=== PATIENT | male | born 1945 | race Caucasian/White ===

== ENCOUNTER 2022-07-16 22:58 | Inpatient (IN) ==
--- NOTE | 2022-07-16 23:20 | Emergency Department Note ---
History of Present Illness General Chief complaint: Chest Pain History of Present Illness 76-year-old male presents emergency department stating for the past few weeks he has had chest tightness and indigestion that radiates to his left shoulder. He has been monitoring it thinking that is possibly his COPD. However today has had 3 episodes of substernal chest pressure that radiated to his left arm with associated nausea and mild diaphoresis. Patient states that on the second episode he took nitroglycerin which completely resolved the pain. It recurred earlier this evening and he called EMS. Patient was given 324 mg of aspirin and nitro prior to arrival. He is currently pain-free. Denies any cough cold congestion symptoms. There are no other mitigating or alleviating factors Home Medications Medication Instructions Recorded Confirmed Type acetaminophen 500 mg tablet 500 mg PO Q6H PRN fever #30 tabs 12/28/20 07/17/22 Rx aspirin 81 mg tablet,delayed 81 mg PO DAILY #30 tabs 12/28/20 07/17/22 Rx release (Enteric Coated Aspirin) melatonin 10 mg capsule 10 mg PO HS PRN sleep #30 caps 12/28/20 07/17/22 Rx omeprazole 20 mg capsule,delayed 20 mg PO DAILY #30 caps 12/28/20 07/17/22 Rx release diabetic supplies, miscellan. #1 ea 12/31/20 04/21/22 History clopidogrel 75 mg tablet 75 mg PO DAILY #90 tabs 08/12/21 07/17/22 Rx benazepril 40 mg tablet 40 mg PO DAILY #90 tabs 11/14/21 07/17/22 Rx fenofibrate nanocrystallized 145 145 mg PO DAILY #90 tabs 01/21/22 07/17/22 Rx mg tablet nitroglycerin 0.4 mg sublingual 0.4 mg sublingual Q5M PRN chest 03/31/22 07/17/22 Rx tablet pain #30 tabs albuterol sulfate 90 mcg/actuation 2 puff inhalation Q6H PRN 04/28/22 07/17/22 Rx aerosol inhaler Shortness Of Breath Or Wheezing #18 grams umeclidinium 62.5 mcg/actuation 1 inh inhalation DAILY #30 ea 05/09/22 07/17/22 Rx blister powder for inhalation (Incruse Ellipta) atorvastatin 40 mg tablet 40 mg PO HS 07/17/22 07/17/22 History azithromycin 250 mg tablet 0 mg PO .COMPLEX 07/17/22 07/17/22 History diphenhydramine HCl 25 mg capsule 25 mg PO DIRECTED PRN Congestion 07/17/22 07/17/22 History (Benadryl) metformin 1,000 mg tablet 1,000 mg PO HS 07/17/22 07/17/22 History prednisone 10 mg tablet 0 mg PO DIRECTED 07/17/22 07/17/22 History Allergies Allergy/AdvReac Type Severity Reaction Status Date / Time No Known Allergies Allergy Verified 07/17/22 00:35 Past Med/Surg History Medical History CAD (coronary artery disease) Carotid artery stenosis COPD (chronic obstructive pulmonary disease) Diabetes Enlarged prostate Glaucoma H/O: lung cancer Hearing loss Hyperlipidemia Hypertension Peripheral arterial disease Surgical History H/O angioplasty L femoral in 2005 and 11/2020, R femoral in 2018 and 10/2019 H/O cataract extraction H/O laminectomy L3/4 in 1990, L4/5 w/ fusion in 1992 H/O right knee surgery H/O umbilical hernia repair H/O vasectomy History of 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 S/P coronary artery stent placement Status post biopsy of skin Family History Brother Lung cancer Father Heart disease Hypertension Mother Cerebral aneurysm Social History Smoking Status: Former smoker Tobacco Type: Cigarettes Age Started Using Tobacco: 19; Age Quit Using Tobacco: 69; packs per day: 1.5; Cigarettes Per Day: 30; Second Hand Exposure: No; Hx Alcohol Use: Yes Alcohol type: beer Alcohol Intake Frequency: Monthly or Less Hx Substance Use: No Preferred Language: Armenian Communication Ability: Effective Visual Impairment: No Limitations Hearing Ability: Normal Career Transition Specialist Required: No marital status: Current Living Situation: Alone current occupational status: retired Feels Safe at Home: Yes Childhood Exposure to Second-Hand Smoke: No Dental Care, Regularly: No Physical Activity Frequency: Daily Seatbelt Use: always Sunscreen Use: Yes Assistive Devices: Glasses Review of Systems A total of 10 systems reviewed and were otherwise negative Cardiovascular: + chest pain Physical Exam Vital Signs Vital Signs - 24 hr 07/16/22 22:49 07/16/22 22:49 07/16/22 22:49 Temperature 36.8 C Temperature Source Oral Pulse Rate 63 Respiratory Rate 18 Respiratory Effort / Characteristics Non-Labored Non-Labored Respiratory Depth Normal Normal Blood Pressure 174/84 H Blood Pressure Mean 114 Pulse Oximetry 96 98 Oxygen Delivery Method Room Air Room Air Sepsis Recent Fever Within 48 Hours No Sepsis New/Unexplained Change in Mental Status No Sepsis Action Taken by Nursing No Action Required GENERAL: Patient is awake alert in no acute distress patient is resting comfortably and showing no signs of anxiety EYES: The conjunctivae are clear. The pupils are round and reactive. EARS, NOSE, MOUTH AND THROAT: The nose is without any evidence of any deformity. Mucous membranes are moist. Tongue is midline. NECK: The neck is nontender and supple. RESPIRATORY: Normal respiratory effort is noted there is no evidence of wheezing rhonchi or rales CARDIOVASCULAR: Regular rate and rhythm noted there no murmurs rubs or gallops normal S1 normal S2. GASTROINTESTINAL: The abdomen is soft. Abdomen is nontender. PELVIS: The Pelvis is stable. No tenderness to palpation is noted. BACK: No midline tenderness or or step-off noted range of motion in flexion extension as well as rotation no signs of muscle spasm noted MUSCULOSKELETAL/EXTREMITIES: There is no evidence of gross deformity full range of motion is noted in the hips and shoulders. SKIN: There is no obvious evidence of any rash. There are no petechiae, pallor or cyanosis noted. NEUROLOGIC: Patient is awake alert and oriented x3 strength is symmetric PSYCH: Normal affect Course Reevaluation(s) Reevaluation #1: Patient is resting in no distress, no current chest pain, patient was started on IV heparin and Nitropaste. Patient will be admitted to the hospital Time: 00:54 Consultations Consultation #1: This case was discussed with the [facility] hospitalist who accepts the patient for admission and agrees with inpatient admission for NSTEMI Time: 00:54 Critical Care Time Critical Care Time: Yes Total Critical Care Time: 40 I have personally spent greater than 40 minutes of critical care time in the direct management of this patient. This includes bedside care, interpretation of diagnostic studies, and testing, discussion with consultants, patient, and family members, and other required patient management activities. These minutes are in excess of all separately billable procedures. Medical Decision Making Medical Records Attestation: I reviewed the patient's medical records. Home Medications Current Medication List: was personally reviewed by me Laboratory Data Attestation: I reviewed the patient's lab results. 07/16/22 23:20 07/16/22 23:20 Lab Results 07/16/22 07/16/22 07/16/22 Range/Units 23:20 23:20 23:20 WBC 6.24 (4.8-10.8) K/ul RBC 4.17 L (4.63-6.08) M/uL Hgb 12.9 L (14.0-18.0) g/dl Hct 38.7 L (40.1-51.0) % MCV 92.8 (80.0-100.0) fL MCH 30.9 (25.0-34.0) pg MCHC 33.3 (32.0-36.0) g/dL RDW Std Deviation 42.0 (36.4-46.3) fL RDW Coeff of Galile[place] 12.3 (11.5-14.5) % Plt Count 243 (130-400) K/uL MPV 9.6 (9.4-12.4) fL Immature Gran % (Auto) 0.8 % Neut % (Auto) 50.0 % Lymph % (Auto) 31.3 % [place] % (Auto) 14.4 % Eos % (Auto) 3.2 % Baso % (Auto) 0.3 % Neut # (Auto) 3.12 (1.4-6.5) K/uL Lymph # (Auto) 1.95 (1.2-3.4) K/uL [place] # (Auto) 0.90 H (0.24-0.82) K/uL Eos # (Auto) 0.20 (0-0.50) K/uL Baso # (Auto) 0.02 (0-0.2) K/uL Immature Gran # (Auto) 0.05 H (0.00-0.02) K/uL PT 10.6 (9.0-12.0) Seconds INR 1.0 (0.9-1.1) APTT 25.6 (21.0-31.0) Seconds PTT Ratio 0.9 Sodium 141 (136-145) mmol/L Potassium 4.3 (3.5-5.1) mmol/L Chloride 108 H (98-107) mmol/L Carbon Dioxide 27 (21-32) mmol/L Anion Gap 6 (3-11) BUN 29 H (6-23) mg/dl Creatinine 1.16 (0.6-1.4) mg/dl Est Cr Clr Drug Dosing 64.0 ml/min Est GFR ( Amer) 70.0 ml/min Est GFR (Non-Af Amer) 60.4 ml/min BUN/Creatinine Ratio 25.0 H (10-20) Glucose 148 H (70-99(Fasting)) mg/dl Calcium 9.7 (8.5-10.1) mg/dl Total Bilirubin 0.3 (0.2-1.0) mg/dl AST 27 (13-39) U/L ALT 27 (7-52) U/L Alkaline Phosphatase 45 (34-104) U/L Troponin I High Sens 121.2 H* (0-20) pg/ml Total Protein 7.3 (6.0-8.3) gm/dl Albumin 4.3 (3.4-5.0) gm/dl Globulin 3.0 (2.5-4.0) gm/dl Albumin/Globulin Ratio 1.4 (0.9-2) Lipase 42 (11-82) U/L SARS-CoV-2, RNA, NAAT (NEGATIVE) 07/16/22 Range/Units 23:50 WBC (4.8-10.8) K/ul RBC (4.63-6.08) M/uL Hgb (14.0-18.0) g/dl Hct (40.1-51.0) % MCV (80.0-100.0) fL MCH (25.0-34.0) pg MCHC (32.0-36.0) g/dL RDW Std Deviation (36.4-46.3) fL RDW Coeff of [place] (11.5-14.5) % Plt Count (130-400) K/uL MPV (9.4-12.4) fL Immature Gran % (Auto) % Neut % (Auto) % Lymph % (Auto) % [place] % (Auto) % Eos % (Auto) % Baso % (Auto) % Neut # (Auto) (1.4-6.5) K/uL Lymph # (Auto) (1.2-3.4) K/uL [place] # (Auto) (0.24-0.82) K/uL Eos # (Auto) (0-0.50) K/uL Baso # (Auto) (0-0.2) K/uL Immature Gran # (Auto) (0.00-0.02) K/uL PT (9.0-12.0) Seconds INR (0.9-1.1) APTT (21.0-31.0) Seconds PTT Ratio Sodium (136-145) mmol/L Potassium (3.5-5.1) mmol/L Chloride (98-107) mmol/L Carbon Dioxide (21-32) mmol/L Anion Gap (3-11) BUN (6-23) mg/dl Creatinine (0.6-1.4) mg/dl Est Cr Clr Drug Dosing ml/min Est GFR ( Amer) ml/min Est GFR (Non-Af Amer) ml/min BUN/Creatinine Ratio (10-20) Glucose (70-99(Fasting)) mg/dl Calcium (8.5-10.1) mg/dl Total Bilirubin (0.2-1.0) mg/dl AST (13-39) U/L ALT (7-52) U/L Alkaline Phosphatase (34-104) U/L Troponin I High Sens (0-20) pg/ml Total Protein (6.0-8.3) gm/dl Albumin (3.4-5.0) gm/dl Globulin (2.5-4.0) gm/dl Albumin/Globulin Ratio (0.9-2) Lipase (11-82) U/L SARS-CoV-2, RNA, NAAT NEGATIVE (NEGATIVE) Imaging Data Attestation: I personally reviewed and interpreted this imaging study as follow s: My Impression: Chest x-ray interpreted by me cardiomegaly calcific aorta no obvious pneumothorax or infiltrate ECG Data Attestation: I personally reviewed and interpreted this ECG as follows: Additional Comments: EKG interpreted by me normal sinus rhythm rate of 65 left ventricular hypertrophy left axis deviation normal intervals patient has T wave inversions in V3 through V6 which in comparison to EKG of April 14, 2022 the T wave inversions are now new. There is no ST segment elevation present MDM Narrative Medical decision making differential diagnosis includes angina, unstable angina, acute WI, acute coronary syndrome, metabolic derangement, musculoskeletal chest pain. I doubt thoracic aortic dissection or pulmonary embolism. Plan is to check labs EKG chest x-ray, patient has received aspirin prior to arrival, admit Nursing notes have been reviewed and appreciated External medical records regarding this patient's presentation in the past in March for COPD and his EKG were reviewed by me Patient is high risk for a life-threatening event Patient will be admitted for NSTEMI Patient was started on heparin And aspirin has been given by EMS prior to arrival Patient was started on nitroglycerin paste Patient is at high risk for life-threatening event Impression & Plan Acute non-ST elevation myocardial infarction (NSTEMI) Discharge Plan Visit Data Chief Complaint: Chest Pain ED Provider: Paras Clayton Discharge Problem: Acute non-ST elevation myocardial infarction (NSTEMI) Patient Disposition: Admitted As Inpatient Forms Stand Alone Forms: [facility] Prescriptions Prescriptions: No Action omeprazole 20 mg capsule,delayed release(DR/EC) 20 mg PO DAILY Qty: 30 2RF melatonin 10 mg capsule 10 mg PO HS PRN (Reason: sleep) Qty: 30 0RF acetaminophen 500 mg tablet 500 mg PO Q6H PRN (Reason: fever) Qty: 30 0RF Rx Instructions: PER PT "USUALLY TAKE 1000 MG AT HS". aspirin [Enteric Coated Aspirin] 81 mg tablet,delayed release (DR/EC) 81 mg PO DAILY Qty: 30 2RF benazepril 40 mg tablet 40 mg PO DAILY Qty: 90 3RF Incruse Ellipta 62.5 mcg/actuation blister with device 1 inh inhalation DAILY Qty: 30 2RF fenofibrate nanocrystallized 145 mg tablet 145 mg PO DAILY Qty: 90 1RF (DME) diabetic supplies, miscellan. Misc See Rx Instructions .ROUTE .MEDSUPPLY Qty: 1 Rx Instructions: ONE TOUCH ULTRA- TESTS PRN clopidogrel 75 mg tablet 75 mg PO DAILY Qty: 90 3RF nitroglycerin 0.4 mg tablet, sublingual 0.4 mg sublingual Q5M PRN (Reason: chest pain) Qty: 30 0RF Rx Instructions: do not exceed 3 doses per episode albuterol sulfate 90 mcg/actuation HFA aerosol inhaler 2 puff inhalation Q6H PRN (Reason: Shortness Of Breath Or Wheezing) Qty: 18 3RF Rx Instructions: PER PT "USUALLY USE 2 PUFFS AT HS". diphenhydramine HCl [Benadryl] 25 mg Capsule 25 mg PO DIRECTED PRN (Reason: Congestion) atorvastatin 40 mg tablet 40 mg PO HS metformin 1,000 mg tablet 1,000 mg PO HS prednisone 10 mg Tablet 0 mg PO DIRECTED Rx Instructions: ON PT'S MED LIST, UNABLE TO VERIFY ON EXT MED HX. azithromycin 250 mg Tablet 0 mg PO .COMPLEX Rx Instructions: ON PT'S MED LIST, UNABLE TO VERIFY ON EXT MED HX. For 250 mg dose pack: take 500 mg today (day 1), then 250 mg for 4 days (days 2-5) Referrals Referrals: Talon Burns DO [Primary Care Provider] - Risk - HEART Scoring HEART Score for Major Cardiac Events History: Highly Suspicious EKG: Non-Specific Repolarization Disturbance Age: > 64 Years of Age Risk Factors: >2 Risk Factors Initial Troponin: 1-3x Normal Limit Total Points: 8 Risk Level: High Risk for Major Adverse Cardiac Event HEART Score Interpretation: Score interpretation (as per derivation study): HEART Adverse Cardiac Score Event Risk Management 0-3 0.9-1.7% In the HEART Score study, these patients were discharged. 4-6 12-16.6% In the HEART Score study, these patients were admitted to the hospital. 7-10 50-65% In the HEART Score study, these patients were candidates for early invasive measurements. Original Source: 1. Syed AJ, Kristina BE, Quinton AMARO. Chest pain in the emergency room: value of the HEART score. [facility]. 2008; 16(6):191-6.
[2022-07-16 23:40] LABS: Basophils # (auto) 0.02 K/uL (0-0.2); Basophils % (auto) 0.3 %; Eosinophils % (auto) 3.2 %; Hematocrit (blood only) 38.7 % (40.1-51.0); Hemoglobin 12.9 g/dl (14.0-18.0); Immature Granulocytes # (auto) 0.05 K/uL (0.00-0.02); Immature Granulocytes % (auto) 0.8 %; Lymphocytes # (auto) 1.95 K/uL (1.2-3.4); Lymphocytes % (auto) 31.3 %; Mean Corpuscular Hemoglobin 30.9 pg (25.0-34.0); Mean Corpuscular Hgb Conc 33.3 g/dL (32.0-36.0); Mean Corpuscular Volume 92.8 fL (80.0-100.0); Mean Platelet Volume 9.6 fL (9.4-12.4); Monocytes % (auto) 14.4 %; Neutrophils # (auto) 3.12 K/uL (1.4-6.5); Platelet Count 243 K/uL (130-400); RDW Coefficient of Variation 12.3 % (11.5-14.5); Red Blood Count 4.17 M/uL (4.63-6.08); White Blood Count 6.24 K/ul (4.8-10.8)
[2022-07-16 23:53] LABS: Partial Thromboplastin Ratio 0.9; Partial Thromboplastin Time 25.6 Seconds (21.0-31.0); Prothrombin Time 10.6 Seconds (9.0-12.0)
[2022-07-17 00:05] LABS: Albumin Globulin Ratio 1.4 (0.9-2); Albumin Level 4.3 gm/dl (3.4-5.0); Bilirubin,Total 0.3 mg/dl (0.2-1.0); Calcium 9.7 mg/dl (8.5-10.1); Est GFR (Non-African American) 60.4 ml/min; Potassium 4.3 mmol/L (3.5-5.1); Total Protein 7.3 gm/dl (6.0-8.3)
[2022-07-17] MEDS ORDERED: Heparin IV Adult Wt-Based Standard WITH Bolus Protocol IV STA (00:22)
[2022-07-17 00:23] LABS: Troponin I High Sensitivity 121.2 pg/ml (0-20)
[2022-07-17] MEDS ORDERED: HEPARIN SOD (PORCINE) 1000 UNIT/ML IV ONE ×2 (00:37→01:15)
[2022-07-17] MEDS ORDERED: NITROGLYCERIN 2% OINTMENT 30GM TUBE EXT SCH (00:45)
[2022-07-17] MEDS: HEPARIN SODIUM/DEXTROSE 25,000 UNITS/500 ML BAG IV SCH ×3 (01:15→19:26)
[2022-07-17] MEDS ORDERED: ATORVASTATIN 40 MG TAB PO ONE (01:15)
--- NOTE | 2022-07-17 03:00 | History & Physical Report ---
Date of Service July 17, 2022 Assessment & Plan (1) Acute non-ST elevation myocardial infarction (NSTEMI): (2) History of lung cancer: (3) COPD (chronic obstructive pulmonary disease): (4) CAD (coronary artery disease): (5) Carotid artery stenosis: (6) Peripheral arterial disease: (7) Hyperlipidemia: (8) Hypertension: (9) Diabetes: (10) Acid reflux disease: (11) H/O right coronary artery stent placement: Plan History of right coronary artery stent placement/acute NSTEMI/bradycardia with near syncope/elevated troponin/CAD/hypertension- The patient will be admitted to telemetry for serial cardiac enzymes, serial EKG's, cardiac rhythm monitoring and a 2-D echocardiogram with Dopplers. Continue heparin drip begun in the ED Continue Nitropaste 1 inch anterior chest wall every 6 hours Continue pacer pads and have atropine 0.5 mg IV at bedside Continue aspirin 81 mg daily, benazepril/lisinopril 40 mg daily, clopidogrel 75 mg daily. Patient did receive aspirin 324 mg in route to the hospital Consult his safekeeping clerk Dr. Bender Hyperlipidemia- Increase atorvastatin from 40 to 80 mg and give first dose this evening, and continue fenofibrate 145 mg daily Check a fasting lipid panel Diabetes mellitus- Hold metformin Placed on Accu-Cheks before meals and at bedtime with NovoLog coverage per scale COPD- Continue DuoNebs every 2 hours as needed Insomnia- Continue melatonin 10 mg p.o. at bedtime as needed History of Present Illness Chief Complaint: The patient presents to the emergency department with complaint of a few weeks of chest tightness and discomfort, that radiated toward his left shoulder and left arm. He has some intermittent indigestion as well. Today he had 3 episodes of worsening chest pressure, associated with nausea and diaphoresis, with each episode responding to sublingual nitroglycerin. With the third episode, he called emergency services, who gave him 325 mg of aspirin and nitro prior to arrival to the ED. Upon arrival to the ED he was pain-free. Primary Care Provider: Talon Burns DO The patient is a 76-year-old male with past medical history including CAD, COPD, glaucoma, GERD, diabetes mellitus, hypertension, hyperlipidemia, enlarged prostate, status post RCA PCI, PAD, and carotid artery stenosis. He presents with symptoms as noted above. The patient's troponin was elevated at 121.2. EKG noted significant new T wave inversions in leads V3 through V6 in particular, and less so in leads II, III and aVF. The patient was started on heparin drip while in ED, and had the addition of Nitropaste 1 inch to the anterior chest wall as well. The patient did have an episode prior to transfer where he became lightheaded, felt near syncopal, and heart rate decreased down to the 20s, but then spontaneously recovered. At this point, he had pacer pads placed and was transported to stepdown unit. Allergies Allergy/AdvReac Type Severity Reaction Status Date / Time No Known Allergies Allergy Verified 07/17/22 00:35 Home Medications Medication Instructions Recorded Confirmed Type acetaminophen 500 mg tablet 500 mg PO Q6H PRN fever #30 tabs 12/28/20 07/17/22 Rx aspirin 81 mg tablet,delayed 81 mg PO DAILY #30 tabs 12/28/20 07/17/22 Rx release (Enteric Coated Aspirin) melatonin 10 mg capsule 10 mg PO HS PRN sleep #30 caps 12/28/20 07/17/22 Rx omeprazole 20 mg capsule,delayed 20 mg PO DAILY #30 caps 12/28/20 07/17/22 Rx release diabetic supplies, miscellan. #1 ea 12/31/20 04/21/22 History clopidogrel 75 mg tablet 75 mg PO DAILY #90 tabs 08/12/21 07/17/22 Rx benazepril 40 mg tablet 40 mg PO DAILY #90 tabs 11/14/21 07/17/22 Rx fenofibrate nanocrystallized 145 145 mg PO DAILY #90 tabs 01/21/22 07/17/22 Rx mg tablet nitroglycerin 0.4 mg sublingual 0.4 mg sublingual Q5M PRN chest 03/31/22 07/17/22 Rx tablet pain #30 tabs albuterol sulfate 90 mcg/actuation 2 puff inhalation Q6H PRN 04/28/22 07/17/22 Rx aerosol inhaler Shortness Of Breath Or Wheezing #18 grams umeclidinium 62.5 mcg/actuation 1 inh inhalation DAILY #30 ea 05/09/22 07/17/22 Rx blister powder for inhalation (Incruse Ellipta) atorvastatin 40 mg tablet 40 mg PO HS 07/17/22 07/17/22 History azithromycin 250 mg tablet 0 mg PO .COMPLEX 07/17/22 07/17/22 History diphenhydramine HCl 25 mg capsule 25 mg PO DIRECTED PRN Congestion 07/17/22 07/17/22 History (Benadryl) metformin 1,000 mg tablet 1,000 mg PO HS 07/17/22 07/17/22 History prednisone 10 mg tablet 0 mg PO DIRECTED 07/17/22 07/17/22 History Past Med/Surg History Medical History (Updated 07/17/22 @ 00:25 by Paras Clayton DO) CAD (coronary artery disease) Carotid artery stenosis COPD (chronic obstructive pulmonary disease) Diabetes Enlarged prostate Glaucoma H/O: lung cancer Hearing loss Hyperlipidemia Hypertension Peripheral arterial disease Surgical History (Updated 07/17/22 @ 04:52 by Edward Bui MD) H/O angioplasty L femoral in 2005 and 11/2020, R femoral in 2018 and 10/2019 H/O cataract extraction H/O laminectomy L3/4 in 1990, L4/5 w/ fusion in 1992 H/O right coronary artery stent placement H/O right knee surgery H/O umbilical hernia repair H/O vasectomy History of 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 S/P coronary artery stent placement Status post biopsy of skin Family History Brother Lung cancer Father Heart disease Hypertension Mother Cerebral aneurysm Social History Smoking Status: Former smoker Tobacco Type: Cigarettes Age Started Using Tobacco: 19; Age Quit Using Tobacco: 69; packs per day: 1.5; Cigarettes Per Day: 30; Second Hand Exposure: No; Do You Dip or Chew Tobacco: No; Hx Alcohol Use: Yes Alcohol type: beer Alcohol Intake Frequency: Monthly or Less Hx Substance Use: No Preferred Language: Somali Communication Ability: Effective Visual Impairment: No Limitations Hearing Ability: Normal 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 Required: No Beliefs That Will Affect Care: None marital status: Current Living Situation: Family current occupational status: retired Feels Safe at Home: Yes Safety Concerns: Feels Safe At This Time Childhood Exposure to Second-Hand Smoke: No Dental Care, Regularly: No Physical Activity Frequency: Daily Seatbelt Use: always Sunscreen Use: Yes Assistive Devices: Denture - Upper, Denture - Lower and Glasses Review of Systems Review of Systems: The patient denies palpitations, cough, lower extremity swelling, sore throat, fevers, chills, sweats, nausea, vomiting, diarrhea , constipation, abdominal pain, pelvic pain, blood in urine or stool, dysuria, urinary frequency or urgency, memory loss, loss of consciousness, rash, abnormal bruising or bleeding, imbalance, focal or generalized weakness, numbness or tingling in right arm or bilateral legs, generalized arthralgias or myalgias, back pain, or night sweats. The review of systems is otherwise negative other than for that already noted above, and at least 10 systems have been reviewed. Physical Exam Physical Exam: The patient is awake, alert and oriented 3, well developed and well nourished, normocephalic and atraumatic, lying in bed and in no acute distress. HEENT--PERRL, EOMI, mucous membranes and oropharynx dry. Neck--supple. No JVD. No bruits. Thyroid normal, trachea midline, no adenopathy. Heart--normal S1 and S2. No murmurs, rubs or gallops. Lungs--clear bilaterally, no respiratory distress, no accessory muscle use. Abdomen--normal bowel sounds and soft. Nontender. Nondistended, no hernias or masses, no organomegaly. Extremities--no cyanosis or clubbing. No edema. There are good distal pulses b/l. Dermatologic--normal skin turgor, normal color, no abnormal lymph nodes, no rash. Neurologic--cranial nerves II through XII grossly intact. Rheumatologic--normal range of motion. Psychiatric--normal affect. Results & Data Results & Data ([facility]) Vital Signs (Past 12 Hours) Vital Signs Temp Pulse Resp BP BP Pulse Ox O2 Del Method 07/17/22 02:30 65 14 92 07/17/22 02:30 139/65 07/17/22 02:20 63 24 95 07/17/22 02:10 64 16 94 07/17/22 02:02 65 16 94 07/17/22 02:02 138/71 07/17/22 02:00 65 15 94 07/17/22 01:50 65 17 95 07/17/22 01:40 62 15 95 07/17/22 01:30 65 18 95 07/17/22 01:20 66 15 96 07/17/22 01:13 63 19 97 07/17/22 01:13 155/74 H 07/17/22 01:10 64 17 96 07/17/22 01:01 67 16 98 07/17/22 01:01 156/77 H 07/17/22 01:00 64 24 99 07/17/22 00:50 71 24 98 07/17/22 00:40 63 15 98 07/17/22 00:30 62 21 98 07/17/22 00:20 64 16 98 07/17/22 00:10 63 17 98 07/17/22 00:00 65 18 97 07/16/22 23:50 62 18 97 07/16/22 23:40 62 21 98 07/16/22 23:30 66 18 98 07/16/22 23:20 73 20 98 07/16/22 23:10 68 17 98 07/16/22 23:06 174/85 H 07/16/22 23:06 69 22 98 07/16/22 23:05 71 15 96 07/17/22 01:00 63 18 98 Room Air 07/17/22 00:49 155/76 H 98 Room Air 07/16/22 22:49 98 Room Air 07/16/22 22:49 36.8 C 63 18 174/84 H 96 Room Air Laboratory Results Laboratory Results WBC 6.68 K/ul (4.8-10.8) 07/17/22 04:09 RBC 3.76 M/uL (4.63-6.08) L 07/17/22 04:09 Hgb 11.6 g/dl (14.0-18.0) L 07/17/22 04:09 Hct 34.3 % (40.1-51.0) L 07/17/22 04:09 MCV 91.2 fL (80.0-100.0) 07/17/22 04:09 MCH 30.9 pg (25.0-34.0) 07/17/22 04:09 MCHC 33.8 g/dL (32.0-36.0) 07/17/22 04:09 RDW Std Deviation 40.8 fL (36.4-46.3) 07/17/22 04:09 RDW Coeff of Galilea 12.3 % (11.5-14.5) 07/17/22 04:09 Plt Count 205 K/uL (130-400) 07/17/22 04:09 MPV 9.6 fL (9.4-12.4) 07/17/22 04:09 Immature Gran % (Auto) 0.4 % 07/17/22 04:09 Neut % (Auto) 44.7 % 07/17/22 04:09 Lymph % (Auto) 37.3 % 07/17/22 04:09 Charles % (Auto) 13.6 % 07/17/22 04:09 Eos % (Auto) 3.7 % 07/17/22 04:09 Baso % (Auto) 0.3 % 07/17/22 04:09 Neut # (Auto) 2.98 K/uL (1.4-6.5) 07/17/22 04:09 Lymph # (Auto) 2.49 K/uL (1.2-3.4) 07/17/22 04:09 Charles # (Auto) 0.91 K/uL (0.24-0.82) H 07/17/22 04:09 Eos # (Auto) 0.25 K/uL (0-0.50) 07/17/22 04:09 Baso # (Auto) 0.02 K/uL (0-0.2) 07/17/22 04:09 Immature Gran # (Auto) 0.03 K/uL (0.00-0.02) H 07/17/22 04:09 PT 10.9 Seconds (9.0-12.0) 07/17/22 04:09 INR 1.0 (0.9-1.1) 07/17/22 04:09 APTT 25.6 Seconds (21.0-31.0) 07/16/22 23:20 PTT Ratio 0.9 07/16/22 23:20 Sodium 141 mmol/L (136-145) 07/17/22 04:09 Potassium 4.0 mmol/L (3.5-5.1) 07/17/22 04:09 Chloride 109 mmol/L (98-107) H 07/17/22 04:09 Carbon Dioxide 23 mmol/L (21-32) 07/17/22 04:09 Anion Gap 9 (3-11) 07/17/22 04:09 BUN 29 mg/dl (6-23) H 07/17/22 04:09 Creatinine 1.19 mg/dl (0.6-1.4) 07/17/22 04:09 Est Cr Clr Drug Dosing 60.2 ml/min 07/17/22 04:09 Est GFR ( Amer) 67.9 ml/min 07/17/22 04:09 Est GFR (Non-Af Amer) 58.6 ml/min 07/17/22 04:09 BUN/Creatinine Ratio 24.4 (10-20) H 07/17/22 04:09 Glucose 121 mg/dl (70-99(Fasting)) H 07/17/22 04:09 Calcium 8.9 mg/dl (8.5-10.1) 07/17/22 04:09 Total Bilirubin 0.3 mg/dl (0.2-1.0) 07/17/22 04:09 AST 24 U/L (13-39) 07/17/22 04:09 ALT 23 U/L (7-52) 07/17/22 04:09 Alkaline Phosphatase 32 U/L (34-104) L 07/17/22 04:09 Troponin I High Sens 149.3 pg/ml (0-20) H* D 07/17/22 01:19 Total Protein 6.2 gm/dl (6.0-8.3) 07/17/22 04:09 Albumin 3.7 gm/dl (3.4-5.0) 07/17/22 04:09 Globulin 2.5 gm/dl (2.5-4.0) 07/17/22 04:09 Albumin/Globulin Ratio 1.5 (0.9-2) 07/17/22 04:09 Triglycerides 156 mg/dl (0-150) H 07/17/22 04:09 Cholesterol 103 mg/dl (0-200) 07/17/22 04:09 LDL Cholesterol, Calc 38 mg/dl 07/17/22 04:09 VLDL Cholesterol, Calc 31 mg/dl (0-30) H 07/17/22 04:09 HDL Cholesterol 34 mg/dl 07/17/22 04:09 Cholesterol/HDL Ratio 3.0 (0-5) 07/17/22 04:09 Lipase 42 U/L (11-82) 07/16/22 23:20 SARS-CoV-2, RNA, NAAT NEGATIVE (NEGATIVE) 07/16/22 23:50 Code Status & VTE Plan Code Status Full code VTE Prophylaxis Plan VTE Prophylaxis will be ordered: Yes PG Care Time/CCT Total # of Minutes Spent Total Time Spent with Patient: Total time spent is greater than 50% in coordination of care (as documented) at patient's floor/unit and/or counseling patient: Coding Level of Care Code 03236 INT INP/OBS CARE 3/75MIN Diagnoses Acute non-ST elevation myocardial infarction (NSTEMI) I21.4 History of lung cancer Z85.118 COPD (chronic obstructive pulmonary disease) J44.9 CAD (coronary artery disease) I25.10 Carotid artery stenosis I65.29 Peripheral arterial disease I73.9 Hyperlipidemia E78.5 Hypertension I10 Diabetes E11.9 Acid reflux disease K21.9 H/O right coronary artery stent placement Z95.5
[2022-07-17] MEDS ORDERED: GLUCOSE 10 TAB/TUBE PO PRN (03:43)
[2022-07-17] MEDS ORDERED: ACETAMINOPHEN 325 MG TAB PO PRN (03:43)
[2022-07-17] MEDS ORDERED: DEXTROSE 50% 50 ML SYRINGE IV PRN (03:43)
[2022-07-17] MEDS ORDERED: GLUCOSE 40% GEL 15 GM TUBE PO PRN (03:43)
[2022-07-17] MEDS ORDERED: CARBOHYDRATES FOR HYPOGLYCEMIA PO PRN (03:43)
[2022-07-17] MEDS ORDERED: ONDANSETRON INJ 2 MG/ML 2 ML VIAL IV PRN (03:43)
[2022-07-17] MEDS ORDERED: GLUCAGON FOR INJ 1 MG VIAL SQ PRN (03:43)
[2022-07-17] MEDS ORDERED: MELATONIN 3 MG TAB PO PRN (03:43)
[2022-07-17] MEDS ORDERED: ALBUTEROL HFA 8 GM INHALER INH PRN (03:43)
[2022-07-17] MEDS ORDERED: ALBUT/IPRATROP 3MG/0.5MG NEB 3 ML VIAL NEB PRN (03:43)
[2022-07-17] MEDS ORDERED: MoRPHine SULFATE 2 MG/ML CARP IV PRN (03:43)
[2022-07-17 04:18] LABS: Basophils # (auto) 0.02 K/uL (0-0.2); Basophils % (auto) 0.3 %; Eosinophils # (auto) 0.25 K/uL (0-0.50); Eosinophils % (auto) 3.7 %; Hematocrit (blood only) 34.3 % (40.1-51.0); Hemoglobin 11.6 g/dl (14.0-18.0); Immature Granulocytes # (auto) 0.03 K/uL (0.00-0.02); Immature Granulocytes % (auto) 0.4 %; Lymphocytes # (auto) 2.49 K/uL (1.2-3.4); Lymphocytes % (auto) 37.3 %; Mean Corpuscular Hemoglobin 30.9 pg (25.0-34.0); Mean Corpuscular Hgb Conc 33.8 g/dL (32.0-36.0); Mean Corpuscular Volume 91.2 fL (80.0-100.0); Mean Platelet Volume 9.6 fL (9.4-12.4); Monocytes # (auto) 0.91 K/uL (0.24-0.82); Monocytes % (auto) 13.6 %; Neutrophils # (auto) 2.98 K/uL (1.4-6.5); Neutrophils % (auto) 44.7 %; Platelet Count 205 K/uL (130-400); RDW Coefficient of Variation 12.3 % (11.5-14.5); RDW Standard Deviation 40.8 fL (36.4-46.3); Red Blood Count 3.76 M/uL (4.63-6.08); White Blood Count 6.68 K/ul (4.8-10.8)
[2022-07-17] MEDS ORDERED: ATROPINE SULFATE 0.1 MG/ML 10ML SYR IV STA (04:20)
[2022-07-17 04:28] LABS: Prothrombin Time 10.9 Seconds (9.0-12.0)
[2022-07-17 04:32] LABS: Albumin Level 3.7 gm/dl (3.4-5.0); Bilirubin,Total 0.3 mg/dl (0.2-1.0); Calcium 8.9 mg/dl (8.5-10.1)
[2022-07-17 04:38] LABS: Albumin Globulin Ratio 1.5 (0.9-2); BUN Creatinine Ratio 24.4 (10-20); Creatinine Clr Calc Pharmacy 60.2 ml/min; Est GFR (African American) 67.9 ml/min; Est GFR (Non-African American) 58.6 ml/min; Globulin 2.5 gm/dl (2.5-4.0); Total Protein 6.2 gm/dl (6.0-8.3)
[2022-07-17] MEDS: INSULIN ASPART PER UNIT SC SCH ×2 (05:36→13:08)
[2022-07-17] MEDS: NSS + 20MEQ KCL 20 MEQ/1,000 ML BAG IV SCH ×2 (05:36→18:06)
[2022-07-17] MEDS: NITROGLYCERIN 2% OINTMENT 30GM TUBE EXT SCH ×3 (05:52→18:11)
[2022-07-17 06:23] LABS: Estimated Average Glucose 166 mg/dl; Hemoglobin A1C 7.4 % (4.5-5.6)
[2022-07-17 08:13] LABS: Partial Thromboplastin Ratio 2.2
[2022-07-17 08:20] LABS: Partial Thromboplastin Time 60.4 Seconds (21.0-31.0)
--- NOTE | 2022-07-17 08:21 | XRay Report ---
SINGLE VIEW CHEST CLINICAL HISTORY: Atypical chest pain FINDINGS: 2 AP, portable, upright chest radiographs are compared to study dated 04/14/2022 and correl ated with chest CT dated 04/23/2022. The examination is degraded by portable technique and apical lucinda dotic positioning. The heart is enlarged noting atherosclerotic calcification of the thoracic aorta. The pulmonary vasculature is noncongestive. Emphysema and chronic interstitial thickening is similar to previous. Enlargement of the central pulmonary vessels suggests pulmonary hypertension. Foci of pa renchymal scarring are seen throughout both lungs. No airspace consolidation or large pleural effusio n is identified. No pneumothorax is seen. The skeletal structures are osteopenic. The bony thorax is grossly intact. IMPRESSION: Cardiomegaly and emphysema with no acute cardiopulmonary abnormality identified. ACT 112: Negative or not required by law. Electronically signed by: Malvin Corbett M.D. 07/17/2022 8:19 AM
[2022-07-17] MEDS ORDERED: ENALAPRIL MALEATE 10 MG TAB PO SCH (09:00)
[2022-07-17] MEDS ORDERED: ASPIRIN 81 MG ECTAB PO SCH (09:00)
[2022-07-17] MEDS ORDERED: FENOFIBRATE NANOCRYSTALLIZED 145 MG TABLET PO SCH (09:00)
[2022-07-17] MEDS ORDERED: CLOPIDOGREL BISULFATE 75 MG TAB PO SCH (09:00)
[2022-07-17] MEDS ORDERED: UMECLIDINIUM BROMIDE 62.5MCG/BLISTER 7 PUFFS/INHALER INH SCH (09:00)
[2022-07-17] MEDS ORDERED: PANTOprazole 40 MG TAB PO SCH (09:00)
[2022-07-17] MEDS ORDERED: COUGH DROP (SUGAR FREE) LOZ 24 LOZ/1 BOX BUCCAL ONE (09:31)
[2022-07-17] MEDS ORDERED: HEPARIN (PORCINE) 1000 UNIT/ML 10 ML (CATH LAB USE ONLY) ONE (10:38)
[2022-07-17] MEDS ORDERED: niCARdipine HCL INJ 2.5 MG/ML 10 ML AMP ONE (10:38)
[2022-07-17] MEDS ORDERED: MIDAZOLAM HCL 1 MG/ML 2ML VIAL ONE (10:38)
[2022-07-17] MEDS ORDERED: fentaNYL citrate 100 MCG/2 ML VIAL ONE (10:38)
[2022-07-17] MEDS ORDERED: NITROGLYCERIN/D5W 100MCG/ML 20ML SYR ONE (10:39)
--- NOTE | 2022-07-17 10:41 | Pre Anesthesia Assessment ---
Date of Service July 17, 2022 Pre Sedation Assessment Vital Signs Temp Pulse Pulse Resp BP BP Pulse Ox 07/17/22 10:24 57 L 16 126/72 95 07/17/22 10:28 57 L 16 126/72 95 07/17/22 06:00 67 07/17/22 07:45 36.6 C 73 16 129/57 L 93 07/17/22 05:52 111/61 07/17/22 03:43 36.7 C 71 18 164/72 H 97 07/17/22 05:03 67 07/17/22 03:40 07/17/22 03:40 62 18 130/64 98 07/17/22 03:40 36.7 C 71 22 164/72 H 97 07/17/22 02:30 65 14 92 07/17/22 02:30 139/65 07/17/22 02:20 63 24 95 07/17/22 02:10 64 16 94 07/17/22 02:02 65 16 94 07/17/22 02:02 138/71 07/17/22 02:00 65 15 94 07/17/22 01:50 65 17 95 07/17/22 01:40 62 15 95 07/17/22 01:30 65 18 95 07/17/22 01:20 66 15 96 07/17/22 01:13 63 19 97 07/17/22 01:13 155/74 H 07/17/22 01:10 64 17 96 07/17/22 01:01 67 16 98 07/17/22 01:01 156/77 H 07/17/22 01:00 64 24 99 07/17/22 00:50 71 24 98 07/17/22 00:40 63 15 98 07/17/22 00:30 62 21 98 07/17/22 00:20 64 16 98 07/17/22 00:10 63 17 98 07/17/22 00:00 65 18 97 07/16/22 23:50 62 18 97 07/16/22 23:40 62 21 98 07/16/22 23:30 66 18 98 07/16/22 23:20 73 20 98 07/16/22 23:10 68 17 98 07/16/22 23:06 174/85 H 07/16/22 23:06 69 22 98 07/16/22 23:05 71 15 96 07/17/22 01:00 63 18 98 07/17/22 00:49 155/76 H 98 07/16/22 22:49 98 07/16/22 22:49 36.8 C 63 18 174/84 H 96 O2 Del Method 07/17/22 10:24 Room Air 07/17/22 10:28 Room Air 07/17/22 06:00 07/17/22 07:45 Room Air 07/17/22 05:52 07/17/22 03:43 Room Air 07/17/22 05:03 07/17/22 03:40 Room Air 07/17/22 03:40 Room Air 07/17/22 03:40 Room Air 07/17/22 02:30 07/17/22 02:30 07/17/22 02:20 07/17/22 02:10 07/17/22 02:02 07/17/22 02:02 07/17/22 02:00 07/17/22 01:50 07/17/22 01:40 07/17/22 01:30 07/17/22 01:20 07/17/22 01:13 07/17/22 01:13 07/17/22 01:10 07/17/22 01:01 07/17/22 01:01 07/17/22 01:00 07/17/22 00:50 07/17/22 00:40 07/17/22 00:30 07/17/22 00:20 07/17/22 00:10 07/17/22 00:00 07/16/22 23:50 07/16/22 23:40 07/16/22 23:30 07/16/22 23:20 07/16/22 23:10 07/16/22 23:06 07/16/22 23:06 07/16/22 23:05 07/17/22 01:00 Room Air 07/17/22 00:49 Room Air 07/16/22 22:49 Room Air 07/16/22 22:49 Room Air Cardiovascular + bradycardic Respiratory + clear to auscultation bilaterally and + diminished lung sounds Pre-Sedation Airway Assessment Smoking Status: Former smoker Short, Thick Neck: Yes Thyromental Distance: > or= 3.5 Finger Breadths Oral Cavity: + WNL Mallampati Class: II ASA: ASA3 NPO Status Date of Last Intake of Fluids: 07/17/22 Time of Last Intake of Fluids: 09:00 Last Oral Intake of Fluids Comment: sips of water for pills Date of Last Intake of Solid Food: 07/16/22 Time of Last Intake of Solid Foods: 18:30 Procedure Planning Contraindications for Sedation: none Current Medications Reviewed: Yes Notes The planned sedation has been discussed with the patient. Informed Consent was obtained. I have identified the patient, determined the appropriateness of sedation and have assessed the patient immediately prior to the procedure. All medicine(s) and interventions are by my order.
--- NOTE | 2022-07-17 10:48 | Cardiology Consultation ---
Date of Consultation July 17, 2022 Assessment & Plan (1) Acute non-ST elevation myocardial infarction (NSTEMI): (2) CAD (coronary artery disease): (3) H/O right coronary artery stent placement: (4) Hypertension: (5) Hyperlipidemia: (6) Peripheral arterial disease: Plan ASSESSMENT/PLAN: 1. NSTEMI/Unstable angina: Worsening angina as an outpatient and now with elevated troponin. Anterior T wave inversions which are new. Continue heparin drip. Continue dual antiplatelet therapy. Chest pain-free at the time of our visit. Recommended cardiac catheterization. Risk and benefits were discussed with him in detail. He was made aware that CT surgery was not available at this facility. He was agreeable to proceed for cardiac catheterization. 2. CAD s/p prior RCA PCI: Plan as above. Continue antiplatelet therapy. Has not tolerated beta-chris in the past. Continue FABIANA inhibitor and high intensity statin therapy. 3. Hypertension: Blood pressure has been normotensive to hypertensive at times. Continue current regimen as blood pressure has improved. 4. Dyslipidemia: Continue high intensity statin therapy. LDL is excellent. 5. PAD s/p angioplasty: Follows with Dr. Nye. Has had chronic bilateral lower extremity claudication. 6. Disposition: Cardiology will continue to follow. Addendum: Cardiac catheterization was performed, demonstrating severe multivessel CAD involving the left main, ostial LAD and ostial circumflex vessels. Recommend tr sherry to [facility] surgery capable [facility] for evaluation for CABG. Findings were discussed with Mr. Valderrama. Continue heparin drip. Continue nitroglycerin paste. He would like to go to [facility] per his request. Plan of care communicated with primary hospitalist, Dr. Cardenas. Highly complex medical issues. Thank you for allowing me to participate in the care of your patient. Please ca ll for any other questions or concerns. Sincerely, Sven Bender M.D. History of Present Illness Reason for Consultation: NSTEMI Requesting Physician: Edward Bui Attending Physician: Howard Cardenas MD History of Present Illness Mr. Valderrama is a very pleasant 76-year-old gentleman with a history significant for CAD s/p PCI, PAD s/p bilateral LE angioplasty, carotid artery stenosis, type 2 diabetes, hypertension, dyslipidemia, and COPD. He has undergone left upper lobectomy for stage IA lung cancer in 2016. He did not require chemotherapy or XRT. In May 2015, he developed a left-sided sharp chest discomfort with left arm radiation. He went to the hospital via EMS and had slight elevation in his cardiac enzymes, prompting cardiac catheterization and PCI x2. He had bilateral lower extremity claudication and underwent bilateral lower extremity angioplasty. He reports undergoing left lower extremity angioplasty in approximately 2009, right angioplasty in , and then redo angioplasty in September/ October of 2020 at [facility]. He has had the following studies/procedures: 1. Left femoral angioplasty 2005 [place]. 2. Cardiac catheterization May 2015 [place]: PCI of mid RCA and ostial to proximal RCA. Mild to moderate luminal irregularities of LAD and circumflex. 3. Right SFA balloon angioplasty 10/30/2020 in [place]. 4. Echo 01/28/2021 [facility]: Normal LV size, wall motion, systolic function. EF 60-65%. Sclerotic aortic valve. 5. Lower extremity arterial duplex 03/07/2021 [place]: No significant stenosis right lower extremity. Right CAROLEE 0.49. Left lower extremity with slightly elevated velocities suggestive of 50-75% stenosis. Left CAROLEE 0.89. 6. Carotid duplex 03/07/2021 [place]: Left ICA 50-79%. Right ICA 50-70%. Patent bilateral vertebral arteries. He was admitted on 07/17/2022 after presenting with chest discomfort. He had been experiencing dyspnea with exertion for quite some time, over the past few months which he attributed to COPD. Then for the past few weeks, he has noted a substernal chest discomfort with radiation to his left arm. It always occurs with exertion and typically would resolve within 15 minutes of rest. Symptoms have progressively worsened. Yesterday, he woke up and when fixing breakfast, he had severe chest discomfort that lasted for approximately 30 minutes. He had recurrent episodes at his home, walking only 15 feet. He took nitroglycerin on a few occasions with resolution of the chest discomfort. In the emergency room, he had an ECG which demonstrated anterior T wave inversion, which was new, otherwise sinus rhythm. His troponin was initially elevated at 121 and increased to a peak of 160 before trending downward this morning. He has not had any further chest discomfort while hospitalized. He did have an episode of near syncope however. His heart rate transiently decreased at approximately 2:42 AM with a 3-second pause and a 2.8-second pause. The rhythm was sinus. According to records, this was in the emergency department after receiving nitroglycerin paste. He denies syncope. He denies melena, hematochezia, or hematuria. He noticed mild right ankle swelling a few days ago but otherwise no significant edema. He denies palpitations. Review of systems:As above. Review of systems otherwise negative/unremarkable. Family history:His father in World War 2 before he was born. Paternal grandfather had CAD. Social history:Smoked approximately 1.5 packs per day for 45 years. He quit smoking in 2016. No significant alcohol abuse. He grew up in [place] and played hockey in the [employer] in the . . A son ([place] with little contact) and a daughter in [place]. Grandchild. Previously lived in [place] and moved to [place] in 2020. Enjoys sailing. He is unaccompanied today. Allergies Allergy/AdvReac Type Severity Reaction Status Date / Time No Known Allergies Allergy Verified 07/17/22 00:35 Home Medications Medication Instructions Recorded Confirmed Type acetaminophen 500 mg tablet 500 mg PO Q6H PRN fever #30 tabs 12/28/20 07/17/22 Rx aspirin 81 mg tablet,delayed 81 mg PO DAILY #30 tabs 12/28/20 07/17/22 Rx release (Enteric Coated Aspirin) melatonin 10 mg capsule 10 mg PO HS PRN sleep #30 caps 12/28/20 07/17/22 Rx omeprazole 20 mg capsule,delayed 20 mg PO DAILY #30 caps 12/28/20 07/17/22 Rx release diabetic supplies, miscellan. #1 ea 12/31/20 04/21/22 History clopidogrel 75 mg tablet 75 mg PO DAILY #90 tabs 08/12/21 07/17/22 Rx benazepril 40 mg tablet 40 mg PO DAILY #90 tabs 11/14/21 07/17/22 Rx fenofibrate nanocrystallized 145 145 mg PO DAILY #90 tabs 01/21/22 07/17/22 Rx mg tablet nitroglycerin 0.4 mg sublingual 0.4 mg sublingual Q5M PRN chest 03/31/22 07/17/22 Rx tablet pain #30 tabs albuterol sulfate 90 mcg/actuation 2 puff inhalation Q6H PRN 04/28/22 07/17/22 Rx aerosol inhaler Shortness Of Breath Or Wheezing #18 grams umeclidinium 62.5 mcg/actuation 1 inh inhalation DAILY #30 ea 05/09/22 07/17/22 Rx blister powder for inhalation (Incruse Ellipta) atorvastatin 40 mg tablet 40 mg PO HS 07/17/22 07/17/22 History azithromycin 250 mg tablet 0 mg PO .COMPLEX 07/17/22 07/17/22 History diphenhydramine HCl 25 mg capsule 25 mg PO DIRECTED PRN Congestion 07/17/22 07/17/22 History (Benadryl) metformin 1,000 mg tablet 1,000 mg PO HS 07/17/22 07/17/22 History prednisone 10 mg tablet 0 mg PO DIRECTED 07/17/22 07/17/22 History Patient History Medical History CAD (coronary artery disease) Carotid artery stenosis COPD (chronic obstructive pulmonary disease) Diabetes Enlarged prostate Glaucoma H/O: lung cancer Hearing loss Hyperlipidemia Hypertension Peripheral arterial disease Surgical History (Updated 07/17/22 @ 04:52 by Edward Bui MD) H/O angioplasty L femoral in 2005 and 11/2020, R femoral in 2018 and 10/2019 H/O cataract extraction H/O laminectomy L3/4 in 1990, L4/5 w/ fusion in 1992 H/O right coronary artery stent placement H/O right knee surgery H/O umbilical hernia repair H/O vasectomy History of 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 S/P coronary artery stent placement Status post biopsy of skin Family History Brother Lung cancer Father Heart disease Hypertension Mother Cerebral aneurysm Social History Smoking Status: Former smoker Tobacco Type: Cigarettes Age Started Using Tobacco: 19; Age Quit Using Tobacco: 69; packs per day: 1.5; Cigarettes Per Day: 30; Second Hand Exposure: No; Do You Dip or Chew Tobacco: No; Hx Alcohol Use: Yes Alcohol type: beer Alcohol Intake Frequency: Monthly or Less Hx Substance Use: No Preferred Language: Slovak Communication Ability: Effective Visual Impairment: No Limitations Hearing Ability: Normal Coater Hand Required: No Beliefs That Will Affect Care: None marital status: Current Living Situation: Family current occupational status: retired Feels Safe at Home: Yes Safety Concerns: Feels Safe At This Time Childhood Exposure to Second-Hand Smoke: No Dental Care, Regularly: No Physical Activity Frequency: Daily Seatbelt Use: always Sunscreen Use: Yes Assistive Devices: Denture - Upper, Denture - Lower and Glasses Physical Exam Physical Exam: Gen.: No acute distress. Alert and oriented. HEENT: Anicteric sclera. Neck: Thick rasmussen. No bruits. Normal carotid upstrokes bilaterally. Cardiac: PMI was nondisplaced. No ventricular heave. Regular. Normal S1-S2. No murmurs, rubs, or gallops. Pulmonary: Decreased breath sounds left upper lung field, otherwise clear to auscultation bilaterally without wheezes, rales, or rhonchi. Abdomen: Soft, nontender, nondistended, with normoactive bowel sounds. No bruits noted. Extremities: 2+ radial pulses bilaterally. 2+ posterior tibialis pulses bilaterally. No edema or cyanosis. Psychiatric: Affect appears appropriate. Results & Data ([facility]) Vital Signs (Past 12 Hours) Vital Signs Temp Pulse Pulse Resp BP BP Pulse Ox 07/17/22 10:24 57 L 16 126/72 95 07/17/22 10:28 57 L 16 126/72 95 07/17/22 06:00 67 07/17/22 07:45 36.6 C 73 16 129/57 L 93 07/17/22 05:52 111/61 07/17/22 03:43 36.7 C 71 18 164/72 H 97 07/17/22 05:03 67 07/17/22 03:40 07/17/22 03:40 62 18 130/64 98 07/17/22 03:40 36.7 C 71 22 164/72 H 97 07/17/22 02:30 65 14 92 07/17/22 02:30 139/65 07/17/22 02:20 63 24 95 07/17/22 02:10 64 16 94 07/17/22 02:02 65 16 94 07/17/22 02:02 138/71 07/17/22 02:00 65 15 94 07/17/22 01:50 65 17 95 07/17/22 01:40 62 15 95 07/17/22 01:30 65 18 95 07/17/22 01:20 66 15 96 07/17/22 01:13 63 19 97 07/17/22 01:13 155/74 H 07/17/22 01:10 64 17 96 07/17/22 01:01 67 16 98 07/17/22 01:01 156/77 H 07/17/22 01:00 64 24 99 07/17/22 00:50 71 24 98 07/17/22 00:40 63 15 98 07/17/22 00:30 62 21 98 07/17/22 00:20 64 16 98 07/17/22 00:10 63 17 98 07/17/22 00:00 65 18 97 07/16/22 23:50 62 18 97 07/16/22 23:40 62 21 98 07/16/22 23:30 66 18 98 07/16/22 23:20 73 20 98 07/16/22 23:10 68 17 98 07/16/22 23:06 174/85 H 07/16/22 23:06 69 22 98 07/16/22 23:05 71 15 96 07/17/22 01:00 63 18 98 07/17/22 00:49 155/76 H 98 07/16/22 22:49 98 07/16/22 22:49 36.8 C 63 18 174/84 H 96 O2 Del Method 07/17/22 10:24 Room Air 07/17/22 10:28 Room Air 07/17/22 06:00 07/17/22 07:45 Room Air 07/17/22 05:52 07/17/22 03:43 Room Air 07/17/22 05:03 07/17/22 03:40 Room Air 07/17/22 03:40 Room Air 07/17/22 03:40 Room Air 07/17/22 02:30 07/17/22 02:30 07/17/22 02:20 07/17/22 02:10 07/17/22 02:02 07/17/22 02:02 07/17/22 02:00 07/17/22 01:50 07/17/22 01:40 07/17/22 01:30 07/17/22 01:20 07/17/22 01:13 07/17/22 01:13 07/17/22 01:10 07/17/22 01:01 07/17/22 01:01 07/17/22 01:00 07/17/22 00:50 07/17/22 00:40 07/17/22 00:30 07/17/22 00:20 07/17/22 00:10 07/17/22 00:00 07/16/22 23:50 07/16/22 23:40 07/16/22 23:30 07/16/22 23:20 07/16/22 23:10 07/16/22 23:06 07/16/22 23:06 07/16/22 23:05 07/17/22 01:00 Room Air 07/17/22 00:49 Room Air 07/16/22 22:49 Room Air 07/16/22 22:49 Room Air Laboratory Results Laboratory Results - last 24 hr 07/16/22 07/16/22 07/16/22 23:20 23:20 23:20 WBC 6.24 RBC 4.17 L Hgb 12.9 L Hct 38.7 L MCV 92.8 MCH 30.9 MCHC 33.3 RDW Std Deviation 42.0 RDW Coeff of [place] 12.3 Plt Count 243 MPV 9.6 Immature Gran % (Auto) 0.8 Neut % (Auto) 50.0 Lymph % (Auto) 31.3 [place] % (Auto) 14.4 Eos % (Auto) 3.2 Baso % (Auto) 0.3 Neut # (Auto) 3.12 Lymph # (Auto) 1.95 [place] # (Auto) 0.90 H Eos # (Auto) 0.20 Baso # (Auto) 0.02 Immature Gran # (Auto) 0.05 H PT 10.6 INR 1.0 APTT 25.6 PTT Ratio 0.9 Sodium 141 Potassium 4.3 Chloride 108 H Carbon Dioxide 27 Anion Gap 6 BUN 29 H Creatinine 1.16 Est Cr Clr Drug Dosing 64.0 Est GFR ( Amer) 70.0 Est GFR (Non-Af Amer) 60.4 BUN/Creatinine Ratio 25.0 H Glucose 148 H POC Glucose Estimat Average Glucose Hemoglobin A1c Calcium 9.7 Total Bilirubin 0.3 AST 27 ALT 27 Alkaline Phosphatase 45 Troponin I High Sens 121.2 H* Total Protein 7.3 Albumin 4.3 Globulin 3.0 Albumin/Globulin Ratio 1.4 Triglycerides Cholesterol LDL Cholesterol, Calc VLDL Cholesterol, Calc HDL Cholesterol Cholesterol/HDL Ratio Lipase 42 SARS-CoV-2, RNA, NAAT 07/16/22 07/17/22 07/17/22 23:50 01:19 04:09 WBC RBC Hgb Hct MCV MCH MCHC RDW Std Deviation RDW Coeff of [place] Plt Count MPV Immature Gran % (Auto) Neut % (Auto) Lymph % (Auto) [place] % (Auto) Eos % (Auto) Baso % (Auto) Neut # (Auto) Lymph # (Auto) [place] # (Auto) Eos # (Auto) Baso # (Auto) Immature Gran # (Auto) PT INR APTT PTT Ratio Sodium 141 Potassium 4.0 Chloride 109 H Carbon Dioxide 23 Anion Gap 9 BUN 29 H Creatinine 1.19 Est Cr Clr Drug Dosing 60.2 Est GFR ( Amer) 67.9 Est GFR (Non-Af Amer) 58.6 BUN/Creatinine Ratio 24.4 H Glucose 121 H POC Glucose Estimat Average Glucose Hemoglobin A1c Calcium 8.9 Total Bilirubin 0.3 AST 24 ALT 23 Alkaline Phosphatase 32 L Troponin I High Sens 149.3 H* D Total Protein 6.2 Albumin 3.7 Globulin 2.5 Albumin/Globulin Ratio 1.5 Triglycerides 156 H Cholesterol 103 LDL Cholesterol, Calc 38 VLDL Cholesterol, Calc 31 H HDL Cholesterol 34 Cholesterol/HDL Ratio 3.0 Lipase SARS-CoV-2, RNA, NAAT NEGATIVE 07/17/22 07/17/22 07/17/22 04:09 04:09 04:09 WBC 6.68 RBC 3.76 L Hgb 11.6 L Hct 34.3 L MCV 91.2 MCH 30.9 MCHC 33.8 RDW Std Deviation 40.8 RDW Coeff of [place] 12.3 Plt Count 205 MPV 9.6 Immature Gran % (Auto) 0.4 Neut % (Auto) 44.7 Lymph % (Auto) 37.3 [place] % (Auto) 13.6 Eos % (Auto) 3.7 Baso % (Auto) 0.3 Neut # (Auto) 2.98 Lymph # (Auto) 2.49 [place] # (Auto) 0.91 H Eos # (Auto) 0.25 Baso # (Auto) 0.02 Immature Gran # (Auto) 0.03 H PT 10.9 INR 1.0 APTT PTT Ratio Sodium Potassium Chloride Carbon Dioxide Anion Gap BUN Creatinine Est Cr Clr Drug Dosing Est GFR ( Amer) Est GFR (Non-Af Amer) BUN/Creatinine Ratio Glucose POC Glucose Estimat Average Glucose Hemoglobin A1c Calcium Total Bilirubin AST ALT Alkaline Phosphatase Troponin I High Sens 160.3 H* Total Protein Albumin Globulin Albumin/Globulin Ratio Triglycerides Cholesterol LDL Cholesterol, Calc VLDL Cholesterol, Calc HDL Cholesterol Cholesterol/HDL Ratio Lipase SARS-CoV-2, RNA, NAAT 07/17/22 07/17/22 07/17/22 04:09 05:28 07:17 WBC RBC Hgb Hct MCV MCH MCHC RDW Std Deviation RDW Coeff of [place] Plt Count MPV Immature Gran % (Auto) Neut % (Auto) Lymph % (Auto) [place] % (Auto) Eos % (Auto) Baso % (Auto) Neut # (Auto) Lymph # (Auto) [place] # (Auto) Eos # (Auto) Baso # (Auto) Immature Gran # (Auto) PT INR APTT 60.4 H* PTT Ratio 2.2 Sodium Potassium Chloride Carbon Dioxide Anion Gap BUN Creatinine Est Cr Clr Drug Dosing Est GFR ( Amer) Est GFR (Non-Af Amer) BUN/Creatinine Ratio Glucose POC Glucose 116 H Estimat Average Glucose 166 Hemoglobin A1c 7.4 H Calcium Total Bilirubin AST ALT Alkaline Phosphatase Troponin I High Sens Total Protein Albumin Globulin Albumin/Globulin Ratio Triglycerides Cholesterol LDL Cholesterol, Calc VLDL Cholesterol, Calc HDL Cholesterol Cholesterol/HDL Ratio Lipase SARS-CoV-2, RNA, NAAT 07/17/22 09:12 WBC RBC Hgb Hct MCV MCH MCHC RDW Std Deviation RDW Coeff of [place] Plt Count MPV Immature Gran % (Auto) Neut % (Auto) Lymph % (Auto) [place] % (Auto) Eos % (Auto) Baso % (Auto) Neut # (Auto) Lymph # (Auto) [place] # (Auto) Eos # (Auto) Baso # (Auto) Immature Gran # (Auto) PT INR APTT PTT Ratio Sodium Potassium Chloride Carbon Dioxide Anion Gap BUN Creatinine Est Cr Clr Drug Dosing Est GFR ( Amer) Est GFR (Non-Af Amer) BUN/Creatinine Ratio Glucose POC Glucose Estimat Average Glucose Hemoglobin A1c Calcium Total Bilirubin AST ALT Alkaline Phosphatase Troponin I High Sens 125.7 H* D Total Protein Albumin Globulin Albumin/Globulin Ratio Triglycerides Cholesterol LDL Cholesterol, Calc VLDL Cholesterol, Calc HDL Cholesterol Cholesterol/HDL Ratio Lipase SARS-CoV-2, RNA, NAAT Diagnostic Findings Telemetry personally reviewed: Sinus rhythm. No arrhythmia. Transient bradycardia at 2:42 AM with 3-second pause. ECG personally reviewed 07/16/2022 at 2311: Sinus rhythm 65 bpm. Anterior T wave inversion. Inferior T wave inversion. Chest x-ray image personally reviewed from 07/16/2022: No obvious infiltrate. Radiology interpretation cardiomegaly and emphysema without acute cardiopulmonary abnormalities. Echo 07/17/2022: Preliminary review: Normal LV systolic function. Formal review to follow. Chart reviewed. Labs reviewed. Medications Administered Current Inpatient Medications Acetaminophen (Acetaminophen 325 Mg Tab) 650 mg PO Q6H PRN PRN Reason: Pain or Fever Stop: 08/16/22 03:42 Albuterol (Albuterol Hfa 8 Gm Inhaler) 2 puffs INH Q6H PRN PRN Reason: Shortness Of Breath Or Wheezin Stop: 08/16/22 03:42 Albuterol (Albut/Ipratrop 3mg/0.5mg Neb 3 Ml Vial) 3 ml NEB Q2H PRN; Protocol PRN Reason: dyspnea Stop: 08/16/22 03:42 Aspirin (Aspirin 81 Mg Ectab) 81 mg PO DAILY [facility] Stop: 08/16/22 08:59 Last Admin: 07/17/22 08:57 Dose: 81 mg Atorvastatin Calcium (Atorvastatin 40 Mg Tab) 80 mg PO HS MICHAEL Stop: 08/16/22 20:59 Clopidogrel Bisulfate (Clopidogrel Bisulfate 75 Mg Tab) 75 mg PO DAILY MICHAEL Stop: 08/16/22 08:59 Last Admin: 07/17/22 08:56 Dose: 75 mg Dextrose (Dextrose 50% 50 Ml Syringe) 25 - 50 ml IV UD PRN; Protocol PRN Reason: Hypoglycemia Protocol Stop: 08/16/22 03:42 Enalapril Maleate (Enalapril Maleate 10 Mg Tab) 40 mg PO DAILY MICHAEL Stop: 08/16/22 08:59 Last Admin: 07/17/22 08:56 Dose: 40 mg Fenofibrate (Fenofibrate Nanocrystallized 145 Mg Tablet) 145 mg PO DAILY [facility] Stop: 08/16/22 08:59 Last Admin: 07/17/22 08:56 Dose: 145 mg Glucagon (Glucagon For Inj 1 Mg Vial) 1 mg SQ UD PRN; Protocol PRN Reason: Hypoglycemia Protocol Stop: 08/16/22 03:42 Glucose (Glucose 40% Gel 15 Gm Tube) 15 - 30 gm PO UD PRN; Protocol PRN Reason: Hypoglycemia Protocol Stop: 08/16/22 03:42 Glucose (Glucose 10 Tab/Tube) 4 - 8 tab PO UD PRN; Protocol PRN Reason: Hypoglycemia Treatment Stop: 08/16/22 03:42 Heparin Sodium/Dextrose (Heparin Sodium/Dextrose) 25,000 units in 500 mls @ 31 mls/hr IV .Q16H8M MICHAEL; Protocol Stop: 08/16/22 00:44 Last Titration: 07/17/22 07:25 Dose: 1,550 units/hr, 31 mls/hr Potassium Chloride/Sodium Chloride (Normal Saline W/20 Meq Kcl) 20 meq in 1,000 mls @ 80 mls/hr IV .[id number] [facility]; Protocol Stop: 08/16/22 04:14 Last Admin: 07/17/22 05:36 Dose: 80 mls/hr Sodium Chloride (Nss 1000ml) 1,000 mls @ 125 mls/hr IV .Q8H [facility] Stop: 07/17/22 15:45 Insulin Aspart (Insulin Aspart Per Unit) 0 units SC Q6 MICHAEL Stop: 08/16/22 05:59 Last Admin: 07/17/22 05:36 Dose: Not Given Melatonin (Melatonin 3 Mg Tab) 9 mg PO HS PRN PRN Reason: sleep Miscellaneous (Carbohydrates For Hypoglycemia ) 15 - 30 gm PO UD PRN PRN Reason: Hypoglycemia Protocol Stop: 08/16/22 03:42 Morphine Sulfate (Morphine Sulfate 2 Mg/Ml Carp) 2 mg IV Q30M PRN PRN Reason: Chest Pain Stop: 07/31/22 03:42 Nitroglycerin (Nitroglycerin 2% Ointment 30gm Tube) 1 inch EXT Q6H [facility] Stop: 08/16/22 05:59 Last Admin: 07/17/22 05:52 Dose: 1 inch Nitroglycerin (Nitroglycerin Sl 0.4 Mg/Tab Tab) 0.4 mg SL Q5M PRN PRN Reason: chest pain Stop: 08/16/22 03:42 Ondansetron HCl (Ondansetron Inj 2 Mg/Ml 2 Ml Vial) 4 mg IV Q6H PRN PRN Reason: Nausea Stop: 08/16/22 03:42 Pantoprazole Sodium (Pantoprazole 40 Mg Tab) 40 mg PO DAILY MICHAEL Stop: 08/16/22 08:59 Last Admin: 07/17/22 08:56 Dose: 40 mg Umeclidinium Hulbert (Umeclidinium [place]bert 62.5mcg/Blister 7 Puffs/Inhaler) 1 puffs INH DAILY MICHAEL Stop: 08/16/22 08:59 Last Admin: 07/17/22 08:57 Dose: 1 puffs PG Care Time/CCT Total # of Minutes Spent Total Time Spent with Patient: Total time spent is greater than 50% in coordination of care (as documented) at patient's floor/unit and/or counseling patient: Coding Level of Care Code 63146 INT INP/OBS CARE 3/75MIN Diagnoses Acute non-ST elevation myocardial infarction (NSTEMI) I21.4 CAD (coronary artery disease) I25.10 H/O right coronary artery stent placement Z95.5 Hypertension I10 Hyperlipidemia E78.5 Peripheral arterial disease I73.9
--- NOTE | 2022-07-17 11:40 | Post Anesthesia Assessment ---
Date of Service July 17, 2022 Post Sedation Assessment Vital Signs Temp Pulse Pulse Resp BP BP Pulse Ox 07/17/22 10:24 57 L 16 126/72 95 07/17/22 10:28 57 L 16 126/72 95 07/17/22 06:00 67 07/17/22 07:45 36.6 C 73 16 129/57 L 93 07/17/22 05:52 111/61 07/17/22 03:43 36.7 C 71 18 164/72 H 97 07/17/22 05:03 67 07/17/22 03:40 07/17/22 03:40 62 18 130/64 98 07/17/22 03:40 36.7 C 71 22 164/72 H 97 07/17/22 02:30 65 14 92 07/17/22 02:30 139/65 07/17/22 02:20 63 24 95 07/17/22 02:10 64 16 94 07/17/22 02:02 65 16 94 07/17/22 02:02 138/71 07/17/22 02:00 65 15 94 07/17/22 01:50 65 17 95 07/17/22 01:40 62 15 95 07/17/22 01:30 65 18 95 07/17/22 01:20 66 15 96 07/17/22 01:13 63 19 97 07/17/22 01:13 155/74 H 07/17/22 01:10 64 17 96 07/17/22 01:01 67 16 98 07/17/22 01:01 156/77 H 07/17/22 01:00 64 24 99 07/17/22 00:50 71 24 98 07/17/22 00:40 63 15 98 07/17/22 00:30 62 21 98 07/17/22 00:20 64 16 98 07/17/22 00:10 63 17 98 07/17/22 00:00 65 18 97 07/16/22 23:50 62 18 97 07/16/22 23:40 62 21 98 07/16/22 23:30 66 18 98 07/16/22 23:20 73 20 98 07/16/22 23:10 68 17 98 07/16/22 23:06 174/85 H 07/16/22 23:06 69 22 98 07/16/22 23:05 71 15 96 07/17/22 01:00 63 18 98 07/17/22 00:49 155/76 H 98 07/16/22 22:49 98 07/16/22 22:49 36.8 C 63 18 174/84 H 96 O2 Del Method 07/17/22 10:24 Room Air 07/17/22 10:28 Room Air 07/17/22 06:00 07/17/22 07:45 Room Air 07/17/22 05:52 07/17/22 03:43 Room Air 07/17/22 05:03 07/17/22 03:40 Room Air 07/17/22 03:40 Room Air 07/17/22 03:40 Room Air 07/17/22 02:30 07/17/22 02:30 07/17/22 02:20 07/17/22 02:10 07/17/22 02:02 07/17/22 02:02 07/17/22 02:00 07/17/22 01:50 07/17/22 01:40 07/17/22 01:30 07/17/22 01:20 07/17/22 01:13 07/17/22 01:13 07/17/22 01:10 07/17/22 01:01 07/17/22 01:01 07/17/22 01:00 07/17/22 00:50 07/17/22 00:40 07/17/22 00:30 07/17/22 00:20 07/17/22 00:10 07/17/22 00:00 07/16/22 23:50 07/16/22 23:40 07/16/22 23:30 07/16/22 23:20 07/16/22 23:10 07/16/22 23:06 07/16/22 23:06 07/16/22 23:05 07/17/22 01:00 Room Air 07/17/22 00:49 Room Air 07/16/22 22:49 Room Air 07/16/22 22:49 Room Air Recovery Score Activity: Moves 4 extremities Respiration: Deep Breath/Cough Circulation: +/-20% PreAnes Value Consciousness: Fully Awake Oxygen Saturation: > 92% On Room Air Discharge Sedation Level of Care: Fast Track Phase II Post Sedation Plan On clinical assessment, the patient appears to have tolerated the sedation without complications. Patient is recovering as anticipated. Patient will continue to be monitored by nursing and may be discharged when sedation discharge criteria are met per below protocol. Upon Completions of procedure up to 15 minutes continue every 5 minute vital signs and the P.A.R. score; then discharge to a Phase I or Fast Track to Phase II per the following guidelines: * Discharge Patient to appropriate Phase II area if PAR is 8 or greater or return to pre- procedure baseline. The post - procedure orders will be as directed. * If PAR score is less than 8 or not return to pre-procedure baseline then patient will follow Phase I monitoring till PAR is reached for Phase II. The Phase I may be done in procedure room or may call to secure a Phase I area. * If naloxone or flumazenil are used for reversal, hold in Phase I for continued monitoring from when last reversal dose was given for a minimum of 60 minutes or longer pending the nurse and/or physician discretion of patient condition before discharge to Phase II. Please call the Sedation Physician to re-evaluate and complete post-note for discharge to Phase II area. Do NOT discharge from procedure sedation or Phase 1 until post- sedation evalu ation note is complete by procedure /sedation MD Sedation Discharge Instructions to be given to the patient at discharge to home.
[2022-07-17] MEDS ORDERED: SODIUM CHLORIDE 0.9% 1000ML 1,000 ML IV SCH (11:45)
--- NOTE | 2022-07-17 11:52 | Cardiac Catheterization ---
[facility] Data: Toucher Up Cardiac Status Clinical evaluation leading to the procedure CAD Presenation: Non STEMI and Unstable angina Anginal Classification: CCS III Heart Failure: No Cardiogenic Shock within 24 Hours: No Cardiac Arrest within 24 Hours: No Imaging Studies Past 6 Months: Yes Stress Studies Past 6 Months: No Coronary Anatomy Dominant: Right Diagnostic Physicians Name: Cristhian Bender MD Closure Device Percutaneous Entry Location: Radial Closure Device: Radial Band Recommendations: CABG Cardiac Cath Procedure Full Procedure Date July 17, 2022 Pre-Procedure Diagnosis Pre-Procedure Diagnosis: Non STEMI and CAD AUC Score AUC Score: 9 Post-Procedure Diagnosis Post-Procedure Diagnosis: Severe CAD Procedure(s) Performed Procedure(s) Performed: Coronary Angiography Plastic Machine Operator Cristhian Bender MD Housekeeping Director(s) Carina Long Estimated Blood Loss Estimated Blood Loss: < 25 ml Medication(s) Medication(s): Fentanyl, Heparin, Lidocaine 1%, Nicardipine and Versed Summary of Findings Procedures: 1. Coronary angiography 2. Moderate sedation Indication: Mr. Valderrama is a pleasant 76-year-old gentleman with a known history of CAD status post RCA PCI, type 2 diabetes, hypertension, dyslipidemia, PAD s/p bilateral lower extremity angioplasty, carotid artery stenosis, and COPD. He presented with worsening exertional angina and had elevated troponins and T wave inversions anteriorly. He was referred for cardiac catheterization. Coronary angiography: 1. Left main: Ostial left main 50 to 60%. Distal LM 90%, extending into the LAD and circumflex. 2. Left anterior descending: Ostial LAD 95+%. Proximal LAD 40%. At bifurcation of diagonal, mid LAD 30%. 3. Circumflex: Large caliber vessel. Ostial circumflex hazy in appearance with 95+% stenosis. Mid circumflex 30 to 40%. OM1 and large OM 2. Distal circumflex is a small caliber AV groove vessel. 4. Right coronary artery: RCA is large and dominant. Ostial to mid RCA stents. Proximal in-stent restenosis of 40 to 50%. Large PDA and PL branches without significant CAD. Faint right to left collaterals. Moderate sedation: 1. Sedation start time: 11:03 AM 2. Sedation end time: 11:27 AM Access: 1. Right radial artery was easily cannulated without known complication. Impression: 1. Severe multivessel CAD involving left main, ostial LAD, ostial circumflex. 2. Ostial to mid RCA stents with proximal in-stent restenosis of approximately 40 to 50%. Plan: 1. Transfer to CT surgery capable center for evaluation of bypass. 2. Resume heparin drip. Hemodynamics Rest Ao:: 131/49 Final Ao: 140/56 LV: n/a Recommendations Recommendations: CABG Specimens Specimens: None Radiation Exposure (mGy) 1149 mGy. Fluoro time 8.1 min. Contrast (mls) 75 ml Procedural Complication(s) None Disposition PCU I attest to the content of the Intraoperative Record and any orders documented therein. Any exceptions are noted below. [facility] Card Cath Procedure Codes Cardiac Catheterization Procedure 1: Cardiovascular Cath Procedures: 23189 Coronaries Moderate Sedation Procedure 1: Sedation/Anesthesia: 34677 Mod Sedation by the same physician;Init15 Min Child Age 5 & Up Procedure 2: Sedation/Anesthesia: 93913 Mod Sedation by the same physician; Ea [id number] Minutes PG Care Time/CCT Total # of Minutes Spent Total Time Spent with Patient: Total time spent is greater than 50% in coordination of care (as documented) at patient's floor/unit and/or counseling patient:
--- NOTE | 2022-07-17 12:50 | XCELERA ---
[id number]
--- NOTE | 2022-07-17 15:27 | Discharge Summary ---
Date of Service July 17, 2022 Admission HPI Per Admitting Provider The patient is a 76-year-old male with past medical history including CAD, COPD, glaucoma, GERD, diabetes mellitus, hypertension, hyperlipidemia, enlarged prostate, status post RCA PCI, PAD, and carotid artery stenosis. He presents with symptoms as noted above. The patient's troponin was elevated at 121.2. EKG noted significant new T wave inversions in leads V3 through V6 in particular, and less so in leads II, III and aVF. The patient was started on heparin drip while in ED, and had the addition of Nitropaste 1 inch to the anterior chest wall as well. The patient did have an episode prior to transfer where he became lightheaded, felt near syncopal, and heart rate decreased down to the 20s, but then spontaneously recovered. At this point, he had pacer pads placed and was transported to stepdown unit. Principal Diagnosis NSTEMI Discharge Exam The patient is awake, alert and oriented 3, well developed and well nourished, normocephalic and atraumatic, lying in bed and in no acute distress. HEENT--PERRL, EOMI, mucous membranes and oropharynx mildly dry Neck--supple. No JVD. No bruits. Thyroid normal, trachea midline, no adenopathy. Heart--normal S1 and S2. No murmurs, rubs or gallops. Lungs--clear bilaterally, no respiratory distress, no accessory muscle use. Abdomen--normal bowel sounds and soft. Mild epigastric and left sided abdominal pain Extremities--no cyanosis or clubbing. No edema. Dermatologic--normal skin turgor, normal color, no abnormal lymph nodes, no rash. Neurologic--cranial nerves II through XII grossly intact. Rheumatologic--normal range of motion. Psychiatric--normal affect. Discharge Data Allergies Allergy/AdvReac Type Severity Reaction Status Date / Time No Known Allergies Allergy Verified 07/17/22 00:35 Consultations 07/17/22 00:24 ED Decision to Admit Stat 07/17/22 03:43 Consult Cardiology Routine Procedures Performed Operation Date: 07/17/22 11:00 Actual Procedures p Cineradiography w/Routine Exam - Cristhian Bender MD p Cath, Coronaries ONLY (no LV) - Cristhian Bender MD Ordered Studies 07/17/22 10:05 CL Cath Imgs for PACS use only Urgent Hospital Course (1) Acute non-ST elevation myocardial infarction (NSTEMI): He History of right coronary artery stent placement admitted on account of acute NSTEMI/bradycardia with near syncope/elevated troponin/CAD/hypertension- Taken to the wood and wood products labourer for angiography found to have multivessel disease Continue heparin, stop Plavix Plan is transfer to [place] for CABG. Accepting Dr, is Dr Dean (2) Hyperlipidemia: Hyperlipidemia- Increase atorvastatin from 40 to 80 mg and give first dose this evening, and continue fenofibrate 145 mg daily Check a fasting lipid panel (3) Diabetes: Diabetes mellitus- Hold metformin Placed on Accu-Cheks before meals and at bedtime with NovoLog coverage per scale (4) History of lung cancer: (5) Hypertension: Stable BP (6) COPD (chronic obstructive pulmonary disease): (7) CAD (coronary artery disease): (8) Carotid artery stenosis: (9) Peripheral arterial disease: (10) Acid reflux disease: (11) H/O right coronary artery stent placement: Plan Transfer to [place] for CABG Total Time Total Time Spent Total Time Spent (In Minutes): 35 Discharge Plan Discharge Items Patient Disposition: Transfer Acute Care Hospital Reason For Visit: NSTEMI Discharge Diagnosis: Multivessel disease Activity: Resume your previous activity Non-emergency contact: Primary Care Provider and Cell Stripper Call non-emergency contact if: you have any medication questions and your symptoms worsen Follow-up/Referrals: Talon Burns DO [Primary Care Provider] - Diet: Heart Healthy Addtl Attending Provider Instructions: please make arrangememts to follow up with your old coin dealer Pending Studies at Discharge: No Stand-Alone Forms: My [facility] Skilled Items Patient informed of condition?: Yes DNR: No Discharge Level of Care: Other Communicable Disease: No Discharge Prognosis: Stable Lines: Peripheral IV Urinary Catheter: Yes Medications and DC Order Prescriptions: Continued omeprazole 20 mg capsule,delayed release(DR/EC) 20 mg PO DAILY Qty: 30 2RF melatonin 10 mg capsule 10 mg PO HS PRN (Reason: sleep) Qty: 30 0RF acetaminophen 500 mg tablet 500 mg PO Q6H PRN (Reason: fever) Qty: 30 0RF Rx Instructions: PER PT "USUALLY TAKE 1000 MG AT HS". aspirin [Enteric Coated Aspirin] 81 mg tablet,delayed release (DR/EC) 81 mg PO DAILY Qty: 30 2RF benazepril 40 mg tablet 40 mg PO DAILY Qty: 90 3RF Incruse Ellipta 62.5 mcg/actuation blister with device 1 inh inhalation DAILY Qty: 30 2RF fenofibrate nanocrystallized 145 mg tablet 145 mg PO DAILY Qty: 90 1RF (DME) diabetic supplies, miscellan. Misc See Rx Instructions .ROUTE .MEDSUPPLY Qty: 1 Rx Instructions: ONE TOUCH ULTRA- TESTS PRN nitroglycerin 0.4 mg tablet, sublingual 0.4 mg sublingual Q5M PRN (Reason: chest pain) Qty: 30 0RF Rx Instructions: do not exceed 3 doses per episode albuterol sulfate 90 mcg/actuation HFA aerosol inhaler 2 puff inhalation Q6H PRN (Reason: Shortness Of Breath Or Wheezing) Qty: 18 3RF Rx Instructions: PER PT "USUALLY USE 2 PUFFS AT HS". diphenhydramine HCl [Benadryl] 25 mg Capsule 25 mg PO DIRECTED PRN (Reason: Congestion) atorvastatin 40 mg tablet 40 mg PO HS metformin 1,000 mg tablet 1,000 mg PO HS prednisone 10 mg Tablet 0 mg PO DIRECTED Rx Instructions: ON PT'S MED LIST, UNABLE TO VERIFY ON EXT MED HX. Discontinued clopidogrel 75 mg tablet 75 mg PO DAILY Qty: 90 3RF azithromycin 250 mg Tablet 0 mg PO .COMPLEX Rx Instructions: ON PT'S MED LIST, UNABLE TO VERIFY ON EXT MED HX. For 250 mg dose pack: take 500 mg today (day 1), then 250 mg for 4 days (days 2-5) Discharge Orders: Discharge Order (Routine); Ordered 07/17/22 Ordered By: Howard Reed/Other Patient Handouts: Managing Type 2 Diabetes Admission Data Admit Date/Time: 07/17/22 01:12 Attending Provider: Howard Cardenas Admit Provider: Edward Bui Primary Care Provider: Talon Burns Other Providers: Edward Bui ; Cristhian Bender Coding Level of Care Code HOSP INP/OBS DISCH >30 MIN Diagnoses Acute non-ST elevation myocardial infarction (NSTEMI) I21.4 Hyperlipidemia E78.5 Diabetes E11.9 History of lung cancer Z85.118 Hypertension I10 COPD (chronic obstructive pulmonary disease) J44.9 CAD (coronary artery disease) I25.10 Carotid artery stenosis I65.29 Peripheral arterial disease I73.9 Acid reflux disease K21.9 H/O right coronary artery stent placement Z95.5 Time Spent (min) 35
--- NOTE | 2022-07-17 16:35 | Hospitalist Progress Note ---
Date of Service July 17, 2022 Assessment & Plan (1) Acute non-ST elevation myocardial infarction (NSTEMI): Plan: He has a History of right coronary artery stent placement was admitted on account of chest pain, near syncope Found to have acute NSTEMI, some T wave changes on EKG Taken to the salvage laborer for angiography found to have multivessel disease Continue heparin, stop Plavix Plan is transfer to [place] for CABG. Accepting Dr, is Dr Dean (2) Hyperlipidemia: Plan: Hyperlipidemia- Increase atorvastatin from 40 to 80 mg and give first dose this evening, and continue fenofibrate 145 mg daily Check a fasting lipid panel (3) Diabetes: Plan: Diabetes mellitus- Hold metformin Placed on Accu-Cheks before meals and at bedtime with NovoLog coverage per scale (4) History of lung cancer: Plan: s/p lobectomy (5) Hypertension: Plan: Stable BP 131/68 (6) COPD (chronic obstructive pulmonary disease): (7) CAD (coronary artery disease): (8) Carotid artery stenosis: (9) Peripheral arterial disease: (10) Acid reflux disease: (11) H/O right coronary artery stent placement: Plan Transfer to [place] for CABG when bed available Admission and Anticipated Discharge Date Admission Date: July 17, 2022 Subjective patient seen and examined, stable post cardiac cath Review of Systems Review of Systems: All systems reviewed are negative, apart from the ones contained in the history. Physical Exam Physical Exam: The patient is awake, alert and oriented 3, well developed and well nourished, normocephalic and atraumatic, lying in bed and in no acute distress. HEENT--PERRL, EOMI, mucous membranes and oropharynx mildly dry Neck--supple. No JVD. No bruits. Thyroid normal, trachea midline, no adenopathy. Heart--normal S1 and S2. No murmurs, rubs or gallops. Lungs--clear bilaterally, no respiratory distress, no accessory muscle use. Abdomen--normal bowel sounds and soft. Mild epigastric and left sided abdominal pain Extremities--no cyanosis or clubbing. No edema. Dermatologic--normal skin turgor, normal color, no abnormal lymph nodes, no rash. Neurologic--cranial nerves II through XII grossly intact. Rheumatologic--normal range of motion. Psychiatric--normal affect. Results & Data Results & Data ([facility]) Vital Signs (Past 12 Hours) Vital Signs Temp Pulse Pulse Resp BP BP Pulse Ox 07/17/22 14:03 64 07/17/22 15:05 97.7 F 69 14 131/68 96 07/17/22 13:59 97.9 F 63 18 104/82 94 07/17/22 13:02 97.7 F 63 16 122/64 95 07/17/22 12:38 98.1 F 60 20 127/58 L 94 07/17/22 12:07 97.9 F 63 16 113/59 L 93 07/17/22 10:24 57 L 16 126/72 95 07/17/22 11:42 63 07/17/22 10:28 57 L 16 126/72 95 07/17/22 06:00 67 07/17/22 07:45 97.9 F 73 16 129/57 L 93 07/17/22 05:52 111/61 07/17/22 05:03 67 O2 Del Method 07/17/22 14:03 07/17/22 15:05 Room Air 07/17/22 13:59 Room Air 07/17/22 13:02 Room Air 07/17/22 12:38 Room Air 07/17/22 12:07 Room Air 07/17/22 10:24 Room Air 07/17/22 11:42 07/17/22 10:28 Room Air 07/17/22 06:00 07/17/22 07:45 Room Air 07/17/22 05:52 07/17/22 05:03 PG Care Time/CCT Total # of Minutes Spent Total Time Spent with Patient: Total time spent is greater than 50% in coordination of care (as documented) at patient's floor/unit and/or counseling patient: Coding Level of Care Code 23646 SUB INP/OBS CARE 2/35MIN Diagnoses Acute non-ST elevation myocardial infarction (NSTEMI) I21.4 Hyperlipidemia E78.5 Diabetes E11.9 History of lung cancer Z85.118 Hypertension I10 COPD (chronic obstructive pulmonary disease) J44.9 CAD (coronary artery disease) I25.10 Carotid artery stenosis I65.29 Peripheral arterial disease I73.9 Acid reflux disease K21.9 H/O right coronary artery stent placement Z95.5 Time Spent (min) 35
[2022-07-17] MEDS ORDERED: INSULIN ASPART PER UNIT SC SCH ×2 (17:30→21:00)
[2022-07-17] MEDS ORDERED: ATORVASTATIN 40 MG TAB PO SCH (21:00)
[2022-07-17 22:17] LABS: Partial Thromboplastin Ratio 1.9
[2022-07-17 22:26] LABS: Partial Thromboplastin Time 51.5 Seconds (21.0-31.0)
[2022-07-18] MEDS: NITROGLYCERIN 2% OINTMENT 30GM TUBE EXT SCH ×2 (00:30→06:33)
[2022-07-18] MEDS: NITROGLYCERIN SL 0.4 MG/TAB TAB SL PRN ×3 (05:11→05:43)
[2022-07-18] MEDS: NSS + 20MEQ KCL 20 MEQ/1,000 ML BAG IV SCH (05:49)
[2022-07-18] MEDS ORDERED: STAT IV Infusion **Titration per Protocol STA (06:08)
[2022-07-18] MEDS ORDERED: NITROGLYCERIN/D5W 100MCG/ML 250 ML IV SCH (06:15)
[2022-07-18] MEDS ORDERED: fentaNYL citrate 100 MCG/2 ML VIAL ONE (07:07)
[2022-07-18] MEDS ORDERED: MIDAZOLAM HCL 1 MG/ML 2ML VIAL ONE (07:07)
[2022-07-18] MEDS ORDERED: HEPARIN (PORCINE) 1000 UNIT/ML 10 ML (CATH LAB USE ONLY) ONE (07:08)
[2022-07-18 07:13] LABS: Basophils # (auto) 0.02 K/uL (0-0.2); Basophils % (auto) 0.3 %; Eosinophils # (auto) 0.25 K/uL (0-0.50); Eosinophils % (auto) 3.4 %; Hematocrit (blood only) 33.4 % (40.1-51.0); Hemoglobin 11.2 g/dl (14.0-18.0); Immature Granulocytes # (auto) 0.03 K/uL (0.00-0.02); Immature Granulocytes % (auto) 0.4 %; Lymphocytes # (auto) 1.35 K/uL (1.2-3.4); Lymphocytes % (auto) 18.4 %; Mean Corpuscular Hgb Conc 33.5 g/dL (32.0-36.0); Mean Corpuscular Volume 92.5 fL (80.0-100.0); Mean Platelet Volume 9.6 fL (9.4-12.4); Monocytes # (auto) 0.82 K/uL (0.24-0.82); Monocytes % (auto) 11.2 %; Neutrophils # (auto) 4.88 K/uL (1.4-6.5); Neutrophils % (auto) 66.3 %; Platelet Count 187 K/uL (130-400); Red Blood Count 3.61 M/uL (4.63-6.08); White Blood Count 7.35 K/ul (4.8-10.8)
--- NOTE | 2022-07-18 07:27 | Pre Anesthesia Assessment ---
Date of Service July 18, 2022 Pre Sedation Assessment Vital Signs Temp Pulse Pulse Resp BP BP Pulse Ox 07/18/22 06:29 74 144/63 H 07/18/22 05:49 83 125/66 07/18/22 05:36 82 151/65 H 07/18/22 05:26 86 148/71 H 07/18/22 05:16 168/83 H 92 07/18/22 04:56 97.9 F 93 H 19 181/98 H 93 07/18/22 02:33 97.9 F 77 20 142/59 H 91 07/17/22 23:50 66 07/17/22 22:56 97.7 F 66 18 137/65 94 07/17/22 19:20 07/17/22 19:11 97.9 F 69 19 130/61 95 07/17/22 17:08 98.2 F 66 20 129/69 95 07/17/22 14:03 64 07/17/22 15:05 97.7 F 69 14 131/68 96 07/17/22 13:59 97.9 F 63 18 104/82 94 07/17/22 13:02 97.7 F 63 16 122/64 95 07/17/22 12:38 98.1 F 60 20 127/58 L 94 07/17/22 12:07 97.9 F 63 16 113/59 L 93 07/17/22 10:24 57 L 16 126/72 95 07/17/22 11:42 63 07/17/22 10:28 57 L 16 126/72 95 07/17/22 07:45 97.9 F 73 16 129/57 L 93 O2 Del Method 07/18/22 06:29 07/18/22 05:49 07/18/22 05:36 07/18/22 05:26 07/18/22 05:16 Room Air 07/18/22 04:56 Room Air 07/18/22 02:33 Room Air 07/17/22 23:50 07/17/22 22:56 Room Air 07/17/22 19:20 Room Air 07/17/22 19:11 Room Air 07/17/22 17:08 Room Air 07/17/22 14:03 07/17/22 15:05 Room Air 07/17/22 13:59 Room Air 07/17/22 13:02 Room Air 07/17/22 12:38 Room Air 07/17/22 12:07 Room Air 07/17/22 10:24 Room Air 07/17/22 11:42 07/17/22 10:28 Room Air 07/17/22 07:45 Room Air Cardiovascular RRR, no murmur, no edema Respiratory normal respiratory effort, lungs clear to auscultation Pre-Sedation Airway Assessment Smoking Status: Former smoker Hx Sleep Apnea: No Hx Difficult Intubation: No Short, Thick Neck: No Thyromental Distance: > or= 3.5 Finger Breadths Oral Cavity: + WNL Mallampati Class: II ASA: ASA3 NPO Status Date of Last Intake of Fluids: 07/17/22 Time of Last Intake of Fluids: 09:00 Last Oral Intake of Fluids Comment: sips of water for pills Date of Last Intake of Solid Food: 07/16/22 Time of Last Intake of Solid Foods: 18:30 Procedure Planning Contraindications for Sedation: none Current Medications Reviewed: Yes Notes The planned sedation has been discussed with the patient. Informed Consent was obtained. I have identified the patient, determined the appropriateness of sedation and have assessed the patient immediately prior to the procedure. All medicine(s) and interventions are by my order.
[2022-07-18 07:37] LABS: Partial Thromboplastin Ratio 2.6; Prothrombin Time 10.9 Seconds (9.0-12.0)
[2022-07-18 07:47] LABS: Partial Thromboplastin Time 71.3 Seconds (21.0-31.0)
--- NOTE | 2022-07-18 07:54 | Post Anesthesia Assessment ---
Date of Service July 18, 2022 Post Sedation Assessment Vital Signs Temp Pulse Pulse Resp BP BP Pulse Ox 07/18/22 06:29 74 144/63 H 07/18/22 05:49 83 125/66 07/18/22 05:36 82 151/65 H 07/18/22 05:26 86 148/71 H 07/18/22 05:16 168/83 H 92 07/18/22 04:56 97.9 F 93 H 19 181/98 H 93 07/18/22 02:33 97.9 F 77 20 142/59 H 91 07/17/22 23:50 66 07/17/22 22:56 97.7 F 66 18 137/65 94 07/17/22 19:20 07/17/22 19:11 97.9 F 69 19 130/61 95 07/17/22 17:08 98.2 F 66 20 129/69 95 07/17/22 14:03 64 07/17/22 15:05 97.7 F 69 14 131/68 96 07/17/22 13:59 97.9 F 63 18 104/82 94 07/17/22 13:02 97.7 F 63 16 122/64 95 07/17/22 12:38 98.1 F 60 20 127/58 L 94 07/17/22 12:07 97.9 F 63 16 113/59 L 93 07/17/22 10:24 57 L 16 126/72 95 07/17/22 11:42 63 07/17/22 10:28 57 L 16 126/72 95 O2 Del Method 07/18/22 06:29 07/18/22 05:49 07/18/22 05:36 07/18/22 05:26 07/18/22 05:16 Room Air 07/18/22 04:56 Room Air 07/18/22 02:33 Room Air 07/17/22 23:50 07/17/22 22:56 Room Air 07/17/22 19:20 Room Air 07/17/22 19:11 Room Air 07/17/22 17:08 Room Air 07/17/22 14:03 07/17/22 15:05 Room Air 07/17/22 13:59 Room Air 07/17/22 13:02 Room Air 07/17/22 12:38 Room Air 07/17/22 12:07 Room Air 07/17/22 10:24 Room Air 07/17/22 11:42 07/17/22 10:28 Room Air Recovery Score Activity: Moves 4 extremities Respiration: Deep Breath/Cough Circulation: +/-20% PreAnes Value Consciousness: Fully Awake Oxygen Saturation: > 92% On Room Air Discharge Sedation Level of Care: Fast Track Phase II Post Sedation Plan On clinical assessment, the patient appears to have tolerated the sedation without complications. Patient is recovering as anticipated. Patient will continue to be monitored by nursing and may be discharged when sedation discharge criteria are met per below protocol. Upon Completions of procedure up to 15 minutes continue every 5 minute vital signs and the P.A.R. score; then discharge to a Phase I or Fast Track to Phase II per the following guidelines: * Discharge Patient to appropriate Phase II area if PAR is 8 or greater or return to pre- procedure baseline. The post - procedure orders will be as directed. * If PAR score is less than 8 or not return to pre-procedure baseline then patient will follow Phase I monitoring till PAR is reached for Phase II. The Phase I may be done in procedure room or may call to secure a Phase I area. * If naloxone or flumazenil are used for reversal, hold in Phase I for continued monitoring from when last reversal dose was given for a minimum of 60 minutes or longer pending the nurse and/or physician discretion of patient condition before discharge to Phase II. Please call the Sedation Physician to re-evaluate and complete post-note for discharge to Phase II area. Do NOT discharge from procedure sedation or Phase 1 until post- sedation evaluation note is complete by procedure /sedation MD Sedation Discharge Instructions to be given to the patient at discharge to home.
--- NOTE | 2022-07-18 08:03 | Cardiac Catheterization ---
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 Mixer Cardiac Status Clinical evaluation leading to the procedure CAD Presenation: Non STEMI Anginal Classification: CCS IV Heart Failure: No Diagnostic Physicians Name: Patrick Nye MD Closure Device Recommendations: CABG Cardiac Cath Procedure Full Procedure Date July 18, 2022 Pre-Procedure Diagnosis Pre-Procedure Diagnosis: Non STEMI and CAD AUC Score AUC Score: 8 Post-Procedure Diagnosis Post-Procedure Diagnosis: Severe CAD Procedure(s) Performed Procedure(s) Performed: Coronary Angiography and IABP Concession Worker Patrick Nye MD Student Services Rep(s) Carina Long Estimated Blood Loss Estimated Blood Loss: < 25 ml Medication(s) Medication(s): Fentanyl, Heparin, Lidocaine 1%, Nitroglycerin and Versed Summary of Findings Indication: Known left main/ostial circumflex LAD disease with worsening chest pain overnight Access: 8 Fr right common femoral artery Catheters: Diagnostic JL 4 Findings: LM -40% ostial, 95+% distal left main extending into ostial LAD, ostial circumflex. RYAN-3 flow in LAD, circumflex. Unchanged significantly from 07/17/2022 Procedure: Right AREA RELIEF PILOT access under ultrasound guidance with placement of 5 Fr sheath Angiography of right AREA RELIEF PILOT, iliacs showed only mild disease Coronary angiography via JR4 5 Fr sheath exchanged for 8 Fr sheath IABP placed to descending thoracic aorta IABP successfully augmenting to 130s. Completion of procedure IABP at 1:1 on nitroglycerin 5 mcg and heparin infusion Summary: 1. Unchanged critical distal left main disease extending into ostial LAD, ostial circumflex with RYAN-3 flow 2. Successful placement of IABP Recommendations: Awaiting transfer to tertiary center for CABG Continue heparin and nitroglycerin infusions Hemodynamics Rest Ao:: 135/65/91 Final Ao: 132/61/106 LV: -- Recommendations Recommendations: CABG Specimens Specimens: None Radiation Exposure (mGy) 486 Contrast (mls) 20 Anesthesia moderate 3558-5305 Procedural Complication(s) None Disposition ICU I attest to the content of the Intraoperative Record and any orders documented therein. Any exceptions are noted below. [facility] Card Cath Procedure Codes Cardiac Catheterization Procedure 1: Cardiovascular Cath Procedures: 23992 Coronaries Therapeutic Services & Ancillary Procedure 1: Cardiovascular Tx and Anc Procedures: 14615 Ultrasonic Guidance Vascular Access Procedure 2: Cardiovascular Tx and Anc Procedures: 48628 IABP Insertion Moderate Sedation Procedure 1: Sedation/Anesthesia: 52214 Mod Sedation by the same physician;Init15 Min Child Age 5 & Up PG Care Time/CCT Total # of Minutes Spent Total Time Spent with Patient: Total time spent is greater than 50% in coordination of care (as documented) at patient's floor/unit and/or counseling patient:
[2022-07-18 08:13] LABS: Albumin Level 3.6 gm/dl (3.4-5.0); Bilirubin,Total 0.3 mg/dl (0.2-1.0); Calcium 8.6 mg/dl (8.5-10.1); Potassium 4.1 mmol/L (3.5-5.1)
[2022-07-18 08:19] LABS: Albumin Globulin Ratio 1.6 (0.9-2); Creatinine Clr Calc Pharmacy 56.3 ml/min; Est GFR (African American) 62.2 ml/min; Est GFR (Non-African American) 53.6 ml/min; Globulin 2.3 gm/dl (2.5-4.0); Total Protein 5.9 gm/dl (6.0-8.3)
--- NOTE | 2022-07-18 10:22 | Electrocardiogram Report ---
Test Reason : Blood Pressure : / mmHG Vent. Rate : 065 BPM Atrial Rate : 065 BPM P-R Int : 138 ms QRS Dur : 096 ms QT Int : 420 ms P-R-T Axes : 016 -18 -78 degrees QTc Int : 436 ms Normal sinus rhythm Minimal voltage criteria for LVH, may be normal variant T wave abnormality, consider inferior ischemia Abnormal ECG When compared with ECG of 14-APR-2022 10:27, ST now depressed in Anterolateral leads T wave inversion now evident in Anterior leads Confirmed by Cristhian Bender ([id number]) on 07/18/2022 10:22:10 AM Referred By: REFERRED SELF Confirmed By:Cristhian Bender
--- NOTE | 2022-07-18 13:03 | Discharge Summary ---
Date of Service July 18, 2022 Admission HPI Per Admitting Provider The patient is a 76-year-old male with past medical history including CAD, COPD, glaucoma, GERD, diabetes mellitus, hypertension, hyperlipidemia, enlarged prostate, status post RCA PCI, PAD, and carotid artery stenosis. He presents with symptoms as noted above. The patient's troponin was elevated at 121.2. EKG noted significant new T wave inversions in leads V3 through V6 in particular, and less so in leads II, III and aVF. The patient was started on heparin drip while in ED, and had the addition of Nitropaste 1 inch to the anterior chest wall as well. The patient did have an episode prior to transfer where he became lightheaded, felt near syncopal, and heart rate decreased down to the 20s, but then spontaneously recovered. At this point, he had pacer pads placed and was transported to stepdown unit. Principal Diagnosis multivessel disease Discharge Exam The patient is awake, alert and oriented 3, well developed and well nourished, normocephalic and atraumatic, lying in bed and in no acute distress. HEENT--PERRL, EOMI, mucous membranes and oropharynx mildly dry Neck--supple. No JVD. No bruits. Thyroid normal, trachea midline, no adenopathy. Heart--normal S1 and S2. No murmurs, rubs or gallops. Lungs--clear bilaterally, no respiratory distress, no accessory muscle use. Abdomen--normal bowel sounds and soft. Mild epigastric and left sided abdominal pain Extremities--no cyanosis or clubbing. No edema. Dermatologic--normal skin turgor, normal color, no abnormal lymph nodes, no rash. Neurologic--cranial nerves II through XII grossly intact. Rheumatologic--normal range of motion. Psychiatric--normal affect. Discharge Data Allergies Allergy/AdvReac Type Severity Reaction Status Date / Time No Known Allergies Allergy Verified 07/17/22 00:35 Consultations 07/17/22 00:24 ED Decision to Admit Stat 07/17/22 03:43 Consult Cardiology Routine Procedures Performed Operation Date: 07/17/22 11:00 Actual Procedures p Cineradiography w/Routine Exam - Cristhian Bender MD p Cath, Coronaries ONLY (no LV) - Cristhian Bender MD Operation Date: 07/18/22 07:30 Actual Procedures p Cineradiography w/Routine Exam - Jose Nye MD p Cath, Cors with Grafts (no LV) - Jose Nye MD s Intra-Aortic Balloon Insertion - Jose Nye MD s Ultrasound Vascular Access - Jose Nye MD Ordered Studies 07/17/22 10:05 CL Cath Imgs for PACS use only Urgent 07/18/22 07:02 CL Cath Imgs for PACS use only Urgent Hospital Course (1) Acute non-ST elevation myocardial infarction (NSTEMI): He has a History of right coronary artery stent placement was admitted on account of chest pain, near syncope Found to have acute NSTEMI, some T wave changes on EKG Taken to the labelling machine operator for angiography found to have multivessel disease Continue heparin, stop Plavix Initial Plan was transfer to [place] for CABG. Accepting Dr, is Dr Dean, however no beds. he ended up being transfered to [facility] He had an intraortic baloon pump inserted in the labelling machine operator (2) Hyperlipidemia: Hyperlipidemia- Increase atorvastatin from 40 to 80 mg and give first dose this evening, and continue fenofibrate 145 mg daily Check a fasting lipid panel (3) Diabetes: Diabetes mellitus- Hold metformin Placed on Accu-Cheks before meals and at bedtime with NovoLog coverage per scale (4) History of lung cancer: s/p lobectomy (5) Hypertension: Stable BP 139/56 (6) COPD (chronic obstructive pulmonary disease): (7) CAD (coronary artery disease): (8) Carotid artery stenosis: (9) Peripheral arterial disease: (10) Acid reflux disease: (11) H/O right coronary artery stent placement: Plan Transfer to [place] for CABG when bed available Total Time Total Time Spent Total Time Spent (In Minutes): 35 Discharge Plan Discharge Items Patient Disposition: Transfer Acute Care Hospital Reason For Visit: NSTEMI Discharge Diagnosis: Multivessel disease Activity: Resume your previous activity Non-emergency contact: Primary Care Provider and Drywall Application Supervisor Call non-emergency contact if: you have any medication questions and your symptoms worsen Follow-up/Referrals: Talon Burns DO [Primary Care Provider] - Diet: Heart Healthy Addtl Attending Provider Instructions: please make arrangememts to follow up with your coil cutter Pending Studies at Discharge: No Stand-Alone Forms: My [facility] Skilled Items Patient informed of condition?: Yes DNR: No Discharge Level of Care: Other Communicable Disease: No Discharge Prognosis: Stable Lines: Peripheral IV Urinary Catheter: Yes Medications and DC Order Prescriptions: Continued omeprazole 20 mg capsule,delayed release(DR/EC) 20 mg PO DAILY Qty: 30 2RF melatonin 10 mg capsule 10 mg PO HS PRN (Reason: sleep) Qty: 30 0RF acetaminophen 500 mg tablet 500 mg PO Q6H PRN (Reason: fever) Qty: 30 0RF Rx Instructions: PER PT "USUALLY TAKE 1000 MG AT HS". aspirin [Enteric Coated Aspirin] 81 mg tablet,delayed release (DR/EC) 81 mg PO DAILY Qty: 30 2RF benazepril 40 mg tablet 40 mg PO DAILY Qty: 90 3RF Incruse Ellipta 62.5 mcg/actuation blister with device 1 inh inhalation DAILY Qty: 30 2RF fenofibrate nanocrystallized 145 mg tablet 145 mg PO DAILY Qty: 90 1RF (DME) diabetic supplies, miscellan. Misc See Rx Instructions .ROUTE .MEDSUPPLY Qty: 1 Rx Instructions: ONE TOUCH ULTRA- TESTS PRN nitroglycerin 0.4 mg tablet, sublingual 0.4 mg sublingual Q5M PRN (Reason: chest pain) Qty: 30 0RF Rx Instructions: do not exceed 3 doses per episode albuterol sulfate 90 mcg/actuation HFA aerosol inhaler 2 puff inhalation Q6H PRN (Reason: Shortness Of Breath Or Wheezing) Qty: 18 3RF Rx Instructions: PER PT "USUALLY USE 2 PUFFS AT HS". diphenhydramine HCl [Benadryl] 25 mg Capsule 25 mg PO DIRECTED PRN (Reason: Congestion) atorvastatin 40 mg tablet 40 mg PO HS metformin 1,000 mg tablet 1,000 mg PO HS prednisone 10 mg Tablet 0 mg PO DIRECTED Rx Instructions: ON PT'S MED LIST, UNABLE TO VERIFY ON EXT MED HX. Discontinued clopidogrel 75 mg tablet 75 mg PO DAILY Qty: 90 3RF azithromycin 250 mg Tablet 0 mg PO .COMPLEX Rx Instructions: ON PT'S MED LIST, UNABLE TO VERIFY ON EXT MED HX. For 250 mg dose pack: take 500 mg today (day 1), then 250 mg for 4 days (days 2-5) Discharge Orders: Discharge Order (Routine); Ordered 07/17/22 Ordered By: Howard Reed/Other Patient Handouts: Managing Type 2 Diabetes Admission Data Admit Date/Time: 07/17/22 01:12 Attending Provider: Howard Cardenas Admit Provider: Edward Bui Primary Care Provider: Talon Burns Other Providers: Edward Bui ; Cristhian Bender Other Interventions: Discharge Summary Assessment (RN) Last Done: 07/18/22 11:01 Coding Level of Care Code HOSP INP/OBS DISCH >30 MIN Diagnoses Acute non-ST elevation myocardial infarction (NSTEMI) I21.4 Hyperlipidemia E78.5 Diabetes E11.9 History of lung cancer Z85.118 Hypertension I10 COPD (chronic obstructive pulmonary disease) J44.9 CAD (coronary artery disease) I25.10 Carotid artery stenosis I65.29 Peripheral arterial disease I73.9 Acid reflux disease K21.9 H/O right coronary artery stent placement Z95.5 Time Spent (min) 35
--- NOTE | 2022-07-18 15:59 | Electrocardiogram Report ---
Test Reason : Blood Pressure : / mmHG Vent. Rate : 092 BPM Atrial Rate : 092 BPM P-R Int : 144 ms QRS Dur : 096 ms QT Int : 368 ms P-R-T Axes : 050 -39 192 degrees QTc Int : 456 ms Normal sinus rhythm Left axis deviation Marked ST abnormality, possible anterior subendocardial injury T wave abnormality, consider anterior ischemia Abnormal ECG When compared with ECG of 16-JUL-2022 23:11, ST now depressed in Anterior leads Nonspecific T wave abnormality has replaced inverted T waves in Inferior leads Confirmed by Cristhian Bender ([id number]) on 07/18/2022 3:58:50 PM Referred By: REFERRED SELF Confirmed By:Cristhian Bender
[2022-07-18] MEDS ORDERED: INSULIN ASPART PER UNIT SC SCH (16:30)
== END 2022-07-18 11:02 | disposition short-term general hospital (02) | DRG 272 ==
LOC: ED 22:58 → SUATTDRO 07-17 01:12 → 2E 07-17 01:12 → 1E 07-18 09:00
PROC: CLB.CCO (2022-07-17 11:00)
PROC: CLB.CCG (2022-07-18 07:30)

== ENCOUNTER 2023-12-18 10:53 | Inpatient (IN) ==
--- NOTE | 2023-12-18 11:16 | Emergency Department Note ---
Impression & Plan Acute pain of left knee, Fall, Quadriceps tendon rupture ED Provider Note ED Provider Note NAME: LINDA GUTIERREZ AGE:78 SEX: Male : 1945 ARRIVES VIA: EMS INFORMANT: Patient ED PROVIDER(s): Carina Pizarro DO CHIEF COMPLAINT: Fall, left knee pain HPI: This is a 78-year-old male who presents the emergency department via EMS after an accidental fall at home. He states he was almost to the bottom of a flight of steps while carrying 2 bags of groceries in each hand which were down by his side when he tripped over an empty milk jug on the steps and fell forward. Patient states he put his arms out to break his fall. He denies striking his head or losing consciousness. Patient denies any neck or back pain. Patient states while falling he heard a pop in his left knee. He was unable to stand or bear weight on this knee due to pain. Patient does take aspirin and Plavix daily due to history of coronary artery disease and peripheral vascular disease. PAST MEDICAL HISTORY:See Below PAST SURGICAL HISTORY:See Below FAMILY HISTORY:See Below SOCIAL HISTORY:See Below HOME MEDICATIONS:See Below ALLERGIES:See Below VITALS:See Below PHYSICAL EXAMINATION: GENERAL: alert, well appearing, well nourished, no distress, non-toxic HEAD: nc/at EYE EXAM: normal conjunctiva, PERRL and EOM's grossly intact OROPHARYNX: no exudate, no erythema, lips, buccal mucosa, and tongue normal and mucous membranes are moist NECK: supple, no nuchal rigidity, no adenopathy, non-tender LUNGS: Clear to auscultation. Normal chest wall mechanics, no w/r/r HEART: no murmurs, S1 normal and S2 normal CHEST WALL: No step-off, no crepitus, no tenderness with palpation, well-healed midline sternotomy scar noted ABDOMEN: abdomen soft, non-tender, normo-active bowel sounds, no masses, no rebound or guarding. BACK: Back is symmetrical on inspection and there is no deformity, no midline tenderness, no CVA tenderness. No evidence of trauma. SKIN: no rashes, petechiae, orbruising UPPER EXTREMITIES: upper extremities are grossly normal. FROM, nml pulses b/l. LOWER EXTREMITIES: No pitting edema. FROM RLE, nml pulses b/l. Well-healed incision vertically along the medial aspect of the right knee, no joint effusions, no evidence of trauma. Left knee with pain over the superior aspect of the knee including the patella with palpation with evolving edema and ecchymosis noted along the superior aspect of the knee, evolving ecchymosis noted the superior tibia additionally, no significant joint effusion, decreased range of motion secondary to pain at the left knee, no other evidence of trauma or deformity to the left lower extremity; patient unable to extend the left knee, unable to straight leg raise on the left. NEURO EXAM: Normal sensorium, cranial nerves II-XII grossly intact, normal speech, no facial droop,nogross weakness of arms, no gross weakness of legs. Gross sensation intact. No ataxia. Vital Signs: reviewed and remarkable Differential Diagnosis: Occult fracture, contusion, abrasion, dislocation, CHI, hemarthrosis, ligamentous injury, tendinous injury, as well as others were considered MEDICAL DECISION MAKING: This is a 78-year-old male presents emerged department following an accidental fall down 3-4 steps at home. Patient was concern for left knee pain as he heard a pop and was unable to bear weight on the knee afterwards. Patient denied any other concern for injury and denied any other pain. No other evidence of trauma on exam. Initial x-rays negative however due to swelling, evolving ecchymosis, and concern for injury he was sent for CT. No acute fracture or hemarthrosis noted. Patient's exam was suggestive of acute quadriceps tendon rupture. After initial discussion via [place] text with orthopedics, we attempted to place patient in a knee immobilizer and give him an additional assistive device. Patient unstable and unable to steadily stand let alone ambulate with this immobilization device in place. Due to concern for patient's need for assistance with ADLs, I discussed with case management options for disposition. No option for rehab or immediate placement into a fdc facility at this time. In light of this patient will be admitted for additional management and orthopedic evaluation. Orthopedics updated will see him in consult. I have low suspicion for any additional occult traumatic injury. Consultation(s): 1400: Discussed with Dr. Martini via [place] Text. Will place in knee immobilizer and plan for outpatient follow-up with orthopedics. 1455: Discussed with Dr. Terrazas, [facility] hospitalist team, for additional evaluation and management as patient failed ambulatory trial. ER Treatment Provided: See below Diagnostics Interpreted By Me: -Cardiac Monitoring: An order was placed for continuous cardiac monitoring. The monitor shows a rate of 60 with normal sinus rhythm. -Laboratory studies: As stated above and show below. -Imaging studies: X-ray left knee: No obvious fracture or dislocation Triage Nursing Note Reviewed Prior/Outside Records Reviewed Past Med/Surg History Problem List (Updated 12/18/23 @ 20:47 by Carina Pizarro, DO) Quadriceps tendon rupture (Acute) Rupture of left patellar tendon Fall (Acute) Acute pain of left knee (Acute) Peripheral vascular disease, unspecified Preop cardiovascular exam SJ (obstructive sleep apnea) History of coronary artery bypass graft x2 vessels on ~07/19/22 at [facility]. Follows with Dr Bender Arthritis COPD (chronic obstructive pulmonary disease) CAD (coronary artery disease) Hearing loss Glaucoma Acid reflux disease Diabetes NIDDM Hypertension Hyperlipidemia Enlarged prostate H/O angioplasty L femoral in 2005 and 11/2020, R femoral in 2018 and 10/2019 Peripheral arterial disease Carotid artery stenosis Osteoarthritis of right knee Tendinitis of left quadriceps tendon Patellofemoral arthritis of right knee Hypersomnia Ex-smoker History of lung cancer Acute non-ST elevation myocardial infarction (NSTEMI) (Acute) 07/17/22 H/O right coronary artery stent placement (~2014) [place] [facility] S/P CABG (coronary artery bypass graft) History of colon polyps Medical History BPH (benign prostatic hyperplasia) History of Mohs micrographic surgery for skin cancer Hx of basal cell carcinoma On anticoagulant therapy H/O: lung cancer 2017 with Left Upper Lobectomy -- monitors currently. no current issues. Surgical History History of selective laser trabeculoplasty History of prostate surgery Green Light Laser procedure [facility] [place] History of colonoscopy History of cardiac cath 07/18/[address] [facility] and transferred to [facility] for CABG Status post biopsy of skin S/P coronary artery stent placement H/O umbilical hernia repair History of 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 H/O cataract extraction bilateral H/O laminectomy L3/4 in 1990, L4/5 w/ fusion in 1992 H/O vasectomy H/O right knee surgery Family History Brother Lung cancer Father Heart disease Hypertension Mother Cerebral aneurysm Other No family history of adverse response to anesthesia Social History Smoking Status: Former smoker Tobacco Type: Cigarettes Age Started Using Tobacco: 19; Age Quit Using Tobacco: 69; packs per day: 1.5; Cigarettes Per Day: 30; Second Hand Exposure: No; Do You Dip or Chew Tobacco: No; Hx Alcohol Use: Yes Alcohol type: beer Alcohol Intake Frequency: Monthly or Less Hx Substance Use: No Preferred Language: Nepali Communication Ability: Effective Visual Impairment: No Limitations Hearing Ability: Normal Manager Medical Required: No Beliefs That Will Affect Care: None marital status: Current Living Situation: Family Current Living Situation Comment: lives with Shayy mendoza current occupational status: retired current occupation: Retired Other Information That Helps Us Care for You: No Feels Safe at Home: Yes Safety Concerns: Feels Safe At This Time Childhood Exposure to Second-Hand Smoke: No Diet: regular Dental Care, Regularly: No Physical Activity Frequency: Daily Seatbelt Use: always Sunscreen Use: Yes Assistive Devices: Denture - Upper, Denture - Lower and Glasses Allergies Allergies Allergy/AdvReac Type Severity Reaction Status Date / Time No Known Allergies Allergy Verified 11/25/23 16:17 Home Meds Home Medications Medication Instructions Recorded Confirmed diabetic supplies, miscellan. #1 ea 12/31/20 11/25/23 diphenhydramine HCl 25 mg capsule 25 mg PO QAM PRN Congestion 07/17/22 12/18/23 (Benadryl) multivitamin 1 tab PO QAM 08/18/22 12/18/23 acetaminophen 500 mg tablet 500 mg PO Q6H PRN Pain 09/26/22 12/18/23 aspirin 81 mg tablet,delayed 81 mg PO QAM 09/26/22 12/18/23 release (Enteric Coated Aspirin) magnesium 200 mg tablet 400 mg PO HS 09/26/22 12/18/23 omeprazole 20 mg capsule,delayed 20 mg PO QPM 09/26/22 12/18/23 release potassium gluconate 600 mg (99 mg) 600 mg PO QAM 09/26/22 12/18/23 tablet hydrocortisone 2.5 % topical cream 1 applic topical BID PRN Other 12/18/23 12/18/23 ketoconazole 2 % topical cream 1 applic topical BID PRN Other 12/18/23 12/18/23 metformin 1,000 mg tablet 1,000 mg PO QAM 12/18/23 12/18/23 Previous Rx's Medication Instructions Recorded melatonin 10 mg capsule 10 mg PO HS PRN sleep #30 caps 12/28/20 nitroglycerin 0.4 mg sublingual 0.4 mg sublingual Q5M PRN chest 08/29/22 tablet pain #30 tabs atorvastatin 40 mg tablet 40 mg PO HS #90 tabs 04/06/23 Auto Titrating CPAP #1 ea 05/30/23 CPAP Supplies #1 ea 05/30/23 albuterol sulfate 90 mcg/actuation 2 puff inhalation Q6H PRN 10/02/23 aerosol inhaler Shortness Of Breath Or Wheezing #18 grams umeclidinium 62.5 mcg-vilanterol 1 inh inhalation DAILY #3 Inhalers 10/02/23 25 mcg/actuation powdr for inhalation (Anoro Ellipta) benazepril 10 mg tablet 10 mg PO QAM #90 tabs 10/08/23 clopidogrel 75 mg tablet 75 mg PO QAM #90 tabs 10/08/23 fenofibrate 160 mg tablet 160 mg PO QAM #90 tabs 10/08/23 metoprolol tartrate 25 mg tablet 25 mg PO BID #180 tabs 10/08/23 mirabegron 50 mg tablet,extended 50 mg PO QAM #30 tabs 11/24/23 release 24 hr (Myrbetriq) Results & Data (ED) Vital Signs Vital Signs - 24 hr 12/18/23 11:02 12/18/23 12:10 12/18/23 14:50 Temperature 36.5 C Temperature Source Oral Pulse Rate 60 62 Pulse Rate [Apical] 56 L Respiratory Rate 18 18 Respiratory Effort / Characteristics Non-Labored Spontaneous Non-Labored Spontaneous Respiratory Depth Normal Normal Respiratory Pattern Regular Regular Blood Pressure 169/70 H Blood Pressure [Right Arm] 159/62 H Blood Pressure Mean 103 Blood Pressure Mean [Right Arm] 94 Blood Pressure Position [Right Arm] Sitting Pulse Oximetry 97 96 Oxygen Delivery Method Room Air Room Air Sepsis Recent Fever Within 48 Hours No Sepsis New/Unexplained Change in Mental Status No Sepsis Action Taken by Nursing No Action Required Laboratory Data Lab Results 12/18/23 Range/Units 12:46 POC Hgb 11.6 L (14.0-18.0) g/dl POC Hct 34 L (42-52) % POC Sodium 143 (135-144) mmol/L POC Potassium 4.6 (3.3-5.0) mmol/L POC Chloride 111 (101-112) mmol/L POC Total CO2 25 (24-31) mmol/L POC Anion Gap 13.0 L (16-25) mmol/L POC BUN 38 H (7-18) mg/dl POC Creatinine 1.4 H (0.6-1.3) mg/dl POC Glucose (other) 211 H (70-99) mg/dl POC Ioniz Calcium Jhonatan 1.33 H (1.12-1.32) mmol/l Administered Medications Insulin Aspart (Insulin Aspart Per Unit Charge) 0 units SC ACHS MICHAEL Stop: 01/17/24 16:29 Last Admin: 12/18/23 18:11 Dose: 2 units Documented By: HOWARD Co-signed By: AZAEL Discontinued Medications Sodium Chloride (Nss) 500 mls @ 999 mls/hr IV .Q31M ONE Stop: 12/18/23 12:41 Last Infusion: 12/18/23 14:16 Dose: Infused Documented By: Admin: 12/18/23 12:49 Dose: 999 mls/hr Documented By: ROSMERY Ioversol (Optiray 320 100ml) 94 ml IV ONCE ONE Stop: 12/18/23 12:58 Last Admin: 12/18/23 12:57 Dose: 94 ml Documented By: OSMAR Imaging Data Radiologist's Impression: Chest X-Ray 12/18/23 11:11 SINGLE VIEW CHEST CLINICAL HISTORY: Trauma FINDINGS: 2 AP, portable, upright chest radiographs are compared to study dated 07/16/2022. Correlation is made with chest CT dated 04/23/2022. The patient is status post midline sternotomy. The heart is enlarged noting atherosclerotic calcification of the thoracic aorta. There is pulmonary vascular congestion an mild interstitial edema. Emphysema and chronic interstitial thickening is similar to previous. No large pleural effusion or pneumothorax is seen. The skeletal structures are osteopenic. The bony thorax is grossly intact. 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 ACT 112: Negative or not required by law. Electronically signed by: Malvin Corbett M.D. 12/18/2023 11:42 AM Knee X-Ray 12/18/23 11:11 XR knee LT 3V HISTORY: 78 years-old Male trauma acute left knee pain status post trauma COMPARISON: 09/09/2021 TECHNIQUE: 3 views of the left knee FINDINGS: Arterial calcifications. There is mild tricompartmental osteoarthritis with trace joint effusion. No acute fracture, dislocation or osseous erosion. Medial surgical clips of the lower leg. IMPRESSION: Mild osteoarthritis without acute fracture. ACT 112: Negative or not required by law. The above report was generated using voice recognition software. It may contain grammatical, syntax or spelling errors. Electronically signed by: Neville Mock M.D. 12/18/2023 11:42 AM Pelvis X-Ray 12/18/23 11:11 XR pelvis 1-2V routine CLINICAL HISTORY: trauma TECHNIQUE: A single frontal view of the pelvis was obtained. Comparison: None available at the time of this dictation. FINDINGS: There is no evidence of an acute fracture. Degenerative changes are seen in the hip joints and lumbar spine. Vascular calcifications are noted. IMPRESSION: Degenerative changes without evidence of acute abnormality. ACT 112: Negative or not required by law. Electronically signed by: Wang Lee M.D. 12/18/2023 12:[address] 12/18/23 12:11 CT knee LT w con CLINICAL HISTORY: incr edema/ecchymosis s/p fall TECHNIQUE: Multidetector row helical CT of the left knee was performed without intravenous contrast. Coronal and sagittal reformations were obtained. Automated dose lowering techniques and/or adjustment according to patient size were utilized for this examination. CT DOSE: 612.96 mGy.cm Comparison: Comparison is made to knee radiographs 12/18/2023 FINDINGS: The osseous structures are without fracture or dislocation. The joint spaces are maintained. No joint effusion is seen. Soft tissue stranding is seen in the suprapatellar region. Vascular calcifications are seen. IMPRESSION: Soft tissue stranding in the suprapatellar region without acute bony abnormality. ACT 112: Negative or not required by law. Electronically signed by: Wang Lee M.D. 12/18/2023 1:17 PM Discharge Plan Visit Data Chief Complaint: Fall Stated Complaint: fall ED Provider: Carina Pizarro Discharge Problem: Acute pain of left knee, Fall, Quadriceps tendon rupture Patient Disposition: Admitted As Inpatient Discharge Instructions Interventions: ED Discharge Assessment Last Done: 12/18/23 18:12
--- NOTE | 2023-12-18 11:44 | XRay Report ---
XR knee LT 3V HISTORY: 78 years-old Male trauma acute left knee pain status post trauma COMPARISON: 09/09/2021 TECHNIQUE: 3 views of the left knee FINDINGS: Arterial calcifications. There is mild tricompartmental osteoarthritis with trace joint effusion. No acute fracture, dislocation or osseous erosion. Medial surgical clips of the lower leg. IMPRESSION: Mild osteoarthritis without acute fracture. ACT 112: Negative or not required by law. The above report was generated using voice recognition software. It may contain grammatical, syntax o r spelling errors. Electronically signed by: Neville Mock M.D. 12/18/2023 11:42 AM
--- NOTE | 2023-12-18 11:44 | XRay Report ---
SINGLE VIEW CHEST CLINICAL HISTORY: Trauma FINDINGS: 2 AP, portable, upright chest radiographs are compared to study dated 07/16/2022. Correlatio n is made with chest CT dated 04/23/2022. The patient is status post midline sternotomy. The heart is enlarged noting atherosclerotic calcification of the thoracic aorta. There is pulmonary vascular con gestion an mild interstitial edema. Emphysema and chronic interstitial thickening is similar to previ ous. No large pleural effusion or pneumothorax is seen. The skeletal structures are osteopenic. The b nicole thorax is grossly intact. 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 ACT 112: Negative or not required by law. Electronically signed by: Malvin Corbett M.D. 12/18/2023 11:42 AM
--- NOTE | 2023-12-18 12:14 | XRay Report ---
XR pelvis 1-2V routine CLINICAL HISTORY: trauma TECHNIQUE: A single frontal view of the pelvis was obtained. Comparison: None available at the time of this dictation. FINDINGS: There is no evidence of an acute fracture. Degenerative changes are seen in the hip joints and lumbar spine. Vascular calcifications are noted. IMPRESSION: Degenerative changes without evidence of acute abnormality. ACT 112: Negative or not required by law. Electronically signed by: Wang Lee M.D. 12/18/2023 12:12 PM
[2023-12-18] MEDS: SODIUM CHLORIDE 0.9% 500 ML IV ONE (12:49)
[2023-12-18] MEDS: OPTIRAY 320 100ml IV ONE (12:57)
[2023-12-18 12:59] LABS: iSTAT Creatinine 1.4 mg/dl (0.6-1.3); iSTAT Hemoglobin 11.6 g/dl (14.0-18.0); iSTAT Ionized Calcium 1.33 mmol/l (1.12-1.32); iSTAT Potassium 4.6 mmol/L (3.3-5.0)
--- NOTE | 2023-12-18 13:20 | CT Scan Report ---
CT knee LT w con CLINICAL HISTORY: incr edema/ecchymosis s/p fall TECHNIQUE: Multidetector row helical CT of the left knee was performed without intravenous contrast. Coronal and sagittal reformations were obtained. Automated dose lowering techniques and/or adjustment according to patient size were utilized for this examination. CT DOSE: 612.96 mGy.cm Comparison: Comparison is made to knee radiographs 12/18/2023 FINDINGS: The osseous structures are without fracture or dislocation. The joint spaces are maintained. No joint effusion is seen. Soft tissue stranding is seen in the suprapatellar region. Vascular calcification s are seen. IMPRESSION: Soft tissue stranding in the suprapatellar region without acute bony abnormality. ACT 112: Negative or not required by law. Electronically signed by: Wang Lee M.D. 12/18/2023 1:17 PM
--- NOTE | 2023-12-18 14:58 | History & Physical Report ---
Date of Service December 18, 2023 Assessment & Plan (1) Quadriceps tendon rupture: Plan: Suspected left patellar quad tendon rupture Mechanical fall when patient tripped over a milk jug carrying groceries on the stairs, heard a pop and subsequently without any ability to actively extend the left knee Ankle is neurovascularly intact with 5/5 ankle dorsiflexion and plantarflexion. Orthopedics consulted. Possible repair 12/19 if medically stable and optimized In knee immobilizer CM/PT/OT consulted as will requires temporary SNF placement Patient is at increased cardiac risk. He has a history of CAD without recent ischemic symptoms but on x-ray has some evidence of congestion, has history of COPD, and has a history of left upper lobectomy. (2) S/P CABG (coronary artery bypass graft): Plan: CAD History of RCA PCI, and CABG x 2 07/19/2022 [place] [facility] [place] [facility] was performed 07/18 with IABP placement Denies anginal symptoms in the last few months, notes he is generally able to exert himself reasonably well and has no chest pain/chest pressure. Does occasionally get wheezing/dyspnea related to COPD DAPT, metoprolol, statin continued. No cardiac symptoms that contributed to his fall Cardiology consulted for both perioperative risk assessment and antiplatelet recommendations Last echo 07/2022 with EF 60-65%, no regional wall motion abnormalities. Does have some reported wheezing and dyspnea which improves with albuterol, denies orthopnea, but does have some pulmonary congestion and very mild edema on chest x-ray. Creatinine 1.47 on admission, baseline around 1.21.5. He is not hypoxic. Will give 1 dose of Lasix to start volume optimization PAD With left SFA angioplasty 11/20/2023 with 2 LANI placed. Was recommended for DAPT for at least 1 month - neurovascularly intact a time of admission Cardiology consulted as above for assessment and antiplatelet Rx. Plavix has been held temporarily (3) SJ (obstructive sleep apnea): Plan: CPAP nightly as needed. Patient may use his own device if broaden (4) COPD (chronic obstructive pulmonary disease): Plan: COPD Patient has had some increased shortness of breath in the last week for which he has used albuterol 3 times with good relief. Suspect he may have some diastolic CHF underlying which may be contributing to this. He is not wheezing on admitting exam Continue inhalers, continue nebulizers as needed. Steroids not indicated at time of admission (5) Diabetes: Plan: DM 2 Metformin held Continue sliding scale insulin goal BSG [id number] Plan Chronic stable issues - Hx Lung Cancer: S/p VIANEY lobectomy 2018 GERD: Continue PPI Hypertension: Continue home antihypertensives, aspirin OA: No acute change in management DVT prophylaxis: SCDs, pharmacoppx temporarily deferred due to acute tendon rupture injury Diet: Type II DM CODE STATUS: DNR/DNI Disposition: Medical /Tele History of Present Illness Primary Care Provider: Talon Burns DO Eric is a 78yo M with past medical history of lung cancer s/p left upper lobectomy 2018, CAD with PCI and CABG, DM 2, hyperlipidemia, hypertension, COPD, PAD, GERD, OSAwho tripped over a milkjug while carrying groceries and while following heard a 'pop'. Presented to the ER with knee pain and inability to ambulate. Pelvis and knee x-ray did not show any hip fracture or bony abnormality.Knee CT shows soft tissue stranding at the suprapatellar region. Clinically while in the ER patient examined like a patellar tendon tear and is unable to actively extend at the knee. Case was discussed with orthopedics while patient was in the ER who recommended a brace and evaluate, unlikely to require emergent surgery. He is unable to ambulate with this injury and requires SNF placement. He did not syncopize. No lightheadedness/dizziness/acute weakness that contributed to his fall which was from falling over milk jug. No chest pain or chest pressure. Does have a history of CABG And stents. Cardiac cath 07/17/2022 with unchanged critical left distal main disease, IABP was placed and patient was transferred to [place] for CABG. Reports that in the last month he has some arthritis discomfort in his right knee which limits him but has not had limiting angina/chest pain with exertion. He does have COPD which seems to be exacerbated certain times a year by allergies and is uses albuterol 3 times in the last week, but currently is not short of breath and has not noticed any wheezing today.He has a history of RCA PCI. Is on aspirin/Plavix, no stents in the last 12 months. Medical History: Reviewed Medications: Reviewed Surgical History: Reviewed Family history: Reviewed Allergies: Reviewed Social History: REviewed. Former smoker. No regular/daily etoh use. Code Status: DNR/DNI Allergies Allergy/AdvReac Type Severity Reaction Status Date / Time No Known Allergies Allergy Verified 11/25/23 16:17 Home Medications Medication Instructions Recorded Confirmed Type melatonin 10 mg capsule 10 mg PO HS PRN sleep #30 caps 12/28/20 12/18/23 Rx diabetic supplies, miscellan. #1 ea 12/31/20 11/25/23 History diphenhydramine HCl 25 mg capsule 25 mg PO QAM PRN Congestion 07/17/22 12/18/23 History (Benadryl) multivitamin 1 tab PO QAM 08/18/22 12/18/23 History nitroglycerin 0.4 mg sublingual 0.4 mg sublingual Q5M PRN chest 08/29/22 12/18/23 Rx tablet pain #30 tabs acetaminophen 500 mg tablet 500 mg PO Q6H PRN Pain 09/26/22 12/18/23 History aspirin 81 mg tablet,delayed 81 mg PO QAM 09/26/22 12/18/23 History release (Enteric Coated Aspirin) magnesium 200 mg tablet 400 mg PO HS 09/26/22 12/18/23 History omeprazole 20 mg capsule,delayed 20 mg PO QPM 09/26/22 12/18/23 History release potassium gluconate 600 mg (99 mg) 600 mg PO QAM 09/26/22 12/18/23 History tablet atorvastatin 40 mg tablet 40 mg PO HS #90 tabs 04/06/23 12/18/23 Rx Auto Titrating CPAP #1 ea 05/30/23 11/25/23 Rx CPAP Supplies #1 ea 05/30/23 11/25/23 Rx albuterol sulfate 90 mcg/actuation 2 puff inhalation Q6H PRN 10/02/23 12/18/23 Rx aerosol inhaler Shortness Of Breath Or Wheezing #18 grams umeclidinium 62.5 mcg-vilanterol 1 inh inhalation DAILY #3 Inhalers 10/02/23 12/18/23 Rx 25 mcg/actuation powdr for inhalation (Anoro Ellipta) benazepril 10 mg tablet 10 mg PO QAM #90 tabs 10/08/23 12/18/23 Rx clopidogrel 75 mg tablet 75 mg PO QAM #90 tabs 10/08/23 12/18/23 Rx fenofibrate 160 mg tablet 160 mg PO QAM #90 tabs 10/08/23 12/18/23 Rx metoprolol tartrate 25 mg tablet 25 mg PO BID #180 tabs 10/08/23 12/18/23 Rx mirabegron 50 mg tablet,extended 50 mg PO QAM #30 tabs 11/24/23 12/18/23 Rx release 24 hr (Myrbetriq) hydrocortisone 2.5 % topical cream 1 applic topical BID PRN Other 12/18/23 12/18/23 History ketoconazole 2 % topical cream 1 applic topical BID PRN Other 12/18/23 12/18/23 History metformin 1,000 mg tablet 1,000 mg PO QAM 12/18/23 12/18/23 History Past Med/Surg History Problem List Quadriceps tendon rupture Rupture of left patellar tendon Fall (Acute) Acute pain of left knee (Acute) Peripheral vascular disease, unspecified Preop cardiovascular exam SJ (obstructive sleep apnea) History of coronary artery bypass graft x2 vessels on ~07/19/22 at [facility]. Follows with Dr Bender Arthritis COPD (chronic obstructive pulmonary disease) CAD (coronary artery disease) Hearing loss Glaucoma Acid reflux disease Diabetes NIDDM Hypertension Hyperlipidemia Enlarged prostate H/O angioplasty L femoral in 2005 and 11/2020, R femoral in 2018 and 10/2019 Peripheral arterial disease Carotid artery stenosis Osteoarthritis of right knee Tendinitis of left quadriceps tendon Patellofemoral arthritis of right knee Hypersomnia Ex-smoker History of lung cancer Acute non-ST elevation myocardial infarction (NSTEMI) (Acute) 07/17/22 H/O right coronary artery stent placement (~2014) [facility] S/P CABG (coronary artery bypass graft) History of colon polyps Medical History BPH (benign prostatic hyperplasia) History of Mohs micrographic surgery for skin cancer Hx of basal cell carcinoma On anticoagulant therapy H/O: lung cancer 2017 with Left Upper Lobectomy -- monitors currently. no current issues. Surgical History History of selective laser trabeculoplasty History of prostate surgery Green Light Laser procedure ~2017 [facility] [place] History of colonoscopy History of cardiac cath 07/18/2022 at [facility] and transferred to [facility] for CABG Status post biopsy of skin S/P coronary artery stent placement H/O umbilical hernia repair History of 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 H/O cataract extraction bilateral H/O laminectomy L3/4 in 1990, L4/5 w/ fusion in 1992 H/O vasectomy H/O right knee surgery Family History Brother Lung cancer Father Heart disease Hypertension Mother Cerebral aneurysm Other No family history of adverse response to anesthesia Social History Smoking Status: Former smoker Tobacco Type: Cigarettes Age Started Using Tobacco: 19; Age Quit Using Tobacco: 69; packs per day: 1.5; Cigarettes Per Day: 30; Second Hand Exposure: No; Do You Dip or Chew Tobacco: No; Hx Alcohol Use: Yes Alcohol type: beer Alcohol Intake Frequency: Monthly or Less Hx Substance Use: No Preferred Language: Albanian Communication Ability: Effective Visual Impairment: No Limitations Hearing Ability: Normal Camp Counselor Required: No Beliefs That Will Affect Care: None marital status: Current Living Situation: Family Current Living Situation Comment: lives with sisterShayy current occupational status: retired current occupation: Retired Other Information That Helps Us Care for You: No Feels Safe at Home: Yes Safety Concerns: Feels Safe At This Time Childhood Exposure to Second-Hand Smoke: No Diet: regular Dental Care, Regularly: No Physical Activity Frequency: Daily Seatbelt Use: always Sunscreen Use: Yes Assistive Devices: Denture - Upper, Denture - Lower and Glasses Physical Exam Physical Exam: General: A&Ox3. NAD. Cooperative. HEENT: Atraumatic, normocephalic. Vision/hearing grossly intact Pulm: C+bibasilar crackles Symmetrical chest rise. No increased work of breathing. No respiratory distress. Cardiac:Regular to slightly bradycardic, -mrg. Radial pulses intact and symmetrical. Abdominal: Nontender, nondistended, soft. BS present. Ext: LLE with knee immobilizer in place. Unable to perform any active L knee extension. Ankle dorsi/plantarflexion intact. DP pulse intact bilat. Sensation to soft touch intact bilat. Results & Data Results & Data Vital Signs (Past 12 Hours) Vital Signs Temp Pulse Pulse Resp BP BP Pulse Ox 12/18/23 14:50 56 L 18 159/62 H 96 12/18/23 12:10 62 12/18/23 11:02 36.5 C 60 18 169/70 H 97 O2 Del Method 12/18/23 14:50 Room Air 12/18/23 12:10 12/18/23 11:02 Room Air PG Care Time/CCT Total # of Minutes Spent Total Time Spent with Patient: Total time spent is greater than 50% in coordination of care (as documented) at patient's floor/unit and/or counseling patient: Coding Level of Care Code 74943 INT INP/OBS CARE 3/75MIN Diagnoses Quadriceps tendon rupture S76.119A S/P CABG (coronary artery bypass graft) Z95.1 SJ (obstructive sleep apnea) G47.33 COPD (chronic obstructive pulmonary disease) J44.9 Diabetes E11.9
[2023-12-18] MEDS ORDERED: DEXTROSE 50% 50 ML SYRINGE IV PRN (16:10)
[2023-12-18] MEDS ORDERED: GLUCOSE 40% GEL 15 GM TUBE PO PRN (16:10)
[2023-12-18] MEDS ORDERED: GLUCAGON FOR INJ 1 MG VIAL SQ PRN (16:10)
[2023-12-18] MEDS ORDERED: PHARMACY GLYCEMIC MGMT CONSULT PRN (16:10)
[2023-12-18] MEDS ORDERED: GLUCOSE 10 TAB/TUBE PO PRN (16:10)
[2023-12-18] MEDS ORDERED: CARBOHYDRATES FOR HYPOGLYCEMIA PO PRN (16:10)
--- NOTE | 2023-12-18 16:43 | Orthopedic Consultation ---
Date of Consultation December 18, 2023 Assessment & Plan (1) Acute pain of left knee: IMPRESSION: Left knee quadriceps tendon tear, acute PLAN: WBAT with immobilizer plus/minus walker if able D/W primary service, with difficulty ambulating, may benefit from surgical repair prior to d/c to facility, once medically cleared. Cardiology consulted RICE Discussed risks and benefits of conservative vs surgical intervention. Patient agreed to proceed with surgery. Placed on the add-on list for Tuesday 12/19, as he has taken his Plavix today and will be evaluated by Cardiology tomorrow, again will proceed if medically cleared. Will continue to follow while in the hospital. Present on Admission?: Yes History of Present Illness Reason for Consultation: Left quadriceps tear Requesting Physician: Willwo Martini MD Attending Physician: Saurabh Verma MD History of Present Illness 78 yo male who fell earlier today injuring his left knee. Unable to bare weight. Came to the emergency room, x-rays & CT obtained. Unable to ambulate with immobilizer or walker. Is being admitted by hospitalist service. Patient denies previous injury to the knee or other injury. Allergies Allergy/AdvReac Type Severity Reaction Status Date / Time No Known Allergies Allergy Verified 11/25/23 16:17 Home Medications Medication Instructions Recorded Confirmed Type melatonin 10 mg capsule 10 mg PO HS PRN sleep #30 caps 12/28/20 12/18/23 Rx diabetic supplies, miscellan. #1 ea 12/31/20 11/25/23 History diphenhydramine HCl 25 mg capsule 25 mg PO QAM PRN Congestion 07/17/22 12/18/23 History (Benadryl) multivitamin 1 tab PO QAM 08/18/22 12/18/23 History nitroglycerin 0.4 mg sublingual 0.4 mg sublingual Q5M PRN chest 08/29/22 12/18/23 Rx tablet pain #30 tabs acetaminophen 500 mg tablet 500 mg PO Q6H PRN Pain 09/26/22 12/18/23 History aspirin 81 mg tablet,delayed 81 mg PO QAM 09/26/22 12/18/23 History release (Enteric Coated Aspirin) magnesium 200 mg tablet 400 mg PO HS 09/26/22 12/18/23 History omeprazole 20 mg capsule,delayed 20 mg PO QPM 09/26/22 12/18/23 History release potassium gluconate 600 mg (99 mg) 600 mg PO QAM 09/26/22 12/18/23 History tablet atorvastatin 40 mg tablet 40 mg PO HS #90 tabs 04/06/23 12/18/23 Rx Auto Titrating CPAP #1 ea 05/30/23 11/25/23 Rx CPAP Supplies #1 ea 05/30/23 11/25/23 Rx albuterol sulfate 90 mcg/actuation 2 puff inhalation Q6H PRN 10/02/23 12/18/23 Rx aerosol inhaler Shortness Of Breath Or Wheezing #18 grams umeclidinium 62.5 mcg-vilanterol 1 inh inhalation DAILY #3 Inhalers 10/02/23 12/18/23 Rx 25 mcg/actuation powdr for inhalation (Anoro Ellipta) benazepril 10 mg tablet 10 mg PO QAM #90 tabs 10/08/23 12/18/23 Rx clopidogrel 75 mg tablet 75 mg PO QAM #90 tabs 10/08/23 12/18/23 Rx fenofibrate 160 mg tablet 160 mg PO QAM #90 tabs 10/08/23 12/18/23 Rx metoprolol tartrate 25 mg tablet 25 mg PO BID #180 tabs 10/08/23 12/18/23 Rx mirabegron 50 mg tablet,extended 50 mg PO QAM #30 tabs 11/24/23 12/18/23 Rx release 24 hr (Myrbetriq) hydrocortisone 2.5 % topical cream 1 applic topical BID PRN Other 12/18/23 12/18/23 History ketoconazole 2 % topical cream 1 applic topical BID PRN Other 12/18/23 12/18/23 History metformin 1,000 mg tablet 1,000 mg PO QAM 12/18/23 12/18/23 History Patient History Medical History BPH (benign prostatic hyperplasia) History of Mohs micrographic surgery for skin cancer Hx of basal cell carcinoma On anticoagulant therapy H/O: lung cancer 2017 with Left Upper Lobectomy -- monitors currently. no current issues. Surgical History History of selective laser trabeculoplasty History of prostate surgery Green Light Laser procedure ~2018 at [facility] in [place], [place] History of colonoscopy History of cardiac cath 07/18/2022 at [facility] and transferred to [facility] for CABG Status post biopsy of skin S/P coronary artery stent placement H/O umbilical hernia repair History of 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 H/O cataract extraction bilateral H/O laminectomy L3/4 in 1990, L4/5 w/ fusion in 1992 H/O vasectomy H/O right knee surgery Family History Brother Lung cancer Father Heart disease Hypertension Mother Cerebral aneurysm Other No family history of adverse response to anesthesia Social History Smoking Status: Former smoker Tobacco Type: Cigarettes Age Started Using Tobacco: 19; Age Quit Using Tobacco: 69; packs per day: 1.5; Cigarettes Per Day: 30; Second Hand Exposure: No; Do You Dip or Chew Tobacco: No; Hx Alcohol Use: No Hx Substance Use: No Preferred Language: [place] Communication Ability: Effective Visual Impairment: No Limitations Hearing Ability: Normal Computer Graphics 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 Required: No Beliefs That Will Affect Care: None marital status: Current Living Situation: Family Current Living Situation Comment: lives with sisterShayy current occupational status: retired current occupation: Retired Feels Safe at Home: Yes Childhood Exposure to Second-Hand Smoke: No Diet: regular Dental Care, Regularly: No Physical Activity Frequency: Daily Seatbelt Use: always Sunscreen Use: Yes Assistive Devices: Denture - Upper, Denture - Lower and Glasses Review of Systems Review of Systems: All systems reviewed & are unremarkable except as noted in HPI & below Physical Exam Physical Exam: LLE: 1+ DP pulse, sensation to light touch intact distally. Gastroc soleus, Tib ant., EHL strength 5/5. Unable to preform straight leg raise. ++palpable defect of the quad tendon. Ligament exam limited due to lack of full ROM: Antonio stable, varus and valgus stress at 0 & 30 deg stable. Results & Data Vital Signs (Past 12 Hours) Vital Signs Temp Pulse Pulse Resp BP BP Pulse Ox 12/18/23 16:10 54 L 12/18/23 14:50 56 L 18 159/62 H 96 12/18/23 12:10 62 12/18/23 11:02 36.5 C 60 18 169/70 H 97 O2 Del Method 12/18/23 16:10 12/18/23 14:50 Room Air 12/18/23 12:10 12/18/23 11:02 Room Air Laboratory Results Laboratory Results POC Hgb 11.6 g/dl (14.0-18.0) L 12/18/23 12:46 POC Hct 34 % (42-52) L 12/18/23 12:46 POC Sodium 143 mmol/L (135-144) 12/18/23 12:46 POC Potassium 4.6 mmol/L (3.3-5.0) 12/18/23 12:46 POC Chloride 111 mmol/L (101-112) 12/18/23 12:46 POC Total CO2 25 mmol/L (24-31) 12/18/23 12:46 POC Anion Gap 13.0 mmol/L (16-25) L 12/18/23 12:46 POC BUN 38 mg/dl (7-18) H 12/18/23 12:46 POC Creatinine 1.4 mg/dl (0.6-1.3) H 12/18/23 12:46 POC Glucose (other) 211 mg/dl (70-99) H 12/18/23 12:46 POC Ioniz Calcium Jhonatan 1.33 mmol/l (1.12-1.32) H 12/18/23 12:46 Impressions Chest X-Ray 12/18/23 11:11 SINGLE VIEW CHEST CLINICAL HISTORY: Trauma FINDINGS: 2 AP, portable, upright chest radiographs are compared to study dated 07/16/2022. Correlation is made with chest CT dated 04/23/2022. The patient is status post midline sternotomy. The heart is enlarged noting atherosclerotic calcification of the thoracic aorta. There is pulmonary vascular congestion an mild interstitial edema. Emphysema and chronic interstitial thickening is similar to previous. No large pleural effusion or pneumothorax is seen. The skeletal structures are osteopenic. The bony thorax is grossly intact. 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 ACT 112: Negative or not required by law. Electronically signed by: Malvin Corbett M.D. 12/18/2023 11:42 AM Knee X-Ray 12/18/23 11:11 XR knee LT 3V HISTORY: 78 years-old Male trauma acute left knee pain status post trauma COMPARISON: 09/09/2021 TECHNIQUE: 3 views of the left knee FINDINGS: Arterial calcifications. There is mild tricompartmental osteoarthritis with trace joint effusion. No acute fracture, dislocation or osseous erosion. Medial surgical clips of the lower leg. IMPRESSION: Mild osteoarthritis without acute fracture. ACT 112: Negative or not required by law. The above report was generated using voice recognition software. It may contain grammatical, syntax or spelling errors. Electronically signed by: Neville Mock M.D. 12/18/2023 11:42 AM Pelvis X-Ray 12/18/23 11:11 XR pelvis 1-2V routine CLINICAL HISTORY: trauma TECHNIQUE: A single frontal view of the pelvis was obtained. Comparison: None available at the time of this dictation. FINDINGS: There is no evidence of an acute fracture. Degenerative changes are seen in the hip joints and lumbar spine. Vascular calcifications are noted. IMPRESSION: Degenerative changes without evidence of acute abnormality. ACT 112: Negative or not required by law. Electronically signed by: Wang Lee M.D. 12/18/2023 12:[address] 12/18/23 12:11 CT knee LT w con CLINICAL HISTORY: incr edema/ecchymosis s/p fall TECHNIQUE: Multidetector row helical CT of the left knee was performed without intravenous contrast. Coronal and sagittal reformations were obtained. Automated dose lowering techniques and/or adjustment according to patient size were utilized for this examination. CT DOSE: 612.96 mGy.cm Comparison: Comparison is made to knee radiographs 12/18/2023 FINDINGS: The osseous structures are without fracture or dislocation. The joint spaces are maintained. No joint effusion is seen. Soft tissue stranding is seen in the suprapatellar region. Vascular calcifications are seen. IMPRESSION: Soft tissue stranding in the suprapatellar region without acute bony abnormality. ACT 112: Negative or not required by law. Electronically signed by: Wang Lee M.D. 12/18/2023 1:17 PM
[2023-12-18] MEDS ORDERED: diphenhydrAMINE Capsule 25 MG CAP PO PRN (17:41)
[2023-12-18] MEDS ORDERED: NITROGLYCERIN SL 0.4 MG/TAB TAB SL PRN (17:41)
[2023-12-18] MEDS: INSULIN ASPART PER UNIT CHARGE SC SCH (18:11)
[2023-12-18] MEDS: METOPROLOL TARTRATE 25 MG TAB PO SCH (21:05)
[2023-12-18] MEDS: LANTUS PER UNIT CHARGE SQ SCH (21:05)
[2023-12-18] MEDS: ATORVASTATIN 40 MG TAB PO SCH (21:07)
[2023-12-18] MEDS: PANTOprazole 40 MG TAB PO SCH (21:08)
[2023-12-18] MEDS: ACETAMINOPHEN 500 MG TAB PO PRN (23:38)
[2023-12-19] MEDS: ASPIRIN 81 MG ECTAB PO SCH (07:48)
[2023-12-19] MEDS: MULTIVITAMIN TAB PO SCH (07:48)
[2023-12-19] MEDS: ENALAPRIL MALEATE 10 MG TAB PO SCH (07:48)
[2023-12-19] MEDS: VIBEGRON 75 MG TAB PO SCH (07:48)
[2023-12-19] MEDS: FENOFIBRATE NANOCRYSTALLIZED 145 MG TABLET PO SCH (07:48)
[2023-12-19] MEDS: UMECLIDINIUM/VILANTEROL 62.5/25MCG 7 PUFFS/INHALER INH SCH (07:49)
[2023-12-19 07:57] LABS: Basophils # (auto) 0.02 K/uL (0.00-0.20); Basophils % (auto) 0.3 %; Eosinophils # (auto) 0.24 K/uL (0.00-0.50); Hematocrit (blood only) 34.4 % (42.0-52.0); Hemoglobin 11.1 g/dl (14.0-18.0); Immature Granulocytes # (auto) 0.05 K/uL (0.01-0.20); Immature Granulocytes % (auto) 0.6 %; Lymphocytes # (auto) 2.31 K/uL (1.20-3.40); Mean Corpuscular Hemoglobin 29.9 pg (25.0-34.0); Mean Corpuscular Hgb Conc 32.3 g/dL (32.0-36.0); Mean Corpuscular Volume 92.7 fL (80.0-100.0); Mean Platelet Volume 10.4 fL (9.4-12.4); Monocytes # (auto) 1.21 K/uL (0.11-0.59); Monocytes % (auto) 15.2 %; Neutrophils # (auto) 4.14 K/uL (1.40-6.50); Neutrophils % (auto) 51.9 %; Platelet Count 197 K/uL (130-400); RDW Coefficient of Variation 12.8 % (11.5-14.5); RDW Standard Deviation 43.6 fL (36.4-46.3); Red Blood Count 3.71 M/uL (4.70-6.10); White Blood Count 7.97 K/ul (4.8-10.8)
[2023-12-19 08:14] LABS: BUN Creatinine Ratio 30.6 (10-20); Calcium 9.2 mg/dl (8.6-10.3); Creatinine Clr Calc Pharmacy 56.6 ml/min; Est GFR (African American) 65.6 ml/min; Est GFR (Non-African American) 56.6 ml/min
[2023-12-19 08:34] LABS: Estimated Average Glucose 171 mg/dl; Hemoglobin A1C 7.6 % (4.5-5.6)
[2023-12-19] MEDS ORDERED: NON-FORMULARY MEDICATION (Potassium Gluconate 600 mg (99 mg) Tablet) PO SCH (09:00)
[2023-12-19] MEDS: FUROSEMIDE 40 MG/4 ML VIAL IV SCH (10:48)
--- NOTE | 2023-12-19 12:31 | Cardiology Consultation ---
Date of Consultation December 19, 2023 Assessment & Plan (1) CAD (coronary artery disease): -s/p CABG x2, June 2022 -quiescent on medical management. (2) Peripheral arterial disease: -s/p angioplasty of left and right SFA recently. -Plavix currently on hold for upcoming surgery. -case discussed with Dr. Nye. He agrees with placing Plavix home. (3) Preop cardiovascular exam: -the patient is an acceptable risk for orthopedic surgery without further testing. History of Present Illness Attending Physician: Everett Quiroz MD History of Present Illness Mr Valderrama is a 78-year-old male admitted yesterday with a left quadriceps tendon rupture which will require an operative repair. This consultation was ordered to address his cardiac risk for surgery and recommendations on anti- platelet therapy. Of note, patient typically follows with Dr.s Bender and Popeye in the outpatient setting. The patient was in his usual state of health until yesterday when he tripped over grocery bags had a resultant mechanical fall. He heard a pop realized he could not extend his left lower extremity. Workup in the emergency room revealed a complete rupture the left quadriceps tendon. He does carry history of coronary artery disease having 100 going to PCI of the RCA back in May 2015. He did have a 2 vessel bypass performed in June 2022 at [facility]. This included an SOARES to the LAD, an SVG to OM2. He has done well from a cardiac perspective since that time. He does not experience exertional angina pectoris or limiting dyspnea. He has not required any sublingual nitroglycerin. He also carries a history of peripheral vascular disease having undergone angioplasty of the right SFA on October 08. He then had angioplasty of the left SFA on November 19. He was told to take dual anti-platelet therapy for 1 month. He has noted a dramatic improvement in his exercise tolerance since his recent procedures. His Plavix was placed on hold yesterday in anticipation of his upcoming surgery. Currently, patient is resting comfortably in bed without complaints. Past medical and surgical history 1. Coronary artery disease-see above 2. RCA PCI-May 2015 CABG x2 June 2022, see above 3. Hypertension 4. Hypercholesterolemia 5. New peripheral vascular disease 6. Right SFA angioplasty-September 2024 7. Left SFA angioplasty-October 2023 8. COPD 9. Obstructive sleep apnea 10. Lung carcinoma 11. Left upper lobectomy-2016 Social history , lives alone Quit tobacco use in 2016, 60 pack year history Alcohol-occasional Family history Father in World War II. Review of systems A 10 point review systems was undertaken and negative except for that described above. Allergies Allergy/AdvReac Type Severity Reaction Status Date / Time No Known Allergies Allergy Verified 11/25/23 16:17 Home Medications Medication Instructions Recorded Confirmed Type melatonin 10 mg capsule 10 mg PO HS PRN sleep #30 caps 12/28/20 12/18/23 Rx diabetic supplies, miscellan. #1 ea 12/31/20 11/25/23 History diphenhydramine HCl 25 mg capsule 25 mg PO QAM PRN Congestion 07/17/22 12/18/23 History (Benadryl) multivitamin 1 tab PO QAM 08/18/22 12/18/23 History nitroglycerin 0.4 mg sublingual 0.4 mg sublingual Q5M PRN chest 08/29/22 12/18/23 Rx tablet pain #30 tabs acetaminophen 500 mg tablet 500 mg PO Q6H PRN Pain 09/26/22 12/18/23 History aspirin 81 mg tablet,delayed 81 mg PO QAM 09/26/22 12/18/23 History release (Enteric Coated Aspirin) magnesium 200 mg tablet 400 mg PO HS 09/26/22 12/18/23 History omeprazole 20 mg capsule,delayed 20 mg PO QPM 09/26/22 12/18/23 History release potassium gluconate 600 mg (99 mg) 600 mg PO QAM 09/26/22 12/18/23 History tablet atorvastatin 40 mg tablet 40 mg PO HS #90 tabs 04/06/23 12/18/23 Rx Auto Titrating CPAP #1 ea 05/30/23 11/25/23 Rx CPAP Supplies #1 ea 05/30/23 11/25/23 Rx albuterol sulfate 90 mcg/actuation 2 puff inhalation Q6H PRN 10/02/23 12/18/23 Rx aerosol inhaler Shortness Of Breath Or Wheezing #18 grams umeclidinium 62.5 mcg-vilanterol 1 inh inhalation DAILY #3 Inhalers 10/02/23 12/18/23 Rx 25 mcg/actuation powdr for inhalation (Anoro Ellipta) benazepril 10 mg tablet 10 mg PO QAM #90 tabs 10/08/23 12/18/23 Rx clopidogrel 75 mg tablet 75 mg PO QAM #90 tabs 10/08/23 12/18/23 Rx fenofibrate 160 mg tablet 160 mg PO QAM #90 tabs 10/08/23 12/18/23 Rx metoprolol tartrate 25 mg tablet 25 mg PO BID #180 tabs 10/08/23 12/18/23 Rx mirabegron 50 mg tablet,extended 50 mg PO QAM #30 tabs 11/24/23 12/18/23 Rx release 24 hr (Myrbetriq) hydrocortisone 2.5 % topical cream 1 applic topical BID PRN Other 12/18/23 12/18/23 History ketoconazole 2 % topical cream 1 applic topical BID PRN Other 12/18/23 12/18/23 History metformin 1,000 mg tablet 1,000 mg PO QAM 12/18/23 12/18/23 History Patient History Medical History BPH (benign prostatic hyperplasia) History of Mohs micrographic surgery for skin cancer Hx of basal cell carcinoma On anticoagulant therapy H/O: lung cancer 2017 with Left Upper Lobectomy -- monitors currently. no current issues. Surgical History History of selective laser trabeculoplasty History of prostate surgery Green [employer] Laser procedure ~2018 at [facility] in [place], [place] History of colonoscopy History of cardiac cath 07/18/2022 at [facility] and transferred to [facility] for CABG Status post biopsy of skin S/P coronary artery stent placement H/O umbilical hernia repair History of 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 H/O cataract extraction bilateral H/O laminectomy L3/4 in 1990, L4/5 w/ fusion in 1992 H/O vasectomy H/O right knee surgery Family History Brother Lung cancer Father Heart disease Hypertension Mother Cerebral aneurysm Other No family history of adverse response to anesthesia Social History Smoking Status: Former smoker Tobacco Type: Cigarettes Age Started Using Tobacco: 19; Age Quit Using Tobacco: 69; packs per day: 1.5; Cigarettes Per Day: 30; Second Hand Exposure: No; Do You Dip or Chew Tobacco: No; Hx Alcohol Use: Yes Alcohol type: beer Alcohol Intake Frequency: Monthly or Less Hx Substance Use: No Preferred Language: Mongolian Communication Ability: Effective Visual Impairment: No Limitations Hearing Ability: Normal Weave Room Supervisor Required: No Beliefs That Will Affect Care: None marital status: Current Living Situation: Family Current Living Situation Comment: lives with sisterShayy current occupational status: retired current occupation: Retired Other Information That Helps Us Care for You: No Feels Safe at Home: Yes Safety Concerns: Feels Safe At This Time Childhood Exposure to Second-Hand Smoke: No Diet: regular Dental Care, Regularly: No Physical Activity Frequency: Daily Seatbelt Use: always Sunscreen Use: Yes Assistive Devices: Denture - Upper, Denture - Lower and Glasses Results & Data Vital Signs (Past 12 Hours) Vital Signs Temp Pulse Pulse Resp BP Pulse Ox O2 Del Method 12/19/23 11:40 36.8 C 62 18 155/66 H 94 Room Air 12/19/23 08:08 36.5 C 75 20 155/60 H 93 Room Air 12/19/23 08:00 Room Air 12/19/23 07:00 74 12/19/23 03:30 78 10 L 12/19/23 03:06 67 18 138/56 L 97 CPAP 12/19/23 01:42 61 FiO2 12/19/23 11:40 12/19/23 08:08 12/19/23 08:00 12/19/23 07:00 12/19/23 03:30 21 12/19/23 03:06 12/19/23 01:42 Diagnostic Findings Echocardiogram performed back in July noted normal left ventricular systolic function with ejection fraction of 60-65%. There was moderate left ventricular hypertrophy. cardiac monitor is benign. PG Care Time/CCT Total # of Minutes Spent Total Time Spent with Patient: Total time spent is greater than 50% in coordination of care (as documented) at patient's floor/unit and/or counseling patient: Coding Level of Care Code 37487 INT INP/OBS CARE 3/75MIN Diagnoses CAD (coronary artery disease) I25.10 Peripheral arterial disease I73.9 Preop cardiovascular exam Z01.810
--- NOTE | 2023-12-19 12:52 | Orthopedic Progress Note ---
Date of Service December 19, 2023 Assessment & Plan (1) Acute pain of left knee: Plan: IMPRESSION: Left knee quadriceps tendon tear, acute PLAN: WBAT with immobilizer plus/minus walker if able D/W primary service, with difficulty ambulating, may benefit from surgical repair prior to d/c to facility, once medically cleared. Cardiology cleared patient for surgery RICE Discussed risks and benefits of conservative vs surgical intervention. Patient agreed to proceed with surgery informed consent signed. Placed on the add-on list for Tuesday 12/19, Plavix has been stopped, patient has been medically cleared. NPO after midnight, IVF, Ancef on-call to OR 12/20/23. Will continue to follow while in the hospital. Admission and Anticipated Discharge Date Admission Date: December 18, 2023 Subjective Brace is rubbing funny Physical Exam Physical Exam: LLE: 1+ DP pulse, sensation to light touch intact distally. Gastroc soleus, Tib ant., EHL strength 5/5. Unable to preform straight leg raise. ++palpable defect of the quad tendon. Ligament exam limited due to lack of full ROM: Antonio stable, varus and valgus stress at 0 & 30 deg stable. Results & Data Vital Signs (Past 12 Hours) Vital Signs Temp Pulse Pulse Resp BP Pulse Ox O2 Del Method 12/19/23 11:40 36.8 C 62 18 155/66 H 94 Room Air 12/19/23 08:08 36.5 C 75 20 155/60 H 93 Room Air 12/19/23 08:00 Room Air 12/19/23 07:00 74 12/19/23 03:30 78 10 L 12/19/23 03:06 67 18 138/56 L 97 CPAP 12/19/23 01:42 61 FiO2 12/19/23 11:40 12/19/23 08:08 12/19/23 08:00 12/19/23 07:00 12/19/23 03:30 21 12/19/23 03:06 12/19/23 01:42 Laboratory Results 12/19/23 12/19/23 12/19/23 Range/Units 11:34 07:19 06:51 WBC 7.97 (4.8-10.8) K/ul RBC 3.71 L (4.70-6.10) M/uL Hgb 11.1 L (14.0-18.0) g/dl POC Hgb (14.0-18.0) g/dl Hct 34.4 L (42.0-52.0) % POC Hct (42-52) % MCV 92.7 (80.0-100.0) fL MCH 29.9 (25.0-34.0) pg MCHC 32.3 (32.0-36.0) g/dL RDW Std Deviation 43.6 (36.4-46.3) fL RDW Coeff of Galilea 12.8 (11.5-14.5) % Plt Count 197 (130-400) K/uL MPV 10.4 (9.4-12.4) fL Immature Gran % (Auto) 0.6 % Neut % (Auto) 51.9 % Lymph % (Auto) 29.0 % Foster % (Auto) 15.2 % Eos % (Auto) 3.0 % Baso % (Auto) 0.3 % Neut # (Auto) 4.14 (1.40-6.50) K/uL Lymph # (Auto) 2.31 (1.20-3.40) K/uL Foster # (Auto) 1.21 H (0.11-0.59) K/uL Eos # (Auto) 0.24 (0.00-0.50) K/uL Baso # (Auto) 0.02 (0.00-0.20) K/uL Immature Gran # (Auto) 0.05 (0.01-0.20) K/uL POC Sodium (135-144) mmol/L Sodium 139 (136-145) mmol/L POC Potassium (3.3-5.0) mmol/L Potassium 4.0 (3.5-5.1) mmol/L POC Chloride (101-112) mmol/L Chloride 108 H (98-107) mmol/L Carbon Dioxide 26 (21-32) mmol/L POC Total CO2 (24-31) mmol/L Anion Gap 5 (3-11) POC Anion Gap (16-25) mmol/L POC BUN (7-18) mg/dl BUN 37 H (6-23) mg/dl Creatinine 1.21 (0.6-1.4) mg/dl POC Creatinine (0.6-1.3) mg/dl Est Cr Clr Drug Dosing 56.6 ml/min Est GFR ( Amer) 65.6 ml/min Est GFR (Non-Af Amer) 56.6 ml/min BUN/Creatinine Ratio 30.6 H (10-20) Glucose 154 H (70-99(Fasting)) mg/dl POC Glucose 227 H 165 H (70-99) mg/dl POC Glucose (other) (70-99) mg/dl Estimat Average Glucose 171 mg/dl Hemoglobin A1c 7.6 H (4.5-5.6) % Calcium 9.2 (8.6-10.3) mg/dl POC Ioniz Calcium Jhonatan (1.12-1.32) mmol/l 12/18/23 12/18/23 12/18/23 Range/Units 20:02 17:20 12:46 WBC (4.8-10.8) K/ul RBC (4.70-6.10) M/uL Hgb (14.0-18.0) g/dl POC Hgb 11.6 L (14.0-18.0) g/dl Hct (42.0-52.0) % POC Hct 34 L (42-52) % MCV (80.0-100.0) fL MCH (25.0-34.0) pg MCHC (32.0-36.0) g/dL RDW Std Deviation (36.4-46.3) fL RDW Coeff of Galilea (11.5-14.5) % Plt Count (130-400) K/uL MPV (9.4-12.4) fL Immature Gran % (Auto) % Neut % (Auto) % Lymph % (Auto) % Foster % (Auto) % Eos % (Auto) % Baso % (Auto) % Neut # (Auto) (1.40-6.50) K/uL Lymph # (Auto) (1.20-3.40) K/uL Foster # (Auto) (0.11-0.59) K/uL Eos # (Auto) (0.00-0.50) K/uL Baso # (Auto) (0.00-0.20) K/uL Immature Gran # (Auto) (0.01-0.20) K/uL POC Sodium 143 (135-144) mmol/L Sodium (136-145) mmol/L POC Potassium 4.6 (3.3-5.0) mmol/L Potassium (3.5-5.1) mmol/L POC Chloride 111 (101-112) mmol/L Chloride (98-107) mmol/L Carbon Dioxide (21-32) mmol/L POC Total CO2 25 (24-31) mmol/L Anion Gap (3-11) POC Anion Gap 13.0 L (16-25) mmol/L POC BUN 38 H (7-18) mg/dl BUN (6-23) mg/dl Creatinine (0.6-1.4) mg/dl POC Creatinine 1.4 H (0.6-1.3) mg/dl Est Cr Clr Drug Dosing ml/min Est GFR ( Amer) ml/min Est GFR (Non-Af Amer) ml/min BUN/Creatinine Ratio (10-20) Glucose (70-99(Fasting)) mg/dl POC Glucose 181 H 130 H (70-99) mg/dl POC Glucose (other) 211 H (70-99) mg/dl Estimat Average Glucose mg/dl Hemoglobin A1c (4.5-5.6) % Calcium (8.6-10.3) mg/dl POC Ioniz Calcium Jhonatan 1.33 H (1.12-1.32) mmol/l
--- NOTE | 2023-12-19 13:49 | Pharmacy Report ---
Pharmacy Glycemic Short Note 2 - Date of Service December 19, 2023 - Glycemic Short BSG Results (Last 24 hours): 12/18/23 12/18/23 12/19/23 17:20 20:02 06:51 Glucose 154 H POC Glucose 130 H 181 H 12/19/23 12/19/23 07:19 11:34 Glucose POC Glucose 165 H 227 H OUTPATIENT ANTIDIABETIC REGIMEN: * Metformin 1 gm PO daily HbA1c: 7.6% on 12/19/23 ASSESSMENT: * 78 y/o M admitted for L knee tendon tear following fall yesterday. Patient has history of Type 2 diabetes managed only on Metformin at home. * Will hold Metformin for now and utilize basal and bolus insulins for glycemic control. * Basal insulin BID started last night based on stress of 1. Novolog parameters were ordered looser than stress of 1. * Fasting BSG today was 154 mg/dl and pre-lunch BSG trended up to 227 mg/dl. * Tightened Novolog parameters to stress of 2 at lunch today. * Will hold basal insulin at HS. Will change to QAM dose tomorrow using stress of 2 dose. * Plan for patient to have knee repair surgery in the morning. PLAN FOR INPATIENT GLYCEMIC CONTROL: * Hold outpatient oral diabetes medications * Basal insulin * Lantus 7 units SQ x2 doses received last night and this morning then discontinued. * Lantus 15 units SQ QAM tomorrow * Bolus insulin * NovoLog per scale ACHS or Q6hrs while NPO * Goal Range: Low 110 mg/dL - High 140 mg/dL * Correction Factor: 25 mg/dL/unit * Nutritional / Prandial insulin per carb ratio of 1 unit per 10 grams CHO consumed
--- NOTE | 2023-12-19 19:15 | Hospitalist Progress Note ---
Date of Service December 19, 2023 Assessment & Plan (1) Quadriceps tendon rupture: Plan: left patellar quad tendon rupture 2nd to fall at home appreciate Orthopedics consultation by Dr Martini from [facility] Ortho patient is optimized from cardiac standpoint and will go to OR tomorrow for repair cont knee immobilizer cont pain control will need PT/OT post-op repeat labs am (2) S/P CABG (coronary artery bypass graft): Plan: history of RCA PCI - 05/2015 2-vessel CABG - [facility] - SOARES to the LAD, an SVG to OM2 - 06/2022 no recent ischemic symptoms is on asa, plavix, metoprolol, statin echo 07/2022 with EF 60-65%, no regional wall motion abnormalities ?mild decompensated CHF at time of presentation yesterday s/p lasix appears decently compensated today; did get IV lasix this am - typically is not on diuretic therapy chronically place lasix on hold after today's dose and re-eval tomorrow (3) SJ (obstructive sleep apnea): Plan: CPAP nightly (4) COPD (chronic obstructive pulmonary disease): Plan: chronic symptoms related to such, typically with exertion lung exam wnl today Continue chronic inhalers (5) Diabetes: Plan: Metformin on held Pharmacy providing glycemic oversight On basal-bolus insulin Hba1c 7.6% (6) Peripheral vascular disease, unspecified: Plan: s/p angioplasty of the right SFA on October 08 with resolution of right leg claudication symptoms 11/20/[address] Javad Nye - results as below - Summary: 1. Left lower extremity -- Diffuse heavily calcified SFA disease up to 95+% dis giovanni stenosis, 40% popliteal. Patent infrapopliteal vessels proximally. 2. Right lower extremity -- Ostial ABDON 40%, patent iliacs, C[employer] RELATIONS [employer] and proximal SFA. 3. Successful angioplasty of diffuse left SFA disease with intravascular lithotripsy (6.0 balloon) and 2 drug-eluting balloons (6.0 x 100, 6.0 x 220 mm Lutonix). Dr Rondon saw patient today and discussed his care with Dr Nye. OK from Dr Nye' standpoint to place plavix on hold for his left knee surgery. Plan Chronic stable issues -- - Hx Lung Cancer: s/p VIANEY lobectomy 2017 GERD: Continue PPI Hypertension: Continue home antihypertensives, aspirin DVT proph - start post-op from quad tendon repair no EKG available since 2022; repeat EKG in am Admission and Anticipated Discharge Date Admission Date: December 18, 2023 Subjective patient resting comfortably in bed patient reports dyspnea on exertion and chest tightness usually only when he is outside exerting himself no true substernal chest pain no recent severe cough denies use of SL nitro at home his dyspnea on exertion has not been crescendoing recently has chronic shoulder pain but no different than baseline Review of Systems Review of Systems: gen - no fevers cv - no orthopnea today pulm - no cough GI - no abd pain or n/v Physical Exam Physical Exam: gen - NAD, pleasant mouth - MMM neck - no JVD heart - RRR, s1 s2 with split, 1/6 systolic murmur LSB lungs - no rales, no wheeze, good airation abd - soft NT ND BS+ ext - no edema, excellent 2+ b/l pulses feet psych - a/o x 3 musculo - left knee in knee immobilizer Results & Data Results & Data Vital Signs (Past 12 Hours) Vital Signs Temp Pulse Pulse Resp BP Pulse Ox O2 Del Method 12/19/23 17:58 60 12/19/23 14:35 36.5 C 66 18 131/77 94 Room Air 12/19/23 11:40 36.8 C 62 18 155/66 H 94 Room Air 12/19/23 08:08 36.5 C 75 20 155/60 H 93 Room Air 12/19/23 08:00 Room Air Laboratory Results Laboratory Results - last 24 hr 12/18/23 12/19/23 12/19/23 20:02 06:51 07:19 WBC 7.97 RBC 3.71 L Hgb 11.1 L Hct 34.4 L MCV 92.7 MCH 29.9 MCHC 32.3 RDW Std Deviation 43.6 RDW Coeff of Galilea 12.8 Plt Count 197 MPV 10.4 Immature Gran % (Auto) 0.6 Neut % (Auto) 51.9 Lymph % (Auto) 29.0 [place] % (Auto) 15.2 Eos % (Auto) 3.0 Baso % (Auto) 0.3 Neut # (Auto) 4.14 Lymph # (Auto) 2.31 [place] # (Auto) 1.21 H Eos # (Auto) 0.24 Baso # (Auto) 0.02 Immature Gran # (Auto) 0.05 Sodium 139 Potassium 4.0 Chloride 108 H Carbon Dioxide 26 Anion Gap 5 BUN 37 H Creatinine 1.21 Est Cr Clr Drug Dosing 56.6 Est GFR ( Amer) 65.6 Est GFR (Non-Af Amer) 56.6 BUN/Creatinine Ratio 30.6 H Glucose 154 H POC Glucose 181 H 165 H Estimat Average Glucose 171 Hemoglobin A1c 7.6 H Calcium 9.2 12/19/23 12/19/23 11:34 16:31 WBC RBC Hgb Hct MCV MCH MCHC RDW Std Deviation RDW Coeff of Galilea Plt Count MPV Immature Gran % (Auto) Neut % (Auto) Lymph % (Auto) [place] % (Auto) Eos % (Auto) Baso % (Auto) Neut # (Auto) Lymph # (Auto) [place] # (Auto) Eos # (Auto) Baso # (Auto) Immature Gran # (Auto) Sodium Potassium Chloride Carbon Dioxide Anion Gap BUN Creatinine Est Cr Clr Drug Dosing Est GFR ( Amer) Est GFR (Non-Af Amer) BUN/Creatinine Ratio Glucose POC Glucose 227 H 143 H Estimat Average Glucose Hemoglobin A1c Calcium Diagnostic Findings Chest X-Ray 12/18/23 11:11 SINGLE VIEW CHEST CLINICAL HISTORY: Trauma FINDINGS: 2 AP, portable, upright chest radiographs are compared to study dated 07/16/2022. Correlation is made with chest CT dated 04/23/2022. The patient is status post midline sternotomy. The heart is enlarged noting atherosclerotic calcification of the thoracic aorta. There is pulmonary vascular congestion an mild interstitial edema. Emphysema and chronic interstitial thickening is similar to previous. No large pleural effusion or pneumothorax is seen. The skeletal structures are osteopenic. The bony thorax is grossly intact. 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 ACT 112: Negative or not required by law. Electronically signed by: Malvin Corbett M.D. 12/18/2023 11:42 AM Knee X-Ray 12/18/23 11:11 XR knee LT 3V HISTORY: 78 years-old Male trauma acute left knee pain status post trauma COMPARISON: 09/09/2021 TECHNIQUE: 3 views of the left knee FINDINGS: Arterial calcifications. There is mild tricompartmental osteoarthritis with trace joint effusion. No acute fracture, dislocation or osseous erosion. Medial surgical clips of the lower leg. IMPRESSION: Mild osteoarthritis without acute fracture. ACT 112: Negative or not required by law. The above report was generated using voice recognition software. It may contain grammatical, syntax or spelling errors. Electronically signed by: Neville Mock M.D. 12/18/2023 11:42 AM Pelvis X-Ray 12/18/23 11:11 XR pelvis 1-2V routine CLINICAL HISTORY: trauma TECHNIQUE: A single frontal view of the pelvis was obtained. Comparison: None available at the time of this dictation. FINDINGS: There is no evidence of an acute fracture. Degenerative changes are seen in the hip joints and lumbar spine. Vascular calcifications are noted. IMPRESSION: Degenerative changes without evidence of acute abnormality. ACT 112: Negative or not required by law. Electronically signed by: Wang Lee M.D. 12/18/2023 12:[address] 12/18/23 12:11 CT knee LT w con CLINICAL HISTORY: incr edema/ecchymosis s/p fall TECHNIQUE: Multidetector row helical CT of the left knee was performed without intravenous contrast. Coronal and sagittal reformations were obtained. Automated dose lowering techniques and/or adjustment according to patient size were utilized for this examination. CT DOSE: 612.96 mGy.cm Comparison: Comparison is made to knee radiographs 12/18/2023 FINDINGS: The osseous structures are without fracture or dislocation. The joint spaces are maintained. No joint effusion is seen. Soft tissue stranding is seen in the suprapatellar region. Vascular calcifications are seen. IMPRESSION: Soft tissue stranding in the suprapatellar region without acute bony abnormality. ACT 112: Negative or not required by law. Electronically signed by: Wang Lee M.D. 12/18/2023 1:17 PM PG Care Time/CCT Total # of Minutes Spent Total Time Spent with Patient: Total time spent is greater than 50% in coordination of care (as documented) at patient's floor/unit and/or counseling patient: Coding Level of Care Code 04781 SUB INP/OBS CARE 2/35MIN Diagnoses Quadriceps tendon rupture S76.119A S/P CABG (coronary artery bypass graft) Z95.1 SJ (obstructive sleep apnea) G47.33 COPD (chronic obstructive pulmonary disease) J44.9 Diabetes E11.9 Peripheral vascular disease, unspecified I73.9
[2023-12-19] MEDS: ALBUTEROL HFA 8 GM INHALER INH PRN (19:52)
--- NOTE | 2023-12-20 07:02 | Orthopedic Progress Note ---
Date of Service December 20, 2023 Assessment & Plan (1) Acute pain of left knee: Plan: IMPRESSION: Left knee quadriceps tendon tear, acute PLAN: Has been NPO after midnight, IVF, LLE initialled, Ancef on-call to OR 12/20/23. ready for OR today. WBAT with immobilizer plus/minus walker if able D/W primary service, with difficulty ambulating, may benefit from surgical repair prior to d/c to facility, once medically cleared. Cardiology cleared patient for surgery RICE Patient agreed to proceed with surgery informed consent signed 12/19/23. Placed on the add-on list for Tuesday 12/19, Plavix has been stopped, patient has been medically cleared. Will continue to follow while in the hospital. Admission and Anticipated Discharge Date Admission Date: December 18, 2023 Subjective Ready for surgery Physical Exam Physical Exam: LLE: 1+ DP pulse, sensation to light touch intact distally. Gastroc soleus, Tib ant., EHL strength 5/5. Unable to preform straight leg raise. ++palpable defect of the quad tendon. Results & Data Vital Signs (Past 12 Hours) Vital Signs Temp Pulse Pulse Resp BP Pulse Ox O2 Del Method 12/20/23 03:52 143/64 H 12/20/23 03:30 73 22 96 12/20/23 03:23 36.5 C 70 23 166/79 H 94 CPAP 12/20/23 03:10 76 17 95 12/20/23 01:31 67 12/19/23 22:54 36.7 C 65 18 146/57 H 95 Room Air 12/19/23 21:00 74 10 L 96 12/19/23 19:55 36.8 C 75 18 133/76 94 Room Air 12/19/23 19:52 71 93 Room Air FiO2 12/20/23 03:52 12/20/23 03:30 21 12/20/23 03:23 12/20/23 03:10 21 12/20/23 01:31 12/19/23 22:54 12/19/23 21:00 21 12/19/23 19:55 12/19/23 19:52
[2023-12-20 07:06] LABS: BUN Creatinine Ratio 29.1 (10-20); Calcium 9.5 mg/dl (8.6-10.3); Creatinine Clr Calc Pharmacy 53.6 ml/min; Est GFR (African American) 61.9 ml/min; Est GFR (Non-African American) 53.4 ml/min; Magnesium 1.8 mg/dl (1.7-2.4); Potassium 4.3 mmol/L (3.5-5.1)
--- NOTE | 2023-12-20 07:08 | Anesthesiology Consultation ---
Date of Service December 20, 2023 Assessment & Plan (1) Encounter for pre-operative examination: Chart Review Chart Review: Acceptable Risk for Surgery History Surgery Operation Date: 12/20/23 07:30 Proposed Procedures p Left Quadriceps Tendon Repair - Rickey Martini MD Height/Weight Height: 5 ft 9 in Weight: 94.9 kg Allergies Allergy/AdvReac Type Severity Reaction Status Date / Time No Known Allergies Allergy Verified 11/25/23 16:17 Medications Home Medications Medication Instructions Recorded Confirmed Last Taken melatonin 10 mg capsule 10 mg PO HS PRN sleep #30 caps 12/28/20 12/18/23 10/01/22 diabetic supplies, miscellan. #1 ea 12/31/20 11/25/23 Unknown diphenhydramine HCl 25 mg capsule 25 mg PO QAM PRN Congestion 07/17/22 12/18/23 11/20/23 (Benadryl) multivitamin 1 tab PO QAM 08/18/22 12/18/23 12/18/23 08:30 nitroglycerin 0.4 mg sublingual 0.4 mg sublingual Q5M PRN chest 08/29/22 12/18/23 Unknown tablet pain #30 tabs acetaminophen 500 mg tablet 500 mg PO Q6H PRN Pain 09/26/22 12/18/23 10/01/22 aspirin 81 mg tablet,delayed 81 mg PO QAM 09/26/22 12/18/23 12/18/23 08:30 release (Enteric Coated Aspirin) magnesium 200 mg tablet 400 mg PO HS 09/26/22 12/18/23 11/19/23 omeprazole 20 mg capsule,delayed 20 mg PO QPM 09/26/22 12/18/23 10/01/22 release potassium gluconate 600 mg (99 mg) 600 mg PO QAM 09/26/22 12/18/23 12/18/23 08:30 tablet atorvastatin 40 mg tablet 40 mg PO HS #90 tabs 04/06/23 12/18/23 11/19/23 Auto Titrating CPAP #1 ea 05/30/23 11/25/23 Unknown CPAP Supplies #1 ea 05/30/23 11/25/23 Unknown albuterol sulfate 90 mcg/actuation 2 puff inhalation Q6H PRN 10/02/23 12/18/23 Unknown aerosol inhaler Shortness Of Breath Or Wheezing #18 grams umeclidinium 62.5 mcg-vilanterol 1 inh inhalation DAILY #3 Inhalers 10/02/23 12/18/23 12/18/23 08:30 25 mcg/actuation powdr for inhalation (Anoro Ellipta) benazepril 10 mg tablet 10 mg PO QAM #90 tabs 10/08/23 12/18/23 12/18/23 08:30 clopidogrel 75 mg tablet 75 mg PO QAM #90 tabs 10/08/23 12/18/23 12/18/23 08:30 fenofibrate 160 mg tablet 160 mg PO QAM #90 tabs 10/08/23 12/18/23 12/18/23 08:30 metoprolol tartrate 25 mg tablet 25 mg PO BID #180 tabs 10/08/23 12/18/23 12/18/23 08:30 mirabegron 50 mg tablet,extended 50 mg PO QAM #30 tabs 11/24/23 12/18/23 12/18/23 08:30 release 24 hr (Myrbetriq) hydrocortisone 2.5 % topical cream 1 applic topical BID PRN Other 12/18/23 12/18/23 Unknown ketoconazole 2 % topical cream 1 applic topical BID PRN Other 12/18/23 12/18/23 Unknown metformin 1,000 mg tablet 1,000 mg PO QAM 12/18/23 12/18/23 12/18/23 08:30 Active Medications Generic Name Dose Route Start Last Admin Trade Name Freq PRN Reason Stop Dose Admin Acetaminophen 500 mg 12/18/23 17:41 12/19/23 22:01 Acetaminophen 500 Mg Tab PO 01/17/24 17:40 500 mg Q6H PRN Administration Pain Albuterol 2 puffs 12/18/23 17:41 12/19/23 19:52 Albuterol Hfa 8 Gm Inhaler INH 01/17/24 17:40 2 puffs Q6H PRN Administration Shortness Of Breath Or Wheezing Aspirin 81 mg 12/19/23 09:00 12/19/23 07:48 Aspirin 81 Mg Ectab PO 01/18/24 08:59 81 mg QAM MICHAEL Administration Atorvastatin Calcium 40 mg 12/18/23 21:00 12/19/23 20:09 Atorvastatin 40 Mg Tab PO 01/17/24 20:59 40 mg HS MICHAEL Administration Enalapril Maleate 10 mg 12/19/23 09:00 12/19/23 07:48 Enalapril Maleate 10 Mg Tab PO 01/18/24 08:59 10 mg QAM MICHAEL Administration Fenofibrate 145 mg 12/19/23 09:00 12/19/23 07:48 Fenofibrate Nanocrystallized 145 Mg Tablet PO 01/18/24 08:59 145 mg QAM MICHAEL Administration Furosemide 20 mg 12/19/23 09:00 12/19/23 10:48 Furosemide 40 Mg/4 Ml Vial IV 01/18/24 08:59 20 mg DAILY MICHAEL Administration Insulin Aspart 0 units 12/18/23 16:30 12/19/23 20:20 Insulin Aspart Per Unit Charge SC 01/17/24 16:29 3 units ACHS MICHAEL Administration Metoprolol Tartrate 25 mg 12/18/23 21:00 12/19/23 20:10 Metoprolol Tartrate 25 Mg Tab PO 01/17/24 20:59 25 mg BID MICHAEL Administration Multivitamins 1 tab 12/19/23 09:00 12/19/23 07:48 Multivitamin Tab PO 01/18/24 08:59 1 tab QAM MICHAEL Administration Pantoprazole Sodium 40 mg 12/18/23 21:00 12/19/23 20:10 Pantoprazole 40 Mg Tab PO 01/17/24 20:59 40 mg QPM MICHAEL Administration Umeclidinium/Vilanterol 1 puffs 12/19/23 09:00 12/19/23 07:49 Umeclidinium/Vilanterol 62.5/25mcg 7 Puffs/Inhaler INH 01/18/24 08:59 1 puffs DAILY MICHAEL Administration Vibegron 75 mg 12/19/23 09:00 12/19/23 07:48 Vibegron 75 Mg Tab PO 01/18/24 08:59 75 mg DAILY MICHAEL Administration Past Medical History Medical History (Updated 12/20/23 @ 07:08 by Jeff Chacon MD) Anemia Peripheral arterial disease Hypertension Diabetes NIDDM Glaucoma CAD (coronary artery disease) COPD (chronic obstructive pulmonary disease) BPH (benign prostatic hyperplasia) History of Mohs micrographic surgery for skin cancer Hx of basal cell carcinoma On anticoagulant therapy H/O: lung cancer 2017 with Left Upper Lobectomy -- monitors currently. no current issues. Past Family History Family History Brother Lung cancer Father Heart disease Hypertension Mother Cerebral aneurysm Other No family history of adverse response to anesthesia Past Surgical History Surgical History History of coronary artery bypass graft x2 vessels on ~07/19/[address] [facility]. Follows with Dr Bender History of selective laser trabeculoplasty History of prostate surgery Green Light Laser procedure ~2018 at [facility] in [place], [place] History of colonoscopy History of cardiac cath 07/18/2022 at [facility] and transferred to [facility] for CABG Status post biopsy of skin S/P coronary artery stent placement H/O umbilical hernia repair History of 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 H/O cataract extraction bilateral H/O laminectomy L3/4 in 1990, L4/5 w/ fusion in 1992 H/O vasectomy H/O right knee surgery Social History Smoking Status: Former smoker tobacco type: cigarettes Smoking cigarettes per day: 30 Do You Dip or Chew Tobacco: No Hx Alcohol Use: Yes Alcohol type: beer alcohol intake frequency: a few times a month Hx Substance Use: No substance use type: does not use Physical Exam Vital Signs Last Vital Signs Temp 36.5 C 12/20/23 03:23 Pulse 73 12/20/23 03:30 Resp 22 12/20/23 03:30 BP 143/64 H 12/20/23 03:52 Pulse Ox 96 12/20/23 03:30 O2 Del Method CPAP 12/20/23 03:23 FiO2 21 12/20/23 03:30 Testing Laboratory Results 12/19/23 06:51 Hemoglobin A1c 7.6 % (4.5-5.6) H 12/19/23 06:51 12/19/23 19:40 POC Glucose 157 H Laboratory Tests 12/19/23 06:51 Hgb 11.1 L Plt Count 197 Potassium 4.0 Creatinine 1.21 Electrocardiogram Date: 07/18/22 Findings: + NSR @ (92) and + NSST changes Echocardiogram Date: 07/18/22 EF: 60-65% LV Function: normal Valvular Disease: + no significant valvular disease
[2023-12-20] MEDS ORDERED: ROPIVACAINE 0.5% 5 MG/ML 30 ML VIAL ONE (07:24)
[2023-12-20] MEDS ORDERED: ATROPINE SULFATE 0.1 MG/ML 10ML SYR IV PRN (07:38)
[2023-12-20] MEDS ORDERED: HYDROmorphone INJ 1 MG/ML SYRINGE IV PRN (07:38)
[2023-12-20] MEDS ORDERED: KETOROLAC 30 MG/ML VIAL IV PRN (07:38)
[2023-12-20] MEDS ORDERED: ONDANSETRON INJ 2 MG/ML 2 ML VIAL IV PRN ×3 (07:38→10:56)
[2023-12-20] MEDS ORDERED: PROPOFOL IV EMULSION 10 MG/ML 20 ML VIAL IV ONE ×2 (07:48→09:13)
[2023-12-20] MEDS ORDERED: fentaNYL citrate PF 100 MCG/2 ML VIAL ONE ×2 (07:48→09:13)
[2023-12-20] MEDS ORDERED: DEXAMETHASONE SOD INJ 4 MG/ML VIAL ONE (07:48)
[2023-12-20] MEDS ORDERED: ONDANSETRON INJ 2 MG/ML 2 ML VIAL ONE (07:48)
[2023-12-20] MEDS ORDERED: LIDOCAINE 2% 2 ML VIAL/AMP(20MG/ML) INFIL ONE (07:48)
[2023-12-20] MEDS: ceFAZolin 2000MG 2,000 MG/15 ML SYR IV SCH ×2 (08:09→18:01)
[2023-12-20] MEDS ORDERED: ceFAZolin 330 MG/ML 1 GM VIAL ONE (08:17)
[2023-12-20] MEDS ORDERED: PHENYLEPHRINE 100MCG/ML 10ML SYR IV ONE (08:35)
--- NOTE | 2023-12-20 09:31 | Post Operative Brief Note ---
Immediate Post Op Note Date of Surgery December 20, 2023 Pre & Post Diagnosis Operation Date: 12/20/23 07:30 Pre-Op Diagnosis: Left knee quadriceps tendon tear, acute. Post-Op Diagnosis: Left knee quadriceps tendon tear, acute. I identified the patient and participated in the time-out.: Yes Procedure Operation Date: 12/20/23 07:30 Actual Procedures p Left Quadriceps Tendon Repair(Left) - Rickey Martini MD Surgeon Rickey Martini MD Program Planner A MD Chau Estimated Blood Loss 12 Findings Consistent with Post-Op Diagnosis Fluids 1000 cc Anesthesia Type General Regional Complications none
--- NOTE | 2023-12-20 09:33 | Operative Report ---
Post Operative Report Pre & Post Diagnosis Operation Date: 12/20/23 07:30 Pre-Op Diagnosis: Left knee quadriceps tendon tear, acute. Post-Op Diagnosis: Left knee quadriceps tendon tear, acute. I identified the patient and participated in the time-out.: Yes Procedure Operation Date: 12/20/23 07:30 Actual Procedures p Left Quadriceps Tendon Repair(Left) - Rickey Martini MD Surgeon Rickey Martini MD Station Detective A MD Chau Estimated Blood Loss 12 Findings See Below Complete rupture left quad tendon, with extension into the medial and lateral retinaculum. Fluids 1000 cc Specimens n/a Anesthesia Type General Regional Complications none Indications The patient is a 78 year old male who sustained a left quad tendon rupture. After a lengthy discussion with her regarding her treatment options of conservative versus surgical intervention, the patient has elected to proceed with surgical intervention. The patient understands the risks of surgery, which include but are not limited to: bleeding, infection, re-operation, damage to nerves and arteries, continued pain, decreased level of activity, knee stiffness, and DVT. The patient understands all of these instructions and explanations, all of their questions have been satisfactorily addressed. The patient has elected to proceed with surgery and the informed consent was signed. Description of Procedure IMPLANTS: JUGGERKNOT 2.9 MM DOUBLE LOADED X2 (Johnny/BIOMET) PROCEDURE: The patient was taken to the Operating Room and placed in the supine position on the operating table. After general anesthetic was administered a multidisciplinary time-out was performed identifying my initials on the left lower limb as the correct and operative limb. Prior to the incision being made, 2 grams of intravenous Ancef were given. The left leg was prepped and draped in the standard orthopaedic sterile fashion. The planned longitudinal incision approximately 8 cm, centered about the quad tendon defect and in the midline was marked. The incision was injected with a 50:50 mixture of 1% Lidocaine plain and 0.5% Marcaine for a total of 10 cc. The skin incision was made down to the quad tendon fascia and the defect was easily found with noted hematoma. Large skin flaps were made both medially and laterally. The hematoma and any frayed and degenerative tendon was sharply excised. The wound was copiously irrigated.The soft tissue was debrided superiorly off the patella for better expose and anchor placement. The medial and lateral retinaculum had #1 Vicryl placed in a [id number] fashion for later tying. The proximal portion of the patella was prepped with rongeur and curettes. With the knee in a slightly flexed position two, 2.9 mm JuggerKnot, anchors were placed one medially and one laterally at the quad tendon insertion. Then 1 strand from each suture was run up the quad tendon in a Krackow fashion and they were tied together. The other two ends of these sutures were passed through the distal end of the quad tendon and used to reduce the quad tendon to the patella with the knee in extension and tied after passing the other 2 limbs from each anchor and tieing in a horizontal mattress fashion. The #1 Vicryl sutures in the medial and lateral retinaculum were sequentially tied in the standard fashion. The sutures from the anchors were tied together. A #1 Vicryl was as an epitendinous stitch using in a baseball stitch fashion to reinforce the repair from the medial to lateral retinaculum edge of the tear. There was no tension on the repair with the flexed past 90 degrees. 2-0 Vicryl was used to close the overlying fascia. The wound was copiously irrigated throughout. The subcutaneous layer was closed with 3-0 Vicryl. The skin was closed ZipLine and Shield. The incision was covered with 4x4's, ABD, sterile cast padding, an FABIANA, and a range of motion knee brace locked in extension. The sponge and needle counts were correct. POST-OP INSTRUCTIONS: The patient was re-admitted back to the hospitalist service. He will be weight bearing as tolerated with the brace locked in extension on the left lower extremity. The patient will start physical therapy and OT. The patient will follow up in my office in 10-14 days. I attest to the content of the Intraoperative Record and any orders documented therein. Any exceptions are noted below.
[2023-12-20] MEDS: BUPIVACAINE 0.5 % 5 MG/1 ML MPF 30ML VIAL ONE (09:41)
[2023-12-20] MEDS: LIDOCAINE 1%/EPINEPHRINE 1:100,000 50 ML VIAL ONE (09:42)
--- NOTE | 2023-12-20 10:00 | Operative Report ---
Post Operative Report Pre & Post Diagnosis Operation Date: 12/20/23 07:30 Pre-Op Diagnosis: Left knee quadriceps tendon tear, acute. Post-Op Diagnosis: Left knee quadriceps tendon tear, acute. I identified the patient and participated in the time-out.: Yes Procedure Operation Date: 12/20/23 07:30 Actual Procedures p Left Quadriceps Tendon Repair(Left) - Rickey Martini MD Surgeon Rickey Martini MD Negative Turner Apprentice A MD Chau Estimated Blood Loss 12 Findings Consistent with Post-Op Diagnosis Same as postoperative diagnosis. Specimens None Description of Procedure Please see detailed operative note. I attest to the content of the Intraoperative Record and any orders documented therein. Any exceptions are noted below.
--- NOTE | 2023-12-20 10:12 | Electrocardiogram Report ---
Test Reason : Blood Pressure : / mmHG Vent. Rate : 070 BPM Atrial Rate : 070 BPM P-R Int : 176 ms QRS Dur : 112 ms QT Int : 440 ms P-R-T Axes : 052 -20 -24 degrees QTc Int : 475 ms Normal sinus rhythm Moderate voltage criteria for LVH, may be normal variant Borderline ECG When compared with ECG of 18-JUL-2022 05:00, ST no longer depressed in Anterolateral leads Inverted T waves have replaced nonspecific T wave abnormality in Inferior leads T wave inversion no longer evident in Anterolateral leads Confirmed by Juan Soliman ([id number]) on 12/20/2023 10:12:24 AM Referred By: Talon Burns Confirmed By:Juan Soliman
[2023-12-20] MEDS ORDERED: traMADol HCL 50 MG TABLET PO PRN ×2 (10:47→10:56)
[2023-12-20] MEDS ORDERED: METOCLOPRAMIDE HCL INJ 5 MG/ML 2 ML VIAL IV PRN ×2 (10:47→10:56)
[2023-12-20] MEDS ORDERED: PHARMACY GLYCEMIC MGMT CONSULT PRN ×3 (10:47→10:56)
[2023-12-20] MEDS ORDERED: bisacodyL 10 MG SUPP PR PRN ×2 (10:47→10:56)
[2023-12-20] MEDS ORDERED: MAGNESIUM HYDROXIDE SUSP 30 ML UDC PO PRN ×2 (10:47→10:56)
[2023-12-20] MEDS ORDERED: NALOXONE HCL 0.4 MG/1 ML VIAL/CARP IV PRN ×2 (10:47→10:56)
[2023-12-20] MEDS ORDERED: KETOROLAC TROMETHAMINE 15 MG/ML VIAL IV SCH (10:56)
[2023-12-20] MEDS ORDERED: HYDROmorphone INJ 0.5 MG/0.5 ML SYR IV PRN (10:56)
[2023-12-20] MEDS ORDERED: oxyCODONE HCL IR 5 MG TAB (IMMEDIATE RELEASE) PO PRN (10:56)
[2023-12-20] MEDS ORDERED: SODIUM CHLORIDE 0.9% 1,000 ML IV SCH (11:00)
[2023-12-20] MEDS: SODIUM CHLORIDE 0.9% 1,000 ML IV SCH (12:06)
[2023-12-20] MEDS: KETOROLAC TROMETHAMINE 15 MG/ML VIAL IV SCH (12:07)
--- NOTE | 2023-12-20 12:15 | Anesthesiology Progress Note ---
Date of Service December 20, 2023 Anesthesia Post Procedure Vital Signs Vital Signs: Temp Pulse Pulse Resp BP Pulse Ox O2 Del Method 12/20/23 11:30 77 20 165/68 H 95 Nasal Cannula 12/20/23 11:08 36.8 C 76 18 172/49 H 94 Nasal Cannula 12/20/23 10:50 37.1 C 66 14 138/53 L 93 Nasal Cannula 12/20/23 10:35 37.1 C 74 14 147/60 H 94 Nasal Cannula 12/20/23 10:25 73 15 152/66 H 93 Nasal Cannula 12/20/23 10:15 72 18 155/67 H 93 Nasal Cannula 12/20/23 10:05 75 17 182/78 H 94 Nasal Cannula 12/20/23 09:56 37.1 C 75 13 181/67 H 93 Oxymask 12/20/23 07:12 65 12/20/23 03:52 143/64 H 12/20/23 03:30 73 22 96 12/20/23 03:23 36.5 C 70 23 166/79 H 94 CPAP 12/20/23 03:10 76 17 95 12/20/23 01:31 67 12/19/23 22:54 36.7 C 65 18 146/57 H 95 Room Air 12/19/23 21:00 74 10 L 96 12/19/23 19:55 36.8 C 75 18 133/76 94 Room Air 12/19/23 19:52 71 93 Room Air 12/19/23 17:58 60 12/19/23 14:35 36.5 C 66 18 131/77 94 Room Air O2 Flow Rate FiO2 12/20/23 11:30 3 12/20/23 11:08 3 12/20/23 10:50 3 12/20/23 10:35 4 12/20/23 10:25 4 12/20/23 10:15 4 12/20/23 10:05 4 12/20/23 09:56 6 12/20/23 07:12 12/20/23 03:52 12/20/23 03:30 21 12/20/23 03:23 12/20/23 03:10 21 12/20/23 01:31 12/19/23 22:54 12/19/23 21:00 21 12/19/23 19:55 12/19/23 19:52 12/19/23 17:58 12/19/23 14:35 Transfer of Care Handoff Completed per policy Notes Mental Status: alert / awake / arousable Patient Amnestic to Procedure: Yes Nausea / Vomiting: adequately controlled Pain: adequately controlled Airway Patency, RR, SpO2: stable & adequate BP & HR: stable & adequate Hydration State: stable & adequate Anesthetic Complications: no major complications apparent
[2023-12-20] MEDS: LANTUS PER UNIT CHARGE SC SCH (12:53)
--- NOTE | 2023-12-20 13:49 | Pharmacy Report ---
Pharmacy Glycemic Short Note 2 - Date of Service December 20, 2023 - Glycemic Short BSG Results (Last 24 hours): 12/19/23 12/19/23 12/20/23 16:31 19:40 06:20 Glucose 173 H POC Glucose 143 H 157 H 12/20/23 10:11 Glucose POC Glucose 190 H OUTPATIENT ANTIDIABETIC REGIMEN: * Metformin 1 gm PO daily HbA1c: 7.6% on 12/19/23 ASSESSMENT: 12/19: * BSGs yesterday in the evening were with goal 143-157 mg/dl. Novolog parameters continued the same today. * Fasting BSG was elevated today at 173 mg/dl since basal insulin at HS yesterday was held. Basal insulin once daily resumed with lunch today after patient returned from the OR. 12/19/23: * 78 y/o M admitted for L knee tendon tear following fall yesterday. Patient has history of Type 2 diabetes managed only on Metformin at home. * Will hold Metformin for now and utilize basal and bolus insulins for glycemic control. * Basal insulin BID started last night based on stress of 1. Novolog parameters were ordered looser than stress of 1. * Fasting BSG today was 154 mg/dl and pre-lunch BSG trended up to 227 mg/dl. * Tightened Novolog parameters to stress of 2 at lunch today. * Will hold basal insulin at HS. Will change to QAM dose tomorrow using stress of 2 dose. * Plan for patient to have knee repair surgery in the morning. PLAN FOR INPATIENT GLYCEMIC CONTROL: * Hold outpatient oral diabetes medications * Basal insulin * Lantus 15 units SQ QAM * Bolus insulin * NovoLog per scale ACHS or Q6hrs while NPO * Goal Range: Low 110 mg/dL - High 140 mg/dL * Correction Factor: 25 mg/dL/unit * Nutritional / Prandial insulin per carb ratio of 1 unit per 10 grams CHO consumed
[2023-12-20] MEDS: ACETAMINOPHEN 500 MG TAB PO SCH (15:24)
[2023-12-20] MEDS ORDERED: ceFAZolin 2000MG 2,000 MG/15 ML SYR IV SCH (16:30)
--- NOTE | 2023-12-20 16:47 | Hospitalist Progress Note ---
Date of Service December 20, 2023 Assessment & Plan (1) Quadriceps tendon rupture: Plan: left patellar quad tendon rupture 2nd to fall at home s/p repair today by Dr Martini from [facility] appreciate his assistance patient is stable post-op some mild wheezing 2nd to COPD - will provide duoneb now no ischemic symptoms post-op DVT proph - was on asa/plavix pre-op due to recent stent work in his LLE to enhance his DVT proph will increase asa to 81mg BID and cont plavix he is on PPI chronically patient can be weight-bearing as tolerated in his hinged brace PT, OT evals pending (2) S/P CABG (coronary artery bypass graft): Plan: history of RCA PCI - 05/2015 2-vessel CABG - [facility] - SOARES to the LAD, an SVG to OM2 - 06/2022 no recent ischemic symptoms no perioperative symptoms is on asa, plavix, metoprolol, statin echo 07/2022 with EF 60-65%, no regional wall motion abnormalities ?mild decompensated CHF at time of ER presentation - lasix now on hold - appears compensated re-eval tomorrow (3) SJ (obstructive sleep apnea): Plan: CPAP nightly (4) COPD (chronic obstructive pulmonary disease): Plan: cont usual inhalers duoneb x 1 ordered at his request this afternoon (5) Diabetes: Plan: Metformin on held Pharmacy providing glycemic oversight On basal-bolus insulin Hba1c 7.6% (6) Peripheral vascular disease, unspecified: Plan: s/p angioplasty of the right SFA on October 08 with resolution of right leg claudication symptoms 11/20/[address] Javad Nye - results as below - Summary: 1. Left lower extremity -- Diffuse heavily calcified SFA disease up to 95+% distal stenosis, 40% popliteal. Patent infrapopliteal vessels proximally. 2. Right lower extremity -- Ostial ABDON 40%, patent iliacs, APPAREL MERCHANDISER and proximal SFA. 3. Successful angioplasty of diffuse left SFA disease with intravascular lithotripsy (6.0 balloon) and 2 drug-eluting balloons (6.0 x 100, 6.0 x 220 mm Lutonix). cont asa, plavix, statin Plan Chronic stable issues -- - Hx Lung Cancer: s/p VIANEY lobectomy 2017 GERD: Continue PPI Hypertension: Continue home antihypertensives, aspirin DVT proph - asa 81mg BID EKG today - NSR, T wave inversions III/AVF, prior ST changes anterior leads resolved Admission and Anticipated Discharge Date Admission Date: December 18, 2023 Subjective saw patient post-op he was resting comfortably in bed only complained of mild chest symptoms from his COPD asked for breathing treatment no substernal cp did eat lunch post-op and did fine with such no nausea/emesis no abd pain tele stable overnight Review of Systems Review of Systems: cv - no orthopnea pulm - no cough GI - no N/V/pain Physical Exam Physical Exam: gen - NAD, pleasant; laying flat in bed comfortably mouth - MMM neck - no JVD heart - RRR, s1 s2 with split, 1/6 systolic murmur LSB lungs - mild right-sided wheezes, decreased BS bases b/l abd - soft NT ND BS+ ext - no edema, 2+ b/l pulses feet psych - a/o x 3 musculo - left knee in FABIANA wrap and hinged type brace Results & Data Results & Data Vital Signs (Past 12 Hours) Vital Signs Temp Pulse Pulse Resp BP Pulse Ox O2 Del Method 12/20/23 15:39 64 18 140/51 L 94 Room Air 12/20/23 13:30 36.9 C 72 18 152/70 H 94 Nasal Cannula 12/20/23 12:30 37 C 70 18 154/65 H 95 Nasal Cannula 12/20/23 11:30 77 20 165/68 H 95 Nasal Cannula 12/20/23 11:08 36.8 C 76 18 172/49 H 94 Nasal Cannula 12/20/23 10:50 37.1 C 66 14 138/53 L 93 Nasal Cannula 12/20/23 10:35 37.1 C 74 14 147/60 H 94 Nasal Cannula 12/20/23 10:25 73 15 152/66 H 93 Nasal Cannula 12/20/23 10:15 72 18 155/67 H 93 Nasal Cannula 12/20/23 10:05 75 17 182/78 H 94 Nasal Cannula 12/20/23 09:56 37.1 C 75 13 181/67 H 93 Oxymask 12/20/23 07:12 65 O2 Flow Rate 12/20/23 15:39 12/20/23 13:30 3 12/20/23 12:30 3 12/20/23 11:30 3 12/20/23 11:08 3 12/20/23 10:50 3 12/20/23 10:35 4 12/20/23 10:25 4 12/20/23 10:15 4 12/20/23 10:05 4 12/20/23 09:56 6 12/20/23 07:12 Laboratory Results Laboratory Results - last 24 hr 12/19/23 12/20/23 12/20/23 19:40 06:20 10:11 Sodium 140 Potassium 4.3 Chloride 109 H Carbon Dioxide 26 Anion Gap 5 BUN 37 H Creatinine 1.27 Est Cr Clr Drug Dosing 53.6 Est GFR ( Amer) 61.9 Est GFR (Non-Af Amer) 53.4 BUN/Creatinine Ratio 29.1 H Glucose 173 H POC Glucose 157 H 190 H Calcium 9.5 Magnesium 1.8 12/20/23 16:08 Sodium Potassium Chloride Carbon Dioxide Anion Gap BUN Creatinine Est Cr Clr Drug Dosing Est GFR ( Amer) Est GFR (Non-Af Amer) BUN/Creatinine Ratio Glucose POC Glucose 178 H Calcium Magnesium PG Care Time/CCT Total # of Minutes Spent Total Time Spent with Patient: Total time spent is greater than 50% in coordination of care (as documented) at patient's floor/unit and/or counseling patient: Coding Level of Care Code 81855 SUB INP/OBS CARE 2/35MIN Diagnoses Quadriceps tendon rupture S76.119A S/P CABG (coronary artery bypass graft) Z95.1 SJ (obstructive sleep apnea) G47.33 COPD (chronic obstructive pulmonary disease) J44.9 Diabetes E11.9 Peripheral vascular disease, unspecified I73.9
[2023-12-20] MEDS: ALBUT/IPRATROP 3MG/0.5MG NEB 3 ML VIAL NEB STA (17:03)
[2023-12-20] MEDS: SENNA 8.6 MG TAB PO SCH (19:36)
[2023-12-20] MEDS: ASPIRIN 81 MG ECTAB PO SCH (19:38)
[2023-12-20] MEDS: MAGNESIUM OXIDE 400 MG TAB PO SCH (19:38)
[2023-12-20] MEDS: DOCUSATE SODIUM 100 MG CAP PO SCH (19:39)
[2023-12-20] MEDS: guaiFENesin 600 MG TABCR PO SCH (20:47)
[2023-12-20] MEDS ORDERED: SENNA 8.6 MG TAB PO SCH (21:00)
[2023-12-20] MEDS ORDERED: DOCUSATE SODIUM 100 MG CAP PO SCH (21:00)
[2023-12-21] MEDS: MELATONIN 3 MG TAB PO PRN (03:05)
[2023-12-21 06:09] LABS: Hematocrit (blood only) 30.7 % (42.0-52.0); Mean Corpuscular Hemoglobin 30.6 pg (25.0-34.0); Mean Corpuscular Hgb Conc 32.6 g/dL (32.0-36.0); Mean Corpuscular Volume 93.9 fL (80.0-100.0); Mean Platelet Volume 10.3 fL (9.4-12.4); Platelet Count 178 K/uL (130-400); RDW Coefficient of Variation 12.8 % (11.5-14.5); RDW Standard Deviation 43.8 fL (36.4-46.3); Red Blood Count 3.27 M/uL (4.70-6.10); White Blood Count 9.99 K/ul (4.8-10.8)
[2023-12-21 06:26] LABS: Calcium 7.9 mg/dl (8.6-10.3); Creatinine Clr Calc Pharmacy 35.4 ml/min; Est GFR (African American) 36.6 ml/min; Est GFR (Non-African American) 31.6 ml/min; Potassium 4.1 mmol/L (3.5-5.1)
--- NOTE | 2023-12-21 07:42 | Orthopedic Progress Note ---
Date of Service December 21, 2023 Assessment & Plan (1) Acute pain of left knee: Plan: IMPRESSION: POD #1 s/p Left knee quadriceps tendon repair, with elevated creatinine. PLAN: WBAT with brace locked in extension, walker if able Resume diet Resume Plavix RICE PT/OT. Continue pain control. DVT Prophylaxis: TEDs & SCD's, 81 mg ASA BID x 6 weeks. Continue care per primary service. D/C Planning Will continue to follow while in the hospital. Follow up in Dr. Martini's office in 2 weeks. Admission and Anticipated Discharge Date Admission Date: December 18, 2023 Subjective Doing well Physical Exam Physical Exam: LLE: 1+ DP pulse, sensation to light touch intact distally. Gastroc soleus, Tib ant., EHL strength 5/5. Dressing clean, dry, intact. Brace in place.. Results & Data Vital Signs (Past 12 Hours) Vital Signs Temp Pulse Pulse Resp BP Pulse Ox O2 Del Method 12/21/23 07:14 36.7 C 66 18 134/49 L 92 Room Air 12/21/23 03:45 65 15 91 12/21/23 03:20 36.7 C 65 18 143/54 H 94 CPAP 12/21/23 00:39 65 12/20/23 23:07 36.7 C 59 L 18 148/67 H 95 BiPAP 12/20/23 22:51 75 20 96 12/20/23 20:30 CPAP 12/20/23 19:55 36.7 C FiO2 12/21/23 07:14 12/21/23 03:45 21 12/21/23 03:20 12/21/23 00:39 12/20/23 23:07 12/20/23 22:51 21 12/20/23 20:30 12/20/23 19:55 Laboratory Results 12/21/23 12/21/23 12/20/23 Range/Units 07:10 05:18 19:47 WBC 9.99 (4.8-10.8) K/ul RBC 3.27 L (4.70-6.10) M/uL Hgb 10.0 L (14.0-18.0) g/dl Hct 30.7 L (42.0-52.0) % MCV 93.9 (80.0-100.0) fL MCH 30.6 (25.0-34.0) pg MCHC 32.6 (32.0-36.0) g/dL RDW Std Deviation 43.8 (36.4-46.3) fL RDW Coeff of Galilea 12.8 (11.5-14.5) % Plt Count 178 (130-400) K/uL MPV 10.3 (9.4-12.4) fL Sodium 137 (136-145) mmol/L Potassium 4.1 (3.5-5.1) mmol/L Chloride 108 H (98-107) mmol/L Carbon Dioxide 22 (21-32) mmol/L Anion Gap 7 (3-11) BUN 51 H (6-23) mg/dl Creatinine 1.96 H D (0.6-1.4) mg/dl Est Cr Clr Drug Dosing 35.4 ml/min Est GFR ( Amer) 36.6 ml/min Est GFR (Non-Af Amer) 31.6 ml/min BUN/Creatinine Ratio 26.0 H (10-20) Glucose 173 H (70-99(Fasting)) mg/dl POC Glucose 170 H 195 H (70-99) mg/dl Calcium 7.9 L (8.6-10.3) mg/dl 24 12/20/23 Range/Units 16:08 10:11 WBC (4.8-10.8) K/ul RBC (4.70-6.10) M/uL Hgb (14.0-18.0) g/dl Hct (42.0-52.0) % MCV (80.0-100.0) fL MCH (25.0-34.0) pg MCHC (32.0-36.0) g/dL RDW Std Deviation (36.4-46.3) fL RDW Coeff of Galilea (11.5-14.5) % Plt Count (130-400) K/uL MPV (9.4-12.4) fL Sodium (136-145) mmol/L Potassium (3.5-5.1) mmol/L Chloride (98-107) mmol/L Carbon Dioxide (21-32) mmol/L Anion Gap (3-11) BUN (6-23) mg/dl Creatinine (0.6-1.4) mg/dl Est Cr Clr Drug Dosing ml/min Est GFR ( Amer) ml/min Est GFR (Non-Af Amer) ml/min BUN/Creatinine Ratio (10-20) Glucose (70-99(Fasting)) mg/dl POC Glucose 178 H 190 H (70-99) mg/dl Calcium (8.6-10.3) mg/dl
[2023-12-21] MEDS: POLYETHYLENE (MIRALAX) 17 GM PACK PO SCH (08:14)
[2023-12-21] MEDS: CLOPIDOGREL BISULFATE 75 MG TAB PO SCH (08:15)
[2023-12-21] MEDS ORDERED: MULTIVITAMIN TAB PO SCH ×2 (09:00)
[2023-12-21] MEDS ORDERED: metFORMIN HCL 500 MG TAB PO SCH (09:00)
[2023-12-21] MEDS ORDERED: hydrOXYzine HCl 25 MG TAB PO PRN (13:25)
[2023-12-21] MEDS: SODIUM CHLORIDE 0.9% 1,000 ML IV SCH (14:24)
[2023-12-21] MEDS: HYDROCODONE/ACETAMOPHEN 5/325MG TAB PO PRN (14:28)
[2023-12-21 16:18] LABS: Appearance Urine Clear (Clear); Bilirubin Urine Negative (Negative); Blood Urine Negative (Negative); Color Urine Yellow; Glucose Urine UA Negative (Negative); Ketones Urine Negative (Negative); Leukocyte Esterase Urine Negative (Negative); Nitrite Urine Negative (Negative); Protein Urine Negative (Negative); Specific Gravity Urine 1.012 (1.000-1.030); Urobilinogen Urine Negative (Negative); pH Urine 5.5 (4.5-7.5)
[2023-12-21 16:40] LABS: Creatinine Urine Random 44.7 mg/dl
--- NOTE | 2023-12-21 17:56 | Hospitalist Progress Note ---
Date of Service December 21, 2023 Assessment & Plan (1) Quadriceps tendon rupture: Plan: POD #1 s/p repair of ruptured left patellar quad tendon by Dr Martini - [facility] appreciate his assistance thus far only issue post-op is that of mild KERRY - see below DVT proph - was on asa/plavix pre-op due to recent stent work in his LLE to enhance his DVT proph will increase asa to 81mg BID and cont plavix he is on PPI chronically patient can be weight-bearing as tolerated in his hinged brace per orthopedics PT, OT appreciated; will need rehab post-discharge (2) KERRY (acute kidney injury): Plan: mild peak Cr 1.96 Urine sodium and urine creatinine obtained - FeNa ~1% suspect it is pre-renal - likely perioperative transient decreased renal perfusion and also had lasix on hospital day #1 doubt intrinsic disease no evidence of any obstruction u/a today bland I repeated his BMP later in the day - creatinine now 1.6 s/p additional IV fluids today should continue to improve repeat BMP am NO further lasix hold enalapril (3) S/P CABG (coronary artery bypass graft): Plan: history of RCA PCI - 05/2015 2-vessel CABG - [facility] - SOARES to the LAD, an SVG to OM2 - 06/2022 no recent ischemic symptoms no perioperative symptoms is on asa, plavix, metoprolol, statin echo 07/2022 with EF 60-65%, no regional wall motion abnormalities ?mild decompensated CHF at time of ER presentation - did receive lasix hospital day #1 --- but no evidence of any pulmonary edema/CHF today no further lasix (4) SJ (obstructive sleep apnea): Plan: CPAP nightly (5) COPD (chronic obstructive pulmonary disease): Plan: cont usual inhalers requested ongoing use of rescue bronchodilators -- will schedule albuterol 2 puffs qid flutter valve incentive spirometer mucinex 1200mg BID also ordered (6) Diabetes: Plan: Metformin on held Pharmacy providing glycemic oversight On basal-bolus insulin Defer adjustments to pharmacy Hba1c 7.6% (7) Peripheral vascular disease, unspecified: Plan: s/p angioplasty of the right SFA on October 08 with resolution of right leg claudication symptoms 11/20/[address] Javad Nye - results as below - Summary: 1. Left lower extremity -- Diffuse heavily calcified SFA disease up to 95+% distal stenosis, 40% popliteal. Patent infrapopliteal vessels proximally. 2. Right lower extremity -- Ostial ABDON 40%, patent iliacs, [employer]ER[employer] MEDIATOR and proximal SFA. 3. Successful angioplasty of diffuse left SFA disease with intravascular lithotripsy (6.0 balloon) and 2 drug-eluting balloons (6.0 x 100, 6.0 x 220 mm Lutonix). cont asa, plavix, statin Plan Insomnia - schedule the melatonin 9mg at HS also add atarax 25mg HS prn constipation - add miralax; cont senna Chronic stable issues -- - Hx Lung Cancer: s/p VIANEY lobectomy 2017 GERD: Continue PPI Hypertension: Continue home antihypertensives, aspirin DVT proph - asa 81mg BID updated pt's sister by phone this evening progressing Admission and Anticipated Discharge Date Admission Date: December 18, 2023 Subjective doing well today only complaint is that of left knee pain did not sleep well last pm either appetite is robust passing flatus; no stool passage yet duoneb last pm helped her breathing; requests another breathing treatment today tele stable overnight Review of Systems Review of Systems: CV - no orthopnea, no PND GI - no abd pain, no bloating, no N/V pulm - no major cough Physical Exam Physical Exam: gen - NAD, pleasant; laying completely flat in bed comfortably mouth - MM dry neck - no JVD heart - RRR, s1 s2 with split, 1/6 systolic murmur LSB lungs - CTA b/l today; decreased BS bases b/l; no rales or wheezes abd - soft NT ND BS+ ext - no edema, 2+ b/l pulses feet psych - a/o x 3 musculo - left knee in FABIANA wrap and hinged type brace Results & Data Results & Data Vital Signs (Past 12 Hours) Vital Signs Temp Pulse Pulse Resp BP Pulse Ox O2 Del Method 12/21/23 15:04 36.8 C 74 18 143/76 H 94 Room Air 12/21/23 14:37 67 12/21/23 11:04 36.9 C 62 19 138/73 94 Room Air 12/21/23 07:44 66 12/21/23 07:14 36.7 C 66 18 134/49 L 92 Room Air Laboratory Results Laboratory Results - last 48 hr 12/21/23 12/21/23 05:18 07:10 WBC 9.99 RBC 3.27 L Hgb 10.0 L Hct 30.7 L MCV 93.9 MCH 30.6 MCHC 32.6 RDW Std Deviation 43.8 RDW Coeff of Galilea 12.8 Plt Count 178 MPV 10.3 Sodium 137 Potassium 4.1 Chloride 108 H Carbon Dioxide 22 Anion Gap 7 BUN 51 H Creatinine 1.96 H D Est Cr Clr Drug Dosing 35.4 Est GFR ( Amer) 36.6 Est GFR (Non-Af Amer) 31.6 BUN/Creatinine Ratio 26.0 H Glucose 173 H POC Glucose 170 H Calcium 7.9 L 12/21/23 12/21/23 12/21/23 11:23 16:35 18:04 Sodium 140 Potassium 4.3 Chloride 109 H Carbon Dioxide 24 Anion Gap 7 BUN 43 H Creatinine 1.62 H D Est Cr Clr Drug Dosing 42.8 Est GFR ( Amer) 46.1 Est GFR (Non-Af Amer) 39.8 BUN/Creatinine Ratio 26.5 H Glucose 171 H POC Glucose 137 H 142 H 12/21/23 12/21/23 20:14 Unknown WBC RBC Hgb Hct MCV MCH MCHC RDW Std Deviation RDW Coeff of Galilea Plt Count MPV Sodium Potassium Chloride Carbon Dioxide Anion Gap BUN Creatinine Est Cr Clr Drug Dosing Est GFR ( Amer) Est GFR (Non-Af Amer) BUN/Creatinine Ratio Glucose POC Glucose 200 H Calcium Magnesium Urine Color Yellow Urine Appearance Clear Urine pH 5.5 Ur Specific [place] 1.012 Urine Protein Negative Urine Glucose (UA) Negative Urine Ketones Negative Urine Blood Negative Urine Nitrite Negative Urine Bilirubin Negative Urine Urobilinogen Negative Ur Leukocyte Esterase Negative Ur Random Creatinine 44.7 Ur Random Sodium 39 PG Care Time/CCT Total # of Minutes Spent Total Time Spent with Patient: Total time spent is greater than 50% in coordination of care (as documented) at patient's floor/unit and/or counseling patient: Coding Level of Care Code 98493 SUB INP/OBS CARE 3/50MIN Diagnoses Quadriceps tendon rupture S76.119A KERRY (acute kidney injury) N17.9 S/P CABG (coronary artery bypass graft) Z95.1 SJ (obstructive sleep apnea) G47.33 COPD (chronic obstructive pulmonary disease) J44.9 Diabetes E11.9 Peripheral vascular disease, unspecified I73.9
[2023-12-21 18:44] LABS: BUN Creatinine Ratio 26.5 (10-20); Creatinine Clr Calc Pharmacy 42.8 ml/min; Est GFR (African American) 46.1 ml/min; Est GFR (Non-African American) 39.8 ml/min; Potassium 4.3 mmol/L (3.5-5.1)
[2023-12-21] MEDS: MELATONIN 3 MG TAB PO SCH (20:48)
[2023-12-21 21:29] LABS: Calcium 8.7 mg/dl (8.6-10.3)
[2023-12-21] MEDS: ALBUTEROL HFA 8 GM INHALER INH SCH (22:12)
[2023-12-22 07:47] LABS: Basophils # (auto) 0.02 K/uL (0.00-0.20); Basophils % (auto) 0.2 %; Eosinophils # (auto) 0.17 K/uL (0.00-0.50); Eosinophils % (auto) 1.9 %; Hematocrit (blood only) 31.6 % (42.0-52.0); Hemoglobin 10.3 g/dl (14.0-18.0); Immature Granulocytes # (auto) 0.04 K/uL (0.01-0.20); Immature Granulocytes % (auto) 0.5 %; Lymphocytes # (auto) 2.41 K/uL (1.20-3.40); Lymphocytes % (auto) 27.2 %; Mean Corpuscular Hemoglobin 30.2 pg (25.0-34.0); Mean Corpuscular Hgb Conc 32.6 g/dL (32.0-36.0); Mean Corpuscular Volume 92.7 fL (80.0-100.0); Mean Platelet Volume 10.3 fL (9.4-12.4); Monocytes # (auto) 1.32 K/uL (0.11-0.59); Monocytes % (auto) 14.9 %; Neutrophils # (auto) 4.91 K/uL (1.40-6.50); Neutrophils % (auto) 55.3 %; Platelet Count 192 K/uL (130-400); RDW Coefficient of Variation 12.7 % (11.5-14.5); RDW Standard Deviation 43.1 fL (36.4-46.3); Red Blood Count 3.41 M/uL (4.70-6.10); White Blood Count 8.87 K/ul (4.8-10.8)
[2023-12-22 07:59] LABS: BUN Creatinine Ratio 29.7 (10-20); Calcium 8.5 mg/dl (8.6-10.3); Creatinine Clr Calc Pharmacy 58.6 ml/min; Est GFR (African American) 67.6 ml/min; Est GFR (Non-African American) 58.3 ml/min; Potassium 4.2 mmol/L (3.5-5.1)
[2023-12-22] MEDS: METOPROLOL TARTRATE 50 MG TAB PO SCH (08:10)
--- NOTE | 2023-12-22 10:11 | Orthopedic Progress Note ---
Date of Service December 22, 2023 Assessment & Plan (1) Acute pain of left knee: Plan: IMPRESSION: POD #2 s/p Left knee quadriceps tendon repair, with improved creatinine. PLAN: WBAT with brace locked in extension, walker if needed Dressing replaced with Silverlon, keep in place until f/u appoint, may shower over top. Continue diet Continue Plavix RICE PT/OT. Continue pain control. DVT Prophylaxis: TEDs & SCD's, 81 mg ASA BID x 6 weeks. Continue care per primary service. D/C Planning Will continue to follow while in the hospital, ok to d/c from ortho standpoint. Follow up in Dr. Martini's office in 2 weeks. Admission and Anticipated Discharge Date Admission Date: December 18, 2023 Subjective Doing well Physical Exam Physical Exam: LLE: 1+ DP pulse, sensation to light touch intact distally. Gastroc soleus, Tib ant., EHL strength 5/5. Incision clean, dry, intact. Brace in place. Results & Data Vital Signs (Past 12 Hours) Vital Signs Temp Pulse Pulse Resp BP Pulse Ox O2 Del Method 12/22/23 07:47 73 15 98 Room Air 12/22/23 07:40 66 12/22/23 07:38 36.9 C 70 18 147/92 H 97 Room Air 12/22/23 02:47 36.8 C 77 18 166/73 H 94 Room Air 12/22/23 01:05 169/67 H 12/21/23 22:21 36.8 C 89 18 183/67 H 93 Room Air 12/21/23 22:19 70 18 95 Room Air Laboratory Results 12/22/23 12/22/23 12/21/23 Range/Units 07:36 07:12 Unknown WBC 8.87 (4.8-10.8) K/ul RBC 3.41 L (4.70-6.10) M/uL Hgb 10.3 L (14.0-18.0) g/dl Hct 31.6 L (42.0-52.0) % MCV 92.7 (80.0-100.0) fL MCH 30.2 (25.0-34.0) pg MCHC 32.6 (32.0-36.0) g/dL RDW Std Deviation 43.1 (36.4-46.3) fL RDW Coeff of Galilea 12.7 (11.5-14.5) % Plt Count 192 (130-400) K/uL MPV 10.3 (9.4-12.4) fL Immature Gran % (Auto) 0.5 % Neut % (Auto) 55.3 % Lymph % (Auto) 27.2 % [place] % (Auto) 14.9 % Eos % (Auto) 1.9 % Baso % (Auto) 0.2 % Neut # (Auto) 4.91 (1.40-6.50) K/uL Lymph # (Auto) 2.41 (1.20-3.40) K/uL Sab[place] # (Auto) 1.32 H (0.11-0.59) K/uL Eos # (Auto) 0.17 (0.00-0.50) K/uL Baso # (Auto) 0.02 (0.00-0.20) K/uL Immature Gran # (Auto) 0.04 (0.01-0.20) K/uL Sodium 140 (136-145) mmol/L Potassium 4.2 (3.5-5.1) mmol/L Chloride 111 H (98-107) mmol/L Carbon Dioxide 23 (21-32) mmol/L Anion Gap 6 (3-11) BUN 35 H (6-23) mg/dl Creatinine 1.18 D (0.6-1.4) mg/dl Est Cr Clr Drug Dosing 58.6 ml/min Est GFR ( Amer) 67.6 ml/min Est GFR (Non-Af Amer) 58.3 ml/min BUN/Creatinine Ratio 29.7 H (10-20) Glucose 159 H (70-99(Fasting)) mg/dl POC Glucose 159 H (70-99) mg/dl Calcium 8.5 L (8.6-10.3) mg/dl Urine Color Yellow Urine Appearance Clear (Clear) Urine pH 5.5 (4.5-7.5) Ur Specific [place] 1.012 (1.000-1.030) Urine Protein Negative (Negative) Urine Glucose (UA) Negative (Negative) Urine Ketones Negative (Negative) Urine Blood Negative (Negative) Urine Nitrite Negative (Negative) Urine Bilirubin Negative (Negative) Urine Urobilinogen Negative (Negative) Ur Leukocyte Esterase Negative (Negative) Ur Random Creatinine 44.7 mg/dl Ur Random Sodium 39 mmol/L 12/21/23 12/21/23 12/21/23 Range/Units 20:14 18:04 16:35 WBC (4.8-10.8) K/ul RBC (4.70-6.10) M/uL Hgb (14.0-18.0) g/dl Hct (42.0-52.0) % MCV (80.0-100.0) fL MCH (25.0-34.0) pg MCHC (32.0-36.0) g/dL RDW Std Deviation (36.4-46.3) fL RDW Coeff of Galilea (11.5-14.5) % Plt Count (130-400) K/uL MPV (9.4-12.4) fL Immature Gran % (Auto) % Neut % (Auto) % Lymph % (Auto) % Sabine % (Auto) % Eos % (Auto) % Baso % (Auto) % Neut # (Auto) (1.40-6.50) K/uL Lymph # (Auto) (1.20-3.40) K/uL Sabine # (Auto) (0.11-0.59) K/uL Eos # (Auto) (0.00-0.50) K/uL Baso # (Auto) (0.00-0.20) K/uL Immature Gran # (Auto) (0.01-0.20) K/uL Sodium 140 (136-145) mmol/L Potassium 4.3 (3.5-5.1) mmol/L Chloride 109 H (98-107) mmol/L Carbon Dioxide 24 (21-32) mmol/L Anion Gap 7 (3-11) BUN 43 H (6-23) mg/dl Creatinine 1.62 H D (0.6-1.4) mg/dl Est Cr Clr Drug Dosing 42.8 ml/min Est GFR ( Amer) 46.1 ml/min Est GFR (Non-Af Amer) 39.8 ml/min BUN/Creatinine Ratio 26.5 H (10-20) Glucose 171 H (70-99(Fasting)) mg/dl POC Glucose 200 H 142 H (70-99) mg/dl Calcium 8.7 (8.6-10.3) mg/dl Urine Color Urine Appearance (Clear) Urine pH (4.5-7.5) Ur Specific [place] (1.000-1.030) Urine Protein (Negative) Urine Glucose (UA) (Negative) Urine Ketones (Negative) Urine Blood (Negative) Urine Nitrite (Negative) Urine Bilirubin (Negative) Urine Urobilinogen (Negative) Ur Leukocyte Esterase (Negative) Ur Random Creatinine mg/dl Ur Random Sodium mmol/L 12/21/23 Range/Units 11:23 WBC (4.8-10.8) K/ul RBC (4.70-6.10) M/uL Hgb (14.0-18.0) g/dl Hct (42.0-52.0) % MCV (80.0-100.0) fL MCH (25.0-34.0) pg MCHC (32.0-36.0) g/dL RDW Std Deviation (36.4-46.3) fL RDW Coeff of Galilea (11.5-14.5) % Plt Count (130-400) K/uL MPV (9.4-12.4) fL Immature Gran % (Auto) % Neut % (Auto) % Lymph % (Auto) % Sab[place] % (Auto) % Eos % (Auto) % Baso % (Auto) % Neut # (Auto) (1.40-6.50) K/uL Lymph # (Auto) (1.20-3.40) K/uL [place] # (Auto) (0.11-0.59) K/uL Eos # (Auto) (0.00-0.50) K/uL Baso # (Auto) (0.00-0.20) K/uL Immature Gran # (Auto) (0.01-0.20) K/uL Sodium (136-145) mmol/L Potassium (3.5-5.1) mmol/L Chloride (98-107) mmol/L Carbon Dioxide (21-32) mmol/L Anion Gap (3-11) BUN (6-23) mg/dl Creatinine (0.6-1.4) mg/dl Est Cr Clr Drug Dosing ml/min Est GFR ( Amer) ml/min Est GFR (Non-Af Amer) ml/min BUN/Creatinine Ratio (10-20) Glucose (70-99(Fasting)) mg/dl POC Glucose 137 H (70-99) mg/dl Calcium (8.6-10.3) mg/dl Urine Color Urine Appearance (Clear) Urine pH (4.5-7.5) Ur Specific [place] (1.000-1.030) Urine Protein (Negative) Urine Glucose (UA) (Negative) Urine Ketones (Negative) Urine Blood (Negative) Urine Nitrite (Negative) Urine Bilirubin (Negative) Urine Urobilinogen (Negative) Ur Leukocyte Esterase (Negative) Ur Random Creatinine mg/dl Ur Random Sodium mmol/L
--- NOTE | 2023-12-22 11:13 | Hospitalist Progress Note ---
Date of Service December 22, 2023 Assessment & Plan (1) Quadriceps tendon rupture: Plan: Patient had repair of ruptured left patellar quad tendon by Dr Martini - [facility] - on 12/20/2023. Patient can be weight-bearing as tolerated in his hinged brace per orthopedics Mild KERRY postoperatively. This resolved 12/22/2023. Continue bowel regimen. Patient did have large bowel movement 12/21 Continue aspirin 81 mg BID x 6 weeks Continue Plavix On Protonix chronically, continue this Continue pain control regimen Plan for discharge to [facility] for rehab 12/23/2023 if a bed is available Follow-up with Dr. Martini in 2 weeks (2) KERRY (acute kidney injury): Plan: Mild. Peak Cr 1.96 Urine sodium and urine creatinine obtained - FeNa ~1% Received IV fluids KERRY resolved 12/21 - Suspect it was pre-renal - likely perioperative transient decreased renal perfusion and also had lasix on hospital day #1 - Doubt intrinsic disease. No evidence of any obstruction. - UA negative. NO further lasix Hold enalapril (3) S/P CABG (coronary artery bypass graft): Plan: history of RCA PCI - 05/2015 2-vessel CABG - [facility] - SOARES to the LAD, an SVG to OM2 - 06/2022 no recent ischemic symptoms no perioperative symptoms is on asa, plavix, metoprolol, statin echo 07/2022 with EF 60-65%, no regional wall motion abnormalities ?mild decompensated CHF at time of ER presentation - did receive lasix hospital day #1 --- but no evidence of any pulmonary edema/CHF today no further lasix (4) SJ (obstructive sleep apnea): Plan: CPAP nightly (5) COPD (chronic obstructive pulmonary disease): Plan: cont usual inhaler, Anoro Ellipta 1 puff daily Discussed with respiratory, additional scheduled inhalers discontinued as patient is clear to auscultation bilaterally with no complaints of shortness of breath and 98% on room air flutter valve incentive spirometer mucinex 1200mg BID also ordered (6) Diabetes: Plan: Metformin on held Pharmacy providing glycemic oversight On basal-bolus insulin Defer adjustments to pharmacy Hba1c 7.6% (7) Peripheral vascular disease, unspecified: Plan: s/p angioplasty of the right SFA on October 08 with resolution of right leg claudication symptoms 11/20/[address] Javad Nye - results as below: Summary: 1. Left lower extremity -- Diffuse heavily calcified SFA disease up to 95+% distal stenosis, 40% popliteal. Patent infrapopliteal vessels proximally. 2. Right lower extremity -- Ostial ABDON 40%, patent iliacs, [employer] SPECIALIST and proximal SFA. 3. Successful angioplasty of diffuse left SFA disease with intravascular lithotripsy (6.0 balloon) and 2 drug-eluting balloons (6.0 x 100, 6.0 x 220 mm Lutonix). cont asa, plavix, statin Plan Discussed case with respiratory therapy Discontinued additional scheduled inhalers Discussed discharge planning with case management Plan [facility] tomorrow, 12/23/2023, if a bed is available Insomnia - schedule the melatonin 9mg at HS also add atarax 25mg HS prn Constipation - add miralax; cont senna Chronic stable issues -- - Hx Lung Cancer: s/p VIANEY lobectomy 2017 GERD: Continue PPI Hypertension: Continue home antihypertensives, aspirin DVT proph - asa 81mg BID CODE STATUS: DNR/DNI Admission and Anticipated Discharge Date Admission Date: December 18, 2023 Subjective Patient seen and evaluated in bedside chair. He reports Ortho was then this morning and replaced his dressing. Patient had a large bowel movement this morning. He reports his pain is well-controlled and he feels the best today compared to the past few days. He reported some mild pain when getting out of bed to the bedside chair, but this was tolerable and resolved once seated in chair. No additional complaints at this time. Plan for discharge [facility] 12/23/2023 if bed is available. Physical Exam Physical Exam: General: No acute distress, nondiaphoretic, well-developed, well-nourished. Skin: The skin was without rashes, erythema, edema, or bruising. Cardiac: Regular rate and rhythm. 1/6 systolic murmur. Pulm: Clear to auscultation bilaterally without wheezes, rales or rhonchi. No respiratory distress. Abdominal: Soft, nontender, nondistended. Bowel sounds present. Neuro: A&O x3. No focal neurological deficits. Extremities: Left leg dressing in place, clean, dry, intact. Distal sensation intact bilaterally. Normal capillary refill in lower extremities bilaterally. Results & Data Results & Data Vital Signs (Past 12 Hours) Vital Signs Temp Pulse Pulse Resp BP Pulse Ox O2 Del Method 12/22/23 10:51 36.7 C 59 L 18 123/78 95 Room Air 12/22/23 07:47 73 15 98 Room Air 12/22/23 07:40 66 12/22/23 07:38 36.9 C 70 18 147/92 H 97 Room Air 12/22/23 02:47 36.8 C 77 18 166/73 H 94 Room Air 12/22/23 01:05 169/67 H Laboratory Results Reviewed CBC Reviewed BMP Reviewed UA PG Care Time/CCT Total # of Minutes Spent Total Time Spent with Patient: Total time spent is greater than 50% in coordination of care (as documented) at patient's floor/unit and/or counseling patient: Coding Level of Care Code 41096 SUB INP/OBS CARE 3/50MIN Diagnoses Quadriceps tendon rupture S76.119A KERRY (acute kidney injury) N17.9 S/P CABG (coronary artery bypass graft) Z95.1 SJ (obstructive sleep apnea) G47.33 COPD (chronic obstructive pulmonary disease) J44.9 Diabetes E11.9 Peripheral vascular disease, unspecified I73.9
--- NOTE | 2023-12-22 14:03 | Pharmacy Report ---
Pharmacy Glycemic Short Note 2 - Date of Service December 22, 2023 - Glycemic Short BSG Results (Last 24 hours): 12/21/23 12/21/23 12/21/23 16:35 18:04 20:14 Glucose 171 H POC Glucose 142 H 200 H 12/22/23 12/22/23 12/22/23 07:12 07:36 11:30 Glucose 159 H POC Glucose 159 H 194 H OUTPATIENT ANTIDIABETIC REGIMEN: * Metformin 1 gm PO daily HbA1c: 7.6% on 12/19/23 ASSESSMENT: 12/21: * BSGs [id number] mg/dL yesterday. * Fasting today 159 mg/dL- continue same basal as trending down to goal * Novolog parameters tightened slightly yesterday- continue same today. Consider tightening supper time carb ratio if HS elevated BSG trend continues 12/19: * BSGs yesterday in the evening were with goal 143-157 mg/dl. Novolog parameters continued the same today. * Fasting BSG was elevated today at 173 mg/dl since basal insulin at HS yesterday was held. Basal insulin once daily resumed with lunch today after patient returned from the OR. 12/19/23: * 78 y/o M admitted for L knee tendon tear following fall yesterday. Patient has history of Type 2 diabetes managed only on Metformin at home. * Will hold Metformin for now and utilize basal and bolus insulins for glycemic control. * Basal insulin BID started last night based on stress of 1. Novolog parameters were ordered looser than stress of 1. * Fasting BSG today was 154 mg/dl and pre-lunch BSG trended up to 227 mg/dl. * Tightened Novolog parameters to stress of 2 at lunch today. * Will hold basal insulin at HS. Will change to QAM dose tomorrow using stress of 2 dose. * Plan for patient to have knee repair surgery in the morning. PLAN FOR INPATIENT GLYCEMIC CONTROL: * Hold outpatient oral diabetes medications * Basal insulin * Lantus 15 units SQ QAM * Bolus insulin * NovoLog per scale ACHS or Q6hrs while NPO * Goal Range: Low 110 mg/dL - High 140 mg/dL * Correction Factor: 25 mg/dL/unit * Nutritional / Prandial insulin per carb ratio of 1 unit per 9 grams CHO consumed
[2023-12-23 07:27] LABS: Hematocrit (blood only) 29.9 % (42.0-52.0); Hemoglobin 9.7 g/dl (14.0-18.0); Mean Corpuscular Hemoglobin 30.1 pg (25.0-34.0); Mean Corpuscular Hgb Conc 32.4 g/dL (32.0-36.0); Mean Corpuscular Volume 92.9 fL (80.0-100.0); Mean Platelet Volume 9.7 fL (9.4-12.4); Platelet Count 207 K/uL (130-400); RDW Coefficient of Variation 12.6 % (11.5-14.5); RDW Standard Deviation 43.1 fL (36.4-46.3); Red Blood Count 3.22 M/uL (4.70-6.10); White Blood Count 8.31 K/ul (4.8-10.8)
[2023-12-23 07:47] LABS: BUN Creatinine Ratio 24.8 (10-20); Calcium 8.9 mg/dl (8.6-10.3); Est GFR (African American) 60.7 ml/min; Est GFR (Non-African American) 52.4 ml/min; Potassium 4.1 mmol/L (3.5-5.1)
--- NOTE | 2023-12-23 09:42 | Orthopedic Progress Note ---
Date of Service December 23, 2023 Assessment & Plan (1) Acute pain of left knee: Plan: IMPRESSION: POD #3 s/p Left knee quadriceps tendon repair, with improved creatinine. PLAN: WBAT with brace locked in extension, walker if needed Dressing replaced with Silverlon, keep in place until f/u appoint, may shower over top. Continue diet Continue Plavix RICE PT/OT. Continue pain control. DVT Prophylaxis: TEDs & SCD's, 81 mg ASA BID x 6 weeks. Continue care per primary service. D/C Planning OK to d/c from ortho standpoint. Follow up in Dr. Martini's office in 2 weeks. Admission and Anticipated Discharge Date Admission Date: December 18, 2023 Subjective Doing well Physical Exam Physical Exam: Sitting comfortably in chair LLE: 1+ DP pulse, sensation to light touch intact distally. Gastroc soleus, Tib ant., EHL strength 5/5. Incision clean, dry, intact. Brace in place & Silverlon in place. Results & Data Vital Signs (Past 12 Hours) Vital Signs Temp Pulse Pulse Resp BP Pulse Ox O2 Del Method 12/23/23 08:00 36.8 C 76 18 164/68 H 94 Room Air 12/23/23 03:58 66 15 94 12/23/23 03:00 56 L 16 119/49 L 95 CPAP 12/22/23 23:00 61 13 151/68 H 94 Room Air 12/22/23 22:21 65 16 94 12/22/23 22:01 68 FiO2 12/23/23 08:00 12/23/23 03:58 21 12/23/23 03:00 12/22/23 23:00 12/22/23 22:21 21 12/22/23 22:01 Laboratory Results 12/23/23 12/23/23 12/22/23 Range/Units 07:31 07:09 20:45 WBC 8.31 (4.8-10.8) K/ul RBC 3.22 L (4.70-6.10) M/uL Hgb 9.7 L (14.0-18.0) g/dl Hct 29.9 L (42.0-52.0) % MCV 92.9 (80.0-100.0) fL MCH 30.1 (25.0-34.0) pg MCHC 32.4 (32.0-36.0) g/dL RDW Std Deviation 43.1 (36.4-46.3) fL RDW Coeff of Galilea 12.6 (11.5-14.5) % Plt Count 207 (130-400) K/uL MPV 9.7 (9.4-12.4) fL Sodium 141 (136-145) mmol/L Potassium 4.1 (3.5-5.1) mmol/L Chloride 110 H (98-107) mmol/L Carbon Dioxide 25 (21-32) mmol/L Anion Gap 6 (3-11) BUN 32 H (6-23) mg/dl Creatinine 1.29 (0.6-1.4) mg/dl Est Cr Clr Drug Dosing 54.0 ml/min Est GFR ( Amer) 60.7 ml/min Est GFR (Non-Af Amer) 52.4 ml/min BUN/Creatinine Ratio 24.8 H (10-20) Glucose 147 H (70-99(Fasting)) mg/dl POC Glucose 160 H 153 H (70-99) mg/dl Calcium 8.9 (8.6-10.3) mg/dl 12/22/23 12/22/23 Range/Units 16:36 11:30 WBC (4.8-10.8) K/ul RBC (4.70-6.10) M/uL Hgb (14.0-18.0) g/dl Hct (42.0-52.0) % MCV (80.0-100.0) fL MCH (25.0-34.0) pg MCHC (32.0-36.0) g/dL RDW Std Deviation (36.4-46.3) fL RDW Coeff of Galilea (11.5-14.5) % Plt Count (130-400) K/uL MPV (9.4-12.4) fL Sodium (136-145) mmol/L Potassium (3.5-5.1) mmol/L Chloride (98-107) mmol/L Carbon Dioxide (21-32) mmol/L Anion Gap (3-11) BUN (6-23) mg/dl Creatinine (0.6-1.4) mg/dl Est Cr Clr Drug Dosing ml/min Est GFR ( Amer) ml/min Est GFR (Non-Af Amer) ml/min BUN/Creatinine Ratio (10-20) Glucose (70-99(Fasting)) mg/dl POC Glucose 117 H 194 H (70-99) mg/dl Calcium (8.6-10.3) mg/dl
--- NOTE | 2023-12-23 18:14 | Hospitalist Progress Note ---
Date of Service December 23, 2023 Assessment & Plan (1) Quadriceps tendon rupture: Plan: Patient had repair of ruptured left patellar quad tendon by Dr Martini - [facility] - on 12/20/2023. Patient can be weight-bearing as tolerated in his hinged brace per orthopedics Mild KERRY postoperatively. This resolved 12/22/2023. Continue bowel regimen. Patient did have large bowel movement 12/21 Continue aspirin 81 mg BID x 6 weeks Continue Plavix On Protonix chronically, continue this Continue pain control regimen Patient is stable for discharge to rehab. Plan for discharge to [facility] for rehab 12/24/2023 if a bed is available. Follow-up with Dr. Martini in 2 weeks (2) KERRY (acute kidney injury): Plan: *Acute kidney failure. Mild. Peak Cr 1.96 Urine sodium and urine creatinine obtained - FeNa ~1% Received IV fluids KERRY resolved 12/21 - Suspect it was pre-renal - likely perioperative transient decreased renal perfusion and also had lasix on hospital day #1 - Doubt intrinsic disease. No evidence of any obstruction. - UA negative. NO further lasix Hold enalapril (3) S/P CABG (coronary artery bypass graft): Plan: history of RCA PCI - 05/2015 2-vessel CABG - [facility] - SOARES to the LAD, an SVG to OM2 - 06/2022 no recent ischemic symptoms no perioperative symptoms is on asa, plavix, metoprolol, statin echo 07/2022 with EF 60-65%, no regional wall motion abnormalities ?mild decompensated CHF at time of ER presentation - did receive lasix hospital day #1 --- but no evidence of any pulmonary edema/CHF today no further lasix *Acute on chronic diastolic (congestive) heart failure, resolved (4) SJ (obstructive sleep apnea): Plan: CPAP nightly (5) COPD (chronic obstructive pulmonary disease): Plan: cont usual inhaler, Anoro Ellipta 1 puff daily Discussed with respiratory, additional scheduled inhalers discontinued as patient is clear to auscultation bilaterally with no complaints of shortness of breath and 98% on room air flutter valve incentive spirometer mucinex 1200mg BID also ordered (6) Diabetes: Plan: Metformin on held Pharmacy providing glycemic oversight On basal-bolus insulin Defer adjustments to pharmacy Hba1c 7.6% (7) Peripheral vascular disease, unspecified: Plan: s/p angioplasty of the right SFA on October 08 with resolution of right leg claudication symptoms 11/20/[address] Javad Nye - results as below: Summary: 1. Left lower extremity -- Diffuse heavily calcified SFA disease up to 95+% distal stenosis, 40% popliteal. Patent infrapopliteal vessels proximally. 2. 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 3. Successful angioplasty of diffuse left SFA disease with intravascular lithotripsy (6.0 balloon) and 2 drug-eluting balloons (6.0 x 100, 6.0 x 220 mm Lutonix). cont asa, plavix, statin Plan Downgraded off telemetry Discussed discharge planning with case management Plan for discharge to [facility] tomorrow, 12/24/2023, if a bed is available Insomnia - schedule the melatonin 9mg at HS also add atarax 25mg HS prn Constipation - add miralax; cont senna Chronic stable issues -- - Hx Lung Cancer: s/p VIANEY lobectomy 2017 GERD: Continue PPI Hypertension: Continue home antihypertensives, aspirin DVT proph - asa 81mg BID CODE STATUS: DNR/DNI Admission and Anticipated Discharge Date Admission Date: December 18, 2023 Subjective Patient seen and evaluated at bedside. He is doing well. Pain is under control. No complaints at this time. Waiting on a bed at [facility] so patient to be discharged there for rehab. Physical Exam Physical Exam: General: No acute distress, nondiaphoretic, well-developed, well-nourished. Skin: The skin was without rashes, erythema, edema, or bruising. Cardiac: Regular rate and rhythm. 1/6 systolic murmur. Pulm: Clear to auscultation bilaterally without wheezes, rales or rhonchi. No respiratory distress. Abdominal: Soft, nontender, nondistended. Bowel sounds present. Neuro: A&O x3. No focal neurological deficits. Extremities: Left leg dressing in place, clean, dry, intact. Distal sensation intact bilaterally. Normal capillary refill in lower extremities bilaterally. Results & Data Results & Data Vital Signs (Past 12 Hours) Vital Signs Temp Pulse Resp BP Pulse Ox O2 Del Method 12/23/23 15:31 36.5 C 68 16 142/62 H 94 Room Air 12/23/23 11:53 36.9 C 59 L 18 145/55 H 96 Room Air 12/23/23 08:00 36.8 C 76 18 164/68 H 94 Room Air Laboratory Results Reviewed CBC Reviewed BMP PG Care Time/CCT Total # of Minutes Spent Total Time Spent with Patient: Total time spent is greater than 50% in coordination of care (as documented) at patient's floor/unit and/or counseling patient: Coding Level of Care Code 79626 SUB INP/OBS CARE 2/35MIN Diagnoses Quadriceps tendon rupture S76.119A KERRY (acute kidney injury) N17.9 S/P CABG (coronary artery bypass graft) Z95.1 SJ (obstructive sleep apnea) G47.33 COPD (chronic obstructive pulmonary disease) J44.9 Diabetes E11.9 Peripheral vascular disease, unspecified I73.9
[2023-12-23] MEDS: METOPROLOL TARTRATE 25 MG TAB PO SCH (21:30)
--- NOTE | 2023-12-24 08:27 | Hospitalist Progress Note ---
Date of Service December 24, 2023 Assessment & Plan (1) Quadriceps tendon rupture: Plan: Patient had repair of ruptured left patellar quad tendon by Dr Martini - [facility] - on 12/20/2023. Patient can be weight-bearing as tolerated in his hinged brace per orthopedics Mild KERRY postoperatively. This resolved 12/22/2023. Continue bowel regimen. Patient did have large bowel movement 12/21 Continue aspirin 81 mg BID x 6 weeks Continue Plavix On Protonix chronically, continue this Continue pain control regimen Patient is stable for discharge to rehab. Plan for discharge to [facility] for rehab 12/24/2023 if a bed is available. Follow-up with Dr. Martini in 2 weeks (2) KERRY (acute kidney injury): Plan: *Acute kidney failure. Mild. Peak Cr 1.96 Urine sodium and urine creatinine obtained - FeNa ~1% Received IV fluids KERRY resolved 12/21 - Suspect it was pre-renal - likely perioperative transient decreased renal perfusion and also had lasix on hospital day #1 - Doubt intrinsic disease. No evidence of any obstruction. - UA negative. NO further lasix Hold enalapril (3) S/P CABG (coronary artery bypass graft): Plan: history of RCA PCI - 05/2015 2-vessel CABG - [facility] – [place] - SOARES to the LAD, an SVG to OM2 - 06/2022 no recent ischemic symptoms no perioperative symptoms is on asa, plavix, metoprolol, statin echo 07/2022 with EF 60-65%, no regional wall motion abnormalities ?mild decompensated CHF at time of ER presentation - did receive lasix hospital day #1 --- but no evidence of any pulmonary edema/CHF today no further lasix Metoprolol resumed but per resident at 50mg PO BID, decreased back to home 25mg PO BID, pipe w/ his transient decreased perfusion w/ surgery prior/KERRY. BP presently 144/54 this morning and HRs improved and was downgraded off telemetry 12/22 *Acute on chronic diastolic (congestive) heart failure, resolved (4) SJ (obstructive sleep apnea): Plan: CPAP nightly (5) COPD (chronic obstructive pulmonary disease): Plan: cont usual inhaler, Anoro Ellipta 1 puff daily Discussed with respiratory, additional scheduled inhalers discontinued as patient is clear to auscultation bilaterally with no complaints of shortness of breath and 98% on room air flutter valve incentive spirometer mucinex 1200mg BID also ordered (6) Diabetes: Plan: Metformin on held Pharmacy providing glycemic oversight On basal-bolus insulin Defer adjustments to pharmacy Hba1c 7.6% (7) Peripheral vascular disease, unspecified: Plan: s/p angioplasty of the right SFA on October 08 with resolution of right leg claudication symptoms 11/20/[address] Javad Nye - results as below: Summary: 1. Left lower extremity -- Diffuse heavily calcified SFA disease up to 95+% distal stenosis, 40% popliteal. Patent infrapopliteal vessels proximally. 2. 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 3. Successful angioplasty of diffuse left SFA disease with intravascular lithotripsy (6.0 balloon) and 2 drug-eluting balloons (6.0 x 100, 6.0 x 220 mm Lutonix). cont asa, plavix, statin Plan Downgraded off telemetry Discussed discharge planning with case management Plan for discharge to [facility] tomorrow, 12/24/2023, if a bed is available Insomnia - schedule the melatonin 9mg at HS also add atarax 25mg HS prn Constipation - add miralax; cont senna Chronic stable issues -- - Hx Lung Cancer: s/p VIANEY lobectomy 2018 GERD: Continue PPI Hypertension: Continue home antihypertensives, aspirin DVT proph - asa 81mg BID CODE STATUS: DNR/DNI Admission and Anticipated Discharge Date Admission Date: December 18, 2023 Results & Data Results & Data Vital Signs (Past 12 Hours) Vital Signs Temp Pulse Pulse Resp BP Pulse Ox O2 Del Method 12/24/23 07:29 36.7 C 61 18 144/54 H 96 Room Air 12/24/23 03:50 63 12 92 12/23/23 22:43 70 14 95 FiO2 12/24/23 07:29 12/24/23 03:50 21 12/23/23 22:43 21 PG Care Time/CCT Total # of Minutes Spent Total Time Spent with Patient: Total time spent is greater than 50% in coordination of care (as documented) at patient's floor/unit and/or counseling patient: Coding Diagnoses Quadriceps tendon rupture S76.119A KERRY (acute kidney injury) N17.9 S/P CABG (coronary artery bypass graft) Z95.1 SJ (obstructive sleep apnea) G47.33 COPD (chronic obstructive pulmonary disease) J44.9 Diabetes E11.9 Peripheral vascular disease, unspecified I73.9
[2023-12-24] MEDS: LANTUS PER UNIT CHARGE SC SCH (09:40)
[2023-12-24 09:50] LABS: Hematocrit (blood only) 33.8 % (42.0-52.0); Hemoglobin 10.8 g/dl (14.0-18.0); Mean Corpuscular Hemoglobin 30.3 pg (25.0-34.0); Mean Corpuscular Volume 94.9 fL (80.0-100.0); Mean Platelet Volume 9.8 fL (9.4-12.4); Platelet Count 248 K/uL (130-400); RDW Coefficient of Variation 12.7 % (11.5-14.5); RDW Standard Deviation 44.1 fL (36.4-46.3); Red Blood Count 3.56 M/uL (4.70-6.10); White Blood Count 6.86 K/ul (4.8-10.8)
[2023-12-24 10:06] LABS: BUN Creatinine Ratio 24.3 (10-20); Calcium 9.5 mg/dl (8.6-10.3); Creatinine Clr Calc Pharmacy 51.2 ml/min; Est GFR (Non-African American) 49.1 ml/min; Potassium 4.4 mmol/L (3.5-5.1)
--- NOTE | 2023-12-24 11:23 | Discharge Summary ---
Date of Service December 24, 2023 Admission HPI Per Admitting Provider Eric is a 78yo M with past medical history of lung cancer s/p left upper lobectomy 2018, CAD with PCI and CABG, DM 2, hyperlipidemia, hypertension, COPD, PAD, GERD, OSAwho tripped over a milkjug while carrying groceries and while following heard a 'pop'. Presented to the ER with knee pain and inability to ambulate. Pelvis and knee x-ray did not show any hip fracture or bony abnormality.Knee CT shows soft tissue stranding at the suprapatellar region. Clinically while in the ER patient examined like a patellar tendon tear and is unable to actively extend at the knee. Case was discussed with orthopedics while patient was in the ER who recommended a brace and evaluate, unlikely to require emergent surgery. He is unable to ambulate with this injury and requires SNF placement. He did not syncopize. No lightheadedness/dizziness/acute weakness that contributed to his fall which was from falling over milk jug. No chest pain or chest pressure. Does have a history of CABG And stents. Cardiac cath 07/17/2022 with unchanged critical left distal main disease, IABP was placed and patient was transferred to [facility] for CABG. Reports that in the last month he has some arthritis discomfort in his right knee which limits him but has not had limiting angina/chest pain with exertion. He does have COPD which seems to be exacerbated certain times a year by allergies and is uses albuterol 3 times in the last week, but currently is not short of breath and has not noticed any wheezing today.He has a history of RCA PCI. Is on aspirin/Plavix, no stents in the last 12 months. Medical History: Reviewed Medications: Reviewed Surgical History: Reviewed Family history: Reviewed Allergies: Reviewed Social History: REviewed. Former smoker. No regular/daily etoh use. Code Status: DNR/DNI Principal Diagnosis Quadriceps tendon rupture, LEFT Discharge Exam General: 78yo male sitting up in bed, NAD, ready for discharge HEENT: +facial hair, thick neck, trachea midline, faint JVD Resp: even/unlabored, diminished in the bases, no wheezing on room air 96% CV: RRR, +systolic murmur, trace pedal edema, calves nontender GI +BS throughout, soft/nontender, no distension no lopes, urinal at bedside MSK/Neurp: dressing to LLE in place c/d/i, brace in place, NVI, toes mobile, cap refill wnl Psych: AOx3, cooperative with exam Discharge Data Allergies Allergy/AdvReac Type Severity Reaction Status Date / Time No Known Allergies Allergy Verified 11/25/23 16:17 Consultations 12/18/23 14:58 ED Decision to Admit Stat 12/19/23 09:00 Consult Cardiology Routine Procedures Performed Operation Date: 12/20/23 07:30 Actual Procedures p Left Quadriceps Tendon Repair(Left) - Rickey Jovon Martini MD Ordered Studies Chest X-Ray 12/18/23 11:11 SINGLE VIEW CHEST CLINICAL HISTORY: Trauma FINDINGS: 2 AP, portable, upright chest radiographs are compared to study dated 07/16/2022. Correlation is made with chest CT dated 04/23/2022. The patient is status post midline sternotomy. The heart is enlarged noting atherosclerotic calcification of the thoracic aorta. There is pulmonary vascular congestion an mild interstitial edema. Emphysema and chronic interstitial thickening is similar to previous. No large pleural effusion or pneumothorax is seen. The skeletal structures are osteopenic. The bony thorax is grossly intact. 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 ACT 112: Negative or not required by law. Electronically signed by: Malvin Corbett M.D. 12/18/2023 11:42 AM Knee X-Ray 12/18/23 11:11 XR knee LT 3V HISTORY: 78 years-old Male trauma acute left knee pain status post trauma COMPARISON: 09/09/2021 TECHNIQUE: 3 views of the left knee FINDINGS: Arterial calcifications. There is mild tricompartmental osteoarthritis with trace joint effusion. No acute fracture, dislocation or osseous erosion. Medial surgical clips of the lower leg. IMPRESSION: Mild osteoarthritis without acute fracture. ACT 112: Negative or not required by law. The above report was generated using voice recognition software. It may contain grammatical, syntax or spelling errors. Electronically signed by: Neville Mock M.D. 12/18/2023 11:42 AM Pelvis X-Ray 12/18/23 11:11 XR pelvis 1-2V routine CLINICAL HISTORY: trauma TECHNIQUE: A single frontal view of the pelvis was obtained. Comparison: None available at the time of this dictation. FINDINGS: There is no evidence of an acute fracture. Degenerative changes are seen in the hip joints and lumbar spine. Vascular calcifications are noted. IMPRESSION: Degenerative changes without evidence of acute abnormality. ACT 112: Negative or not required by law. Electronically signed by: Wang Lee M.D. 12/18/2023 12:[address] 12/18/23 12:11 CT knee LT w con CLINICAL HISTORY: incr edema/ecchymosis s/p fall TECHNIQUE: Multidetector row helical CT of the left knee was performed without intravenous contrast. Coronal and sagittal reformations were obtained. Automated dose lowering techniques and/or adjustment according to patient size were utilized for this examination. CT DOSE: 612.96 mGy.cm Comparison: Comparison is made to knee radiographs 12/18/2023 FINDINGS: The osseous structures are without fracture or dislocation. The joint spaces are maintained. No joint effusion is seen. Soft tissue stranding is seen in the suprapatellar region. Vascular calcifications are seen. IMPRESSION: Soft tissue stranding in the suprapatellar region without acute bony abnormality. ACT 112: Negative or not required by law. Electronically signed by: Wang Lee M.D. 12/18/2023 1:17 PM Hospital Course (1) Quadriceps tendon rupture: Patient had repair of ruptured left patellar quad tendon by Dr Martini - [facility] - on 12/20/2023. Patient can be weight-bearing as tolerated in his hinged brace per orthopedics Mild KERRY postoperatively, resolved 12/21 but see below did give additional dose IV lasix 20mg x 1 prior to dc Pain control, bowel regimen. Continue both at ri, +BS/soft/nt WBAT w/ brace ASA 81mg BID x 6 weeks, continues on chronic plavix. On Protonix chronically, continue this Patient is stable for discharge to rehab, [facility] arranged afternoon 12/23 Follow-up with Dr. Martini in 2 weeks (2) KERRY (acute kidney injury): *Acute kidney failure. Mild. Peak Cr 1.96 Urine sodium and urine creatinine obtained - FeNa ~1% Received IV fluids KERRY resolved 12/21, suspected prerenal likely periop transient decrease renal perfusion as given lasix IV hospital day #1. Lasix/lisinopril placed on hold. UA negative. No evidence for obstruction. Lasix x1 prior to dc as above, can continue home meds at ri and monitor renal function at [facility] next 24-48 hours (3) S/P CABG (coronary artery bypass graft): history of RCA PCI - 05/2015 2-vessel CABG - [facility] - [facility]ARES to the LAD, an SVG to OM2 - 06/2022 no recent ischemic symptoms no perioperative symptoms echo 07/2022 with EF 60-65%, no regional wall motion abnormalities asa, plavix, metoprolol, statin -- metoprolol resumed 50mg PO BID? only on 25mg PO BID at home, decreased back to home dose given prior hypotension/renal hypoperfusion *Acute on chronic diastolic (congestive) heart failure, resolved ?mild decompensated CHF at time of ER presentation - did receive lasix hospital day #1 --- No further evidence on subsequent evals but did check BNP prior to dc and weight gain and to provide one additional dose 20mg IV prior to dc BPs/HR improved w/ reduction back, renal function stable and could monitor labs in 24hr as above w/ resumption of home meds (4) SJ (obstructive sleep apnea): BiPAP nightly (5) COPD (chronic obstructive pulmonary disease): cont usual inhaler, Anoro Ellipta 1 puff daily Discussed with respiratory, additional scheduled inhalers discontinued as patient is clear to auscultation bilaterally with no complaints of shortness of breath and 98% on room air flutter valve incentive spirometer mucinex 1200mg BID also ordered lasix x1 as above prior to dc (6) Diabetes: Metformin on held, A1 7.6 Pharmacy providing glycemic oversight, On basal-bolus insulin Defer adjustments to pharmacy while inpatient metformin resumed at dc, outpt f/u (7) Peripheral vascular disease, unspecified: s/p angioplasty of the right SFA on October 08 with resolution of right leg claudication symptoms 11/20/[address] Javad Nye - results as below: Summary: 1. Left lower extremity -- Diffuse heavily calcified SFA disease up to 95+% distal stenosis, 40% popliteal. Patent infrapopliteal vessels proximally. 2. 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 3. Successful angioplasty of diffuse left SFA disease with intravascular lithotripsy (6.0 balloon) and 2 drug-eluting balloons (6.0 x 100, 6.0 x 220 mm Lutonix). cont asa, plavix, statin Chronic stable issues -- - Hx Lung Cancer: s/p VIANEY lobectomy 2018 GERD: Continue PPI as above Plan Insomnia - melatonin 9mg at HS. added atarax 25mg HS prn Constipation - add miralax; cont senna Discharging to [facility], outpatient follow up with Dr Martini Total Time Total Time Spent Total Time Spent (In Minutes): 45 Discharge Plan Discharge Items Patient Disposition: Transfer Inpatient Rehab Fac Reason For Visit: L PATELLAR TENDON RUPTURE Discharge Diagnosis: left patellar tendon rupture Activity: Per Instructions section Non-emergency contact: Surgeon Call non-emergency contact if: you have any medication questions, your symptoms worsen, your pain is not controlled, your temperature is above 101, your wound has increased redness and your wound has increased drainage Follow-up/Referrals: Talon Burns DO [Primary Care Provider] - Rajwinder Muñoz PA-C [Physician Storyboard Artist] - 01/04/24 9:30 am Diet: Carb Consistent or DM2 and Heart Healthy Addtl Attending Provider Instructions: You have been hospitalized for acute quadriceps tendon rupture. Orthopedics was consulted and you underwent surgery for repair. Instructions as outlined below You are to continue aspirin twice daily for blood clot prevention for 6 weeks. Continue protonix while on aspirin with your plavix. Avoid NSAIDs. You can continue WBAT with brace in locked extension when ambulating. Pain control has been continued and you should continue bowel regimen while on pain medications. You will need follow up with Dr Martini in 2 weeks. Please follow up with primary care in the next 7-10 days to monitor your pro jerica after hospitalization. Please return to the ER with any worsening/uncontrolled pain, fever/chills, drainage from incision or for any other symptoms concerning for you. It has been a pleasure being a part of the medical team providing for you while you have been in the hospital. Take care! Addtl Software Security Architect Provider Instructions: Orthopedic instructions: - You may weight-bear as tolerated with your brace locked in extension when ambulating. - Use walker to assist with ambulation at all times. Use wheelchair if unable to use walker for long distances. - Resume Plavix - Ice To left knee as needed for pain and swelling. May open brace to apply ice. -Elevate left lower extremity above your heart to relieve pain and swelling. -Allowed for full range of motion of left hip and ankles left lower extremity. -Physical therapy (whether in-home or outpatient).Range of motion to your left knee as guided by the physical therapist and postoperative protocol. -CHESTER stockings, [id number] during the day and may remove at nighttime. -Aspirin 81 mg twice daily for 6 weeks after surgery for DVT prophylaxis. Plan keep incision covered with Silverlon. You may shower with Silverlon in place. -For showering may need a seated shower chair, get into the shower, sit, remove brace, shower, dry off and reapply brace to get out of the tub or shower. Will need assistance. -Call Dr. Martini's office ([phone]) with any increased pain, swelling, fevers, chills, questions, concerns or need to reschedule appointment. Pending Studies at Discharge: No Stand-Alone Forms: My [facility] Skilled Items Patient informed of condition?: Yes DNR: Yes Discharge Level of Care: Acute rehab Communicable Disease: No Discharge Prognosis: Stable Lines: None Urinary Catheter: No Medications and DC Order Prescriptions: New docusate sodium 100 mg Capsule 100 mg PO BID Qty: 0 0RF hydrocodone-acetaminophen 5-325 mg Tablet 1 - 2 tab PO Q4H PRNQty: 0 0RF polyethylene glycol 3350 [Miralax] 17 gram Powder In Packet 17 g PO DAILY Qty: 0 0RF sennosides [Senokot] 8.6 mg Tablet 17.2 mg PO HS Qty: 0 0RF Continued melatonin 10 mg capsule 10 mg PO HS PRN (Reason: sleep) Qty: 30 0RF atorvastatin 40 mg tablet 40 mg PO HS Qty: 90 3RF (DME) Auto Titrating CPAP Misc See Rx Instructions .MEDSUPPLY Qty: 1 0RF Rx Instructions: Auto PAP with 5-15 cm H20. Lifetime usage. G47.33 (DME) CPAP Supplies Misc See Rx Instructions .MEDSUPPLY Qty: 1 0RF Rx Instructions: CPAP supplies, mask, headgear, filters, tubing, water chamber. G47.33 clopidogrel 75 mg tablet 75 mg PO QAM Qty: 90 3RF metoprolol tartrate 25 mg tablet 25 mg PO BID Qty: 180 3RF fenofibrate 160 mg tablet 160 mg PO QAM Qty: 90 3RF benazepril 10 mg tablet 10 mg PO QAM Qty: 90 3RF Myrbetriq 50 mg tablet extended release 24 hr 50 mg PO QAM Qty: 30 1RF multivitamin Tablet 1 tab PO QAM nitroglycerin 0.4 mg tablet, sublingual 0.4 mg sublingual Q5M PRN (Reason: chest pain) Qty: 30 5RF Rx Instructions: do not exceed 3 doses per episode (DME) diabetic supplies, miscellan. Misc See Rx Instructions .ROUTE .MEDSUPPLY Qty: 1 Rx Instructions: ONE TOUCH ULTRA- TESTS PRN albuterol sulfate 90 mcg/actuation HFA aerosol inhaler 2 puff inhalation Q6H PRN (Reason: Shortness Of Breath Or Wheezing) Qty: 18 3RF Anoro Ellipta 62.5-25 mcg/actuation blister with device 1 inh inhalation DAILY Qty: 3 4RF acetaminophen 500 mg tablet 500 mg PO Q6H PRN (Reason: Pain) Rx Instructions: PER PT "USUALLY TAKE 1000 MG AT HS". magnesium 200 mg Tablet 400 mg PO HS potassium gluconate 600 mg (99 mg) Tablet 600 mg PO QAM omeprazole 20 mg Capsule,Delayed Release(Dr/Ec) 20 mg PO QPM diphenhydramine HCl [Benadryl] 25 mg Capsule 25 mg PO QAM PRN (Reason: Congestion) metformin 1,000 mg tablet 1,000 mg PO QAM Rx Instructions: Take 1 tablet by mouth once daily hydrocortisone 2.5 % cream 1 applic topical BID PRN (Reason: Other) Rx Instructions: Apply BID to the affected areas. ketoconazole 2 % cream 1 applic topical BID PRN (Reason: Other) Rx Instructions: Apply to the affected areas BID for 4 weeks. Changed aspirin [Enteric Coated Aspirin] 81 mg tablet,delayed release (DR/EC) 81 mg PO BID 42 Days Qty: 84 0RF Rx Instructions: x6 weeks, then resume once daily following Discharge Orders: Discharge Order (Routine); Ordered 12/24/23 Ordered By: Kristen Reed/Other Patient Handouts: Managing Type 2 Diabetes Admission Data Admit Date/Time: 12/18/23 15:55 Attending Provider: Kurtis Keen Admit Provider: Saurabh Verma Primary Care Provider: Talon Burns Other Providers: [facility]; [facility]; Saurabh Verma; Patrick Nye Coding Level of Care Code 76267 INP/OBS DISCH >30 MIN Diagnoses Quadriceps tendon rupture S76.119A KERRY (acute kidney injury) N17.9 S/P CABG (coronary artery bypass graft) Z95.1 SJ (obstructive sleep apnea) G47.33 COPD (chronic obstructive pulmonary disease) J44.9 Diabetes E11.9 Peripheral vascular disease, unspecified I73.9
[2023-12-24] MEDS: FUROSEMIDE INJ 20 MG/2 ML VIAL IV ONE (11:36)
== END 2023-12-24 14:22 | DRG 500 ==
LOC: ED 10:53 → SUATTDRO 15:55 → 2E 15:55 → 3N 12-23 19:58

== ENCOUNTER 2024-03-21 07:13 | Inpatient (IN) ==
--- NOTE | 2024-03-18 10:34 | Anesthesiology Consultation ---
Date of Service March 18, 2024 Assessment & Plan (1) Encounter for pre-operative examination: - Check BSG AM DOS - Infectious disease screening: Per assessment on 03/18/24: No known recent infectious disease contacts or current infectious disease symptoms. - Plavix instructions per surgeon/prescriber - S/P Left quad tear repair (12/20/23): LMA#5 at [facility] - Cardiology visit (03/03/24): "CAD s/p RCA PCI then CABG x 2: No angina following CABG. Continue aspirin 81 mg daily indefinitely. Single antiplatelet therapy sufficient from a cardiac standpoint. He has chronically been on Plavix following initial lower extremity angioplasty. Reportedly had not tolerated beta-chris in the past and now notes fatigue, which he feels could be due to the beta chris. He wonders if the dose could be reduced. Will therefore reduce metoprolol tartrate to 12.5 mg BID. If lower dose is tolerated, could consider switching to metoprolol succinate 25 mg daily in the future. Continue FABIANA- inhibitor and high-intensity statin therapy.. Hypertension: Blood pressure is well controlled. Metoprolol dose is being reduced, as noted above. No other juanito nges. Did not tolerate HCTZ in the past. Low-sodium diet.. Dyslipidemia: LDL is well controlled at 40. Continue high-intensity statin therapy. Labs have typically been followed by PCP.. Carotid artery stenosis: Follows with vascular.. PAD s/p angioplasty: Most recently underwent right SFA angioplasty in September 2023 and left SFA angioplasty in October 2023. No claudication following angioplasty, although, he has not been able to be active due to his left leg injury. Will arrange follow-up with Vascular in the next few months.. Fatigue: He feels that his fatigue is related to his beta chris therapy and will therefore reduce his metoprolol dose. Inactivity may be playing a role as well since he has not been able to be active due to his injury. Anemia may also be playing a role.. Anemia: Hgb was down to 10.1 when last evaluated. Will recheck CBC in the next couple months for monitoring.. Disposition: Follow-up in [address] Bender and [address] Nye/Jaleesa Epstein." Chart Review Chart Review: Acceptable Risk for Surgery and Patient NOT seen in Pre Admission Testing History Surgery Operation Date: 03/21/24 08:45 Proposed Procedures p Left Knee Quadriceps Tendon Repair - Rickey Jovon Martini MD s with Irrigation and Debridement - Rickey Jovon Martini MD Allergies Allergy/AdvReac Type Severity Reaction Status Date / Time No Known Allergies Allergy Verified 03/03/24 09:46 Medications Home Medications Medication Instructions Recorded Confirmed Last Taken diabetic supplies, miscellan. #1 ea 12/31/20 03/03/24 Unknown diphenhydramine HCl 25 mg capsule 25 mg PO QAM PRN Congestion 07/17/22 03/18/24 11/20/23 (Benadryl) multivitamin 1 tab PO QAM 08/18/22 03/18/24 12/18/23 08:30 nitroglycerin 0.4 mg sublingual 0.4 mg sublingual Q5M PRN chest 08/29/22 03/18/24 Unknown tablet pain #30 tabs acetaminophen 500 mg tablet 500 mg PO Q6H PRN Pain 09/26/22 03/18/24 10/01/22 magnesium 200 mg tablet 400 mg PO HS 09/26/22 03/18/24 11/19/23 omeprazole 20 mg capsule,delayed 20 mg PO QPM 09/26/22 03/18/24 10/01/22 release potassium gluconate 600 mg (99 mg) 600 mg PO QAM 09/26/22 03/18/24 12/18/23 08:30 tablet atorvastatin 40 mg tablet 40 mg PO HS #90 tabs 04/06/23 03/18/24 11/19/23 Auto Titrating CPAP #1 ea 05/30/23 03/03/24 Unknown CPAP Supplies #1 ea 05/30/23 03/03/24 Unknown albuterol sulfate 90 mcg/actuation 2 puff inhalation Q6H PRN 10/02/23 03/18/24 Unknown aerosol inhaler Shortness Of Breath Or Wheezing #18 grams umeclidinium 62.5 mcg-vilanterol 1 inh inhalation DAILY #3 Inhalers 10/02/23 03/18/24 12/18/23 08:30 25 mcg/actuation powdr for inhalation (Anoro Ellipta) benazepril 10 mg tablet 10 mg PO QAM #90 tabs 10/08/23 03/18/24 12/18/23 08:30 clopidogrel 75 mg tablet 75 mg PO QAM #90 tabs 10/08/23 03/18/24 12/18/23 08:30 fenofibrate 160 mg tablet 160 mg PO QAM #90 tabs 10/08/23 03/18/24 12/18/23 08:30 hydrocortisone 2.5 % topical cream 1 applic topical BID PRN Other 12/18/23 03/18/24 Unknown ketoconazole 2 % topical cream 1 applic topical BID PRN Other 12/18/23 03/18/24 Unknown metformin 1,000 mg tablet 1,000 mg PO HS 12/18/23 03/18/24 12/18/23 08:30 docusate sodium 100 mg capsule 100 mg PO BID #0 caps 12/24/23 03/18/24 Unknown polyethylene glycol 3350 17 gram 17 g PO DAILY #0 ea 12/24/23 03/18/24 Unknown oral powder packet (Miralax) sennosides 8.6 mg tablet (Senokot) 17.2 mg (2 x 8.6 mg) PO HS #0 tabs 12/24/23 03/18/24 Unknown aspirin 81 mg tablet,delayed 81 mg PO BID 6 weeks #84 tabs 01/08/24 03/18/24 Unknown release (Enteric Coated Aspirin) melatonin 10 mg capsule 3 mg (0.3 x 10 mg) PO HS PRN sleep 01/08/24 03/18/24 Unknown #30 caps mirabegron 50 mg tablet,extended 50 mg PO QAM #90 tabs 02/11/24 03/18/24 Unknown release 24 hr (Myrbetriq) metoprolol tartrate 25 mg tablet 12.5 mg (1/2 x 25 mg) PO BID #180 03/03/24 03/18/24 Unknown tabs Past Medical History Medical History Acid reflux Anemia Chronic BPH (benign prostatic hyperplasia) CAD (coronary artery disease) RCA stent (~2014) CABG x2 (06/2022) Follows with [facility] cardio Carotid artery stenosis Under surveillance by vascular Carotid duplex 01/2023: 50-69% B/L ICA stenosis. No significant change compared to 04/15/2022 study per report. COPD (chronic obstructive pulmonary disease) Diabetes NIDDM Glaucoma H/O: lung cancer 2017- Left Upper Lobectomy Currently under surveillance, no current/recent issues Hearing loss History of colon polyps History of non-ST elevation myocardial infarction (NSTEMI) 06/2022 Hx of basal cell carcinoma Hyperlipidemia Per records Hypertension SJ (obstructive sleep apnea) CPAP Osteoarthritis Peripheral arterial disease Peripheral vascular disease, unspecified Past Family History Family History Brother Lung cancer Father Heart disease Hypertension Mother Cerebral aneurysm Other No family history of adverse response to anesthesia Past Surgical History Surgical History H/O angioplasty L femoral in 2005 and 11/2020, R femoral in 2018 and 10/2019 H/O cataract extraction R/L H/O laminectomy L3/4 1990 L4/5 w/ fusion 1992 H/O left knee surgery Patellar tendon repair 11/2023 H/O right coronary artery stent placement (~2014) H/O right knee surgery H/O umbilical hernia repair H/O vasectomy History of cardiac cath 06/2022 [facility] > transferred to [facility] for CABG History of colonoscopy History of coronary artery bypass graft CABGx2 (06/2022) History of lobectomy of lung VIANEY for stage 1A lung cancer (2016) History of Mohs micrographic surgery for skin cancer History of prostate surgery Green Light Laser procedure ~2017 at [facility] in [place], [place] History of selective laser trabeculoplasty S/P coronary artery stent placement Status post biopsy of skin Social History Smoking Status: Former smoker tobacco type: cigarettes Smoking cigarettes per day: 30 Do You Dip or Chew Tobacco: No Hx Alcohol Use: Yes Alcohol type: beer alcohol intake frequency: a few times a month Hx Substance Use: No substance use type: does not use Lab Results Anesthesia Preop Results Results Anesthesia Widget: WBC 7.76 K/ul (4.8-10.8) 03/18/24 Hgb 9.9 g/dl (14.0-18.0) L 03/18/24 Hct 30.3 % (42.0-52.0) L 03/18/24 Plt 329 K/uL (130-400) 03/18/24 Na 140 mmol/L (136-145) 03/18/24 K 4.5 mmol/L (3.5-5.1) 03/18/24 Cl 108 mmol/L (98-107) H 03/18/24 CO2 25 mmol/L (21-32) 03/18/24 BUN 38 mg/dl (6-23) H 03/18/24 Creat 1.26 mg/dl (0.6-1.4) 03/18/24 Glucose Level 212 mg/dl (70-99(Fasting)) H 03/18/24 HA1c 7.6 % (4.5-5.6) H 01/19/24 Testing Laboratory Results Anemia stable* Electrocardiogram Date: 12/20/23 NSR at 70bpm. Moderate voltage criteria for LVH, may be normal variant. Chest X-Ray Date: 12/18/23 FINDINGS: 2 AP, portable, upright chest radiographs are compared to study dated 07/16/2022. Correlation is made with chest CT dated 04/23/2022. The patient is status post midline sternotomy. The heart is enlarged noting atherosclerotic calcification of the thoracic aorta. There is pulmonary vascular congestion an mild interstitial edema. Emphysema and chronic interstitial thickening is similar to previous. No large pleural effusion or pneumothorax is seen. The skeletal structures are osteopenic. The bony thorax is grossly intact. 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 Echocardiogram Date: 08/18/22 EF 60-65%. No RWMA. Moderate cLVH. Septal motion consistent with prior cardiac surgery. Mild LAD. AV sclerosis with trace regurgitation. Cardiac Catheterization Date: 07/18/22 Summary: Unchanged critical distal left main disease extending into ostial LAD, ostial circumflex with RYAN-3 flow. Successful placement of IABP. Recommendations: Awaiting transfer to tertiary center for CABG. Continue heparin and nitroglycerin infusions. *Subsequent CABG x2 performed* Other Testing Carotid doppler Date: 02/17/23 50-69% B/L ICA stenosis. > 50% B/L external carotid artery stenosis. B/L vertebral artery antegrade flow. No significant change compared to 04/15/2022 study per report.
--- OUTSIDE RECORDS SUMMARY | 2024-03-21 07:19 | External Medical Summary | Continuity of Care Document ---
Author Name Unknown Organization [id number] Address [address] [place] [id number] Care Team Providers Care Goldbeater Name Role Phone Talon Burns Primary Care Physician [phone] Encounter [facility] [id number] Date(s): 03/17/24 - 03/17/24 [facility] [address] [place] [id number] [facility] [address] [place] [id number] Encounter Diagnosis S/P orthopedic surgery, follow-up exam(Discharge Diagnosis) - 03/17/24 Discharge Disposition: Home or Self Care Attending Physician: MD Vini, Rickey A Allergies, Adverse Reactions, Alerts No Known Medication Allergies Assessment and Plan Extracted from: Title:3m s/p L quad tendon repair Author:MD Martini Dov A Date:03/17/24 OUTPATIENT NOTE Name: ERIC GUTIERREZ Patient Number:1 [id number] : 1945 Date of Service: 03/17/2024 CHIEF COMPLAINT: Follow-up s/p left quadriceps tendon repair; DOS: 12/20/2023 HPI: Eric Mariza Gutierrez is a 78 year old Male who presents today for the above noted procedure. He completed antibiotics 3 weeks ago, and notes no significant drainage. He has been working with PT. Denies any systemic symptoms of fevers or chills. He rates his pain 2/10. PHYSICAL EXAM: Focusing on the patient's left lower extremity: 2+ DP pulse Sensation to light touch is intact Motor to the gastroc soleus, tibialis anterior, and EHL is 5/5. Able to perform straight leg raise, but has a 20 degree lag. + Effusion Range of motion 0-100 - Tenderness to palpation + Palpable defect lateral aspect of the patella/quad Incision is healing well. About 10-15 mm opening around midportion. No active drainage and fibrinous tissue and serous fluid under the scab. IMPRESSION: 78 year old male 3 months s/p left quadriceps tendon repair concern for infection and incomplete healing, and a diabetic. GOAL: Decrease pain, regain full ROM PLAN: 1) After a lengthy discussion with the patient today regarding my above clinical findings, as well as reviewing their imaging with them, their treatment options of conservative management versus surgical intervention were discussed. 2) The risk and benefits of each were discussed. 3) The risks of surgery included but not limited to: Infection, bleeding, nerve damage, continued pain, progression of arthritis, stiffness, failure of the repair, failure of the hardware, and deep vein thrombosis. 4) They would like to proceed with surgery and informed consent was signed for left knee quad tendon repair and I&D. He understands that he will need to be admitted to the hospital again for minimum 2 days for antibiotics and for culture results. He will be placed in a long-leg cylinder cast & will be kept immobilized like that for minimum 6 weeks. 5) They will speak with my fitter machinist and have a history and physical examination performed. The patient understood all my instructions and explanation; all their questions were satisfactorily addressed. This chart was completed utilizing [employer] voice recognition software. Grammatical errors, random word insertions, pronoun errors, and incomplete sentences are an occasional consequence of the system. Any questions or concerns about the content, text, or information contained within the body of this dictation should be addressed directly to the author for clarification. _ Medications Albuterol (Eqv-ProAir HFA) 90 mcg/inh inhalation aerosol INHALE 2 PUFFS BY MOUTH EVERY 6 HOURS NEEDED FOR SHORTNESS OF BREATH OR WHEEZING Start Date: 01/04/24 Status: Ordered Anoro Ellipta Start: 01/04/24 9:46:00 AM EDT Start Date: 01/04/24 Status: Ordered aspirin 81 mg oral tablet, chewable Start: 01/04/24 9:45:00 AM EDT, 1 tab, PO, Daily Start Date: 01/04/24 Status: Ordered atorvastatin 40 mg oral tablet TAKE 1 TABLET BY MOUTH ONCE DAILY AT BEDTIME Start Date: 01/04/24 Status: Ordered Bactrim DS 800 mg-160 mg oral tablet Start: 02/03/24 11:56:00 AM EDT, trimethoprim 1 tab, PO, bid, Disp# 14 tab, Refills: 0, Pharmacy: [id number] Start Date: 02/03/24 Stop Date: 02/10/24 Status: Ordered clopidogrel 75 mg oral tablet TAKE 1 TABLET BY MOUTH ONCE DAILY IN THE MORNING Start Date: 01/04/24 Status: Ordered fenofibrate 145 mg oral tablet Start: 01/04/24 9:46:00 AM EDT, 1 tab, PO, Daily Start Date: 01/04/24 Status: Ordered lisinopril Start: 01/04/24 9:45:00 AM EDT, 10 mg =, PO, Daily Start Date: 01/04/24 Status: Ordered magnesium oxide Start: 01/04/24 9:45:00 AM EDT, 400 mg =, PO, Daily Start Date: 01/04/24 Status: Ordered melatonin Start: 01/04/24 9:44:00 AM EDT, 9 mg =, PO, qhs Start Date: 01/04/24 Status: Ordered metFORMIN 1000 mg oral tablet TAKE 1 TABLET BY MOUTH ONCE DAILY Start Date: 01/04/24 Status: Ordered Metoprolol Tartrate 25 mg oral tablet TAKE 1 TABLET BY MOUTH TWICE DAILY Start Date: 01/04/24 Status: Ordered multivitamin Start: 01/04/24 9:46:00 AM EDT, 1 tab, PO, Daily Start Date: 01/04/24 Status: Ordered mupirocin 2% topical ointment Start: 10/24/21 3:11:00 PM EDT, 1 appl, topical, Daily, Disp# 22 g, Refills: 0, Apply thin film to healing surgical site at right cheek daily to BID until fully healed, Pharmacy: [id number] Start Date: 10/24/21 Stop Date: 10/31/21 Status: Ordered Myrbetriq 50 mg oral tablet, extended release TAKE 1 TABLET BY MOUTH ONCE DAILY IN THE MORNING Start Date: 01/04/24 Status: Ordered nitroglycerin 0.4 mg sublingual tablet DISSOLVE ONE TABLET UNDER THE TONGUE EVERY 5 MINUTES NEEDED FOR CHEST PAIN. DO NOT EXCEED A TOTAL OF 3 DOSES IN 15 MINUTES Start Date: 01/04/24 Status: Ordered NovoLOG 100 units/mL injectable solution Start: 01/04/24 9:44:00 AM EDT, sliding scale Start Date: 01/04/24 Status: Ordered oxyCODONE 5 mg oral tablet Start: 03/18/24 8:07:00 AM EDT, 1 tab, PO, q4h, Disp# 18 tab, Refills: 0, Note to Pharmacy: initial therapy, PRN: as needed for pain, Pharmacy: [id number] Start Date: 03/18/24 Status: Ordered Tylenol Start: 03/17/24 4:19:00 PM EDT, 1,000 mg =, PO, bid Start Date: 03/17/24 Status: Ordered Mental Status 03/17/24 Barriers to Learning one year None evide nt Mandatory Health Literacy Documentation Yes Health Literacy Communication Barriers N ever Primary Language Nepali Problem List Condition Confirmation Course Effective Dates Status Health St atus Informant Delayed wound healing Confirmed Active Quadriceps tendon rupture Confirmed Active 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 S/P orthopedic surgery, follow-up exam Confirmed Active Diagnosis Diagnosis Type Effective Dates Health Status Clinical Service Informant S/P orthopedic surgery, follow-up exam Discharge Diagnosis 03/17/24 Procedures Procedure Date Related Diagnosis Body Site Status Mohs' micrographic surgery 06/30/23 Completed History of knee surgery 2023 Completed Surgery 2 06/2022 Completed Mohs micrographic surgery 10/07/21 Completed 1left 2Stents in heart Vital Signs Most recent to oldest [Reference Range]: 1 Temperature [36.5-37.9 DegC] 36.4 DegC *LOW* (03/17/24 4:18 PM) Heart Rate 77 bpm (03/17/24 4:18 PM) Blood Pressure 100/50mmHg (03/17/24 4:18 PM) Cuff Pulse Pressure 50 mmHg (03/17/24 4:18 PM) Social History Social History Type Response Smoking Status Former Smoker, quit > 1 yr Sex Sex Representation Male (finding) Outpatient Note * MD Vini, Rickey A: PERFORM Event Display: .Outpt Note Authored Date: [id number] OUTPATIENT NOTE Name: ERIC GUTIERREZ Patient Number:[id number] : 1945 Date of Service: 03/17/2024 CHIEF COMPLAINT: Follow-up s/p left quadriceps tendon repair; DOS: 12/20/2023 HPI: Eric Gutierrez is a 78 year old Male who presents today for the above noted procedure. He completed antibiotics 3 weeks ago, and notes no significant drainage. He has been working with PT. Denies any systemic symptoms of fevers or chills. He rates his pain 2/10. PHYSICAL EXAM: Focusing on the patient's left lower extremity: 2+ DP pulse Sensation to light touch is intact Motor to the gastroc soleus, tibialis anterior, and EHL is 5/5. Able to perform straight leg raise, but has a 20 degree lag. + Effusion Range of motion 0-100 - Tenderness to palpation + Palpable defect lateral aspect of the patella/quad Incision is healing well. About 10-15 mm opening around midportion. No active drainage and fibrinous tissue and serous fluid under the scab. IMPRESSION: 78 year old male 3 months s/p left quadriceps tendon repair concern for infection and incomplete healing, and a diabetic. GOAL: Decrease pain, regain full ROM PLAN: 1) After a lengthy discussion with the patient today regarding my above clinical findings, aswell as reviewing their imaging with them, their treatment options of conservative management versus surgical intervention were discussed. 2) The risk and benefits of each were discussed. 3) The risks of surgery included but not limited to: Infection, bleeding, nerve damage, continued pain, progression of arthritis, stiffness, failure of the repair, failure of the hardware, and deep vein thrombosis. 4) They would like to proceed with surgery and informed consent was signed for left knee quad tendon repair and I&D. He understands that he will need to be admitted to the hospital again for minimum 2 days for antibiotics and for culture results. He will be placed in a long-leg cylinder cast & will be kept immobilized like that for minimum 6 weeks. 5) They will speak with my fitter machinist and have a history and physical examination performed. The patient understood all my instructions and explanation; all their questions were satisfactorilyaddressed. This chart was completed utilizing [employer] voice recognition software. Grammatical errors,random word insertions, pronoun errors, and incomplete sentences are an occasional consequence of the system. Any questions or concerns about the content, text, or information contained within the body of this dictation should be addressed directly to the author for clarification. _ Electronic Signature on File Electronically Reviewed/Signed by: Rickey Martini MD Author Signature Dt/Tm:03/17/2024 05:41 PM [facility] [employer] Department of [facility] [address], [place] [address] DAB Patient Care team information Care Team Personnel Name: DO Burns Philip A Position: Referring Member Role: Primary Care Provider Address: [address] [place] [address] [place] [address]
[2024-03-21] MEDS ORDERED: fentaNYL citrate PF 100 MCG/2 ML VIAL IV PRN (07:45)
[2024-03-21] MEDS ORDERED: ePHEDrine sulfate 50 MG/ML AMP IV PRN (07:45)
[2024-03-21] MEDS ORDERED: HYDROmorphone INJ 1 MG/ML SYRINGE IV PRN (07:45)
[2024-03-21] MEDS ORDERED: ONDANSETRON INJ 2 MG/ML 2 ML VIAL IV PRN ×2 (07:45→12:04)
[2024-03-21] MEDS ORDERED: ATROPINE SULFATE 0.1 MG/ML 10ML SYR IV PRN (07:45)
[2024-03-21] MEDS: LR 15ML/HR IV SCH (07:55)
[2024-03-21] MEDS ORDERED: ONDANSETRON INJ 2 MG/ML 2 ML VIAL ONE (07:57)
[2024-03-21] MEDS ORDERED: DEXAMETHASONE SOD INJ 4 MG/ML VIAL ONE (07:57)
[2024-03-21] MEDS ORDERED: PROPOFOL IV EMULSION 10 MG/ML 20 ML VIAL IV ONE (07:57)
[2024-03-21] MEDS ORDERED: PHENYLEPHRINE 100MCG/ML 10ML SYR IV ONE (07:57)
[2024-03-21] MEDS ORDERED: fentaNYL citrate PF 100 MCG/2 ML VIAL ONE ×2 (07:58→09:54)
[2024-03-21] MEDS ORDERED: MIDAZOLAM HCL 1 MG/ML 2ML VIAL ONE (07:58)
--- NOTE | 2024-03-21 08:32 | History & Physical Bridge Note ---
Date of Service March 21, 2024 History & Physical Bridge Note I have examined the patient, reviewed the History & Physical and in the interval since the performance of the History & Physical I have noted the following changes of clinical significance: no changes noted
[2024-03-21 08:34] LABS: Partial Thromboplastin Time 27 Seconds (21-31)
[2024-03-21] MEDS ORDERED: ROPIVACAINE 0.5% 5 MG/ML 30 ML VIAL ONE (08:41)
[2024-03-21] MEDS: ceFAZolin 2000MG 2,000 MG/15 ML SYR IV SCH ×2 (09:33→17:47)
[2024-03-21] MEDS ORDERED: SUGAMMADEX SODIUM 200 MG/2 ML VIAL IV ONE (10:26)
[2024-03-21] MEDS ORDERED: ROCURONIUM BROMIDE 10 MG/ML 5 ML VIAL IV ONE (10:26)
[2024-03-21] MEDS ORDERED: HYDROmorphone INJ 2 MG/ML SYR/VIAL ONE (10:46)
[2024-03-21] MEDS: BUPIVACAINE 0.5 % 5 MG/1 ML MPF 30ML VIAL ONE (11:14)
[2024-03-21] MEDS: LIDOCAINE 1%/EPINEPHRINE 1:100,000 50 ML VIAL ONE (11:15)
--- NOTE | 2024-03-21 11:42 | Post Operative Brief Note ---
Immediate Post Op Note Date of Surgery March 21, 2024 Pre & Post Diagnosis Operation Date: 03/21/24 08:45 Pre-Op Diagnosis: Left Quad Tendon Re-Tear, Infection Post-Op Diagnosis: Left Quad Tendon Re-Tear, Infection I identified the patient and participated in the time-out.: Yes Procedure Operation Date: 03/21/24 08:45 Actual Procedures p Revision of Left Knee Quadriceps Tendon Repair(Left) - Rickey Martini MD s with Irrigation and Debridement(Left) - Rickey Martini MD Surgeon Rickey Martini MD Rail Car Operator GENOVEVA Koch PA-C (No fellow avail) Estimated Blood Loss 75 Findings Consistent with Post-Op Diagnosis Fluids 1200 cc Specimens Left knee skin and deep soft tissue for pathology Left knee synovial fluid gram stain, C&S Anesthesia Type General Regional Complications none
--- NOTE | 2024-03-21 11:43 | Operative Report ---
Post Operative Report Pre & Post Diagnosis Operation Date: 03/21/24 08:45 Pre-Op Diagnosis: Left Quad Tendon Re-Tear, left knee Infection Post-Op Diagnosis: Left Quad Tendon Re-Tear, Left knee Infection I identified the patient and participated in the time-out.: Yes Procedure Operation Date: 03/21/24 08:45 Actual Procedures p Revision of Left Knee Quadriceps Tendon Repair(Left) - Rickey Martini MD s with Irrigation and Debridement Left knee (Left) - Rickey Martini MD Surgeon Rickey Martini MD Director Utilization Management GENOVEVA Koch PA-C (No fellow avail) Estimated Blood Loss 75 Findings See Below Fluids 1200 cc Specimens Left knee skin and deep soft tissue Left knee synovial fluid gram stain, C&S Drains HVAC Anesthesia Type General Regional Complications none Indications The patient is a 78-year-old male who re-tore their left quad tendon and there is concern for infection. After a lengthy discussion with her regarding their treatment options of conservative versus surgical intervention, the patient has elected to proceed with surgical intervention. The patient understands the risks of surgery, which include but are not limited to: bleeding, infection, re- operation, damage to nerves and arteries, continued pain, decreased level of activity, knee stiffness, and DVT. The patient understands all of these instructions and explanations, all of their questions have been satisfactorily addressed. The patient has elected to proceed with surgery and the informed consent was signed. Description of Procedure GENOVEVA Koch PA-C is assisting with positioning and closure due to fellow not available. IMPLANTS: #2 FiberWire (Arthrex) PROCEDURE: The patient was taken to the Operating Room and placed in the supine position on the operating table. After general anesthetic was administered a multidisciplinary time-out was performed identifying my initials on the left lower limb as the correct and operative limb. 2 grams of intravenous Ancef were given after obtaining cultures. The left leg was prepped and draped in the standard orthopedic sterile fashion. Using his previous longitudinal incision was extended proximally and distally, approximately 10 cm in length total, centered about the quad tendon defect and in the midline was marked as well as ellipsing the non-healing mid-section of the incision. The incision was injected with a 50:50 mixture of 1% Lidocaine with epi and 0.5% Marcaine plain for a total of 13 cc. The skin incision was made down to the scar overlying the quad tendon fascia and the defect was easily found. Large skin flaps were made both medially and laterally. The defect was probed and easily entered the joint. The synovial fluid was cultures and evacuated. Any non-viable soft tissue and degenerative tendon was debrided with rongeur and scalpel. The knee and soft tissue were further debrided with rongeur, curet, and Versajet removing any non-viable tissue. All the pervious sutures were jun tobi. The wound and knee were copiously irrigated 9L normal Saline. Using the #2 FiberWire the suture was run up and down the quad tendon in a Krackow fashion on the medial and lateral aspect of the quad tendon.The soft tissue was debrided superiorly off the patella for better expose and tunnel placement. The proximal portion of the patella was prepped with rongeur, curettes, and bur. A large H VAC drain was placed. With the knee in a flexed position 3 tunnels were placed sequentially using a 2.0 drill bit, one medially, 1 centrally, and 1 laterally, at the quad tendon insertion exiting distally. The lateral suture was passed through the lateral tunnel using a Hewson suture passer. The 2 central sutures were passed through the central tunnel followed by the medial suture through the medial tunnel, also using the Hewson suture passer. The knee was placed in extension. Any adhesions in to the quad superficially or deep were bluntly dissected free. The distal end of the quad tendon was reduced to the patella with the knee in extension. The central sutures were passed under the patellar tendon and tied to the lateral and medial limbs. Using a #1 Vicryl antibiotic impregnated suture was used to re-enforce the medial and lateral edge as well as an epitendinous stitch, central running baseball stitch, in the standard fashion to reinforce the repair. There was no tension on the repair with the flexed 30 degrees. The wound was copiously irrigated. The skin was closed 0 Prolene in vertical mattress and 2-0 Prolene in horizontal mattress. The incision and drain were covered with Xeroform, 4x4's, ABD, sterile cast padding, and a side slabs were applied. The sponge and needle counts were correct. POST-OP INSTRUCTIONS: The patient will be admitted to the hospital, started on Vancomycin IV. Hospitalist service will be consulted for medial management. ID will be consulted for Antibiotic coverage. The patient will be weight bearing as tolerated in the extension side slabs/cylinder cast on the left lower extremity. POD #2 Drain will be removed, dressings changed and placed in a cylinder cast. The patient will start physical therapy next week, which will be limited for the first 8 weeks. The patient will follow up in my office in 7-14 days or sooner to have the cast removed and replaced, Sutures to be removed and replaced with Steri strips. I attest to the content of the Intraoperative Record and any orders documented therein. Any exceptions are noted below.
[2024-03-21] MEDS ORDERED: NALOXONE HCL 0.4 MG/1 ML VIAL/CARP IV PRN (12:04)
[2024-03-21] MEDS ORDERED: diphenhydrAMINE 50 MG/ML VIAL IV PRN (12:04)
[2024-03-21] MEDS ORDERED: bisacodyL 10 MG SUPP PR PRN (12:04)
[2024-03-21] MEDS ORDERED: VANCOMYCIN CONSULT ACTIVE PRN ×2 (12:04→17:06)
[2024-03-21] MEDS ORDERED: TAMSULOSIN HCL 0.4 MG CAP PO PRN (12:04)
[2024-03-21] MEDS ORDERED: MAGNESIUM HYDROXIDE SUSP 30 ML UDC PO PRN (12:04)
[2024-03-21] MEDS ORDERED: METOCLOPRAMIDE HCL INJ 5 MG/ML 2 ML VIAL IV PRN (12:04)
--- NOTE | 2024-03-21 12:04 | Operative Report ---
Post Operative Report Pre & Post Diagnosis Operation Date: 03/21/24 08:45 Pre-Op Diagnosis: Left Quad Tendon Tear, Infection Post-Op Diagnosis: Left Quad Tendon Tear, Infection I identified the patient and participated in the time-out.: Yes Procedure Operation Date: 03/21/24 08:45 Actual Procedures p Revision of Left Knee Quadriceps Tendon Repair(Left) - Rickey Martini MD s with Irrigation and Debridement(Left) - Rickey Martini MD Surgeon Rickey Martini MD Cruller Maker Machine GENOVEVA Koch PA-C (No fellow avail) Estimated Blood Loss 75 Findings Consistent with Post-Op Diagnosis Specimens Left knee skin, superficial and deep soft tissue Description of Procedure I was present during the entire procedure assisting with positioning, prepping, draping, wound retraction, wound closure, dressing and splint application. No fellow present. Please see Dr. Martini procedure note for specifics of the case. I attest to the content of the Intraoperative Record and any orders documented therein. Any exceptions are noted below.
[2024-03-21] MEDS ORDERED: PHARMACY GLYCEMIC MGMT CONSULT PRN (12:10)
[2024-03-21] MEDS: LABETALOL HCL IV 5 MG/ML 20ML IV PRN (12:10)
[2024-03-21] MEDS ORDERED: diphenhydrAMINE Capsule 25 MG CAP PO PRN (12:12)
[2024-03-21] MEDS ORDERED: ACETAMINOPHEN 500 MG TAB PO PRN (12:12)
[2024-03-21] MEDS ORDERED: HYDROCORTISONE 2.5% CR 30 GM TUBE EXT PRN (12:12)
[2024-03-21] MEDS ORDERED: NITROGLYCERIN SL 0.4 MG/TAB TAB SL PRN (12:12)
[2024-03-21] MEDS ORDERED: KETOCONAZOLE 2% CR 15 GM TUBE EXT PRN (12:12)
[2024-03-21] MEDS ORDERED: ALBUTEROL HFA 8 GM INHALER INH PRN (12:12)
[2024-03-21] MEDS ORDERED: GLUCAGON FOR INJ 1 MG VIAL IM PRN (12:45)
[2024-03-21] MEDS ORDERED: CARBOHYDRATES FOR HYPOGLYCEMIA PO PRN (12:45)
[2024-03-21] MEDS ORDERED: GLUCOSE 10 TAB/TUBE PO PRN (12:45)
[2024-03-21] MEDS ORDERED: GLUCOSE 40% GEL 15 GM TUBE PO PRN (12:45)
[2024-03-21] MEDS ORDERED: DEXTROSE 50% 50 ML SYRINGE IV PRN (12:45)
--- NOTE | 2024-03-21 13:13 | Anesthesiology Progress Note ---
Date of Service March 21, 2024 Anesthesia Post Procedure Vital Signs Vital Signs: Temp Pulse Pulse Resp BP BP Pulse Ox 03/21/24 13:00 74 13 168/66 H 95 03/21/24 12:50 75 12 162/66 H 95 03/21/24 12:40 75 12 173/77 H 94 03/21/24 12:30 36.5 C 73 12 174/76 H 99 03/21/24 12:20 72 12 176/73 H 98 03/21/24 12:10 91 H 12 170/84 H 95 03/21/24 12:10 90 192/88 H 03/21/24 12:00 36.9 C 96 H 14 200/86 H 97 03/21/24 08:00 03/21/24 07:40 36.9 C 81 20 175/64 H 97 O2 Del Method O2 Flow Rate 03/21/24 13:00 Oxymask 2 03/21/24 12:50 Oxymask 2 03/21/24 12:40 Oxymask 2 03/21/24 12:30 Oxymask 2 03/21/24 12:20 Oxymask 4 03/21/24 12:10 Oxymask 4 03/21/24 12:10 03/21/24 12:00 Oxymask 6 03/21/24 08:00 CPAP 03/21/24 07:40 Room Air Pain Intensity Left Knee: Pain Intensity: 1 Transfer of Care Handoff Completed per policy Notes Mental Status: alert / awake / arousable and participated in evaluation Patient Amnestic to Procedure: Yes Nausea / Vomiting: adequately controlled Pain: adequately controlled Airway Patency, RR, SpO2: stable & adequate BP & HR: stable & adequate Hydration State: stable & adequate Anesthetic Complications: no major complications apparent and Pt Satisfied with anesthetic care
[2024-03-21] MEDS: SODIUM CHLORIDE 0.9% 1,000 ML IV SCH (13:56)
[2024-03-21] MEDS: INSULIN ASPART PER UNIT CHARGE SC SCH (14:17)
[2024-03-21] MEDS: LANTUS PER UNIT CHARGE SC ONE (14:17)
[2024-03-21] MEDS: ACETAMINOPHEN 500 MG TAB PO SCH (14:18)
--- NOTE | 2024-03-21 14:20 | Pharmacy Report ---
Pharmacy Glycemic Short Note 2 - Date of Service March 21, 2024 - Glycemic Short BSG Results (Last 24 hours): 03/21/24 03/21/24 03/21/24 07:50 12:07 13:48 POC Glucose 167 H 197 H 206 H OUTPATIENT ANTIDIABETIC REGIMEN: * Metformin 1 g PO HS HbA1c: 7.6% (01/19/24) ASSESSMENT: * KIKI is a 78 year old male POD #0 s/p quadriceps tendon repair * Received 4 mg IV dexamethasone in OR, no ongoing steroids ordered at this time * Preop blood sugar of 167 mg/dL, postop blood sugar of 197 mg/dL * Will give ~0.3 unit/kg one-time basal dose now w/ weight-based stress of 3 Novolog parameters PLAN FOR INPATIENT GLYCEMIC CONTROL: * Hold outpatient oral diabetes medications * Basal insulin * Lantus 30 units SQ x 1 * Reassess in AM * Bolus insulin * NovoLog per scale ACHS or Q6hrs while NPO * Goal Range: Low 110 mg/dL - High 140 mg/dL * Correction Factor: 20 mg/dL/unit * Nutritional / Prandial insulin per carb ratio of 1 unit per 6 grams CHO consumed
[2024-03-21] MEDS ORDERED: LANTUS PER UNIT CHARGE SC ONE (14:30)
--- NOTE | 2024-03-21 14:55 | Infectious Disease Consult ---
Date of Consultation March 21, 2024 Assessment & Plan (1) Infection of left knee: (2) History of diabetes mellitus: (3) Quadriceps tendon rupture: Plan 78yo M with h/o lung cancer s/p VIANEY lobectomy in 2017, T2DM, CAD s/p PCI, OA, s/p L3/4 and L4/5 laminectomy with fusion in , COPD, PVD s/p angioplasty, admission in November 2023 with quadriceps tendon rupture after tripping s/p repair on 12/20/23 c/b surgical site infection on 01/18 tx with Bactrim for 2-3 weeks who presented on 03/21 for left knee surgery. He continued to have pain and c/f poor wound healing and was scheduled for I+D. Here he has been afebrile, vss. Labs from 03/18 note no leukocytosis, Cr 1.26. ESR 46, CRP 3.98. He is s/p revision of left knee quadriceps tendon repair with I+D on 03/21. ID consulted 03/21. Currently on vanc/cefazolin. Await full operative note and OR cx to determine extent of infection (ie superficial vs joint infection). Unclear if synovial fluid was sent for cell count. Will continue empiric coverage for now. # Left knee infection # Recent left quadriceps tendon rupture s/p repair November 2023 c/b surgical site infection # h/o diabetes - f/u OR cx - will f/u op note - if he develops any fevers, please also send blood cultures - continue empiric vancomycin and cefazolin - will see patient with telepresenter when they are available tomorrow ID will continue to follow. If questions or concerns, contact Infectious Disease Call Center . Racquel Cornejo MD [facility], Division of Infectious Diseases [facility]: [phone] Consultation Information This patient recommendation is based on a telemedicine consult request which was completed asynchronously through chart review and information provided by the primary physician. The patient was not seen or examined today. The evaluation is consultative in nature and all patient care and treatment decisions can either be accepted or rejected by the patient's primary hospital-based treating physician using their own independent medical judgment for their patient. Head Track Coach contact information: Please call [facility] Call Center [phone]. (Phone Number For Physician Use Only) Time Spent Reviewing Chart: 31+ minutes History of Present Illness Reason for Consultation: left knee infection Attending Physician: Rickey Martini MD History of Present Illness 78yo M with h/o lung cancer s/p VIANEY lobectomy in 2017, T2DM, CAD s/p PCI, OA, s /p L3/4 and L4/5 laminectomy with fusion in , COPD, PVD s/p angioplasty, admission in November 2023 with quadriceps tendon rupture after tripping s/p repair on 12/19 who presented on 03/21 for left knee surgery. Following his recent surgery in November, he had been doing well. On 01/18, home PT noticed redness of surgical incision and some mild drainage. He was seen by ortho at [facility] on 01/18, drainage culture sent which grew MSSA, and started on Bactrim. He was seen in the ED on 01/24 for wound drainage, continued on Bactrim. Abx was extended by outpatient ortho and completed 2-3 week course. He continued to have pain and c/f poor wound healing and was scheduled for I+D. Here he has been afebrile, vss. Labs from 03/18 note no leukocytosis, Cr 1.26. ESR 46, CRP 3.98. He is s/p revision of left knee quadriceps tendon repair with I+D on 03/21. ID consulted 03/21. Currently on vanc/cefazolin. No telepresenter available at this time. Allergies Allergy/AdvReac Type Severity Reaction Status Date / Time No Known Allergies Allergy Verified 03/21/24 07:32 Home Medications Medication Instructions Recorded Confirmed Type diabetic supplies, miscellan. #1 ea 12/31/20 03/18/24 History diphenhydramine HCl 25 mg capsule 25 mg PO QAM PRN Congestion 07/17/22 03/21/24 History (Benadryl) multivitamin 1 tab PO QAM 08/18/22 03/21/24 History nitroglycerin 0.4 mg sublingual 0.4 mg sublingual Q5M PRN chest 08/29/22 03/21/24 Rx tablet pain #30 tabs acetaminophen 500 mg tablet 500 mg PO Q6H PRN Pain 09/26/22 03/21/24 History magnesium 200 mg tablet 400 mg PO HS 09/26/22 03/21/24 History omeprazole 20 mg capsule,delayed 20 mg PO QPM 09/26/22 03/21/24 History release potassium gluconate 600 mg (99 mg) 600 mg PO QAM 09/26/22 03/21/24 History tablet atorvastatin 40 mg tablet 40 mg PO HS #90 tabs 04/06/23 03/21/24 Rx Auto Titrating CPAP #1 ea 05/30/23 03/18/24 Rx CPAP Supplies #1 ea 05/30/23 03/18/24 Rx albuterol sulfate 90 mcg/actuation 2 puff inhalation Q6H PRN 10/02/23 03/21/24 Rx aerosol inhaler Shortness Of Breath Or Wheezing #18 grams umeclidinium 62.5 mcg-vilanterol 1 inh inhalation DAILY #3 Inhalers 10/02/23 03/21/24 Rx 25 mcg/actuation powdr for inhalation (Anoro Ellipta) benazepril 10 mg tablet 10 mg PO QAM #90 tabs 10/08/23 03/21/24 Rx clopidogrel 75 mg tablet 75 mg PO QAM #90 tabs 10/08/23 03/21/24 Rx fenofibrate 160 mg tablet 160 mg PO QAM #90 tabs 10/08/23 03/21/24 Rx hydrocortisone 2.5 % topical cream 1 applic topical BID PRN Other 12/18/23 03/21/24 History ketoconazole 2 % topical cream 1 applic topical BID PRN Other 12/18/23 03/21/24 History metformin 1,000 mg tablet 1,000 mg PO HS 12/18/23 03/21/24 History docusate sodium 100 mg capsule 100 mg PO BID #0 caps 12/24/23 03/21/24 Rx polyethylene glycol 3350 17 gram 17 g PO DAILY #0 ea 12/24/23 03/21/24 Rx oral powder packet (Miralax) aspirin 81 mg tablet,delayed 81 mg PO BID 6 weeks #84 tabs 01/08/24 03/21/24 Rx release (Enteric Coated Aspirin) melatonin 10 mg capsule 3 mg (0.3 x 10 mg) PO HS PRN sleep 01/08/24 03/21/24 Rx #30 caps mirabegron 50 mg tablet,extended 50 mg PO QAM #90 tabs 02/11/24 03/21/24 Rx release 24 hr (Myrbetriq) metoprolol tartrate 25 mg tablet 12.5 mg (1/2 x 25 mg) PO BID #180 03/03/24 03/21/24 Rx tabs Patient History Medical History Acid reflux Anemia Chronic BPH (benign prostatic hyperplasia) CAD (coronary artery disease) RCA stent (~2014) CABG x2 (06/2022) Follows with [facility] cardio Carotid artery stenosis Under surveillance by vascular Carotid duplex 01/2023: 50-69% B/L ICA stenosis. No significant change compared to 04/15/2022 study per report. COPD (chronic obstructive pulmonary disease) Diabetes NIDDM Glaucoma H/O: lung cancer 2017- Left Upper Lobectomy Currently under surveillance, no current/recent issues Hearing loss History of colon polyps History of non-ST elevation myocardial infarction (NSTEMI) 06/2022 Hx of basal cell carcinoma Hyperlipidemia Per records Hypertension SJ (obstructive sleep apnea) CPAP Osteoarthritis Peripheral arterial disease Peripheral vascular disease, unspecified Surgical History H/O angioplasty L femoral in 2005 and 11/2020, R femoral in 2018 and 10/2019 H/O cataract extraction R/L H/O laminectomy L3/4 1990 L4/5 w/ fusion 1992 H/O left knee surgery Patellar tendon repair 11/2023 H/O right coronary artery stent placement (~2014) H/O right knee surgery H/O umbilical hernia repair H/O vasectomy History of cardiac cath 06/2022 [facility] > transferred to [facility] for CABG History of colonoscopy History of coronary artery bypass graft CABGx2 (06/2022) History of lobectomy of lung VIANEY for stage 1A lung cancer (2016) History of Mohs micrographic surgery for skin cancer History of prostate surgery Green Light Laser procedure ~2018 at [facility] in [place], [place] History of selective laser trabeculoplasty S/P coronary artery stent placement Status post biopsy of skin Family History Brother Lung cancer Father Heart disease Hypertension Mother Cerebral aneurysm Other No family history of adverse response to anesthesia Social History Smoking Status: Former smoker Tobacco Type: Cigarettes Age Started Using Tobacco: 19; Age Quit Using Tobacco: 69; packs per day: 1.5; Cigarettes Per Day: 30; Smoking End Date: quit ~2014; Second Hand Exposure: No; Do You Dip or Chew Tobacco: No; Tobacco Cessation Education Requested by Patient: No Hx Alcohol Use: Yes Alcohol type: beer Alcohol Intake Frequency: Monthly or Less Hx Substance Use: No Preferred Language: Kyrgyz Communication Ability: Effective Visual Impairment: No Limitations Hearing Ability: Normal Residential Director Required: No Beliefs That Will Affect Care: None marital status: Current Living Situation: Family Current Living Situation Comment: lives with Shayy mendoza current occupational status: retired current occupation: Retired Other Information That Helps Us Care for You: No Feels Safe at Home: Yes Safety Concerns: Feels Safe At This Time Childhood Exposure to Second-Hand Smoke: No Diet: regular Dental Care, Regularly: No Physical Activity Frequency: Daily Seatbelt Use: always Sunscreen Use: Yes Assistive Devices: Cane, CPAP, Denture - Upper, Denture - Lower and Wheelchair Results & Data Vital Signs (Past 12 Hours) Vital Signs Temp Pulse Pulse Resp BP BP Pulse Ox 03/21/24 14:15 36.4 C L 74 16 163/70 H 94 03/21/24 13:59 03/21/24 13:59 36.7 C 74 16 156/72 H 98 03/21/24 13:35 36.7 C 74 16 156/72 H 98 03/21/24 13:30 36.5 C 76 12 154/74 H 96 03/21/24 13:15 78 16 172/74 H 96 03/21/24 13:00 74 13 168/66 H 95 03/21/24 12:50 75 12 162/66 H 95 03/21/24 12:40 75 12 173/77 H 94 03/21/24 12:30 36.5 C 73 12 174/76 H 99 03/21/24 12:20 72 12 176/73 H 98 03/21/24 12:10 91 H 12 170/84 H 95 03/21/24 12:10 90 192/88 H 03/21/24 12:00 36.9 C 96 H 14 200/86 H 97 03/21/24 08:00 03/21/24 07:40 36.9 C 81 20 175/64 H 97 O2 Del Method O2 Flow Rate 03/21/24 14:15 Room Air 03/21/24 13:59 Room Air 03/21/24 13:59 Room Air 03/21/24 13:35 Room Air 03/21/24 13:30 Nasal Cannula 2 03/21/24 13:15 Nasal Cannula 2 03/21/24 13:00 Nasal Cannula 2 03/21/24 12:50 Oxymask 2 03/21/24 12:40 Oxymask 2 03/21/24 12:30 Oxymask 2 03/21/24 12:20 Oxymask 4 03/21/24 12:10 Oxymask 4 03/21/24 12:10 03/21/24 12:00 Oxymask 6 03/21/24 08:00 CPAP 03/21/24 07:40 Room Air Laboratory Results Labs reviewed. Diagnostic Findings Imaging reviewed.
[2024-03-21] MEDS ORDERED: VANCOMYCIN HCL 1,250 MG in SODIUM CHLORIDE 0.9% 250 ML IV SCH (16:00)
--- NOTE | 2024-03-21 16:14 | Hospitalist Consultation ---
Date of Consultation March 21, 2024 Assessment & Plan (1) Quadriceps tendon rupture: This is a 78-year-old gentleman with past medical history of CAD, hypertension, hyperlipidemia, type 2 diabetes, carotid artery stenosis who presented to the hospital on 03/21 to undergo an I&D of his left knee with Dr. Martini. Pain management per primary team Bowel regimen per primary team DVT prophylaxis per primary team Bladder scan prn and straight cath as needed. PT/OT consulted (2) Infection of left knee: Patient originally admitted to the hospital in November 2023 with a quadricep tendon rupture. In December physical therapy noticed redness of surgical incision and mild drainage. He then seen in the outpatient orthopedic office and drainage culture had been sent which was positive for MSSA. He was then started on Bactrim. He was seen in the ED on 01/24 for wound drainage and recommended to continue on Bactrim. He had completed a 2 to 3-week course outpatient. He presented for an I&D on 03/21/2024. Infectious disease consulted Continue IV vancomycin and IV cefazolin If patient develops fevers, please send blood cultures Follow up operative report and cultures sent from OR. CBC 03/18: hgb 9.9, negative for leukocytosis BMP 03/18: BUN38, creatinine 1.26, electrolytes stable. CRP 03/18: 3.98 ESR 03/18: 46 AM CBC, BMP, CRP (3) Type 2 diabetes mellitus: Patient on metformin at home -currently on hold inpatient Hgb A1c 01/19/24: 7.6% Lantus 30 units Novolog sliding scale Goal range 110-140mg/dL CF 20mg/l carb ratio 1:6 grams AM hgbA1c Plan Chronic conditions: CAD: Plavix on hold, resume when recommended by surgeon Hypertension: Continue Enalapril and metoprolol COPD: Continue Anora Ellipta daily and albuterol as needed SJ: Continue CPAP BPH: Continue Gemtesa Hyperlipidemia: Continue statin GERD: Continue PPI DVT prophylaxis: SCD's, per primary team Code status: full Disposition: continued inpatient stay per primary team Diet:carb consistent Thank you for this consult. We will continue to follow along. Please reach out with questions or concerns. Supervising Physician Co-Signing Physician Notes I personally saw and examined the patient. I independently reviewed the labs, imaging, problem list, medication list, past medical history and family history. I verified all points and agree with Tracy Pearl PA-C with the following exceptions and/or additions: 78 year old POD#0 revision of left knee quadriceps tendon repair with I&D O/E HS RRR, no murmurs, Chest CTAB, Abdo SNT A/P VTE / bowel / pain management per primary care team, consider Lovenox injections if he is to stay for multiple days Antibiotics per ID No changes recommended to his routine meds History of Present Illness Attending Physician: Rickey Martini MD History of Present Illness This is a 78-year-old gentleman with past medical history of CAD, hypertension, hyperlipidemia, type 2 diabetes, carotid artery stenosis who presented to the hospital on 03/21 to undergo an I&D of his left knee with Dr. Martini. Patient had originally had in November 2023 with a quadriceps tendon rupture after tripping. He underwent the repair on 12/20/2023 and then developed a surgical site infection on 01/19/2024. He was then treated with Bactrim for 2 to 3 weeks. He had continued to have ongoing pain along with poor wound healing and was then scheduled for an I&D that took place today. Infectious disease was also consulted as well. Patient is currently on empiric coverage with IV vancomycin and cefazolin. The patient was seen and examined this afternoon at bedside. Patient in no acute distress at time of encounter. Lying comfortably in bed. Patient reports that he has been feeling well since his surgery this morning. However patient reports that he has not urinated yet. Patient states that he did have the urge to urinate but then shortly left him. He does have a history of BPH. He states he has not passed gas since his operation either. He was experiencing left leg pain at time of encounter. States that he has been using ice to manage this at home and it works well. He denied any chest pain, shortness of breath, abdominal pain, nausea, vomiting. Allergies Allergy/AdvReac Type Severity Reaction Status Date / Time No Known Allergies Allergy Verified 03/21/24 07:32 Home Medications Medication Instructions Recorded Confirmed Type diabetic supplies, miscellan. #1 ea 12/31/20 03/18/24 History diphenhydramine HCl 25 mg capsule 25 mg PO QAM PRN Congestion 07/17/22 03/21/24 History (Benadryl) multivitamin 1 tab PO QAM 08/18/22 03/21/24 History nitroglycerin 0.4 mg sublingual 0.4 mg sublingual Q5M PRN chest 08/29/22 0 03/21/24 Rx tablet pain #30 tabs acetaminophen 500 mg tablet 500 mg PO Q6H PRN Pain 09/26/22 03/21/24 History magnesium 200 mg tablet 400 mg PO HS 09/26/22 03/21/24 History omeprazole 20 mg capsule,delayed 20 mg PO QPM 09/26/22 03/21/24 History release potassium gluconate 600 mg (99 mg) 600 mg PO QAM 09/26/22 03/21/24 History tablet atorvastatin 40 mg tablet 40 mg PO HS #90 tabs 04/06/23 03/21/24 Rx Auto Titrating CPAP #1 ea 05/30/23 03/18/24 Rx CPAP Supplies #1 ea 05/30/23 03/18/24 Rx albuterol sulfate 90 mcg/actuation 2 puff inhalation Q6H PRN 10/02/23 03/21/24 R x aerosol inhaler Shortness Of Breath Or Wheezing #18 grams umeclidinium 62.5 mcg-vilanterol 1 inh inhalation DAILY #3 Inhalers 10/02/23 03/21/24 Rx 25 mcg/actuation powdr for inhalation (Anoro Ellipta) benazepril 10 mg tablet 10 mg PO QAM #90 tabs 10/08/23 03/21/24 Rx clopidogrel 75 mg tablet 75 mg PO QAM #90 tabs 10/08/23 03/21/24 Rx fenofibrate 160 mg tablet 160 mg PO QAM #90 tabs 10/08/23 03/21/24 Rx hydrocortisone 2.5 % topical cream 1 applic topical BID PRN Other 12/18/23 03/21/24 History ketoconazole 2 % topical cream 1 applic topical BID PRN Other 12/18/23 03/21/24 History metformin 1,000 mg tablet 1,000 mg PO HS 12/18/23 03/21/24 History docusate sodium 100 mg capsule 100 mg PO BID #0 caps 12/24/23 03/21/24 Rx polyethylene glycol 3350 17 gram 17 g PO DAILY #0 ea 12/24/23 03/21/24 Rx oral powder packet (Miralax) aspirin 81 mg tablet,delayed 81 mg PO BID 6 weeks #84 tabs 01/08/24 03/21/24 Rx release (Enteric Coated Aspirin) melatonin 10 mg capsule 3 mg (0.3 x 10 mg) PO HS PRN sleep 01/08/24 03/21/24 Rx #30 caps mirabegron 50 mg tablet,extended 50 mg PO QAM #90 tabs 02/11/24 03/21/24 Rx release 24 hr (Myrbetriq) metoprolol tartrate 25 mg tablet 12.5 mg (1/2 x 25 mg) PO BID #180 03/03/24 03/21/24 Rx tabs Patient History Medical History Acid reflux Anemia Chronic BPH (benign prostatic hyperplasia) CAD (coronary artery disease) RCA stent (~2014) CABG x2 (06/2022) Follows with [facility] cardio Carotid artery stenosis Under surveillance by vascular Carotid duplex 01/2023: 50-69% B/L ICA stenosis. No significant change compared to 04/15/2022 study per report. COPD (chronic obstructive pulmonary disease) Diabetes NIDDM Glaucoma H/O: lung cancer 2016- Left Upper Lobectomy Currently under surveillance, no current/recent issues Hearing loss History of colon polyps History of non-ST elevation myocardial infarction (NSTEMI) 06/2022 Hx of basal cell carcinoma Hyperlipidemia Per records Hypertension SJ (obstructive sleep apnea) CPAP Osteoarthritis Peripheral arterial disease Peripheral vascular disease, unspecified Surgical History H/O angioplasty L femoral in 2005 and 11/2020, R femoral in 2018 and 10/2019 H/O cataract extraction R/L H/O laminectomy L3/4 1990 L4/5 w/ fusion 1992 H/O left knee surgery Patellar tendon repair 11/2023 H/O right coronary artery stent placement (~2014) H/O right knee surgery H/O umbilical hernia repair H/O vasectomy History of cardiac cath 06/2022 [facility] > transferred to [facility] for CABG History of colonoscopy History of coronary artery bypass graft CABGx2 (06/2022) History of lobectomy of lung VIANEY for stage 1A lung cancer (2016) History of Mohs micrographic surgery for skin cancer History of prostate surgery Green Light Laser procedure ~2018 at [facility] in [place], [place] History of selective laser trabeculoplasty S/P coronary artery stent placement Status post biopsy of skin Family History Brother Lung cancer Father Heart disease Hypertension Mother Cerebral aneurysm Other No family history of adverse response to anesthesia Social History Smoking Status: Former smoker Tobacco Type: Cigarettes Age Started Using Tobacco: 19; Age Quit Using Tobacco: 69; packs per day: 1.5; Cigarettes Per Day: 30; Smoking End Date: quit ~2014; Second Hand Exposure: No; Do You Dip or Chew Tobacco: No; Tobacco Cessation Education Requested by Patient: No Hx Alcohol Use: Yes Alcohol type: beer Alcohol Intake Frequency: Monthly or Less Hx Substance Use: No Preferred Language: Kittitian Communication Ability: Effective Visual Impairment: No Limitations Hearing Ability: Normal Tooling Supervisor Required: No Beliefs That Will Affect Care: None marital status: Current Living Situation: Family Current Living Situation Comment: lives with Shayy mendoza current occupational status: retired current occupation: Retired Other Information That Helps Us Care for You: No Feels Safe at Home: Yes Safety Concerns: Feels Safe At This Time Childhood Exposure to Second-Hand Smoke: No Diet: regular Dental Care, Regularly: No Physical Activity Frequency: Daily Seatbelt Use: always Sunscreen Use: Yes Assistive Devices: Cane, CPAP, Denture - Upper, Denture - Lower and Wheelchair Review of Systems Review of Systems: see HPI Physical Exam Constitutional: WD/WN, vitals as above Eyes: PERRL, conjunctivae normal, anicteric sclerae Respiratory: normal respiratory effort, lungs clear to auscultation Cardiovascular: RRR, no murmur, no edema Gastrointestinal (Abdomen): normal bowel sounds, soft, nontender, no hepatosplenomegaly Skin: no rashes, warm and dry Neurologic: PERRL, EOMI, accommodation nl, no face palsy, no dysarthria Psychiatric: A+Ox3, euthymic affect Results & Data Results & Data Vital Signs (Past 12 Hours) Vital Signs Temp Pulse Pulse Pulse Resp BP BP 03/21/24 15:13 36.7 C 76 16 161/60 H 03/21/24 14:15 36.4 C L 74 16 03/21/24 13:59 03/21/24 13:59 36.7 C 74 16 03/21/24 13:35 36.7 C 74 16 03/21/24 13:30 36.5 C 76 12 03/21/24 13:15 78 16 03/21/24 13:00 74 13 03/21/24 12:50 75 12 03/21/24 12:40 75 12 03/21/24 12:30 36.5 C 73 12 03/21/24 12:20 72 12 03/21/24 12:10 91 H 12 03/21/24 12:10 90 192/88 H 03/21/24 12:00 36.9 C 96 H 14 03/21/24 08:00 03/21/24 07:40 36.9 C 81 20 BP Pulse Ox O2 Del Method O2 Flow Rate 03/21/24 15:13 96 Room Air 03/21/24 14:15 163/70 H 94 Room Air 03/21/24 13:59 Room Air 03/21/24 13:59 156/72 H 98 Room Air 03/21/24 13:35 156/72 H 98 Room Air 03/21/24 13:30 154/74 H 96 Nasal Cannula 2 03/21/24 13:15 172/74 H 96 Nasal Cannula 2 03/21/24 13:00 168/66 H 95 Nasal Cannula 2 03/21/24 12:50 162/66 H 95 Oxymask 2 03/21/24 12:40 173/77 H 94 Oxymask 2 03/21/24 12:30 174/76 H 99 Oxymask 2 03/21/24 12:20 176/73 H 98 Oxymask 4 03/21/24 12:10 170/84 H 95 Oxymask 4 03/21/24 12:10 03/21/24 12:00 200/86 H 97 Oxymask 6 03/21/24 08:00 CPAP 03/21/24 07:40 175/64 H 97 Room Air PG Care Time/CCT Total # of Minutes Spent Total Time Spent with Patient: Total time spent is greater than 50% in coordination of care (as documented) at patient's floor/unit and/or counseling patient: Coding Level of Care Code 30805 IN/OBS CONSULT LVL 3,45M Diagnoses Rupture of left quadriceps tendon, subsequent encounter S76.112D Encounter type: subsequent encounter Laterality: left Infection of left knee M00.9 Type 2 diabetes mellitus without complication, without long-term current use of insulin E11.9 Diabetes mellitus complication status: without complication Diabetes mellitus intermediate manager insulin use: without penitentiary use (1) Quadriceps tendon rupture Encounter type: subsequent encounter Laterality: left Qualified Code(s): S76.112D - Strain of left quadriceps muscle, fascia and tendon, subsequent encounter (3) Type 2 diabetes mellitus Diabetes mellitus complication status: without complication Diabetes mellitus intermediate manager insulin use: without intermediate manager use Qualified Code(s): E11.9 - Type 2 diabetes mellitus without complications
[2024-03-21] MEDS: KETOROLAC TROMETHAMINE 15 MG/ML VIAL IV SCH (16:50)
[2024-03-21] MEDS: VANCOMYCIN HCL 1,750 MG in SODIUM CHLORIDE 0.9% 500 ML IV STA (17:41)
[2024-03-21] MEDS: ASPIRIN 81 MG ECTAB PO SCH (17:43)
--- NOTE | 2024-03-21 17:47 | Orthopedic Progress Note ---
Date of Service March 21, 2024 Assessment & Plan (1) Infection of left knee: Plan: POD #0 s/p Left knee I&D, quadreps tendon revision repair, doing as well as expected. Resume diet. WBAT with knee locked in extension, and walker. OOB to chair. Continue pain control. Check labs tomorrow. Will need weekly labs: CBC, ESR, CRP DVT prophylaxis: TEDs 3 weeks RLE, SCDs while in hospital, Resume Plavix and ASA. PT/OT. D/C planning. Consult Hospitalist and ID services. Dressing to be changed POD [address] into cylinder cast Present on Admission?: Yes (2) Quadriceps tendon rupture: Plan: see above Present on Admission?: Yes Admission and Anticipated Discharge Date Admission Date: March 21, 2024 Physical Exam Physical Exam: LLE: BCR < 2 sec. Sensation to light touch intact distally. Wiggling ankle and toes. Calf soft and non-tender. Dressing is clean, dry, intact. Able to perform straight leg raise. Results & Data Vital Signs (Past 12 Hours) Vital Signs Temp Pulse Pulse Pulse Resp BP BP 03/21/24 16:44 36.4 C L 67 16 147/70 H 03/21/24 15:13 36.7 C 76 16 161/60 H 03/21/24 14:15 36.4 C L 74 16 03/21/24 13:59 03/21/24 13:59 36.7 C 74 16 03/21/24 13:35 36.7 C 74 16 03/21/24 13:30 36.5 C 76 12 03/21/24 13:15 78 16 03/21/24 13:00 74 13 03/21/24 12:50 75 12 03/21/24 12:40 75 12 03/21/24 12:30 36.5 C 73 12 03/21/24 12:20 72 12 03/21/24 12:10 91 H 12 03/21/24 12:10 90 192/88 H 03/21/24 12:00 36.9 C 96 H 14 03/21/24 08:00 03/21/24 07:40 36.9 C 81 20 BP Pulse Ox O2 Del Method O2 Flow Rate 03/21/24 16:44 96 Room Air 03/21/24 15:13 96 Room Air 03/21/24 14:15 163/70 H 94 Room Air 03/21/24 13:59 Room Air 03/21/24 13:59 156/72 H 98 Room Air 03/21/24 13:35 156/72 H 98 Room Air 03/21/24 13:30 154/74 H 96 Nasal Cannula 2 03/21/24 13:15 172/74 H 96 Nasal Cannula 2 03/21/24 13:00 168/66 H 95 Nasal Cannula 2 03/21/24 12:50 162/66 H 95 Oxymask 2 03/21/24 12:40 173/77 H 94 Oxymask 2 03/21/24 12:30 174/76 H 99 Oxymask 2 03/21/24 12:20 176/73 H 98 Oxymask 4 03/21/24 12:10 170/84 H 95 Oxymask 4 03/21/24 12:10 03/21/24 12:00 200/86 H 97 Oxymask 6 03/21/24 08:00 CPAP 03/21/24 07:40 175/64 H 97 Room Air (2) Quadriceps tendon rupture Encounter type: subsequent encounter Laterality: left Qualified Code(s): S76.112D - Strain of left quadriceps muscle, fascia and tendon, subsequent encounter
[2024-03-21 17:54] LABS: Creatinine Clr Calc Pharmacy 46.5 ml/min; Est GFR (African American) 53.2 ml/min; Est GFR (Non-African American) 45.9 ml/min
--- NOTE | 2024-03-21 18:27 | Pharmacy Report ---
Pharmacy PK ABX Note - Date of Service March 21, 2024 - Assessment and Plan Assessment 78 year old M receiving vancomycin and ancef for potential left knee infection. Patient is s/p surgical site infection 01/18 and treated with bactrim previously. Presenting for left knee surgery 03/21. Patient experiencing continued pain/poor wound healing. ID consulted. Plan Vancomycin * Loading dose: 1750 mg IV x 1 * Maintenance dose: 1250 mg IV every 24 hours * Regimen is predicted to achieve target AUC/RODOLFO of 400-600 mg/L.hr * Will order vancomycin level if continued > 48 hours Pharmacy will continue to follow and will adjust dose/frequency as necessary. Thank you. Pharmacy has transitioned to AUC monitoring for vancomycin. AUC/RODOLFO is the preferred PK/PD target and is associated with decreased risk of nephrotoxicity compared to traditional trough targets.
[2024-03-21] MEDS ORDERED: metFORMIN HCL 500 MG TAB PO SCH (21:00)
[2024-03-21] MEDS ORDERED: DOCUSATE SODIUM 100 MG CAP PO SCH (21:00)
[2024-03-21] MEDS: DOCUSATE SODIUM 100 MG CAP PO SCH (21:18)
[2024-03-21] MEDS: MELATONIN 3 MG TAB PO PRN (21:18)
[2024-03-21] MEDS: SENNA 8.6 MG TAB PO SCH (21:19)
[2024-03-21] MEDS: MAGNESIUM OXIDE 400 MG TAB PO SCH (21:20)
[2024-03-21] MEDS: PANTOprazole 40 MG TAB PO SCH (21:20)
[2024-03-21] MEDS: METOPROLOL TARTRATE 25 MG TAB PO SCH (21:20)
[2024-03-21] MEDS: ATORVASTATIN 40 MG TAB PO SCH (21:20)
[2024-03-21] MEDS: ALUMINUM/MAGNESIUM SUSP 30 ML UDC PO PRN (23:40)
[2024-03-22 07:04] LABS: Hematocrit (blood only) 26.9 % (42.0-52.0); Hemoglobin 8.5 g/dl (14.0-18.0); Mean Corpuscular Hemoglobin 28.7 pg (25.0-34.0); Mean Corpuscular Hgb Conc 31.6 g/dL (32.0-36.0); Mean Corpuscular Volume 90.9 fL (80.0-100.0); Mean Platelet Volume 9.5 fL (9.4-12.4); Platelet Count 285 K/uL (130-400); RDW Coefficient of Variation 13.2 % (11.5-14.5); RDW Standard Deviation 43.7 fL (36.4-46.3); Red Blood Count 2.96 M/uL (4.70-6.10); White Blood Count 8.45 K/ul (4.8-10.8)
[2024-03-22 07:22] LABS: BUN Creatinine Ratio 26.8 (10-20); C Reactive Protein 2.42 mg/dl (0-0.5); Calcium 8.6 mg/dl (8.6-10.3); Creatinine Clr Calc Pharmacy 42.7 ml/min; Est GFR (African American) 47.9 ml/min; Est GFR (Non-African American) 41.3 ml/min; Potassium 4.1 mmol/L (3.5-5.1)
[2024-03-22 07:39] LABS: Estimated Average Glucose 177 mg/dl; Hemoglobin A1C 7.8 % (4.5-5.6)
[2024-03-22] MEDS: POLYETHYLENE (MIRALAX) 17 GM PACK PO SCH (08:48)
[2024-03-22] MEDS: VANCOMYCIN HCL 1,250 MG in SODIUM CHLORIDE 0.9% 250 ML IV SCH (08:49)
[2024-03-22] MEDS: MULTIVITAMIN TAB PO SCH (08:50)
[2024-03-22] MEDS: CLOPIDOGREL BISULFATE 75 MG TAB PO SCH (08:50)
[2024-03-22] MEDS: FENOFIBRATE NANOCRYSTALLIZED 145 MG TABLET PO SCH (08:50)
[2024-03-22] MEDS: VIBEGRON 75 MG TAB PO SCH (08:50)
[2024-03-22] MEDS: POTASSIUM CHLORIDE 10 MEQ TABCR PO SCH (08:52)
[2024-03-22] MEDS: UMECLIDINIUM/VILANTEROL 62.5/25MCG 7 PUFFS/INHALER INH SCH (08:52)
[2024-03-22] MEDS: LANTUS PER UNIT CHARGE SC SCH (08:53)
--- NOTE | 2024-03-22 08:59 | Pharmacy Report ---
Pharmacy Glycemic Short Note 2 - Date of Service March 22, 2024 - Glycemic Short BSG Results (Last 24 hours): 03/21/24 03/21/24 03/21/24 12:07 13:48 16:47 Glucose POC Glucose 197 H 206 H 185 H 03/21/24 03/22/24 03/22/24 20:46 06:43 07:39 Glucose 136 H POC Glucose 154 H 132 H OUTPATIENT ANTIDIABETIC REGIMEN: * Metformin 1 g PO HS HbA1c: 7.6% (01/19/24) ASSESSMENT: 03/22/24: * POD #1, no ongoing steroids * Blood sugars trended down nicely following surgery yesterday (206 -> 185 -> 154 mg/dL) * Fasting blood sugar of 132 mg/dL this morning * Will loosen Novolog and decrease basal today now that steroids have been discontinued 03/21/24: * KIKI is a 78 year old male POD #0 s/p quadriceps tendon repair * Received 4 mg IV dexamethasone in OR, no ongoing steroids ordered at this time * Preop blood sugar of 167 mg/dL, postop blood sugar of 197 mg/dL * Will give ~0.3 unit/kg one-time basal dose now w/ weight-based stress of 3 Novolog parameters PLAN FOR INPATIENT GLYCEMIC CONTROL: * Hold outpatient oral diabetes medications * Basal insulin * Lantus 10 units SC daily * Bolus insulin * NovoLog per scale ACHS or Q6hrs while NPO * Goal Range: Low 110 mg/dL - High 140 mg/dL * Correction Factor: 25 mg/dL/unit * Nutritional / Prandial insulin per carb ratio of 1 unit per 8 grams CHO consumed
[2024-03-22] MEDS ORDERED: ASPIRIN 81 MG ECTAB PO SCH ×2 (09:00)
[2024-03-22] MEDS ORDERED: NON-FORMULARY MEDICATION (Multivitamin tablet) PO SCH (09:00)
[2024-03-22] MEDS ORDERED: ENALAPRIL MALEATE 5 MG TAB PO SCH (09:00)
--- NOTE | 2024-03-22 09:35 | Orthopedic Progress Note ---
Date of Service March 22, 2024 Assessment & Plan (1) Infection of left knee: Plan: POD #1 s/p Left knee I&D, quadreps tendon revision repair, doing as well as expected. Resume diet. WBAT with knee locked in extension, and walker. OOB to chair. Continue pain control. Continue monitoring labs Will need weekly labs: CBC, ESR, CRP DVT prophylaxis: TEDs 3 weeks RLE, SCDs while in hospital, Resume Plavix and ASA. PT/OT. D/C planning. Consult Hospitalist and ID services. Dressing to be changed POD [address] into cylinder cast (2) Quadriceps tendon rupture: Plan: see above Admission and Anticipated Discharge Date Admission Date: March 21, 2024 Subjective This 78-year-old male is day 1 status post left knee irrigation debridement with revision quadriceps tendon repair. Patient states he is doing fairly well. States his pain is well-controlled with p.o. pain medication. He is currently receiving vancomycin. He states that he has not currently met with infectious disease to discuss antibiotic management. Cultures are still pending. Patient states that he is required to be straight cath 2 times since surgery yesterday. He states that this has been an issue in the past as well and feels it is due to his enlarged prostate. Currently he denies chest pain, shortness of breath, fever, chills, sweats, numbness or tingling in his left lower extremity, nausea, vomiting or diarrhea. Review of Systems Review of Systems: All systems reviewed & are unremarkable except as noted in Subjective Physical Exam Physical Exam: Left lower extremity: Splint is clean dry and intact and left in place. Patient's Hemovac is draining properly and is not compressed by the splint. He is able to perform an active straight leg raise test. He is able to dorsi and plantarflex his foot actively. His quad strength is 4/5. He is able to detect light sensation to touch over the pads of all digits. He is neurovascularly intact in the left lower extremity. Results & Data Vital Signs (Past 12 Hours) Vital Signs Temp Pulse Resp BP BP Pulse Ox O2 Del Method 03/22/24 07:22 36.4 C L 64 14 160/56 H 95 Room Air 03/22/24 04:08 36.4 C L 65 16 155/65 H 96 CPAP 03/21/24 23:36 36.3 C L 65 16 162/65 H 95 Room Air Diagnostic Findings Laboratory Results WBC 8.45 K/ul (4.8-10.8) 03/22/24 06:43 RBC 2.96 M/uL (4.70-6.10) L 03/22/24 06:43 Hgb 8.5 g/dl (14.0-18.0) L 03/22/24 06:43 Hct 26.9 % (42.0-52.0) L 03/22/24 06:43 MCV 90.9 fL (80.0-100.0) 03/22/24 06:43 MCH 28.7 pg (25.0-34.0) 03/22/24 06:43 MCHC 31.6 g/dL (32.0-36.0) L 03/22/24 06:43 RDW Std Deviation 43.7 fL (36.4-46.3) 03/22/24 06:43 RDW Coeff of Galilea 13.2 % (11.5-14.5) 03/22/24 06:43 Plt Count 285 K/uL (130-400) 03/22/24 06:43 MPV 9.5 fL (9.4-12.4) 03/22/24 06:43 PT 11.0 Seconds (9.0-12.0) 03/21/24 07:31 INR 1.0 (0.9-1.1) 03/21/24 07:31 APTT 27 Seconds (21-31) 03/21/24 07:31 PTT Ratio 1.0 03/21/24 07:31 Sodium 142 mmol/L (136-145) 03/22/24 06:43 Potassium 4.1 mmol/L (3.5-5.1) 03/22/24 06:43 Chloride 109 mmol/L (98-107) H 03/22/24 06:43 Carbon Dioxide 25 mmol/L (21-32) 03/22/24 06:43 Anion Gap 8 (3-11) 03/22/24 06:43 BUN 42 mg/dl (6-23) H 03/22/24 06:43 Creatinine 1.57 mg/dl (0.6-1.4) H 03/22/24 06:43 Est Cr Clr Drug Dosing 42.7 ml/min 03/22/24 06:43 Est GFR ( Amer) 47.9 ml/min 03/22/24 06:43 Est GFR (Non-Af Amer) 41.3 ml/min 03/22/24 06:43 BUN/Creatinine Ratio 26.8 (10-20) H 03/22/24 06:43 Glucose 136 mg/dl (70-99(Fasting)) H 03/22/24 06:43 POC Glucose 132 mg/dl (70-99) H 03/22/24 07:39 Estimat Average Glucose 177 mg/dl 03/22/24 06:43 Hemoglobin A1c 7.8 % (4.5-5.6) H 03/22/24 06:43 Calcium 8.6 mg/dl (8.6-10.3) 03/22/24 06:43 C-Reactive Protein 2.42 mg/dl (0-0.5) H 03/22/24 06:43 Vancomycin Trough < 3.0 mcg/ml (10-20) L 03/21/24 12:23 (2) Quadriceps tendon rupture Encounter type: subsequent encounter Laterality: left Qualified Code(s): S76.112D - Strain of left quadriceps muscle, fascia and tendon, subsequent encounter
--- NOTE | 2024-03-22 10:47 | Infectious Disease Progress Nt ---
Date of Service March 22, 2024 Assessment & Plan (1) Infection of left knee: (2) History of diabetes mellitus: (3) Quadriceps tendon rupture: Plan 78yo M with h/o lung cancer s/p VIANEY lobectomy in 2017, T2DM, CAD s/p PCI, OA, s/p L3/4 and L4/5 laminectomy with fusion in , COPD, PVD s/p angioplasty, admission in November 2023 with left quadriceps tendon rupture after tripping s/p repair on 12/20/23 c/b surgical site infection on 01/18 tx with Bactrim for 2-3 weeks (completed 2 weeks prior) who presented on 03/21 for left knee surgery. He continued to have pain and c/f poor wound healing and was scheduled for I+D. Here he has been afebrile, vss. Labs from 03/18 note no leukocytosis, Cr 1.26. ESR 46, CRP 3.98. He is s/p revision of left knee quadriceps tendon repair with I+D of left knee on 03/21 (per op note, quad tendon fascia defect probed and easily entered joint, soft tissue and degenerative tendon along with knee debrided). ID consulted 03/21. Currently on vancomycin. OR cx are so far no growth. Will wait for 48hrs prior to determination of abx. Given probe to joint, will treat for joint infection. If no growth in cx, will target MSSA from prior cx. # Left knee infection # Recent left quadriceps tendon rupture s/p repair November 2023 c/b surgical site infection # h/o diabetes - f/u OR cx - if he develops any fevers, please also send blood cultures - continue empiric vancomycin pharmacy dosed - will continue cefazolin as well as it will include some gram negative coverage - given c/f joint involvement, he will need 4 weeks of IV antibiotics, final regimen pending cultures if no growth will de-escalate to target MSSA ID will continue to follow. If questions or concerns, contact Infectious Disease Call Center . Racquel Cornejo MD [facility], Division of Infectious Diseases [facility]Connect: [phone] Admission and Anticipated Discharge Date Admission Date: March 21, 2024 Subjective Subsequent visit was provided via telemedicine using two-way real-time interactive telecommunication between the patient and the telemedicine provider. For the duration of the visit, the provider was performing the assessment from a different facility than the patient. This includesuse of bluetooth stethoscope forauscultationperformed by the telepresenter that the telemedicine provider can hear if described in the physical exam. Cyber Legal Advisor contact information: Please call [facility] Connect Call Center . (Phone Number For Physician Use Only) After establishing a telemedicine visit, patient was: Patient was verified with two unique identifiers, Patient/authorized rep acknowledged consent and understanding and Gave permission to continue telehealth session Time Spent with Patient: Subsequent => 35 min Patient reports doing well. He said he was on bactrim recently and completed that 2 weeks ago. He said he had swelling in his knee with redness at his old incision site with drainage. Pain more in incision site than his knee joint. Also noted pain in his left ankle. No other complaints, no abdominal pain or diarrhea. Physical Exam Physical Exam: General: Awake, alert, no acute distress HEENT: NC/AT, EOMI, mmm Neck: supple Lungs: respirations non-labored Heart: nl peripheral perfusion Abdomen: soft, NT/ND Ext: left leg with plaster and postop dressing, hemovac with bloody drainage Results & Data Vital Signs (Past 12 Hours) Vital Signs Temp Pulse Resp BP BP Pulse Ox O2 Del Method 03/22/24 07:22 36.4 C L 64 14 160/56 H 95 Room Air 03/22/24 04:08 36.4 C L 65 16 155/65 H 96 CPAP 03/21/24 23:36 36.3 C L 65 16 162/65 H 95 Room Air Laboratory Results Labs reviewed. Diagnostic Findings Imaging reviewed. (3) Quadriceps tendon rupture Encounter type: subsequent encounter Laterality: left Qualified Code(s): S76.112D - Strain of left quadriceps muscle, fascia and tendon, subsequent encounter
[2024-03-22] MEDS: ENALAPRIL MALEATE 10 MG TAB PO SCH (13:22)
[2024-03-22] MEDS: ceFAZolin 2000MG 2,000 MG/15 ML SYR IV SCH (15:59)
--- NOTE | 2024-03-22 17:40 | Hospitalist Progress Note ---
Date of Service March 22, 2024 Assessment & Plan (1) Quadriceps tendon rupture: Plan: Mr. Valderrama is a 78 y/o gentleman with past medical history of lung cancer s/p VIANEY lobectomy in 2017, T2DM, CAD s/p PCI, OA, s/p L3/4 and L4/5 laminectomy with fusion in , COPD, PVD s/p angioplasty, admission in November 2023 with left quadriceps tendon rupture after tripping s/p repair on 12/20/23 c/b surgical site infection on 01/18 tx with Bactrim for 2-3 weeks (completed 2 weeks prior) who presented on 03/21 for left knee surgery. -Left knee I&D and quadriceps tendon revision repair on 03/21/[address] Martini -Pain regimen, bowel regimen, VTE PPx, discharge planning per primary team -Bladder scan prn and straight cath as needed. -PT/OT consulted -Acute blood loss anemia secondary to surgery. Hgb stable at 8.5, not requiring transfusion at this time. (2) Infection of left knee: Plan: Patient originally admitted to the hospital in November 2023 with a quadricep tendon rupture. In December physical therapy noticed redness of surgical incision and mild drainage. He then seen in the outpatient orthopedic office and drainage culture had been sent which was positive for MSSA. He was then started on Bactrim. He was seen in the ED on 01/24 for wound drainage and recommended to continue on Bactrim. He had completed a 2 to 3-week course outpatient. He presented for an I&D on 03/21/2024. Infectious disease consulted Continue IV vancomycin and IV cefazolin If patient develops fevers, please send blood cultures Given concern for joint involvement, recommending 4 weeks of IV antibiotics, final regimen pending culturesif no growth, de-escalate to target MSSA. (3) Type 2 diabetes mellitus: Plan: Patient on metformin at home - currently on hold inpatient Lantus 30 units Novolog sliding scale Goal range 110-140mg/dL CF 20mg/l carb ratio 1:6 grams Hgb A1c 7.8% on 03/22 -- fairly good diabetic control, could follow-up with PCP in outpatient setting for further fine-tuning of his home regimen. Plan Chronic conditions: CAD: Plavix on hold, resume when recommended by surgeon Hypertension: Continue Enalapril and metoprolol COPD: Continue Anora Ellipta daily and albuterol as needed SJ: Continue CPAP BPH: Continue Gemtesa Hyperlipidemia: Continue statin GERD: Continue PPI DVT prophylaxis: SCD's, per primary team Code status: full Disposition: continued inpatient stay per primary team Diet: carb consistent Thank you for this consult. We will continue to follow along. Please reach out with questions or concerns. Admission and Anticipated Discharge Date Admission Date: March 21, 2024 Subjective Patient seen and evaluated in bedside chair. He reports that his pain has been well-controlled with medication and he has been up walking today. He notes that he has been passing gas but has not yet had a bowel movement. Denies any problems with urination today; noting that he had to be straight cathed 2 times postop due to urinary retention which has been an issue previously due to his enlarged prostate. Denies chest pain, shortness of breath, nausea, vomiting, lightheadedness, dizziness. Physical Exam Physical Exam: General: No acute distress, nondiaphoretic, well-developed, well-nourished. Cardiac: Regular rate and rhythm without murmurs gallops or rubs. Pulm: Clear to auscultation bilaterally without wheezes, rales or rhonchi. No respiratory distress. 96% on room air. Abdominal: Soft, nontender, nondistended. Bowel sounds present. Neuro: A&O x3. No focal neurological deficits. MSK: Splint on left lower extremity clean, dry, intact. Hemovac in place. Able to wiggle toes. Sensation intact in left lower extremity. Results & Data Results & Data Vital Signs (Past 12 Hours) Vital Signs Temp Pulse Resp BP BP Pulse Ox O2 Del Method 03/22/24 14:59 98.1 F 61 18 141/56 H 96 Room Air 03/22/24 11:32 97.3 F L 59 L 16 155/62 H 97 Room Air 03/22/24 11:10 97.7 F 60 12 150/66 H 94 Room Air 03/22/24 07:22 97.5 F L 64 14 160/56 H 95 Room Air Laboratory Results Reviewed CBC Reviewed chemistries PG Care Time/CCT Total # of Minutes Spent Total Time Spent with Patient: Total time spent is greater than 50% in coordination of care (as documented) at patient's floor/unit and/or counseling patient: Coding Level of Care Code 97450 SUB INP/OBS CARE MIN Diagnoses Rupture of left quadriceps tendon, subsequent encounter S76.112D Encounter type: subsequent encounter Laterality: left Infection of left knee M00.9 Type 2 diabetes mellitus without complication, without long-term current use of insulin E11.9 Diabetes mellitus complication status: without complication Diabetes mellitus fdc insulin use: without fdc use (1) Quadriceps tendon rupture Encounter type: subsequent encounter Laterality: left Qualified Code(s): S76.112D - Strain of left quadriceps muscle, fascia and tendon, subsequent encounter (3) Type 2 diabetes mellitus Diabetes mellitus complication status: without complication Diabetes mellitus buttermaker helper insulin use: without buttermaker helper use Qualified Code(s): E11.9 - Type 2 diabetes mellitus without complications
[2024-03-22] MEDS: oxyCODONE HCL IR 5 MG TAB (IMMEDIATE RELEASE) PO PRN (20:39)
[2024-03-23 06:00] LABS: Basophils # (auto) 0.02 K/uL (0.00-0.20); Basophils % (auto) 0.2 %; Eosinophils # (auto) 0.19 K/uL (0.00-0.50); Eosinophils % (auto) 2.1 %; Hematocrit (blood only) 28.6 % (42.0-52.0); Hemoglobin 9.1 g/dl (14.0-18.0); Immature Granulocytes # (auto) 0.03 K/uL (0.01-0.20); Immature Granulocytes % (auto) 0.3 %; Lymphocytes # (auto) 2.32 K/uL (1.20-3.40); Lymphocytes % (auto) 26.1 %; Mean Corpuscular Hemoglobin 28.7 pg (25.0-34.0); Mean Corpuscular Hgb Conc 31.8 g/dL (32.0-36.0); Mean Corpuscular Volume 90.2 fL (80.0-100.0); Mean Platelet Volume 9.7 fL (9.4-12.4); Monocytes # (auto) 1.07 K/uL (0.11-0.59); Neutrophils # (auto) 5.27 K/uL (1.40-6.50); Neutrophils % (auto) 59.3 %; Platelet Count 295 K/uL (130-400); RDW Coefficient of Variation 13.2 % (11.5-14.5); RDW Standard Deviation 43.7 fL (36.4-46.3); Red Blood Count 3.17 M/uL (4.70-6.10)
[2024-03-23 06:10] LABS: Creatinine Clr Calc Pharmacy 46.8 ml/min; Est GFR (African American) 53.6 ml/min; Est GFR (Non-African American) 46.3 ml/min
--- NOTE | 2024-03-23 08:56 | Hospitalist Progress Note ---
Date of Service March 23, 2024 Assessment & Plan (1) Quadriceps tendon rupture: Plan: Mr. Valderrama is a 78 y/o gentleman with past medical history of lung cancer s/p VIANEY lobectomy in 2017, T2DM, CAD s/p PCI, OA, s/p L3/4 and L4/5 laminectomy with fusion in , COPD, PVD s/p angioplasty, admission in November 2023 with left quadriceps tendon rupture after tripping s/p repair on 12/20/23 c/b surgical site infection on 01/18 tx with Bactrim for 2-3 weeks (completed 2 weeks prior) who presented on 03/21 for left knee surgery. - Left knee I&D and quadriceps tendon revision repair on 03/21/[address] Martini. - Pain regimen, bowel regimen, VTE PPx, discharge planning per primary team. - Initially had some urinary retention postop, which had resolved and patient was voiding independently. However, night of 03/22, he started having urinary frequency, urgency, and retention. > Almendarez catheter was placed PM 03/22. > Already on antibiotic for left knee infection, so obtaining a urine culture would be low-yield at this point to evaluate for acute UTI. > Will start tamsulosin 0.4 mg daily in setting of postoperative urinary retention. > Ortho has consulted urology for management. - PT/OT recommending rehab. Referral made to [facility]. - Acute blood loss anemia secondary to surgery. Hgb stable at 9.1, not requiring transfusion at this time. (2) Infection of left knee: Plan: Patient originally admitted to the hospital in November 2023 with a quadricep tendon rupture. In December physical therapy noticed redness of surgical incision and mild drainage. He then seen in the outpatient orthopedic office and drainage culture had been sent which was positive for MSSA. He was then started on Bactrim. He was seen in the ED on 01/24 for wound drainage and recommended to continue on Bactrim. He had completed a 2 to 3-week course outpatient. He presented for an I&D on 03/21/2024. - Left knee wound culturepreliminary, no growth to date. - Infectious disease consulted > Continue IV cefazolin for total of 4-week treatment, last dose 04/17/2024. IV vancomycin discontinued 03/23. > Monitor weekly CBC with differential, CMP, ESR, CRP while on IV antibiotic. > If improving clinically, can consider changing to p.o. regimen (cefazolin 500 mg p.o. every 6 hours) after 2 weeks of IV. (3) Type 2 diabetes mellitus: Plan: Patient on metformin at home - currently on hold inpatient - Lantus 30 units - NovoLog sliding scale - Goal range 110-140mg/dL - CF 20mg/l - Carb ratio 1:6 grams - Hgb A1c 7.8% on 03/22 -- fairly good diabetic control, could follow-up with PCP in outpatient setting for further fine-tuning of his home regimen. Plan Chronic conditions: CAD: Continue Plavix and aspirin Hypertension: Continue Enalapril and metoprolol COPD: Continue Anora Ellipta daily and albuterol as needed SJ: Continue CPAP BPH: Continue Gemtesa Hyperlipidemia: Continue statin GERD: Continue PPI DVT prophylaxis: TEDS 3 weeks RLE, SCDs while inpatient, Plavix and aspirin resumed Code status: full Disposition: defer to primary team Diet: carb consistent Thank you for this consult. Hospital medicine will continue to follow along. Please reach out with questions or concerns. Admission and Anticipated Discharge Date Admission Date: March 21, 2024 Subjective Patient seen and evaluated at bedside. He reports feeling well overall, noting that his pain is well-controlled with medication. He did have a Almendarez catheter placed last night due to urinary retention. He notes that he has an intermittent history of this secondary to BPH. He had his dressing changed, drain pulled, and left lower extremity cast placed today by Ortho. He is to have another televisit with ID this morning. No additional complaints or concerns at this time. Hospital medicine will continue to follow along. Physical Exam Physical Exam: General: No acute distress, nondiaphoretic, well-developed, well-nourished. Cardiac: Regular rate and rhythm without murmurs gallops or rubs. Pulm: Clear to auscultation bilaterally without wheezes, rales or rhonchi. No respiratory distress. 94% on room air. Abdominal: Soft, nontender, nondistended. Bowel sounds present. Neuro: A&O x3. No focal neurological deficits. MSK: Hard cast to left lower extremity. Able to wiggle toes. Sensation intact in left lower extremity. Results & Data Results & Data Vital Signs (Past 12 Hours) Vital Signs Temp Pulse Resp BP Pulse Ox O2 Del Method 03/23/24 07:31 98.1 F 72 16 151/67 H 94 Room Air Laboratory Results Reviewed CBC Reviewed chemistries Reviewed left knee wound culture PG Care Time/CCT Total # of Minutes Spent Total Time Spent with Patient: Total time spent is greater than 50% in coordination of care (as documented) at patient's floor/unit and/or counseling patient: Coding Level of Care Code 18387 SUB INP/OBS CARE 2/35MIN Diagnoses Rupture of left quadriceps tendon, subsequent encounter S76.112D Encounter type: subsequent encounter Laterality: left Infection of left knee M00.9 Type 2 diabetes mellitus without complication, without long-term current use of insulin E11.9 Diabetes mellitus complication status: without complication Diabetes mellitus longterm insulin use: without longterm use (1) Quadriceps tendon rupture Encounter type: subsequent encounter Laterality: left Qualified Code(s): S76.112D - Strain of left quadriceps muscle, fascia and tendon, subsequent encounter (3) Type 2 diabetes mellitus Diabetes mellitus complication status: without complication Diabetes 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
[2024-03-23] MEDS: LANTUS PER UNIT CHARGE SC SCH (09:46)
--- NOTE | 2024-03-23 09:54 | Orthopedic Progress Note ---
Date of Service March 23, 2024 Assessment & Plan (1) Infection of left knee: Plan: POD #2 s/p Left knee I&D, quadriceps tendon revision repair, due to infection and failed repair, doing as well as expected. Resume diet. WBAT with knee locked in extension, and walker. OOB to chair. Continue pain control. Urinary retention, Almendarez placed. Will obtain Urology consult, h/o BPH. Continue monitoring labs Will need weekly labs: CBC, ESR, CRP DVT prophylaxis: TEDs 3 weeks, Foot pumps BLE while in hospital, Resume Plavix and ASA. PT/OT. D/C planning home vs SNF. Appreciate Hospitalist Appreciate ID consult and recommendation of min 4 weeks IV Abx, continue Vanco & Ancef for now awaiting C&S results. Dressing changed 03/23/24 drain pulled and placed into cylinder cast. (2) Quadriceps tendon rupture: Plan: see above Admission and Anticipated Discharge Date Admission Date: March 21, 2024 Subjective Doing alright Physical Exam Physical Exam: LLE: BCR < 2 sec. Sensation to light touch intact distally. Wiggling ankle and toes. Calf soft and non-tender. Incision is clean, dry, intact. Blood tinged serous drainage from HVAC site after pulled. Results & Data Vital Signs (Past 12 Hours) Vital Signs Temp Pulse Resp BP Pulse Ox O2 Del Method 03/23/24 07:31 36.7 C 72 16 151/67 H 94 Room Air Laboratory Results 03/23/24 03/23/24 03/22/24 Range/Units 07:33 05:29 20:55 WBC 8.90 (4.8-10.8) K/ul RBC 3.17 L (4.70-6.10) M/uL Hgb 9.1 L (14.0-18.0) g/dl Hct 28.6 L (42.0-52.0) % MCV 90.2 (80.0-100.0) fL MCH 28.7 (25.0-34.0) pg MCHC 31.8 L (32.0-36.0) g/dL RDW Std Deviation 43.7 (36.4-46.3) fL RDW Coeff of [place] 13.2 (11.5-14.5) % Plt Count 295 (130-400) K/uL MPV 9.7 (9.4-12.4) fL Immature Gran % (Auto) 0.3 % Neut % (Auto) 59.3 % Lymph % (Auto) 26.1 % [place] % (Auto) 12.0 % Eos % (Auto) 2.1 % Baso % (Auto) 0.2 % Neut # (Auto) 5.27 (1.40-6.50) K/uL Lymph # (Auto) 2.32 (1.20-3.40) K/uL [place] # (Auto) 1.07 H (0.11-0.59) K/uL Eos # (Auto) 0.19 (0.00-0.50) K/uL Baso # (Auto) 0.02 (0.00-0.20) K/uL Immature Gran # (Auto) 0.03 (0.01-0.20) K/uL Creatinine 1.43 H (0.6-1.4) mg/dl Est Cr Clr Drug Dosing 46.8 ml/min Est GFR ( Amer) 53.6 ml/min Est GFR (Non-Af Amer) 46.3 ml/min POC Glucose 141 H 117 H (70-99) mg/dl Random Vancomycin 9.6 L (10-20) mcg/ml 03/22/24 03/22/24 Range/Units 16:47 11:28 WBC (4.8-10.8) K/ul RBC (4.70-6.10) M/uL Hgb (14.0-18.0) g/dl Hct (42.0-52.0) % MCV (80.0-100.0) fL MCH (25.0-34.0) pg MCHC (32.0-36.0) g/dL RDW Std Deviation (36.4-46.3) fL RDW Coeff of [place] (11.5-14.5) % Plt Count (130-400) K/uL MPV (9.4-12.4) fL Immature Gran % (Auto) % Neut % (Auto) % Lymph % (Auto) % [place] % (Auto) % Eos % (Auto) % Baso % (Auto) % Neut # (Auto) (1.40-6.50) K/uL Lymph # (Auto) (1.20-3.40) K/uL [place] # (Auto) (0.11-0.59) K/uL Eos # (Auto) (0.00-0.50) K/uL Baso # (Auto) (0.00-0.20) K/uL Immature Gran # (Auto) (0.01-0.20) K/uL Creatinine (0.6-1.4) mg/dl Est Cr Clr Drug Dosing ml/min Est GFR ( Amer) ml/min Est GFR (Non-Af Amer) ml/min POC Glucose 133 H 160 H (70-99) mg/dl Random Vancomycin (10-20) mcg/ml Spec: [id number] Collected: 03/21/24 Received: 03/21/[address]: Rickey Martini MD Source: Knee,Left OV Order: Ordered: Aer/Radha Cult/Sm Comments: Comment Culture#1- left knee synovial fluid culture #1 left knee synovial fluid Procedure Result Verified Site Gram Stain Final 03/21/241356 Gram Stain Result Moderate Polys No Organisms Seen Aero/Radha Cult Preliminary 03/22/24-1107 No growth to date. (2) Quadriceps tendon rupture Encounter type: subsequent encounter Laterality: left Qualified Code(s): S76.112D - Strain of left quadriceps muscle, fascia and tendon, subsequent encounter
--- NOTE | 2024-03-23 09:55 | Infectious Disease Progress Nt ---
Date of Service March 23, 2024 Assessment & Plan (1) Infection of left knee: (2) History of diabetes mellitus: (3) Quadriceps tendon rupture: Plan 78yo M with h/o lung cancer s/p VIANEY lobectomy in 2017, T2DM, CAD s/p PCI, OA, s/p L3/4 and L4/5 laminectomy with fusion in , COPD, PVD s/p angioplasty, admission in November 2023 with left quadriceps tendon rupture after tripping s/p repair on 12/20/23 c/b surgical site infection on 01/18 tx with Bactrim for 2-3 weeks (completed 2 weeks prior) who presented on 03/21 for left knee surgery. He continued to have pain and c/f poor wound healing and was scheduled for I+D. Here he has been afebrile, vss. Labs from 03/18 note no leukocytosis, Cr 1.26. ESR 46, CRP 3.98. He is s/p revision of left knee quadriceps tendon repair with I+D of left knee on 03/21 (per op note, quad tendon fascia defect probed and easily entered joint, soft tissue and degenerative tendon along with knee debrided). ID consulted 03/21. OR cx no growth. Given probe to joint noted in the OR, will treat for joint infection. No growth in cultures from the OR. He has been doing well on current antibiotics. Since no MRSA, will de-escalate to cefazolin for coverage of MSSA from outpatient cultures. Will continue this for 4 weeks for c/f [place] joint infection. # Left [place] knee joint infection # Recent left quadriceps tendon rupture s/p repair November 2023 c/b surgical site infection # h/o diabetes - f/u finalized OR cx - Odalis stopped vancomycin - continue cefazolin 2g IV q8h Discharge plan: - continue cefazolin 2g IV q8h (or 6g IV continuous infusion q24h for ease of administration) - duration will be 4 weeks starting from 03/21 (end through 04/17) - if hes improving clinically, can consider changing to PO regimen after 2 weeks of IV (ie cephalexin 500mg PO q6h), otherwise complete with IV - monitor weekly CBC w diff, CMP, ESR, CRP while on IV abx - f/u with either PCP or local ID provider ID will discontinue active follow up at this time. Please do not hesitate to reconsult the Infectious Diseases service as needed. Racquel Cornejo MD [facility], Division of Infectious Diseases [facility]: [phone] Admission and Anticipated Discharge Date Admission Date: March 21, 2024 Subjective Subsequent visit was provided via telemedicine using two-way real-time interactive telecommunication between the patient and the telemedicine provider. For the duration of the visit, the provider was performing the assessment from a different facility than the patient. This includesuse of bluetooth stethoscope forauscultationperformed by the telepresenter that the telemedicine provider can hear if described in the physical exam. Instrument Engineer contact information: Please call [facility] Call Center [phone]. (Phone Number For Physician Use Only) After establishing a telemedicine visit, patient was: Patient was verified with two unique identifiers, Patient/authorized rep acknowledged consent and understanding and Gave permission to continue telehealth session Time Spent with Patient: Subsequent => 35 min Patient reports doing well. He has tried ambulating and noticed feeling a little SOB with ambulation. He has not had any diarrhea, no abdominal pain. Notes lower abdomen was a little uncomfortable earlier. No rashes. Physical Exam Physical Exam: General: Awake, alert, no acute distress HEENT: NC/AT, EOMI, mmm Neck: supple Lungs: respirations non-labored Heart: nl peripheral perfusion Abdomen: soft, NT/ND Ext: left leg with dressing Results & Data Vital Signs (Past 12 Hours) Vital Signs Temp Pulse Resp BP Pulse Ox O2 Del Method 03/23/24 07:31 36.7 C 72 16 151/67 H 94 Room Air Laboratory Results 01/18 WCX (left knee): MSSA 03/21 OR cx (left knee): no growth, gram stain negative, moderate polys (3) Quadriceps tendon rupture Encounter type: subsequent encounter Laterality: left Qualified Code(s): S76.112D - Strain of left quadriceps muscle, fascia and tendon, subsequent encounter
[2024-03-23] MEDS: VANCOMYCIN LEVEL ONE (09:59)
[2024-03-23] MEDS: TAMSULOSIN HCL 0.4 MG CAP PO SCH (11:20)
--- NOTE | 2024-03-23 13:25 | Urology Consultation ---
Date of Consultation March 23, 2024 Assessment & Plan (1) Urinary retention: 78 yo/M admitted after scheduled revision of left knee quadriceps tendon repair with I&D on 03/21/[address] Martini. He is on IV antibiotics for left knee infection. He developed urinary retention during hospitalization and urology is consulted for management. He reports history of BPH s/p TURP 6-7 years ago Urinary retention is currently managed with Almendarez catheter Recommend maintain Almendarez catheter for 1 week We can arrange voiding trial in our office Recommend start Tamsulosin Recommend bowel regimen to normalize bowels Will arrange outpatient follow-up with our service Continue post-op and medical management per primary teams will sign off, please contact our service with any additional questions or concerns History of Present Illness Attending Physician: Rickey Martini MD History of Present Illness This is a 78-year-old male who was admitted after scheduled revision of left knee quadriceps tendon repair with I&D on 03/21/[address] Martini. He is on IV antibiotics for infection of left knee. He developed urinary retention during hospitalization and urology is consulted for management. He had elevated bladder scan on 03/22 and Almendarez catheter was placed. He has been on vancomycin and cefazolin for his left knee infection. ID following. Vancomycin was discontinued today. He will continue on cefazolin for 4 weeks. Labs today reviewedcreatinine 1.43, WBC 8.90, hemoglobin 9.1. Patient seen and examined at bedside. He is awake and sitting up eating lunch. He reports difficulty voiding after surgery. No dysuria or hematuria. He reports he moved his bowels yesterday for the first time since surgery. Reports prior history of urinary retention after surgery. History of BPH s/p TURP about 6 to 7 years ago in [place]. He does not currently follow with a urologist. He is on Myrbetriq at home for urinary urgency. Denies other bothersome LUTS at [facility]. Allergies Allergy/AdvReac Type Severity Reaction Status Date / Time No Known Allergies Allergy Verified 03/21/24 07:32 Home Medications Medication Instructions Recorded Confirmed Type diabetic supplies, miscellan. #1 ea 12/31/20 03/18/24 History diphenhydramine HCl 25 mg capsule 25 mg PO QAM PRN Congestion 07/17/22 03/21/24 History (Benadryl) multivitamin 1 tab PO QAM 08/18/22 03/21/24 History nitroglycerin 0.4 mg sublingual 0.4 mg sublingual Q5M PRN chest 08/29/22 03/21/24 Rx tablet pain #30 tabs acetaminophen 500 mg tablet 500 mg PO Q6H PRN Pain 09/26/22 03/21/24 History magnesium 200 mg tablet 400 mg PO HS 09/26/22 03/21/24 History omeprazole 20 mg capsule,delayed 20 mg PO QPM 09/26/22 03/21/24 History release potassium gluconate 600 mg (99 mg) 600 mg PO QAM 09/26/22 03/21/24 History tablet atorvastatin 40 mg tablet 40 mg PO HS #90 tabs 04/06/23 03/21/24 Rx Auto Titrating CPAP #1 ea 05/30/23 03/18/24 Rx CPAP Supplies #1 ea 05/30/23 03/18/24 Rx albuterol sulfate 90 mcg/actuation 2 puff inhalation Q6H PRN 10/02/23 03/21/24 Rx aerosol inhaler Shortness Of Breath Or Wheezing #18 grams umeclidinium 62.5 mcg-vilanterol 1 inh inhalation DAILY #3 Inhalers 10/02/23 03/21/24 Rx 25 mcg/actuation powdr for inhalation (Anoro Ellipta) benazepril 10 mg tablet 10 mg PO QAM #90 tabs 10/08/23 03/21/24 Rx clopidogrel 75 mg tablet 75 mg PO QAM #90 tabs 10/08/23 03/21/24 Rx fenofibrate 160 mg tablet 160 mg PO QAM #90 tabs 10/08/23 03/21/24 Rx hydrocortisone 2.5 % topical cream 1 applic topical BID PRN Other 12/18/23 03/21/24 History ketoconazole 2 % topical cream 1 applic topical BID PRN Other 12/18/23 03/21/24 History metformin 1,000 mg tablet 1,000 mg PO HS 12/18/23 03/21/24 History docusate sodium 100 mg capsule 100 mg PO BID #0 caps 12/24/23 03/21/24 Rx polyethylene glycol 3350 17 gram 17 g PO DAILY #0 ea 12/24/23 03/21/24 Rx oral powder packet (Miralax) aspirin 81 mg tablet,delayed 81 mg PO BID 6 weeks #84 tabs 01/08/24 03/21/24 Rx release (Enteric Coated Aspirin) melatonin 10 mg capsule 3 mg (0.3 x 10 mg) PO HS PRN sleep 01/08/24 03/21/24 Rx #30 caps mirabegron 50 mg tablet,extended 50 mg PO QAM #90 tabs 02/11/24 03/21/24 Rx release 24 hr (Myrbetriq) metoprolol tartrate 25 mg tablet 12.5 mg (1/2 x 25 mg) PO BID #180 03/03/24 03/21/24 Rx tabs Patient History Medical History History of colon polyps Hearing loss Acid reflux Osteoarthritis History of non-ST elevation myocardial infarction (NSTEMI) 06/2022 Peripheral vascular disease, unspecified SJ (obstructive sleep apnea) CPAP Carotid artery stenosis Under surveillance by vascular Carotid duplex 01/2023: 50-69% B/L ICA stenosis. No significant change compared to 04/15/2022 study per report. Hyperlipidemia Per records Anemia Chronic Peripheral arterial disease Hypertension Diabetes NIDDM Glaucoma CAD (coronary artery disease) RCA stent (~2014) CABG x2 (06/2022) Follows with [facility] cardio COPD (chronic obstructive pulmonary disease) BPH (benign prostatic hyperplasia) Hx of basal cell carcinoma H/O: lung cancer 2016- Left Upper Lobectomy Currently under surveillance, no current/recent issues Surgical History H/O left knee surgery Patellar tendon repair 11/2023 History of Mohs micrographic surgery for skin cancer H/O right coronary artery stent placement (~2014) H/O angioplasty L femoral in 2005 and 11/2020, R femoral in 2018 and 10/2019 History of coronary artery bypass graft CABGx2 (06/2022) History of selective laser trabeculoplasty History of prostate surgery Green Light Laser procedure [facility] History of colonoscopy History of cardiac cath 06/2022 [facility] > transferred to [facility] for CABG Status post biopsy of skin S/P coronary artery stent placement H/O umbilical hernia repair History of lobectomy of lung VIANEY for stage 1A lung cancer (2016) H/O cataract extraction R/L H/O laminectomy L3/4 1990 L4/5 w/ fusion 1992 H/O vasectomy H/O right knee surgery Family History Brother Lung cancer Father Heart disease Hypertension Mother Cerebral aneurysm Other No family history of adverse response to anesthesia Social History Smoking Status: Former smoker Tobacco Type: Cigarettes Age Started Using Tobacco: 19; Age Quit Using Tobacco: 69; packs per day: 1.5; Cigarettes Per Day: 30; Smoking End Date: quit ~2014; Second Hand Exposure: No; Do You Dip or Chew Tobacco: No; Tobacco Cessation Education Requested by Patient: No Hx Alcohol Use: Yes Alcohol type: beer Alcohol Intake Frequency: Monthly or Les s Hx Substance Use: No Preferred Language: Dutch Communication Ability: Effective Visual Impairment: No Limitations Hearing Ability: Normal Orchid Hand Required: No Beliefs That Will Affect Care: None marital status: Current Living Situation: Family Current Living Situation Comment: lives with Shayy mendoza current occupational status: retired current occupation: Retired Other Information That Helps Us Care for You: No Feels Safe at Home: Yes Safety Concerns: Feels Safe At This Time Childhood Exposure to Second-Hand Smoke: No Diet: regular Dental Care, Regularly: No Physical Activity Frequency: Daily Seatbelt Use: always Sunscreen Use: Yes Assistive Devices: Cane and Walker Review of Systems Review of Systems: All systems reviewed & are unremarkable except as noted in HPI & below Physical Exam Constitutional: no acute distress Respiratory: normal respiratory effort; no respiratory distress and no labored breathing Gastrointestinal (Abdomen): Inspection/Auscultation: abdomen normal to inspection Musculoskeletal: Head/Neck/Chest: normocephalic Neurologic: moves all extremities and awake Psychiatric: Orientation: alert and oriented x 3 Genitourinary: Almendarez patent and draining yellow urine Results & Data Vital Signs (Past 12 Hours) Vital Signs Temp Pulse Resp BP Pulse Ox O2 Del Method 03/23/24 07:31 36.7 C 72 16 151/67 H 94 Room Air PG Care Time/CCT Total # of Minutes Spent Total Time Spent with Patient: Total time spent is greater than 50% in coordination of care (as documented) at patient's floor/unit and/or counseling patient: Coding Level of Care Code 10227 INT INP/OBS CARE MIN Diagnoses Urinary retention R33.9
[2024-03-24] MEDS ORDERED: VANCOMYCIN HCL 1,500 MG in SODIUM CHLORIDE 0.9% 500 ML IV SCH (06:00)
[2024-03-24 09:10] LABS: Hematocrit (blood only) 27.8 % (42.0-52.0); Hemoglobin 9.1 g/dl (14.0-18.0); Mean Corpuscular Hemoglobin 29.4 pg (25.0-34.0); Mean Corpuscular Hgb Conc 32.7 g/dL (32.0-36.0); Mean Platelet Volume 9.7 fL (9.4-12.4); Platelet Count 282 K/uL (130-400); RDW Coefficient of Variation 13.4 % (11.5-14.5); RDW Standard Deviation 43.9 fL (36.4-46.3); Red Blood Count 3.09 M/uL (4.70-6.10); White Blood Count 8.99 K/ul (4.8-10.8)
--- NOTE | 2024-03-24 09:25 | Pharmacy Report ---
Pharmacy Glycemic Short Note 2 - Date of Service March 24, 2024 - Glycemic Short BSG Results (Last 24 hours): 03/23/24 03/23/24 03/23/24 11:16 16:46 20:33 POC Glucose 199 H 126 H 192 H 03/24/24 07:38 POC Glucose 153 H OUTPATIENT ANTIDIABETIC REGIMEN: * Metformin 1 g PO HS HbA1c: 7.6% (01/19/24) ASSESSMENT: 03/24/24: * Stressors stable, now POD #3 * AM fasting BSG slightly above goal this AM, but Lantus not yet at steady state from the increase yesterday. Will continue same dose * Post-prandial BSG's w two >180 mg/dL yesterday. CHO ratio was tightened slightly. Will continue same for now. 03/22/24: * POD #1, no ongoing steroids * Blood sugars trended down nicely following surgery yesterday (206 -> 185 -> 154 mg/dL) * Fasting blood sugar of 132 mg/dL this morning * Will loosen Novolog and decrease basal today now that steroids have been discontinued 03/21/24: * EA is a 78 year old male POD #0 s/p quadriceps tendon repair * Received 4 mg IV dexamethasone in OR, no ongoing steroids ordered at this time * Preop blood sugar of 167 mg/dL, postop blood sugar of 197 mg/dL * Will give ~0.3 unit/kg one-time basal dose now w/ weight-based stress of 3 Novolog parameters PLAN FOR INPATIENT GLYCEMIC CONTROL: * Hold outpatient metformin * Basal insulin * Lantus 15 units SC daily * Bolus insulin * NovoLog per scale ACHS or Q6hrs while NPO * Goal Range: Low 110 mg/dL - High 140 mg/dL * Correction Factor: 25 mg/dL/unit * Nutritional / Prandial insulin per carb ratio of 1 unit per 7 grams CHO consumed
[2024-03-24 10:06] LABS: Creatinine Clr Calc Pharmacy 60.4 ml/min; Est GFR (African American) 72.8 ml/min; Est GFR (Non-African American) 62.8 ml/min
--- NOTE | 2024-03-24 10:52 | Orthopedic Progress Note ---
Date of Service March 24, 2024 Assessment & Plan (1) Quadriceps tendon rupture: Plan: Continue with observation. Keep the cast in place and dry. Weight-bear as tolerated with his walker. POD #3 s/p Left knee I&D, quadriceps tendon revision repair, due to infection and failed repair, doing as well as expected. Resume diet. OOB to chair. Continue pain control. Urinary retention, Almendarez placed. Urology recommended follow-up in the office in a week for a catheter challenge. Continue monitoring labs Will need weekly labs: CBC, ESR, CRP DVT prophylaxis: TEDs 3 weeks, Foot pumps BLE while in hospital, Resume Plavix and ASA. PT/OT. D/C planning home vs SNF. ID recommendation of min 4 weeks IV Abx, continue Vanco & Ancef for now awaiting C&S results. Plan: Admission and Anticipated Discharge Date Admission Date: March 21, 2024 Subjective This 78-year-old male is seen today in his room. He had a cylindrical cast placed on his left leg yesterday. He states is feeling fine. He has no areas of pressure, discomfort, or abrasion. He has been out of bed and is using his walker. No additional complaints at this point. He is wondering when he can be discharged. Physical Exam Physical Exam: General: Well-developed, elderly male, in no acute distress. Laying in bed. Alert and oriented. Skin: Warm and dry with fair turgor. No rashes. No ecchymosis or significant edema in his ankle or foot. No areas of skin breakdown at either end of the cast. Musculoskeletal: The patient has intact motor function of his ankle and toes. No knee motion was performed due to the cast. Neurologic: Gross sensation is intact across the left foot and ankle by soft touch. Peripheral pulses are 2+. Results & Data Vital Signs (Past 12 Hours) Vital Signs Temp Pulse Resp BP Pulse Ox O2 Del Method 03/24/24 07:43 36.5 C 65 18 150/73 H 95 Room Air Laboratory Results CBC obtained this morning shows a white count of 8.99. H&H of 9.1 and 27.8. Platelets 282,000. Creatinine this morning is 1.1. Glucose 153. (1) Quadriceps tendon rupture Encounter type: subsequent encounter Laterality: left Qualified Code(s): S76.112D - Strain of left quadriceps muscle, fascia and tendon, subsequent encounter
--- NOTE | 2024-03-24 11:18 | Hospitalist Progress Note ---
Date of Service March 24, 2024 Assessment & Plan (1) Quadriceps tendon rupture: Plan: Mr. Valderrama is a 78 y/o gentleman with past medical history of lung cancer s/p VIANEY lobectomy in 2017, T2DM, CAD s/p PCI, OA, s/p L3/4 and L4/5 laminectomy with fusion in , COPD, PVD s/p angioplasty, admission in November 2023 with left quadriceps tendon rupture after tripping s/p repair on 12/20/23 c/b surgical site infection on 01/18 tx with Bactrim for 2-3 weeks (completed 2 weeks prior) who presented on 03/21 for left knee surgery. - Left knee I&D and quadriceps tendon revision repair on 03/21/[address] Martini. - Pain regimen, bowel regimen, VTE PPx, discharge planning per primary team. - Initially had some urinary retention postop, which had resolved and patient was voiding independently. However, night of 03/22, he started having urinary frequency, urgency, and retention. > Almendarez catheter was placed PM 03/22. Follow-up with urology outpatient. > Already on antibiotic for left knee infection, so obtaining a urine culture would be low-yield at this point to evaluate for acute UTI. > Continue tamsulosin 0.4 mg daily in setting of postoperative urinary retention. - PT/OT recommending rehab. Referral made to [facility]. - Acute blood loss anemia secondary to surgery. Hgb stable at 9.1, not requiring transfusion at this time. Patient is medically stable for discharge from hospital medicine's perspective. We will sign off at this time. Please reach out with any questions or concerns. (2) Infection of left knee: Plan: Patient originally admitted to the hospital in November 2023 with a quadricep tendon rupture. In December physical therapy noticed redness of surgical incision and mild drainage. He then seen in the outpatient orthopedic office and drainage culture had been sent which was positive for MSSA. He was then started on Bactrim. He was seen in the ED on 01/24 for wound drainage and recommended to continue on Bactrim. He had completed a 2 to 3-week course outpatient. He presented for an I&D on 03/21/2024. - Left knee wound culturepreliminary, no growth to date. - Infectious disease consulted > Continue IV cefazolin for total of 4-week treatment, last dose 04/17/2024. IV vancomycin discontinued 03/23. > Monitor weekly CBC with differential, CMP, ESR, CRP while on IV antibiotic. > If improving clinically, can consider changing to p.o. regimen (cefazolin 500 mg p.o. every 6 hours) after 2 weeks of IV. (3) Type 2 diabetes mellitus: Plan: Patient on metformin at home - currently on hold inpatient - Lantus 30 units - NovoLog sliding scale - Goal range 110-140mg/dL - CF 20mg/l - Carb ratio 1:6 grams - Hgb A1c 7.8% on 03/22 -- fairly good diabetic control, could follow-up with PCP in outpatient setting for further fine-tuning of his home regimen. Plan Patient is medically stable for discharge from hospital medicine's perspective. We will sign off at this time. Please reach out with any questions or concerns. Chronic conditions: CAD: Continue Plavix and aspirin Hypertension: Continue Enalapril and metoprolol COPD: Continue Anora Ellipta daily and albuterol as needed SJ: Continue CPAP BPH: Continue Gemtesa Hyperlipidemia: Continue statin GERD: Continue PPI DVT prophylaxis: TEDS 3 weeks RLE, SCDs while inpatient, Plavix and aspirin resumed Code status: full Disposition: defer to primary team Diet: carb consistent Admission and Anticipated Discharge Date Admission Date: March 21, 2024 Subjective Patient seen and evaluated at bedside. He is in high spirits today and anxious to be discharged. He reports that he has been ambulating with rolling walker, his pain is well-controlled with medication, and he had a bowel movement this morning. We discussed that since Ortho is primary, they are in charge of his discharge disposition but hopefully he can go to [facility] for rehab soon. He is to follow-up with urology in 1 week for his Almendarez catheter. He denies any problems with his Almendarez catheter since insertion. He denies any chest pain, shortness of breath, abdominal pain, nausea, vomiting, diarrhea, lightheadedness, dizziness. No additional complaints or concerns at this time. Physical Exam Physical Exam: General: No acute distress, nondiaphoretic, well-developed, well-nourished. Cardiac: Regular rate and rhythm without murmurs gallops or rubs. Pulm: Clear to auscultation bilaterally without wheezes, rales or rhonchi. No respiratory distress. 95% on room air. Abdominal: Soft, nontender, nondistended. Bowel sounds present. Neuro: A&O x3. No focal neurological deficits. MSK: Hard cast to left lower extremity. Able to wiggle toes. Sensation intact in left lower extremity. Results & Data Results & Data Vital Signs (Past 12 Hours) Vital Signs Temp Pulse Resp BP Pulse Ox O2 Del Method 03/24/24 07:43 97.7 F 65 18 150/73 H 95 Room Air Laboratory Results Reviewed CBC Reviewed chemistries PG Care Time/CCT Total # of Minutes Spent Total Time Spent with Patient: Total time spent is greater than 50% in coordination of care (as documented) at patient's floor/unit and/or counseling patient: Coding Level of Care Code 59835 SUB INP/OBS CARE 2/35MIN Diagnoses Rupture of left quadriceps tendon, subsequent encounter S76.112D Encounter type: subsequent encounter Laterality: left Infection of left knee M00.9 Type 2 diabetes mellitus without complication, without long-term current use of insulin E11.9 Diabetes mellitus nursing home insulin use: without rodent exterminator use Diabetes mellitus complication status: without complication (1) Quadriceps tendon rupture Encounter type: subsequent encounter Laterality: left Qualified Code(s): S76.112D - Strain of left quadriceps muscle, fascia and tendon, subsequent encounter (3) Type 2 diabetes mellitus Diabetes mellitus nursing home insulin use: without nursing home use Diabetes mellitus complication status: without complication Qualified Code(s): E11.9 - Type 2 diabetes mellitus without complications
[2024-03-24 21:06] VITALS: RESP 16; TEMP 97.3
[2024-03-25 07:54] LABS: Basophils # (auto) 0.01 K/uL (0.00-0.20); Basophils % (auto) 0.1 %; Eosinophils # (auto) 0.25 K/uL (0.00-0.50); Eosinophils % (auto) 2.7 %; Hematocrit (blood only) 26.4 % (42.0-52.0); Hemoglobin 8.6 g/dl (14.0-18.0); Immature Granulocytes # (auto) 0.07 K/uL (0.01-0.20); Immature Granulocytes % (auto) 0.7 %; Lymphocytes # (auto) 2.86 K/uL (1.20-3.40); Lymphocytes % (auto) 30.5 %; Mean Corpuscular Hgb Conc 32.6 g/dL (32.0-36.0); Mean Corpuscular Volume 88.9 fL (80.0-100.0); Mean Platelet Volume 9.7 fL (9.4-12.4); Monocytes # (auto) 1.13 K/uL (0.11-0.59); Neutrophils # (auto) 5.07 K/uL (1.40-6.50); Platelet Count 308 K/uL (130-400); RDW Coefficient of Variation 13.6 % (11.5-14.5); Red Blood Count 2.97 M/uL (4.70-6.10); White Blood Count 9.39 K/ul (4.8-10.8)
--- NOTE | 2024-03-25 08:00 | Pharmacy Report ---
Pharmacy Glycemic Sign Off Nt - Date of Service March 25, 2024 - Assessment & Plan ASSESSMENT: * Pharmacy consulted for glycemic management. * BSG's well controlled over last 24 hours ranging 127-174 mg/dL. * Stable insulin regimen x2 days, stressors stable as well. * Pharmacy is signing off now - Dr. Martini is aware PLAN FOR INPATIENT GLYCEMIC CONTROL: No changes needed to current regimen. * Continue basal insulin with Lantus 15 units SQ daily * Continue NovoLog per scale ACHS/Q6hrs while NPO * Goal range = 110 140 mg/dl * CF = 25 mg/dl/unit * CR = 1 unit for ever 7 g CHO consumed * Pharmacy is signing off of glycemic consult and will no longer be making adjustments to inpatient regimen. Please feel free to re-consult if needed. Thank you.
[2024-03-25 08:07] LABS: C Reactive Protein 11.17 mg/dl (0-0.5)
[2024-03-25 08:10] VITALS: PULSE 66; O2SAT 93
[2024-03-25 09:13] LABS: Creatinine Clr Calc Pharmacy 51.1 ml/min; Est GFR (African American) 59.6 ml/min; Est GFR (Non-African American) 51.4 ml/min
[2024-03-25 10:48] VITALS: BP 147/56
--- NOTE | 2024-03-25 10:59 | Orthopedic Progress Note ---
Date of Service March 25, 2024 Assessment & Plan (1) Quadriceps tendon rupture: Plan: Keep the cast in place and dry. Weight-bear as tolerated with his walker. POD #4 s/p Left knee I&D, quadriceps tendon revision repair, due to post-op infection and failed repair, doing as well as expected. Resume diet. OOB to chair. Continue pain control. Urinary retention, Almendarez placed. Urology recommended follow-up in the office in a week for a catheter challenge. Culture show no growth Will need weekly labs: CBC, ESR, CRP & CMP DVT prophylaxis: TEDs 3 weeks, Foot pumps BLE while in hospital, Resume Plavix and ASA. PT/OT. Will D/C to [facility] later today ID recommendation of min 4 weeks IV Abx, (Rocephin 2 grams IV q 8 hrs x 4 weeks) through his PICC line. Follow up at [facility] as scheduled on 03/30/24 with Anuradha Garay Admission and Anticipated Discharge Date Admission Date: March 24, 2024 Subjective Patient is 4 days status post irrigation debridement of left knee with revision quadriceps tendon repair. He is in high spirits today and anxious to be discharged. He reports that he has been ambulating with rolling walker, his pain is well-controlled with medication, and he had a bowel movement this morning. Patient is cleared to go to [facility] after 1230 today. He is to follow-up with urology in 1 week for his Almendarez catheter. He denies any problems with his Almendarez catheter since insertion. He denies any chest pain, shortness of breath, abdominal pain, nausea, vomiting, diarrhea, lightheadedness, dizziness. No additional complaints or concerns at this time. Review of Systems Review of Systems: All systems reviewed & are unremarkable except as noted in Subjective Physical Exam Physical Exam: Left lower extremity: Cast is clean dry and intact and left in place. He is able to perform an active straight leg raise test. He is able to dorsi and plantarflex his foot actively. He is able to preform straight leg raise in cast. He is able to detect light sensation to touch over the pads of all digits. He is neurovascularly intact in the left lower extremity. Results & Data Vital Signs (Past 12 Hours) Vital Signs Temp Pulse Resp BP Pulse Ox O2 Del Method 03/25/24 10:47 147/56 H 03/25/24 08:00 36.3 C L 66 16 130/54 L 93 Room Air Diagnostic Findings Laboratory Results WBC 9.39 K/ul (4.8-10.8) 03/25/24 07:31 RBC 2.97 M/uL (4.70-6.10) L 03/25/24 07:31 Hgb 8.6 g/dl (14.0-18.0) L 03/25/24 07:31 Hct 26.4 % (42.0-52.0) L 03/25/24 07:31 MCV 88.9 fL (80.0-100.0) 03/25/24 07:31 MCH 29.0 pg (25.0-34.0) 03/25/24 07: MCHC 32.6 g/dL (32.0-36.0) 03/25/24 07:31 RDW Std Deviation 44.0 fL (36.4-46.3) 03/25/24 07:31 RDW Coeff of Galilea 13.6 % (11.5-14.5) 03/25/24 07:31 Plt Count 308 K/uL (130-400) 03/25/24 07:31 MPV 9.7 fL (9.4-12.4) 03/25/24 07:31 Immature Gran % (Auto) 0.7 % 03/25/24 07:31 Neut % (Auto) 54.0 % 03/25/24 07:31 Lymph % (Auto) 30.5 % 03/25/24 07:31 [place] % (Auto) 12.0 % 03/25/24 07:31 Eos % (Auto) 2.7 % 03/25/24 07:31 Baso % (Auto) 0.1 % 03/25/24 07:31 Neut # (Auto) 5.07 K/uL (1.40-6.50) 03/25/24 07:31 Lymph # (Auto) 2.86 K/uL (1.20-3.40) 03/25/24 07:31 [place] # (Auto) 1.13 K/uL (0.11-0.59) H 03/25/24 07:31 Eos # (Auto) 0.25 K/uL (0.00-0.50) 03/25/24 07:31 Baso # (Auto) 0.01 K/uL (0.00-0.20) 03/25/24 07:31 Immature Gran # (Auto) 0.07 K/uL (0.01-0.20) 03/25/24 07:31 ESR 53 mm/hr (0-20) H 03/25/24 07:31 PT 11.0 Seconds (9.0-12.0) 03/21/24 07:31 INR 1.0 (0.9-1.1) 03/21/24 07:31 APTT 27 Seconds (21-31) 03/21/24 07:31 PTT Ratio 1.0 03/21/24 07:31 Sodium 142 mmol/L (136-145) 03/22/24 06:43 Potassium 4.1 mmol/L (3.5-5.1) 03/22/24 06:43 Chloride 109 mmol/L (98-107) H 03/22/24 06:43 Carbon Dioxide 25 mmol/L (21-32) 03/22/24 06:43 Anion Gap 8 (3-11) 03/22/24 06:43 BUN 42 mg/dl (6-23) H 03/22/24 06:43 Creatinine 1.31 mg/dl (0.6-1.4) 03/25/24 07:31 Est Cr Clr Drug Dosing 51.1 ml/min 03/25/24 07:31 Est GFR ( Amer) 59.6 ml/min 03/25/24 07:31 Est GFR (Non-Af Amer) 51.4 ml/min 03/25/24 07:31 BUN/Creatinine Ratio 26.8 (10-20) H 03/22/24 06:43 Glucose 136 mg/dl (70-99(Fasting)) H 03/22/24 06:43 POC Glucose 157 mg/dl (70-99) H 03/25/24 07:27 Estimat Average Glucose 177 mg/dl 03/22/24 06:43 Hemoglobin A1c 7.8 % (4.5-5.6) H 03/22/24 06:43 Calcium 8.6 mg/dl (8.6-10.3) 03/22/24 06:43 C-Reactive Protein 11.17 mg/dl (0-0.5) H 03/25/24 07:31 Vancomycin Trough < 3.0 mcg/ml (10-20) L 03/21/24 12:23 Random Vancomycin 9.6 mcg/ml (10-20) L 03/23/24 05:29 (1) Quadriceps tendon rupture Encounter type: subsequent encounter Laterality: left Qualified Code(s): S76.112D - Strain of left quadriceps muscle, fascia and tendon, subsequent encounter
--- NOTE | 2024-03-25 13:17 | Discharge Summary ---
Date of Service March 25, 2024 Principal Diagnosis Status post left knee quadriceps tendon repair and incision and drainage with Dr. Martini Discharge Data Allergies Allergy/AdvReac Type Severity Reaction Status Date / Time No Known Allergies Allergy Verified 03/21/24 07:32 Consultations 03/21/24 12:10 Consult Hospitalist Routine Consult Infectious Diseases Routine 03/23/24 10:45 Consult Urology Routine Procedures Performed Operation Date: 03/21/24 08:45 Actual Procedures p Revision of Left Knee Quadriceps Tendon Repair(Left) - Rickey Martini MD s with Irrigation and Debridement(Left) - Rickey Martini MD Ordered Studies 03/21/24 07:47 US - OR guided needle placemen Routine Hospital Course (1) Quadriceps tendon rupture: Keep the cast in place and dry. Weight-bear as tolerated with his walker. POD #4 s/p Left knee I&D, quadriceps tendon revision repair, due to post-op infection and failed repair, doing as well as expected. Resume diet. OOB to chair. Continue pain control. Urinary retention, Almendarez placed. Urology recommended follow-up in the office in a week for a catheter challenge. Culture show no growth Will need weekly labs: CBC, ESR, CRP & CMP DVT prophylaxis: TEDs 3 weeks, Foot pumps BLE while in hospital, Resume Plavix and ASA. PT/OT. Will D/C to [facility] later today ID recommendation of min 4 weeks IV Abx, (Rocephin 2 grams IV q 8 hrs x 4 weeks) through his PICC line. Follow up at [facility] as scheduled on 03/30/24 with Anuradha Garay Total Time Total Time Spent Total Time Spent (In Minutes): 30 minutes Discharge Plan Discharge Items Patient Disposition: Transfer Inpatient Rehab Fac Reason For Visit: Left Quad Tendon, repair Discharge Diagnosis: left quad tendon repair Activity: Per Instructions section Lifting: None Bathing: Keep incision dry Bathing Comment: May shower tomorrow Sexual Activity: Wait until after follow-up appointment Exercise/Sports: Wait until after follow-up appointment Driving/Machine Use: No driving until cleared by field technical specialist Weightbearing: Left weightbearing Weightbearing Comment: as tolerated with Walker assistance Non-emergency contact: Surgeon Call non-emergency contact if: you have any medication questions, your symptoms worsen, your pain is not controlled, your temperature is above 101, your wound has increased redness and your wound has increased drainage Follow-up/Referrals: Talon Burns DO [Primary Care Provider] - 04/05/24 3:00 pm Ina Rubi PA-C [Physician Label Printer] - 03/30/24 10:30 am Diet: Regular Addtl Attending Provider Instructions: Infectious Disease Instructions - continue cefazolin 2g IV q8h (or 6g IV continuous infusion q24h for ease of administration) - duration will be 4 weeks starting from 03/21 (end through 04/17) - if hes improving clinically, can consider changing to PO regimen after 2 weeks of IV (ie cephalexin 500mg PO q6h), otherwise complete with IV - monitor weekly CBC w diff, CMP, ESR, CRP while on IV abx - f/u with either PCP or local ID provider Orthopedic instructions -Keep cast on left leg at all times. Keep it clean and dry. -May weight-bear as tolerated on left lower extremity with assistance of walker crutches. -Elevate left lower extremity above heart as needed for pain and swelling. -May do ankle and hip range of motion as tolerated. -Pain medication as ordered. -IV antibiotics as instructed by infectious disease. -Call [phone] with any increased pain, swelling, fevers, chills, redness or warmth. Issues with the cast. -Follow-up with [facility] as scheduled. -Continue home medications as ordered. Pending Studies at Discharge: No Stand-Alone Forms: My [employer], Work/School Release, Smoking Cessation Skilled Items Patient informed of condition?: Yes DNR: No Discharge Level of Care: Acute rehab Communicable Disease: No Discharge Prognosis: Stable Lines: PICC Urinary Catheter: Yes Medications and DC Order Prescriptions: New oxycodone 5 mg Tablet 5 - 10 mg PO Q4H MDD Ongoing Tx PRN (Reason: Post op pain control) Qty: 28 0RF Continued atorvastatin 40 mg tablet 40 mg PO HS Qty: 90 3RF (DME) Auto Titrating CPAP Misc See Rx Instructions .MEDSUPPLY Qty: 1 0RF Rx Instructions: Auto PAP with 5-15 cm H20. Lifetime usage. G47.33 (DME) CPAP Supplies Misc See Rx Instructions .MEDSUPPLY Qty: 1 0RF Rx Instructions: CPAP supplies, mask, headgear, filters, tubing, water chamber. G47.33 clopidogrel 75 mg tablet 75 mg PO QAM Qty: 90 3RF fenofibrate 160 mg tablet 160 mg PO QAM Qty: 90 3RF benazepril 10 mg tablet 10 mg PO QAM Qty: 90 3RF Myrbetriq 50 mg tablet extended release 24 hr 50 mg PO QAM Qty: 90 1RF multivitamin Tablet 1 tab PO QAM nitroglycerin 0.4 mg tablet, sublingual 0.4 mg sublingual Q5M PRN (Reason: chest pain) Qty: 30 5RF Rx Instructions: do not exceed 3 doses per episode (DME) diabetic supplies, miscellan. Misc See Rx Instructions .ROUTE .MEDSUPPLY Qty: 1 Rx Instructions: ONE TOUCH ULTRA- TESTS PRN albuterol sulfate 90 mcg/actuation HFA aerosol inhaler 2 puff inhalation Q6H PRN (Reason: Shortness Of Breath Or Wheezing) Qty: 18 3RF Anoro Ellipta 62.5-25 mcg/actuation blister with device 1 inh inhalation DAILY Qty: 3 4RF metoprolol tartrate 25 mg tablet 12.5 mg PO BID Qty: 180 3RF aspirin [Enteric Coated Aspirin] 81 mg tablet,delayed release (DR/EC) 81 mg PO BID 42 Days Qty: 84 0RF Rx Instructions: x6 ([facility] states at dc 7/10 states 42 more days. )weeks, then resume once daily following melatonin 10 mg capsule 3 mg PO HS PRN (Reason: sleep) Qty: 30 0RF acetaminophen 500 mg tablet 500 mg PO Q6H PRN (Reason: Pain) Rx Instructions: PER PT "USUALLY TAKE 1000 MG AT HS". magnesium 200 mg Tablet 400 mg PO HS potassium gluconate 600 mg (99 mg) Tablet 600 mg PO QAM omeprazole 20 mg Capsule,Delayed Release(Dr/Ec) 20 mg PO QPM diphenhydramine HCl [Benadryl] 25 mg Capsule 25 mg PO QAM PRN (Reason: Congestion) metformin 1,000 mg tablet 1,000 mg PO HS Rx Instructions: Take 1 tablet by mouth once daily hydrocortisone 2.5 % cream 1 applic topical BID PRN (Reason: Other) Rx Instructions: Apply BID to the affected areas. ketoconazole 2 % cream 1 applic topical BID PRN (Reason: Other) Rx Instructions: Apply to the affected areas BID for 4 weeks. docusate sodium 100 mg Capsule 100 mg PO BID Qty: 0 0RF polyethylene glycol 3350 [Miralax] 17 gram Powder In Packet 17 g PO DAILY Qty: 0 0RF Discharge Orders: Discharge Order (Routine); Ordered 03/25/24 Ordered By: Rick Reed/Other Patient Handouts: Managing Type 2 Diabetes Admission Data Admit Date/Time: 03/24/24 13:01 Attending Provider: Rickey Martini Admit Provider: Rickey Martini Primary Care Provider: Talon Burns Other Providers: [facility]; Patrick Cordero; Kristen Castillo; Hilario Partida; Anh Kline; Brianna Sosa; Shady Nicolas; Selena Morrison; Kurtis Lemus; Brock Hernández; Vazquez Machado Other Interventions: Discharge Summary Assessment (RN) Last Done: 03/25/24 15:02
== END 2024-03-25 16:13 | DRG 464 ==
LOC: 3N 07:13 → ASU 07:13

== ENCOUNTER 2024-04-12 17:24 | Inpatient (IN) ==
[2024-04-12 18:01] LABS: Basophils # (auto) 0.01 K/uL (0.00-0.20); Basophils % (auto) 0.1 %; Eosinophils # (auto) 0.12 K/uL (0.00-0.50); Eosinophils % (auto) 1.3 %; Hematocrit (blood only) 25.1 % (42.0-52.0); Hemoglobin 7.9 g/dl (14.0-18.0); Immature Granulocytes # (auto) 0.06 K/uL (0.01-0.20); Immature Granulocytes % (auto) 0.6 %; Lymphocytes # (auto) 2.06 K/uL (1.20-3.40); Lymphocytes % (auto) 22.1 %; Mean Corpuscular Hemoglobin 27.6 pg (25.0-34.0); Mean Corpuscular Hgb Conc 31.5 g/dL (32.0-36.0); Mean Corpuscular Volume 87.8 fL (80.0-100.0); Mean Platelet Volume 9.6 fL (9.4-12.4); Monocytes # (auto) 1.19 K/uL (0.11-0.59); Monocytes % (auto) 12.8 %; Neutrophils # (auto) 5.88 K/uL (1.40-6.50); Neutrophils % (auto) 63.1 %; Platelet Count 409 K/uL (130-400); RDW Standard Deviation 45.2 fL (36.4-46.3); Red Blood Count 2.86 M/uL (4.70-6.10); White Blood Count 9.32 K/ul (4.8-10.8)
[2024-04-12 18:20] LABS: Alanine Aminotransferase 4 U/L (7-52); Albumin Globulin Ratio 0.8 (0.9-2); Albumin Level 3.3 gm/dl (3.4-5.0); Alkaline Phosphatase 46 U/L (34-104); Anion Gap 8 (3-11); Aspartate Aminotransferase 16 U/L (13-39); BUN Creatinine Ratio 26.8 (10-20); Bilirubin,Total 0.3 mg/dl (0.2-1.0); Blood Urea Nitrogen 38 mg/dl (6-23); Carbon Dioxide 23 mmol/L (21-32); Chloride 107 mmol/L (98-107); Glucose 150 mg/dl (70-99(Fasting)); Potassium 4.6 mmol/L (3.5-5.1); Sodium 138 mmol/L (136-145); Total Protein 7.3 gm/dl (6.0-8.3)
[2024-04-12 18:40] LABS: RBC Morphology Unremarkable
--- NOTE | 2024-04-12 20:21 | Emergency Department Note ---
Impression & Plan Weakness, Anemia, KERRY (acute kidney injury), History of left knee surgery ED Provider Note NAME: LINDA GUTIERREZ AGE: 78 SEX: M : 1945 ARRIVES VIA: Walk-In INFORMANT: [Patient] ED PROVIDER(S): [Malvin Palacios MD] CHIEF COMPLAINT: Possible infection HISTORY OF PRESENT ILLNESS: The patient is a 78-year-old male who had a redo and drainage of infection of his left knee on 03/21/2024. The patient states that after discharge from the hospital, he went [facility] the [facility]. He has since been discharged from [facility]. He is now at home. The patient states that in the last several days to 1 week, he has noticed increasing fatigue. He is had some shakes and some sweats. No documented fever. The patient was concerned that he may have redeveloped infection. He has had some difficulty with urination, no urinary burning. He feels he may be retaining urine, he has had to wear a Almendarez catheter before. There has been no cough or cold or chest pain, no shortness of breath. No abdominal pain or vomiting. Of note, the patient is still on 2 g of Ancef 3 times a day. He is to be on this medication through his PICC line until 04/17/2024. He is due for his next Ancef dose in about an hour. PMHx/PSHx/Social Hx: See Below PHYSICAL EXAM: GENERAL: Patient is in no acute distress. HEENT: No acute trauma, normocephalic atraumatic, mucous membranes moist, no nasal congestion. NECK: No stridor, no adenopathy, no meningismus, trachea is midline. LUNGS: Clear to auscultation bilaterally, no wheeze, no rhonchi, breath sounds equal. HEART: 2/6 systolic murmur, irregular rhythm, normal rate. ABDOMEN: Soft, nontender, no peritonitis. EXTREMITIES: No cyanosis. The patient does have a long left leg cast. There is no foul odor from the cast. There is no evidence for neurovascular compromise in the left lower extremity. PICC line noted to the right upper extremity NEUROLOGIC: Oriented x 3, no acute motor or sensory deficits, no focal weakness. SKIN: No jaundice, no diaphoresis. Somewhat pale. DIFFERENTIAL DIAGNOSIS: Electrolyte imbalance, anemia, renal or liver failure, dehydration, infection, [place], UTI, among others. EMERGENCY DEPARTMENT PROCEDURES: Bladder scan showed about 400 cc, moderate retention. MEDICAL DECISION MAKING: There is no leukocytosis. The patient is anemic. He has a history of anemia but today's value is below his recent baseline. Platelet count slightly elevated at 409. Sed rate is elevated at 55. The sed rate today is slightly higher than his last value. There is evidence for some acute kidney injury with a creatinine 1.42. No electrolyte abnormality in need of emergent correction. ECG shows a sinus rhythm with some PACs, no acute ST elevation. Cardiac enzyme testing x 1 is slightly elevated however, looking back at previous testing, he appears to have a chronically elevated troponin value. C-reactive protein is elevated consistent with inflammation/infection, the value today is above his most recent recorded value. There is no concerning liver enzyme elevation. Urinalysis showed protein, no findings of infection. Bladder scan did show some moderate urinary retention. A Almendarez catheter was required. Chest x-ray did not show any findings of pneumonia. On exam, the patient had a cast on his left lower extremity. He appeared a bit pale. Patient was given a 500 cc saline bolus. I did speak with orthopedics. For now, there is no need to remove the cast. The cast can be removed tomorrow by his orthopedic team and the surgical site formally assessed. The patient is going to be hospitalized. His hemoglobin will need to be trended, he may actually qualify for a transfusion if the value drops further. He will require IV hydration to improve his kidney function. His antibiotics can be continued for now. The patient presents weak and washed out. He was concerned for infection. He may actually just be dehydrated and anemic, a formal orthopedic evaluation is set for tomorrow. I spoke with the patient and case management, the on-call hospitalist was consulted. Prior/Outside records/notes reviewed: Family practice note from 04/05/2024 discussing his recent hospitalization, rehab and outpatient care. ECG per my interpretation: Indication was irregular heartbeat. The ECG shows a sinus rhythm with some PACs. LVH is seen. The rate is 76. There is no acute ST elevation, no PVCs. The QTc is 445. Imaging/x-ray results per my interpretation: Chest x-ray shows some cardiomegaly and some chronic change, no focal pneumonia. Chronic Medical/Social conditions affecting care: Advanced age, recent orthopedic procedure on the left leg. Care/Management discussed with: Case management, the on-call hospitalist. Orthopedics on-call-Dr. Grajeda. Level of care consideration(s): After review of the information above and other included data: --I believe the patient requires escalation of care to admission DISPOSITION: Admission Past Med/Surg History Problem List History of left knee surgery (Acute) KERRY (acute kidney injury) (Acute) Anemia (Acute) Weakness (Acute) Urinary urgency Urinary retention Type 2 diabetes mellitus Quadriceps tendon rupture History of diabetes mellitus Infection of left knee Encounter for pre-operative examination History of colon polyps Acid reflux disease Hearing loss Medical History History of colon polyps Hearing loss Acid reflux Osteoarthritis History of non-ST elevation myocardial infarction (NSTEMI) 06/2022 Peripheral vascular disease, unspecified SJ (obstructive sleep apnea) CPAP Carotid artery stenosis Under surveillance by vascular Carotid duplex 01/2023: 50-69% B/L ICA stenosis. No significant change compared to 04/15/2022 study per report. Hyperlipidemia Per records Anemia Chronic Peripheral arterial disease Hypertension Diabetes NIDDM Glaucoma CAD (coronary artery disease) RCA stent (~2014) CABG x2 (06/2022) Follows with [facility] cardio COPD (chronic obstructive pulmonary disease) BPH (benign prostatic hyperplasia) Hx of basal cell carcinoma H/O: lung cancer 2016- Left Upper Lobectomy Currently under surveillance, no current/recent issues Surgical History H/O left knee surgery Patellar tendon repair 11/2023 History of Mohs micrographic surgery for skin cancer H/O right coronary artery stent placement (~2014) H/O angioplasty L femoral in 2005 and 11/2020, R femoral in 2018 and 10/2019 History of coronary artery bypass graft CABGx2 (06/2022) History of selective laser trabeculoplasty History of prostate surgery Green Light Laser procedure ~2017 at [facility] in [place], [place] History of colonoscopy History of cardiac cath 06/2022 [facility] > transferred to [facility] for CABG Status post biopsy of skin S/P coronary artery stent placement H/O umbilical hernia repair History of lobectomy of lung VIANEY for stage 1A lung cancer (2016) H/O cataract extraction R/L H/O laminectomy L3/4 1990 L4/5 w/ fusion 1992 H/O vasectomy H/O right knee surgery Family History Brother Lung cancer Father Heart disease Hypertension Mother Cerebral aneurysm Other No family history of adverse response to anesthesia Social History Smoking Status: Former smoker Tobacco Type: Cigarettes Age Started Using Tobacco: 19; Age Quit Using Tobacco: 69; packs per day: 1.5; Cigarettes Per Day: 30; Second Hand Exposure: No; Do You Dip or Chew Tobacco: No; Hx Alcohol Use: Yes Alcohol type: beer Alcohol Intake Frequency: Monthly or Less Hx Substance Use: No Preferred Language: Bolivian Communication Ability: Effective Visual Impairment: No Limitations Hearing Ability: Normal Mastic Floor Layer Required: No Beliefs That Will Affect Care: None marital status: Current Living Situation: Family Current Living Situation Comment: lives with Shayy mendoza current occupational status: retired current occupation: Retired Feels Safe at Home: Yes Childhood Exposure to Second-Hand Smoke: No Diet: regular Dental Care, Regularly: No Physical Activity Frequency: Daily Seatbelt Use: always Sunscreen Use: Yes Assistive Devices: Cane and Walker Allergies Allergies Allergy/AdvReac Type Severity Reaction Status Date / Time No Known Allergies Allergy Verified 04/05/24 15:07 Home Meds Home Medications Medication Instructions Recorded Confirmed diabetic supplies, miscellan. #1 ea 12/31/20 04/01/24 diphenhydramine HCl 25 mg capsule 25 mg PO QAM PRN Congestion 07/17/22 04/12/24 (Benadryl) multivitamin 1 tab PO QAM 08/18/22 04/12/24 acetaminophen 500 mg tablet 500 mg PO Q6H PRN Pain 09/26/22 04/12/24 magnesium 200 mg tablet 400 mg PO HS 09/26/22 04/12/24 omeprazole 20 mg capsule,delayed 20 mg PO QPM 09/26/22 04/12/24 release potassium gluconate 600 mg (99 mg) 600 mg PO QAM 09/26/22 04/12/24 tablet hydrocortisone 2.5 % topical cream 1 applic topical BID PRN Other 12/18/23 04/12/24 ketoconazole 2 % topical cream 1 applic topical BID PRN Other 12/18/23 04/12/24 metformin 1,000 mg tablet 1,000 mg PO HS 12/18/23 04/12/24 docusate sodium 100 mg capsule 100 mg PO .COMPLEX 04/05/24 04/12/24 Previous Rx's Medication Instructions Recorded nitroglycerin 0.4 mg sublingual 0.4 mg sublingual Q5M PRN chest 08/29/22 tablet pain #30 tabs atorvastatin 40 mg tablet 40 mg PO HS #90 tabs 04/06/23 Auto Titrating CPAP #1 ea 05/30/23 CPAP Supplies #1 ea 05/30/23 albuterol sulfate 90 mcg/actuation 2 puff inhalation Q6H PRN 10/02/23 aerosol inhaler Shortness Of Breath Or Wheezing #18 grams umeclidinium 62.5 mcg-vilanterol 1 inh inhalation DAILY #3 Inhalers 10/02/23 25 mcg/actuation powdr for inhalation (Anoro Ellipta) benazepril 10 mg tablet 10 mg PO QAM #90 tabs 10/08/23 clopidogrel 75 mg tablet 75 mg PO QAM #90 tabs 10/08/23 fenofibrate 160 mg tablet 160 mg PO QAM #90 tabs 10/08/23 polyethylene glycol 3350 17 gram 17 g PO DAILY #0 ea 12/24/23 oral powder packet (Miralax) aspirin 81 mg tablet,delayed 81 mg PO BID 6 weeks #84 tabs 01/08/24 release (Enteric Coated Aspirin) melatonin 10 mg capsule 3 mg (0.3 x 10 mg) PO HS PRN sleep 01/08/24 #30 caps mirabegron 50 mg tablet,extended 50 mg PO QAM #90 tabs 02/11/24 release 24 hr (Myrbetriq) metoprolol tartrate 25 mg tablet 12.5 mg (1/2 x 25 mg) PO BID #180 03/03/24 tabs oxycodone 5 mg tablet 5 - 10 mg (1 - 2 x 5 mg) PO Q4H 03/25/24 PRN Post op pain control #28 tabs Results & Data (ED) Vital Signs Vital Signs - 24 hr 04/12/24 17:27 04/12/24 19:52 04/12/24 19:57 Temperature 36.8 C Temperature Source Temporal Artery Scan Pulse Rate 84 81 Pulse Rate [Right Finger] 76 Pulse Rate from SpO2 Sensor Respiratory Rate 20 16 Respiratory Effort / Characteristics Non-Labored Non-Labored Respiratory Depth Normal Normal Blood Pressure 174/52 H Blood Pressure [Right Arm] 165/72 H Blood Pressure Mean 92 Blood Pressure Mean [Right Arm] 103 Pulse Oximetry 93 Oxygen Delivery Method Room Air Sepsis Recent Fever Within 48 Hours No Sepsis New/Unexplained Change in Mental Status No Sepsis Action Taken by Nursing No Action Required 04/12/24 20:00 04/12/24 20:57 04/12/24 21:01 Temperature Temperature Source Pulse Rate 75 78 Pulse Rate [Right Finger] Pulse Rate from SpO2 Sensor 73 76 Respiratory Rate 20 15 Respiratory Effort / Characteristics Respiratory Depth Blood Pressure 151/64 H Blood Pressure [Right Arm] Blood Pressure Mean 88 Blood Pressure Mean [Right Arm] Pulse Oximetry 94 98 Oxygen Delivery Method Sepsis Recent Fever Within 48 Hours Sepsis New/Unexplained Change in Mental Status Sepsis Action Taken by Nursing 04/12/24 21:01 04/12/24 21:01 04/12/24 21:06 Temperature Temperature Source Pulse Rate 79 Pulse Rate [Right Finger] Pulse Rate from SpO2 Sensor 70 Respiratory Rate 17 Respiratory Effort / Characteristics Respiratory Depth Blood Pressure 151/64 H 151/64 H Blood Pressure [Right Arm] Blood Pressure Mean 88 88 Blood Pressure Mean [Right Arm] Pulse Oximetry 96 Oxygen Delivery Method Sepsis Recent Fever Within 48 Hours Sepsis New/Unexplained Change in Mental Status Sepsis Action Taken by Nursing 04/12/24 21:10 04/12/24 22:00 Temperature Temperature Source Pulse Rate 75 Pulse Rate [Right Finger] 79 Pulse Rate from SpO2 Sensor 74 Respiratory Rate 19 16 Respiratory Effort / Characteristics Respiratory Depth Blood Pressure 162/76 H Blood Pressure [Right Arm] 151/64 H Blood Pressure Mean 104 Blood Pressure Mean [Right Arm] 93 Pulse Oximetry 95 97 Oxygen Delivery Method Sepsis Recent Fever Within 48 Hours Sepsis New/Unexplained Change in Mental Status Sepsis Action Taken by [facility] Medications Current Medication List: was personally reviewed by me Laboratory Data Attestation: I reviewed the patient's lab results. 04/12/24 17:40 04/12/24 17:40 Lab Results 04/12/24 04/12/24 Range/Units 17:40 20:25 WBC 9.32 (4.8-10.8) K/ul RBC 2.86 L (4.70-6.10) M/uL Hgb 7.9 L (14.0-18.0) g/dl Hct 25.1 L (42.0-52.0) % MCV 87.8 (80.0-100.0) fL MCH 27.6 (25.0-34.0) pg MCHC 31.5 L (32.0-36.0) g/dL RDW Std Deviation 45.2 (36.4-46.3) fL RDW Coeff of Galilea 14.0 (11.5-14.5) % Plt Count 409 H (130-400) K/uL MPV 9.6 (9.4-12.4) fL Immature Gran % (Auto) 0.6 % Neut % (Auto) 63.1 % Lymph % (Auto) 22.1 % [place]rie % (Auto) 12.8 % Eos % (Auto) 1.3 % Baso % (Auto) 0.1 % Neut # (Auto) 5.88 (1.40-6.50) K/uL Lymph # (Auto) 2.06 (1.20-3.40) K/uL G[place]rie # (Auto) 1.19 H (0.11-0.59) K/uL Eos # (Auto) 0.12 (0.00-0.50) K/uL Baso # (Auto) 0.01 (0.00-0.20) K/uL Immature Gran # (Auto) 0.06 (0.01-0.20) K/uL RBC Morphology Unremarkable ESR 55 H (0-20) mm/hr Sodium 138 (136-145) mmol/L Potassium 4.6 (3.5-5.1) mmol/L Chloride 107 (98-107) mmol/L Carbon Dioxide 23 (21-32) mmol/L Anion Gap 8 (3-11) BUN 38 H (6-23) mg/dl Creatinine 1.42 H (0.6-1.4) mg/dl Est Cr Clr Drug Dosing Not Reportable eGFR 50.26 BUN/Creatinine Ratio 26.8 H (10-20) Glucose 150 H (70-99(Fasting)) mg/dl Calcium 9.0 (8.6-10.3) mg/dl Magnesium 1.7 (1.7-2.4) mg/dl Total Bilirubin 0.3 (0.2-1.0) mg/dl AST 16 (13-39) U/L ALT 4 L (7-52) U/L Alkaline Phosphatase 46 (34-104) U/L Troponin I High Sens 34.9 H (0-20) pg/ml C-Reactive Protein 22.90 H (0-0.5) mg/dl Total Protein 7.3 (6.0-8.3) gm/dl Albumin 3.3 L (3.4-5.0) gm/dl Globulin 4.0 (2.5-4.0) gm/dl Albumin/Globulin Ratio 0.8 L (0.9-2) Urine Color Yellow Urine Appearance Clear (Clear) Urine pH 6.0 (4.5-7.5) Ur Specific [place] 1.020 (1.000-1.030) Urine Protein 2+ H (Negative) Urine Glucose (UA) Negative (Negative) Urine Ketones Negative (Negative) Urine Blood Negative (Negative) Urine Nitrite Negative (Negative) Urine Bilirubin Negative (Negative) Urine Urobilinogen Negative (Negative) Ur Leukocyte Esterase Negative (Negative) Urine WBC (Auto) 0-5 (0-5) /hpf Urine RBC (Auto) 0-2 (0-2) /hpf U Hyaline Cast (Auto) 0-2 (0-2) /lpf U Epithel Cells (Auto) 0-2 (0-2) /hpf Urine Bacteria (Auto) None Seen (None Seen) Administered Medications Discontinued Medications Sodium Chloride (Nss) 500 mls @ 999 mls/hr IV .Q31M ONE Stop: 04/12/24 20:49 Last Infusion: 04/12/24 21:41 Dose: Infused Documented By: Admin: 04/12/24 21:06 Dose: 999 mls/hr Documented By: JASMIN Cefazolin Sodium (Ancef 2000mg) 2,000 mg in 15 mls @ 3.75 mls/min IV NOW STA Stop: 04/12/24 22:07 Last Admin: 04/12/24 22:40 Dose: 3.75 mls/min Documented By: JASMIN Discharge Plan Visit Data Chief Complaint: Leg Injury/Pain Stated Complaint: LT LEG PAIN, ORTHO SAID TO COME ED Provider: Malvin Palacios Discharge Problem: Weakness, Anemia, KERRY (acute kidney injury), History of left knee surgery Patient Disposition: Admitted As Inpatient Condition: Fair Discharge Instructions Interventions: ED Discharge Assessment Last Done: 04/12/24 22:37 Forms Stand Alone Forms: My [facility] [employer] Prescriptions Prescriptions: No Action atorvastatin 40 mg tablet 40 mg PO HS Qty: 90 3RF (DME) Auto Titrating CPAP Misc See Rx Instructions .MEDSUPPLY Qty: 1 0RF Rx Instructions: Auto PAP with 5-15 cm H20. Lifetime usage. G47.33 (DME) CPAP Supplies Misc See Rx Instructions .MEDSUPPLY Qty: 1 0RF Rx Instructions: CPAP supplies, mask, headgear, filters, tubing, water chamber. G47.33 clopidogrel 75 mg tablet 75 mg PO QAM Qty: 90 3RF fenofibrate 160 mg tablet 160 mg PO QAM Qty: 90 3RF benazepril 10 mg tablet 10 mg PO QAM Qty: 90 3RF Myrbetriq 50 mg tablet extended release 24 hr 50 mg PO QAM Qty: 90 1RF multivitamin Tablet 1 tab PO QAM nitroglycerin 0.4 mg tablet, sublingual 0.4 mg sublingual Q5M PRN (Reason: chest pain) Qty: 30 5RF Rx Instructions: do not exceed 3 doses per episode (DME) diabetic supplies, miscellan. Misc See Rx Instructions .ROUTE .MEDSUPPLY Qty: 1 Rx Instructions: ONE TOUCH ULTRA- TESTS PRN albuterol sulfate 90 mcg/actuation HFA aerosol inhaler 2 puff inhalation Q6H PRN (Reason: Shortness Of Breath Or Wheezing) Qty: 18 3RF Anoro Ellipta 62.5-25 mcg/actuation blister with device 1 inh inhalation DAILY Qty: 3 4RF metoprolol tartrate 25 mg tablet 12.5 mg PO BID Qty: 180 3RF aspirin [Enteric Coated Aspirin] 81 mg tablet,delayed release (DR/EC) 81 mg PO BID 42 Days Qty: 84 0RF Rx Instructions: x6 ([facility] states at dc 7/10 states 42 more days. )weeks, then resume once daily following melatonin 10 mg capsule 3 mg PO HS PRN (Reason: sleep) Qty: 30 0RF docusate sodium 100 mg capsule 100 mg PO .COMPLEX Rx Instructions: 100 mg orally EVERY OTHER DAY PER PT; acetaminophen 500 mg tablet 500 mg PO Q6H PRN (Reason: Pain) Rx Instructions: PER PT "USUALLY TAKE 1000 MG IN MORNING AND AT HS". magnesium 200 mg Tablet 400 mg PO HS potassium gluconate 600 mg (99 mg) Tablet 600 mg PO QAM omeprazole 20 mg Capsule,Delayed Release(Dr/Ec) 20 mg PO QPM diphenhydramine HCl [Benadryl] 25 mg Capsule 25 mg PO QAM PRN (Reason: Congestion) metformin 1,000 mg tablet 1,000 mg PO HS Rx Instructions: Take 1 tablet by mouth once daily hydrocortisone 2.5 % cream 1 applic topical BID PRN (Reason: Other) Rx Instructions: Apply BID to the affected areas. ketoconazole 2 % cream 1 applic topical BID PRN (Reason: Other) Rx Instructions: Apply to the affected areas BID for 4 weeks. polyethylene glycol 3350 [Miralax] 17 gram Powder In Packet 17 g PO DAILY Qty: 0 0RF oxycodone 5 mg Tablet 5 - 10 mg PO Q4H MDD Ongoing Tx PRN (Reason: Post op pain control) Qty: 28 0RF Referrals Referrals: Talon Burns DO [Primary Care Provider] - Discharge Problem: Anemia Qualifiers: Anemia type: unspecified type Qualified Code(s): D64.9 - Anemia, unspecified
[2024-04-12] MEDS: SODIUM CHLORIDE 0.9% 500 ML IV ONE (21:06)
[2024-04-12 21:25] LABS: Appearance Urine Clear (Clear); Bacteria Urine Automated None Seen (None Seen); Bilirubin Urine Negative (Negative); Blood Urine Negative (Negative); Cast Urine Automated 0-2 /lpf (0-2); Color Urine Yellow; Epithelial Cell Urine Auto 0-2 /hpf (0-2); Glucose Urine UA Negative (Negative); Ketones Urine Negative (Negative); Leukocyte Esterase Urine Negative (Negative); Nitrite Urine Negative (Negative); Protein Urine 2+ (Negative); RBC Urine Automated 0-2 /hpf (0-2); Urobilinogen Urine Negative (Negative); WBC Urine Automated 0-5 /hpf (0-5)
[2024-04-12 21:38] LABS: Magnesium 1.7 mg/dl (1.7-2.4)
[2024-04-12 21:45] LABS: Troponin I High Sensitivity 34.9 pg/ml (0-20)
[2024-04-12 22:22] LABS: C Reactive Protein 22.9 mg/dl (0-0.5)
[2024-04-12] MEDS: ceFAZolin 2000MG 2,000 MG/15 ML SYR IV STA (22:40)
[2024-04-12] MEDS ORDERED: CARBOHYDRATES FOR HYPOGLYCEMIA PO PRN (23:10)
[2024-04-12] MEDS ORDERED: GLUCAGON FOR INJ 1 MG VIAL SQ PRN (23:10)
[2024-04-12] MEDS ORDERED: GLUCOSE 40% GEL 15 GM TUBE PO PRN (23:10)
[2024-04-12] MEDS ORDERED: ALBUTEROL HFA 8 GM INHALER INH PRN (23:10)
[2024-04-12] MEDS ORDERED: DEXTROSE 50% 50 ML SYRINGE IV PRN (23:10)
[2024-04-12] MEDS ORDERED: GLUCOSE 10 TAB/TUBE PO PRN (23:10)
[2024-04-12] MEDS ORDERED: ONDANSETRON INJ 2 MG/ML 2 ML VIAL IV PRN (23:10)
[2024-04-12] MEDS ORDERED: diphenhydrAMINE Capsule 25 MG CAP PO PRN (23:10)
[2024-04-12] MEDS ORDERED: MELATONIN 3 MG TAB PO PRN (23:53)
[2024-04-13] MEDS: LACTATED RINGER'S 1,000 ML IV SCH (00:45)
--- NOTE | 2024-04-13 03:44 | History & Physical Report ---
Date of Service April 12, 2024 Assessment & Plan (1) History of left knee surgery: Plan: Patient with left quadriceps tendon rupture s/p repair, s/p infection with subsequent washout. Now with hard cast still in place. Some leg pain which developed yesterday as well as fever. Concern for possible recurrence of infection? -Observation to medical -Maintain hard cast in place for now per recommendation of ortho -Ortho consultation -Continue Ancef -Oxycodone PRN (2) KERRY (acute kidney injury): Plan: Patient with elevation of BUN and Cr. Reports some decreased UOP of late -LR at 80mL/hr x 1L ordered -Repeat BMP in AM -Avoid nephrotoxic agents -Renal dosing where needed (3) Urinary retention: Plan: Almendarez catheter placed in the ER. Patient reports Myrbetriq was recently discontinued -Almendarez maintenance -Monitor I/Os Plan Chronic medical issues: SJ - chronic, stable -CPAP qHS COPD - chronic -Continue Anoro Ellipta -Albuterol PRN GERD - chronic -Continue Protonix Hypertension -Continue Metoprolol, Enalapril Diabetes -ISS CAD -Continue Plavix, ASA and Atorvastatin Admission and Anticipated Discharge Date Admission Date: April 12, 2024 History of Present Illness Chief Complaint: leg pain Primary Care Provider: Talon Burns DO Eric Valderrama is a pleasant 78yo male with multiple medical comorbidities - HTN, HLP, CAD, DM, SJ and PAD presenting with generalized weakness. Patient with a complicated medical history - he fell down the stairs and sustained a left quadriceps tendon rupture. He was taken to the OR on 12/20/23 for surgical repair with Dr. Martini. He was ultimately discharged to [facility] on 12/24/23 where he stayed for 10 days then returned home. On 01/25/24 patient presented to the ER with acute drainage from the surgical incision and developed wound dehiscence. He was treated with PO Bactrim with improvement. He ultimately returned to the OR on 03/21/24 for revision of left quadriceps tendon repair, irrigation and debridement. He was started on IV antibiotics and ultimately discharged to [facility] for rehabilitation on 03/25/24. Patient returned home several days ago. On 04/09/24 he began feeling generalized weakness and difficulty performing his daily tasks. He developed some pain in his left leg today as well with weight bearing. Some very brief confusion He has been compliant with his IV Cefazolin 2gm q 8 hours. He receives it at 06:00, 14:00 and 22:00. No issues with the PICC line Fever 2 nights ago Some mild SOB, WITT and exercise intolerance. Difficulty with UOP No additional complaints Allergies Allergy/AdvReac Type Severity Reaction Status Date / Time No Known Allergies Allergy Verified 04/05/24 15:07 Home Medications Medication Instructions Recorded Confirmed Type diabetic supplies, miscellan. #1 ea 12/31/20 04/01/24 History diphenhydramine HCl 25 mg capsule 25 mg PO QAM PRN Congestion 07/17/22 04/12/24 History (Benadryl) multivitamin 1 tab PO QAM 08/18/22 04/12/24 History nitroglycerin 0.4 mg sublingual 0.4 mg sublingual Q5M PRN chest 08/29/22 04/12/24 Rx tablet pain #30 tabs acetaminophen 500 mg tablet 500 mg PO Q6H PRN Pain 09/26/22 04/12/24 History magnesium 200 mg tablet 400 mg PO HS 09/26/22 04/12/24 History omeprazole 20 mg capsule,delayed 20 mg PO QPM 09/26/22 04/12/24 History release potassium gluconate 600 mg (99 mg) 600 mg PO QAM 09/26/22 04/12/24 History tablet atorvastatin 40 mg tablet 40 mg PO HS #90 tabs 04/06/23 04/12/24 Rx Auto Titrating CPAP #1 ea 05/30/23 04/05/24 Rx CPAP Supplies #1 ea 05/30/23 04/05/24 Rx albuterol sulfate 90 mcg/actuation 2 puff inhalation Q6H PRN 10/02/23 04/12/24 Rx aerosol inhaler Shortness Of Breath Or Wheezing #18 grams umeclidinium 62.5 mcg-vilanterol 1 inh inhalation DAILY #3 Inhalers 10/02/23 04/12/24 Rx 25 mcg/actuation powdr for inhalation (Anoro Ellipta) benazepril 10 mg tablet 10 mg PO QAM #90 tabs 10/08/23 04/12/24 Rx clopidogrel 75 mg tablet 75 mg PO QAM #90 tabs 10/08/23 04/12/24 Rx fenofibrate 160 mg tablet 160 mg PO QAM #90 tabs 10/08/23 04/12/24 Rx hydrocortisone 2.5 % topical cream 1 applic topical BID PRN Other 12/18/23 04/12/24 History ketoconazole 2 % topical cream 1 applic topical BID PRN Other 12/18/23 04/12/24 History metformin 1,000 mg tablet 1,000 mg PO HS 12/18/23 04/12/24 History polyethylene glycol 3350 17 gram 17 g PO DAILY #0 ea 12/24/23 04/05/24 Rx oral powder packet (Miralax) aspirin 81 mg tablet,delayed 81 mg PO BID 6 weeks #84 tabs 01/08/24 04/12/24 Rx release (Enteric Coated Aspirin) melatonin 10 mg capsule 3 mg (0.3 x 10 mg) PO HS PRN sleep 01/08/24 04/12/24 Rx #30 caps mirabegron 50 mg tablet,extended 50 mg PO QAM #90 tabs 02/11/24 04/12/24 Rx release 24 hr (Myrbetriq) metoprolol tartrate 25 mg tablet 12.5 mg (1/2 x 25 mg) PO BID #180 03/03/24 04/12/24 Rx tabs oxycodone 5 mg tablet 5 - 10 mg (1 - 2 x 5 mg) PO Q4H 03/25/24 04/12/24 Rx PRN Post op pain control #28 tabs docusate sodium 100 mg capsule 100 mg PO .COMPLEX 04/05/24 04/12/24 History Past Med/Surg History Problem List History of left knee surgery (Acute) KERRY (acute kidney injury) (Acute) Anemia (Acute) Weakness (Acute) Urinary urgency Urinary retention Type 2 diabetes mellitus Quadriceps tendon rupture History of diabetes mellitus Infection of left knee Encounter for pre-operative examination History of colon polyps Acid reflux disease Hearing loss Medical History History of colon polyps Hearing loss Acid reflux Osteoarthritis History of non-ST elevation myocardial infarction (NSTEMI) 06/2022 Peripheral vascular disease, unspecified SJ (obstructive sleep apnea) CPAP Carotid artery stenosis Under surveillance by vascular Carotid duplex 01/2023: 50-69% B/L ICA stenosis. No significant change compared to 04/15/2022 study per report. Hyperlipidemia Per records Anemia Chronic Peripheral arterial disease Hypertension Diabetes NIDDM Glaucoma CAD (coronary artery disease) RCA stent (~2014) CABG x2 (06/2022) Follows with [facility] cardio COPD (chronic obstructive pulmonary disease) BPH (benign prostatic hyperplasia) Hx of basal cell carcinoma H/O: lung cancer 2017- Left Upper Lobectomy Currently under surveillance, no current/recent issues Surgical History H/O left knee surgery Patellar tendon repair 11/2023 History of Mohs micrographic surgery for skin cancer H/O right coronary artery stent placement (~2014) H/O angioplasty L femoral in 2005 and 11/2020, R femoral in 2018 and 10/2019 History of coronary artery bypass graft CABGx2 (06/2022) History of selective laser trabeculoplasty History of prostate surgery [employer] Laser procedure ~2017 at [facility] in [place], [place] History of colonoscopy History of cardiac cath 06/2022 [facility] > transferred to [facility] for CABG Status post biopsy of skin S/P coronary artery stent placement H/O umbilical hernia repair History of lobectomy of lung VIANEY for stage 1A lung cancer (2016) H/O cataract extraction R/L H/O laminectomy L3/4 1990 L4/5 w/ fusion 1992 H/O vasectomy H/O right knee surgery Family History Brother Lung cancer Father Heart disease Hypertension Mother Cerebral aneurysm Other No family history of adverse response to anesthesia Social History Smoking Status: Former smoker Tobacco Type: Cigarettes Age Started Using Tobacco: 19; Age Quit Using Tobacco: 69; packs per day: 1.5; Cigarettes Per Day: 30; Smoking End Date: 2014; Second Hand Exposure: No; Do You Dip or Chew Tobacco: No; Tobacco Cessation Education Requested by Patient: No Hx Alcohol Use: Yes Alcohol type: beer Alcohol Intake Frequency: Monthly or Less Hx Substance Use: No Preferred Language: Sudanese Communication Ability: Effective Visual Impairment: No Limitations Hearing Ability: Normal 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 Required: No Beliefs That Will Affect Care: None marital status: Current Living Situation: Family Current Living Situation Comment: sister Shayy current occupational status: retired current occupation: Retired Other Information That Helps Us Care for You: No Feels Safe at Home: Yes Safety Concerns: Feels Safe At This Time Childhood Exposure to Second-Hand Smoke: No Diet: regular Dental Care, Regularly: No Physical Activity Frequency: Daily Seatbelt Use: always Sunscreen Use: Yes Assistive Devices: Cane, CPAP, Denture - Upper and Denture - Lower Review of Systems Review of Systems: All systems reviewed & are unremarkable except as noted in HPI & below Physical Exam Physical Exam: General: patient resting comfortably, NAD, non-toxic in appearance, AA&O x 4 Skin: warm, dry, intact, no rashes or lesions HEENT: NC/AT, PERRL, EOMI, anicteric sclera, conjunctiva without injection, external ear normal to inspection and nontender, nares patent, moist mucus membranes, dentition intact, no oropharyngeal lesions, neck supple, trachea midline, no LAD, no thyromegaly, no JVD Heart: +S1/S2, regular, no m/r/g Lungs: equal air entry bilaterally, no rales/rhonchi/wheezes Abd: +BS, soft, NT/ND, no masses/organomegaly/ascites Ext: warm, 2+ pulses in UE/LE bilaterally, no clubbing/cyanosis or edema, hard cast on LLE Neuro: nonfocal, patient AA&O x 4, speech intact, no facial droop, moving all extremities on command with equal strength 5/5 Results & Data Results & Data Vital Signs (Past 12 Hours) Vital Signs Temp Pulse Pulse Resp BP BP Pulse Ox 04/12/24 23:59 04/12/24 23:49 74 13 98 04/12/24 23:33 37.1 C 82 16 172/68 H 98 04/12/24 22:00 75 16 162/76 H 97 04/12/24 21:10 79 19 151/64 H 95 04/12/24 21:06 79 17 96 04/12/24 21:01 151/64 H 04/12/24 21:01 151/64 H 04/12/24 21:01 151/64 H 04/12/24 20:57 78 15 98 04/12/24 20:00 75 20 94 04/12/24 19:57 81 04/12/24 19:52 76 16 165/72 H 04/12/24 17:27 36.8 C 84 20 174/52 H 93 O2 Del Method 04/12/24 23:59 CPAP 04/12/24 23:49 04/12/24 23:33 Room Air 04/12/24 22:00 04/12/24 21:10 04/12/24 21:06 04/12/24 21:01 04/12/24 21:01 04/12/24 21:01 04/12/24 20:57 04/12/24 20:00 04/12/24 19:57 04/12/24 19:52 04/12/24 17:27 Room Air Laboratory Results Laboratory Results WBC 9.32 K/ul (4.8-10.8) 04/12/24 17:40 RBC 2.86 M/uL (4.70-6.10) L 04/12/24 17:40 Hgb 7.9 g/dl (14.0-18.0) L 04/12/24 17:40 Hct 25.1 % (42.0-52.0) L 04/12/24 17:40 MCV 87.8 fL (80.0-100.0) 04/12/24 17:40 MCH 27.6 pg (25.0-34.0) 04/12/24 17:40 MCHC 31.5 g/dL (32.0-36.0) L 04/12/24 17:40 RDW Std Deviation 45.2 fL (36.4-46.3) 04/12/24 17:40 RDW Coeff of [place] 14.0 % (11.5-14.5) 04/12/24 17:40 Plt Count 409 K/uL (130-400) H 04/12/24 17:40 MPV 9.6 fL (9.4-12.4) 04/12/24 17:40 Immature Gran % (Auto) 0.6 % 04/12/24 17:40 Neut % (Auto) 63.1 % 04/12/24 17:40 Lymph % (Auto) 22.1 % 04/12/24 17:40 [place] % (Auto) 12.8 % 04/12/24 17:40 Eos % (Auto) 1.3 % 04/12/24 17:40 Baso % (Auto) 0.1 % 04/12/24 17:40 Neut # (Auto) 5.88 K/uL (1.40-6.50) 04/12/24 17:40 Lymph # (Auto) 2.06 K/uL (1.20-3.40) 04/12/24 17:40 [place] # (Auto) 1.19 K/uL (0.11-0.59) H 04/12/24 17:40 Eos # (Auto) 0.12 K/uL (0.00-0.50) 04/12/24 17:40 Baso # (Auto) 0.01 K/uL (0.00-0.20) 04/12/24 17:40 Immature Gran # (Auto) 0.06 K/uL (0.01-0.20) 04/12/24 17:40 RBC Morphology Unremarkable 04/12/24 17:40 ESR 55 mm/hr (0-20) H 04/12/24 17:40 Sodium 138 mmol/L (136-145) 04/12/24 17:40 Potassium 4.6 mmol/L (3.5-5.1) 04/12/24 17:40 Chloride 107 mmol/L (98-107) 04/12/24 17:40 Carbon Dioxide 23 mmol/L (21-32) 04/12/24 17:40 Anion Gap 8 (3-11) 04/12/24 17:40 BUN 38 mg/dl (6-23) H 04/12/24 17:40 Creatinine 1.42 mg/dl (0.6-1.4) H 04/12/24 17:40 Est Cr Clr Drug Dosing Not Reportable 04/12/24 17:40 eGFR 50.26 04/12/24 17:40 BUN/Creatinine Ratio 26.8 (10-20) H 04/12/24 17:40 Glucose 150 mg/dl (70-99(Fasting)) H 04/12/24 17:40 Calcium 9.0 mg/dl (8.6-10.3) 04/12/24 17:40 Magnesium 1.7 mg/dl (1.7-2.4) 04/12/24 17:40 Total Bilirubin 0.3 mg/dl (0.2-1.0) 04/12/24 17:40 AST 16 U/L (13-39) 04/12/24 17:40 ALT 4 U/L (7-52) L 04/12/24 17:40 Alkaline Phosphatase 46 U/L (34-104) 04/12/24 17:40 Troponin I High Sens 34.9 pg/ml (0-20) H 04/12/24 17:40 C-Reactive Protein 22.90 mg/dl (0-0.5) H 04/12/24 17:40 Total Protein 7.3 gm/dl (6.0-8.3) 04/12/24 17:40 Albumin 3.3 gm/dl (3.4-5.0) L 04/12/24 17:40 Globulin 4.0 gm/dl (2.5-4.0) 04/12/24 17:40 Albumin/Globulin Ratio 0.8 (0.9-2) L 04/12/24 17:40 Urine Color Yellow 04/12/24 20:25 Urine Appearance Clear (Clear) 04/12/24 20: Urine pH 6.0 (4.5-7.5) 04/12/24 20:25 Ur Specific [place] 1.020 (1.000-1.030) 04/12/24 20: Urine Protein 2+ (Negative) H 04/12/24 20:25 Urine Glucose (UA) Negative (Negative) 04/12/24 20: Urine Ketones Negative (Negative) 04/12/24 20:25 Urine Blood Negative (Negative) 04/12/24 20:25 Urine Nitrite Negative (Negative) 04/12/24 20: Urine Bilirubin Negative (Negative) 04/12/24 20:25 Urine Urobilinogen Negative (Negative) 04/12/24 20:25 Ur Leukocyte Esterase Negative (Negative) 04/12/24 20:25 Urine WBC (Auto) 0-5 /hpf (0-5) 04/12/24 20:25 Urine RBC (Auto) 0-2 /hpf (0-2) 04/12/24 20:25 U Hyaline Cast (Auto) 0-2 /lpf (0-2) 04/12/24 20:25 U Epithel Cells (Auto) 0-2 /hpf (0-2) 04/12/24 20:25 Urine Bacteria (Auto) None Seen (None Seen) 04/12/24 20:25 Code Status & VTE Plan VTE Prophylaxis Plan VTE Prophylaxis will be ordered: Yes PG Care Time/CCT Total # of Minutes Spent Total Time Spent with Patient: Total time spent is greater than 50% in coordination of care (as documented) at patient's floor/unit and/or counseling patient: Coding Level of Care Code 26195 INT INP/OBS CARE 3/75MIN Diagnoses History of left knee surgery Z98.890 KERRY (acute kidney injury) N17.9 Urinary retention R33.9
[2024-04-13] MEDS: ceFAZolin 2000MG 2,000 MG/15 ML SYR IV SCH (06:22)
--- NOTE | 2024-04-13 06:55 | XRay Report ---
XR chest 1V portable CLINICAL HISTORY: Weakness. COMPARISON STUDY: Chest CT April 23, 2022. Chest radiograph December 18, 2023. FINDINGS: There are median sternotomy wires, mediastinal surgical clips and a right PICC. No pneumoth orax or pleural effusion is present. There is no consolidation to suggest pneumonia. Cardiomegaly is unchanged. Pulmonary vascularity is normal. IMPRESSION: No acute cardiopulmonary findings. Cardiomegaly. ACT 112: Negative or not required by law. Electronically signed by: Mina Morrow M.D. 04/13/2024 6:54 AM
[2024-04-13 07:35] LABS: Hematocrit (blood only) 22.2 % (42.0-52.0); Hemoglobin 7.1 g/dl (14.0-18.0); Mean Corpuscular Hemoglobin 27.8 pg (25.0-34.0); Mean Corpuscular Volume 87.1 fL (80.0-100.0); Mean Platelet Volume 9.9 fL (9.4-12.4); Platelet Count 388 K/uL (130-400); RDW Coefficient of Variation 14.2 % (11.5-14.5); RDW Standard Deviation 45.1 fL (36.4-46.3); Red Blood Count 2.55 M/uL (4.70-6.10); White Blood Count 7.04 K/ul (4.8-10.8)
--- NOTE | 2024-04-13 07:49 | Electrocardiogram Report ---
Test Reason : Blood Pressure : */* mmHG Vent. Rate : 76 BPM Atrial Rate : 76 BPM P-R Int : 150 ms QRS Dur : 98 ms QT Int : 396 ms P-R-T Axes : 57 -11 37 degrees QTcB Int : 445 ms Sinus rhythm with Premature atrial complexes Voltage criteria for left ventricular hypertrophy Borderline ECG When compared with ECG of 20-Dec-2023 06:11, Premature atrial complexes are now Present Nonspecific T wave abnormality has replaced inverted T waves in Inferior leads Nonspecific T wave abnormality no longer evident in Anterior leads Confirmed by Juan Soliman [id number] on 04/13/2024 7:48:56 AM Referred By: Rickey Martini Confirmed By: Juan Soliman
[2024-04-13 07:51] LABS: BUN Creatinine Ratio 28.2 (10-20); Calcium 8.6 mg/dl (8.6-10.3); Creatinine Clr Calc Pharmacy 61.7 ml/min; Potassium 4.2 mmol/L (3.5-5.1)
[2024-04-13 07:57] LABS: Troponin I High Sensitivity 35.5 pg/ml (0-20)
[2024-04-13] MEDS: ENALAPRIL MALEATE 5 MG TAB PO SCH (08:19)
[2024-04-13] MEDS: CLOPIDOGREL BISULFATE 75 MG TAB PO SCH (08:19)
[2024-04-13] MEDS: ASPIRIN 81 MG ECTAB PO SCH (08:19)
[2024-04-13] MEDS: METOPROLOL TARTRATE 25 MG TAB PO SCH (08:19)
[2024-04-13] MEDS: PANTOprazole 40 MG TAB PO SCH (08:20)
[2024-04-13] MEDS: UMECLIDINIUM/VILANTEROL 62.5/25MCG 7 PUFFS/INHALER INH SCH (08:21)
[2024-04-13] MEDS: DOCUSATE SODIUM 100 MG CAP PO SCH (08:31)
[2024-04-13] MEDS: INSULIN ASPART PER UNIT CHARGE SC SCH (08:31)
--- NOTE | 2024-04-13 10:59 | Orthopedic Consultation ---
Date of Consultation April 13, 2024 Assessment & Plan (1) History of left knee surgery: Patient is status post left knee incision and drainage and repair of quad tendon. He has been in a cylinder cast. We did remove the cast today. An aspiration by Mariza Muñoz PA-C, with Dr. Martini personally supervising, was performed on his left knee and cloudy fluid was removed. This was sent to the lab for cell count, fluid analysis, crystal analysis, Gram stain, aerobic and anaerobic cultures. We will make him n.p.o. now. Plans for possible left knee arthroscopic irrigation and debridement, open incision and drainage of the left knee with Dr. Martini later today. This will need to be postponed till late this afternoon due to him having breakfast this morning. He also received his aspirin and Plavix. He is anemic and the plan for surgery was discussed with the hospitalist service. They will plan to give him 1 unit of packed red blood cells now in preparation for surgery. Risks and benefits of the surgery were explained to the patient and include but are not limited to infection, pain, bleeding, scarring, nerve or blood vessel damage, wound problems, weakness, stiffness, incomplete relief of symptoms, tendon or ligament injury, blood clots, embolisms, heart attack, stroke and . All questions were answered and informed consent was obtained for the surgical procedure as well as a blood transfusion. He understands to be n.p.o. starting now. His nurse was also informed. Consent was placed on his chart. Patient understands and agrees with the plan. We also will obtain blood cultures and will get an infectious disease consultation for a new treatment plan. Procedure: Patient was placed in supine position on his bed. The left knee was identified, confirmed by Rickey Martini MD. The injection site was marked, cleansed with alcohol, cleansed with iodine swabs and then cleansed with alcohol again. He then aspirated 80 cc of opaque cloudy fluid from the left knee. Patient tolerated the aspiration well. Pressure was applied for hemostasis and an Angel bandage was applied to the left knee joint. Will plan to put him in a hinged postop range of motion brace later today. We can wait to do this until after surgery if his surgery is performed this afternoon. Supervising Physician Co-Signing Physician Notes I, Dr. Martini, saw and examined the patient with my PA and agree with the above findings and plan of care I developed and discussed with my PA. I personally supervised the left knee aspiration. History of Present Illness Reason for Consultation: Readmission for weakness and fevers Requesting Physician: Willow Martini MD Attending Physician: Uche Jiménez History of Present Illness Patient is a 78-year-old male who is 3 and half weeks status post left knee incision and drainage and revision repair of quad tendon. He had initial quad tendon repair approximately 3 months ago. He has had a cylinder cast on his left leg. 2 days ago he developed some fevers which have resolved. He also had some chills last evening. He presented to the emergency room yesterday due to not feeling great with some weakness and tiredness. He was also having issues with urinary retention. He thinks it was because he was dehydrated. He was getting care by home health although he is not sure of which agency. He has been on IV antibiotics, Ancef through his PICC line. He was not exactly sure how long he would be on this but I think the initial plan was for about 4 weeks. He said no pain in his knee. He has been weightbearing as tolerated. He said no new injury to the left knee. The cast has remained in place. He has been using a walker to assist with ambulation. Allergies Allergy/AdvReac Type Severity Reaction Status Date / Time No Known Allergies Allergy Verified 04/05/24 15:07 Home Medications Medication Instructions Recorded Confirmed Type diabetic supplies, miscellan. #1 ea 12/31/20 04/01/24 History diphenhydramine HCl 25 mg capsule 25 mg PO QAM PRN Congestion 07/17/22 04/12/24 History (Benadryl) multivitamin 1 tab PO QAM 08/18/22 04/12/24 History nitroglycerin 0.4 mg sublingual 0.4 mg sublingual Q5M PRN chest 08/29/22 04/12/24 Rx tablet pain #30 tabs acetaminophen 500 mg tablet 500 mg PO Q6H PRN Pain 09/26/22 04/12/24 History magnesium 200 mg tablet 400 mg PO HS 09/26/22 04/12/24 History omeprazole 20 mg capsule,delayed 20 mg PO QPM 09/26/22 04/12/24 History release potassium gluconate 600 mg (99 mg) 600 mg PO QAM 09/26/22 04/12/24 History tablet atorvastatin 40 mg tablet 40 mg PO HS #90 tabs 04/06/23 04/12/24 Rx Auto Titrating CPAP #1 ea 05/30/23 04/05/24 Rx CPAP Supplies #1 ea 05/30/23 04/05/24 Rx albuterol sulfate 90 mcg/actuation 2 puff inhalation Q6H PRN 10/02/23 04/12/24 Rx aerosol inhaler Shortness Of Breath Or Wheezing #18 grams umeclidinium 62.5 mcg-vilanterol 1 inh inhalation DAILY #3 Inhalers 10/02/23 04/12/24 Rx 25 mcg/actuation powdr for inhalation (Anoro Ellipta) benazepril 10 mg tablet 10 mg PO QAM #90 tabs 10/08/23 04/12/24 Rx clopidogrel 75 mg tablet 75 mg PO QAM #90 tabs 10/08/23 04/12/24 Rx fenofibrate 160 mg tablet 160 mg PO QAM #90 tabs 10/08/23 04/12/24 Rx hydrocortisone 2.5 % topical cream 1 applic topical BID PRN Other 12/18/23 04/12/24 History ketoconazole 2 % topical cream 1 applic topical BID PRN Other 12/18/23 04/12/24 History metformin 1,000 mg tablet 1,000 mg PO HS 12/18/23 04/12/24 History polyethylene glycol 3350 17 gram 17 g PO DAILY #0 ea 12/24/23 04/05/24 Rx oral powder packet (Miralax) aspirin 81 mg tablet,delayed 81 mg PO BID 6 weeks #84 tabs 01/08/24 04/12/24 Rx release (Enteric Coated Aspirin) melatonin 10 mg capsule 3 mg (0.3 x 10 mg) PO HS PRN sleep 01/08/24 04/12/24 Rx #30 caps mirabegron 50 mg tablet,extended 50 mg PO QAM #90 tabs 02/11/24 04/12/24 Rx release 24 hr (Myrbetriq) metoprolol tartrate 25 mg tablet 12.5 mg (1/2 x 25 mg) PO BID #180 03/03/24 04/12/24 Rx tabs oxycodone 5 mg tablet 5 - 10 mg (1 - 2 x 5 mg) PO Q4H 03/25/24 04/12/24 Rx PRN Post op pain control #28 tabs docusate sodium 100 mg capsule 100 mg PO .COMPLEX 04/05/24 04/12/24 History Patient History Medical History History of colon polyps Hearing loss Acid reflux Osteoarthritis History of non-ST elevation myocardial infarction (NSTEMI) 06/2022 Peripheral vascular disease, unspecified SJ (obstructive sleep apnea) CPAP Carotid artery stenosis Under surveillance by vascular Carotid duplex 01/2023: 50-69% B/L ICA stenosis. No significant change compared to 04/15/2022 study per report. Hyperlipidemia Per records Anemia Chronic Peripheral arterial disease Hypertension Diabetes NIDDM Glaucoma CAD (coronary artery disease) RCA stent (~2014) CABG x2 (06/2022) Follows with [facility] cardio COPD (chronic obstructive pulmonary disease) BPH (benign prostatic hyperplasia) Hx of basal cell carcinoma H/O: lung cancer 2016- Left Upper Lobectomy Currently under surveillance, no current/recent issues Surgical History H/O left knee surgery Patellar tendon repair 11/2023 History of Mohs micrographic surgery for skin cancer H/O right coronary artery stent placement (~2014) H/O angioplasty L femoral in 2005 and 11/2020, R femoral in 2018 and 10/2019 History of coronary artery bypass graft CABGx2 (06/2022) History of selective laser trabeculoplasty History of prostate surgery [facility] Laser procedure ~2017 at [facility] in [place], [place] History of colonoscopy History of cardiac cath 06/2022 [facility] > transferred to [facility] for CABG Status post biopsy of skin S/P coronary artery stent placement H/O umbilical hernia repair History of lobectomy of lung VIANEY for stage 1A lung cancer (2016) H/O cataract extraction R/L H/O laminectomy L3/4 1990 L4/5 w/ fusion 1992 H/O vasectomy H/O right knee surgery Family History Brother Lung cancer Father Heart disease Hypertension Mother Cerebral aneurysm Other No family history of adverse response to anesthesia Social History Smoking Status: Former smoker Tobacco Type: Cigarettes Age Started Using Tobacco: 19; Age Quit Using Tobacco: 69; packs per day: 1.5; Cigarettes Per Day: 30; Smoking End Date: 2014; Second Hand Exposure: No; Do You Dip or Chew Tobacco: No; Tobacco Cessation Education Requested by Patient: No Hx Alcohol Use: Yes Alcohol type: beer Alcohol Intake Frequency: Monthly or Less Hx Substance Use: No Preferred Language: Czech Communication Ability: Effective Visual Impairment: No Limitations Hearing Ability: Normal Fleet Driver Required: No Beliefs That Will Affect Care: None marital status: Current Living Situation: Family Current Living Situation Comment: sister Shayy current occupational status: retired current occupation: Retired Other Information That Helps Us Care for You: No Feels Safe at Home: Yes Safety Concerns: Feels Safe At This Time Childhood Exposure to Second-Hand Smoke: No Diet: regular Dental Care, Regularly: No Physical Activity Frequency: Daily Seatbelt Use: always Sunscreen Use: Yes Assistive Devices: Cane and Walker Review of Systems Review of Systems: All systems reviewed & are unremarkable except as noted in HPI & below Physical Exam Musculoskeletal: Exam focused on his left lower extremity: Patient was seen and evaluated by myself as well as Dr. Martini today. The cylinder cast was removed to do an incision check. His incision is clean, healed and intact. Steri-Strips are in place and removed today. He has a large joint effusion that is nontender to palpation. No warmth or erythema. No open wounds or draining. He has what feels to be a palpable defect of the quadriceps tendon. No distal edema. Skin is intact around the cast edges. Full ankle range of motion. Distal pulses are 1+ sensation is normal through the left leg except around the left knee anterior incision. Results & Data Vital Signs (Past 12 Hours) Vital Signs Temp Pulse Pulse Resp BP BP Pulse Ox 04/13/24 07:45 36.9 C 78 18 136/80 92 04/13/24 03:47 70 19 98 04/12/24 23:59 04/12/24 23:49 74 13 98 04/12/24 23:33 37.1 C 82 16 172/68 H 98 O2 Del Method 04/13/24 07:45 Room Air 04/13/24 03:47 04/12/24 23:59 CPAP 04/12/24 23:49 10/15/24 23:33 Room Air Laboratory Results 04/13/24 04/13/24 04/13/24 Range/Units 10:33 07:48 06:25 WBC (4.8-10.8) K/ul RBC (4.70-6.10) M/uL Hgb (14.0-18.0) g/dl Hct (42.0-52.0) % MCV (80.0-100.0) fL MCH (25.0-34.0) pg MCHC (32.0-36.0) g/dL RDW Std Deviation (36.4-46.3) fL RDW Coeff of Galile[place] (11.5-14.5) % Plt Count (130-400) K/uL MPV (9.4-12.4) fL Immature Gran % (Auto) % Neut % (Auto) % Lymph % (Auto) % [place] % (Auto) % Eos % (Auto) % Baso % (Auto) % Neut # (Auto) (1.40-6.50) K/uL Lymph # (Auto) (1.20-3.40) K/uL [place] # (Auto) (0.11-0.59) K/uL Eos # (Auto) (0.00-0.50) K/uL Baso # (Auto) (0.00-0.20) K/uL Immature Gran # (Auto) (0.01-0.20) K/uL RBC Morphology ESR (0-20) mm/hr Sodium (136-145) mmol/L Potassium (3.5-5.1) mmol/L Chloride (98-107) mmol/L Carbon Dioxide (21-32) mmol/L Anion Gap (3-11) BUN (6-23) mg/dl Creatinine (0.6-1.4) mg/dl Est Cr Clr Drug Dosing eGFR BUN/Creatinine Ratio (10-20) Glucose (70-99(Fasting)) mg/dl POC Glucose 194 H (70-99) mg/dl Calcium (8.6-10.3) mg/dl Magnesium (1.7-2.4) mg/dl Total Bilirubin (0.2-1.0) mg/dl AST (13-39) U/L ALT (7-52) U/L Alkaline Phosphatase (34-104) U/L Troponin I High Sens (0-20) pg/ml C-Reactive Protein (0-0.5) mg/dl Total Protein (6.0-8.3) gm/dl Albumin (3.4-5.0) gm/dl Globulin (2.5-4.0) gm/dl Albumin/Globulin Ratio (0.9-2) Urine Color Urine Appearance (Clear) Urine pH (4.5-7.5) Ur Specific [place] (1.000-1.030) Urine Protein (Negative) Urine Glucose (UA) (Negative) Urine Ketones (Negative) Urine Blood (Negative) Urine Nitrite (Negative) Urine Bilirubin (Negative) Urine Urobilinogen (Negative) Ur Leukocyte Esterase (Negative) Urine WBC (Auto) (0-5) /hpf Urine RBC (Auto) (0-2) /hpf U Hyaline Cast (Auto) (0-2) /lpf U Epithel Cells (Auto) (0-2) /hpf Urine Bacteria (Auto) (None Seen) Fluid Comment Synovial Source Pending Synovial Color Pending Synovial Appearance Pending Synovial Crystals Pending Nasal Screen MRSA (PCR) Negative (Negative) 04/13/24 04/12/24 04/12/24 Range/Units 05:56 20:25 17:40 WBC 7.04 9.32 (4.8-10.8) K/ul RBC 2.55 L 2.86 L (4.70-6.10) M/uL Hgb 7.1 L 7.9 L (14.0-18.0) g/dl Hct 22.2 L 25.1 L (42.0-52.0) % MCV 87.1 87.8 (80.0-100.0) fL MCH 27.8 27.6 (25.0-34.0) pg MCHC 32.0 31.5 L (32.0-36.0) g/dL RDW Std Deviation 45.1 45.2 (36.4-46.3) fL RDW Coeff of Galilea 14.2 14.0 (11.5-14.5) % Plt Count 388 409 H (130-400) K/uL MPV 9.9 9.6 (9.4-12.4) fL Immature Gran % (Auto) 0.6 % Neut % (Auto) 63.1 % Lymph % (Auto) 22.1 % Roane % (Auto) 12.8 % Eos % (Auto) 1.3 % Baso % (Auto) 0.1 % Neut # (Auto) 5.88 (1.40-6.50) K/uL Lymph # (Auto) 2.06 (1.20-3.40) K/uL [place] # (Auto) 1.19 H (0.11-0.59) K/uL Eos # (Auto) 0.12 (0.00-0.50) K/uL Baso # (Auto) 0.01 (0.00-0.20) K/uL Immature Gran # (Auto) 0.06 (0.01-0.20) K/uL RBC Morphology Unremarkable ESR 55 H (0-20) mm/hr Sodium 141 138 (136-145) mmol/L Potassium 4.2 4.6 (3.5-5.1) mmol/L Chloride 109 H 107 (98-107) mmol/L Carbon Dioxide 23 23 (21-32) mmol/L Anion Gap 9 8 (3-11) BUN 31 H 38 H (6-23) mg/dl Creatinine 1.10 D 1.42 H (0.6-1.4) mg/dl Est Cr Clr Drug Dosing 61.7 Not Reportable eGFR 68.29 50.26 BUN/Creatinine Ratio 28.2 H 26.8 H (10-20) Glucose 136 H 150 H (70-99(Fasting)) mg/dl POC Glucose (70-99) mg/dl Calcium 8.6 9.0 (8.6-10.3) mg/dl Magnesium 1.7 (1.7-2.4) mg/dl Total Bilirubin 0.3 (0.2-1.0) mg/dl AST 16 (13-39) U/L ALT 4 L (7-52) U/L Alkaline Phosphatase 46 (34-104) U/L Troponin I High Sens 35.5 H 34.9 H (0-20) pg/ml C-Reactive Protein 22.90 H (0-0.5) mg/dl Total Protein 7.3 (6.0-8.3) gm/dl Albumin 3.3 L (3.4-5.0) gm/dl Globulin 4.0 (2.5-4.0) gm/dl Albumin/Globulin Ratio 0.8 L (0.9-2) Urine Color Yellow Urine Appearance Clear (Clear) Urine pH 6.0 (4.5-7.5) Ur Specific [place] 1.020 (1.000-1.030) Urine Protein 2+ H (Negative) Urine Glucose (UA) Negative (Negative) Urine Ketones Negative (Negative) Urine Blood Negative (Negative) Urine Nitrite Negative (Negative) Urine Bilirubin Negative (Negative) Urine Urobilinogen Negative (Negative) Ur Leukocyte Esterase Negative (Negative) Urine WBC (Auto) 0-5 (0-5) /hpf Urine RBC (Auto) 0-2 (0-2) /hpf U Hyaline Cast (Auto) 0-2 (0-2) /lpf U Epithel Cells (Auto) 0-2 (0-2) /hpf Urine Bacteria (Auto) None Seen (None Seen) Fluid Comment Synovial Source Synovial Color Synovial Appearance Synovial Crystals Nasal Screen MRSA (PCR) (Negative) Spec: [id number] Collected: 04/13/24 Received: 04/13/[address]: Rajwinder Muñoz. R (ORTHO) Copy To: Lilia Grajeda D.ORock Source: Knee,Left OV Order: Ordered: Aer/Radha Cult/Sm Procedure Result Verified Site Gram Stain Final 04/13/24 Gram Stain Result Many Polys No Organisms Seen Aero/Radha Cult PENDING Blood Cx x 2 pending Diagnostic Findings A stat MRI was ordered of his left knee. MR knee LT wo con CLINICAL HISTORY: left knee effusion; quad tendon rupture TECHNIQUE: Multiplanar, multisequence images of the left knee were obtained. Comparison: Comparison is made to knee radiographs 09/09/2021 FINDINGS: There is a rupture of the quadriceps tendon. The medial and lateral collateral ligaments are intact. The anterior and posterior cruciate ligaments are intact. The medial and lateral menisci demonstrate normal signal. The articular cartilage is unremarkable. There is a large joint effusion. Popliteal cyst is seen. IMPRESSION: Rupture of the quadriceps tendon with associated joint effusion. ACT 112: Negative or not required by law. Electronically signed by: Wang Lee M.D. 04/13/2024 1:44 PM
--- OUTSIDE RECORDS SUMMARY | 2024-04-13 11:28 | External Medical Summary | Summary of Care ---
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 Active Melatonin 10 MG Oral Tablet Take 1 Tablet by mouth at bedtime. Active Omeprazole 20 MG Oral Tablet Delayed Release Take 1 Tablet by mouth in the morning. Active Albuterol Sulfate HFA 108 (90 Base) MCG/ACT Inhalation Aerosol Solution Inhale 2 Puffs by mouth every 6 hours as needed for Shortness of Breath. Active Umeclidinium [place] 62.5 MCG/ACT Inhalation Aerosol Powder Breath Activated (INCRUSE ellipta) Inhale 1 Puff by mouth in the morning. Active Benazepril HCl 10 MG Oral Tablet (Lotensin) Take 1 Tablet by mouth in the morning. 30 Tablet 3 07/24/2022 Active Fenofibrate 160 MG Oral Tablet (Lofibra) Take 1 Tablet by mouth in the morning. 30 Tablet 3 07/24/2022 Active Metoprolol Tartrate 25 MG Oral Tablet (Lopressor) Take 1 Tablet by mouth in the morning and 1 Tablet before bedtime. 60 Tablet 3 07/24/2022 Active Folic Acid 0.8 MG Oral Capsule Take 1 Tablet by mouth every evening. 30 Capsule 07/24/2022 Active Cephalexin 500 MG Oral Capsule (Keflex) TAKE 1 CAPSULE BY MOUTH THREE TIMES DAILY FOR 10 DAYS 08/06/2022 Active diphenhydrAMINE HCl 25 MG Oral Capsule (Benadryl) 1 Capsule. 07/17/2022 Active Myrbetriq 50 MG Oral Tablet Extended Release 24 Hour Take 1 Tablet by mouth in the morning. 06/30/2022 Active Magnesium 400 MG Oral Capsule Take 1 Capsule by mouth in the morning. Active documented as of this encounter (statuses as of 04/13/2024) Active Problems Problem Noted Date Diagnosed Date S/P CABG x 3 07/25/2022 S/P AVR (aortic valve replacement) 07/25/2022 DM2 (diabetes mellitus, type 2) 07/19/2022 HTN (hypertension) 07/19/2022 Hyperlipidemia 07/19/2022 History of lung cancer 07/19/2022 PAD (peripheral artery disease) 07/19/2022 NSTEMI (non-ST elevated myocardial infarction) 0 07/18/2022 CAD (coronary artery disease) 07/18/2022 documented as of this encounter (statuses as of 04/13/2024) Social History Tobacco Use Types Packs/Day Years Used Date Smoking Tobacco: Former Cigarettes Alcohol Use Standard Drinks/Week Comments No 0 (1 standard drink = 0.6 oz pur e alcohol) Utilities Answer Date Recorded Do you have trouble paying y our heating, water, or electric bill? (Adult - for ages 18 years and over) Not on file 12/15/2023 Is your family able to pay t he heat, water, or electric bill? (Household - for ages 0-17 years) Not on file 12/15/2023 Does your family have access to good internet? (Household - for ages 0-17 years) Not on file 12/15/2023 Social Connections Answer Date Recorded How often do you feel lonely or isolated from those around you? (Adult - for ages 18 years and over) Not on file 12/15/2023 Sex and Gender Information Value Date Recorded Sex Assigned at Not on file Gender Identity Not on file Sexual Orientation Not on file Job Start Date Occupation Industry Not on file Not on file Not on file documented as of this encounter Functional Status Functional Status Response Date of Assess ment Are you deaf or do you have serious difficulty h earing? No 07/18/2022 Are you blind or do you have serious difficulty seeing, even when wearing glasses? No 07/18/2022 Do you have serious difficul ty walking or climbing stairs? (5 years old or older) No 07/20/2022 Do you have difficulty dress ing or bathing? (5 years old or older) No 07/18/2022 Because of a physical, menta l, or emotional condition, do you have difficulty doing errands alone such as visiting a doctor s office or shopping? (15 years old or older) No 07/18/19 Cognitive Status Response Date of Assessm ent Because of a physical, menta l, or emotional condition, do you have serious difficulty concentrating, remembering, or making decisions? (5 years old or older) No 07/18/2022 documented as of this encounter Plan of Treatment Health Maintenance Due Date Last Done Comments Depression Screening 1957 Albumin/Creatinine Ratio 1962 Diabetic Eye Exam 1962 Diabetic Foot Exam 1962 Hepatitis C Screening 1962 HbA1c 01/16/2023 07/19/2022, 02/27, 11/23/2020, Additional history exists COVID-19 Vaccine ( season) 2024 04/06/2023, 04/18/2022, 11/01/2021, Additional history exists Influenza Vaccine (FLU shot) (#1) 2024 04/06/2023, 04/18/2022, 04/12/2021, Additional history exists GFR 04/02/2025 04/02/2024, 02/28, 01/01/2024, Additional history exists DTap/Tdap Vaccines (2 - Td or Tdap) 03/02/2031 03/02/2021 Pneumococcal Vaccine: 65+ Years Completed 11/04/2018, 01/04/2015, 01/24/2011, Additional history exists Zoster Vaccines Completed 09/14/2019, 03/30, 08/27/2010 HPV (Gardasil) Vaccine Aged Out No lo nger eligible based on patient's age to complete this topic Hepatitis B Vaccine Aged Out No longe r eligible based on patient's age to complete this topic MENINGOCOCCAL (MENACTRA/MENVEO) Aged Out No longer eligible based on patient's age to complete this topic documented as of this encounter Medical Devices Implanted Type Area Medication Reconciliation Technician Device Identifier Shelf Expiration Date Model / Serial / Lot Suture Steel 6 B&S19 [id number] - [id number] [place]planted:Qty: 8 on 07/19/2022 [place] Eduardo [place] [facility] [place] Sternum JN[place] : [employer] 05/28/2027 [id number] / / [id number] Marker Coronary - [id number] [place]planted:Qty: 1 on 07/19/2022 by Jose Eduardo T[place] [facility] [place] Heart [employer] 02/26/2025 [facility] / / [id number] documented as of this encounter Visit Diagnoses Diagnosis DM type 2, goal: symptom mgmt (HCC)- Primary Type II or unspecified type diabetes mellitus without mention of complication, not stated as uncontrolled documented in this encounter Advance Directives * Full Code (Latest Code Status on File) Date Activated Date Inactivated Comments 07/19/2022 12:31 PM 07/25/2022 3:47 PM This order reflects the patients wishes and were consensually agreed upon. Question Answer Comments Discussion of Advance Directives occurred with: Patient * Full Code Date Activated Date Inactivated Comments 07/18/2022 12:28 PM 07/19/2022 12:31 PM This order reflects the patients wishes and were consensually agreed upon. Question Answer Comments Discussion of Advance Directives occurred with: Patient
--- OUTSIDE RECORDS SUMMARY | 2024-04-13 11:28 | External Medical Summary ---
Author Name Unknown Address Unknown Organization [id number][place] [place] [facility] [address] [place] [address] Laboratory Report Ordering Provider Test Date Status KVNG OYRK 04/12/2024 10:10:00 Final Observation Date Value Abnormality Reference (Units ) Status WBC, Total 04/12/2024 10:10:00 10.50 4.00-10.80 (K/uL) Final RBC 04/12/2024 10:10:00 2.98 4.50-5.25 (M/uL) Final Hemoglobin 04/12/2024 10:10:00 8.5 Below low normal 14.0-16.8 (g/dL) Final HCT 04/12/2024 10:10:00 27.4 Below low normal 40.0-48.4 (%) Final MCV 04/12/2024 10:10:00 91.9 82.0-99.5 (fL) Final MCH 04/12/2024 10:10:00 28.5 27.0-34.0 (pg) Final MCHC 04/12/2024 10:10:00 31.0 32.0-36.0 (g/dL) Final RDW 04/12/2024 10:10:00 14.2 11.5-15.5 (%) Final Platelets 04/12/2024 10:10:00 460 Above high normal 140-400 (K/uL) Final MPV 04/12/2024 10:10:00 10.5 6.6-11.1 (fL) Final Nucleated erythrocytes/100 leukocytes [Ratio] in Blood by Automated count 04/12/2024 10:10:00 0 <=0 (/100 WBCs) Final Performing Location [facility] [place] [address] [place] [id number]
--- OUTSIDE RECORDS SUMMARY | 2024-04-13 11:28 | External Medical Summary | Summary of Care ---
Author Name Unknown Organization [facility] Address [address] [place] [address] Phone [phone] Care Team Providers Care Rib Matcher And Fitter Name Role Phone Unavailable Primary Care Provider Unavailabl e Reason for Visit * Reason Comments Outpatient Testing Encounter Details Date Type Department Care Team (Late st Contact Info) Description 04/12/2024 4:10 PM EDT Laboratory [facility], [address] [address] [address], Specimen Drop Off [address] [address] DM type 2, goal: symptom [...] needed for Shortness of Breath. Active Umeclidinium [place] 62.5 MCG/ACT Inhalation Aerosol Powder Breath Activated [...] this encounter Medical Devices Implanted Type Area Greens Picker Device Identifier Shelf Expiration Date Model / Serial / Lot Suture Steel 6 B&S19 M654g - [id number] Implanted:Qty: 8 on 07/19/2022 by Jose Eduardo Treadwell MD at OR [facility] N/A: Sternum JNJ : [employer] 05/28/2027 M654G / / SPBCSQ Marker Coronary - [id number] Implanted:Qty: 1 on 07/19/2022 by Jose Eduardo Treadwell MD at OR [facility] N/A: Heart [employer] 02/26/2025 [facility] / / [id number] documented as of this encounter Visit Diagnoses [...]
--- OUTSIDE RECORDS SUMMARY | 2024-04-13 11:28 | External Medical Summary | Summary of Care ---
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 Active Umeclidinium [place] 62.5 MCG/ACT Inhalation Aerosol Powder Breath Activated [...] as of this encounter (statuses as of 04/12/2024) Active Problems Problem Noted Date Diagnosed Date S/P CABG x 3 07/25/2022 S/P AVR (aortic valve replacement) 07/25/2022 DM2 (diabetes mellitus, type 2) 07/19/2022 HTN (hypertension) 07/19/2022 Hyperlipidemia 07/19/2022 History of lung cancer 07/19/2022 PAD (peripheral artery disease) 07/19/2022 NSTEMI (non-ST elevated myocardial infarction) 0 07/18/2022 CAD (coronary artery disease) 07/18/2022 documented as of this encounter (statuses as of 04/12/2024) Social History Tobacco Use Types Packs/Day Years [...] this encounter Medical Devices Implanted Type Area Miner Operator Device Identifier Shelf Expiration Date Model / Serial / Lot Suture Steel 6 B&S19 M654g - [id number] Implanted:Qty: 8 on 07/19/2022 by Jose Eduardo Treadwell MD at OR [facility] N/A: Sternum JNJ : [employer] 05/28/2027 M654G / / SPBCSQ Marker Coronary - [id number] Implanted:Qty: 1 on 07/19/2022 by Jose Eduardo Treadwell MD at OR [facility] N/A: Heart [employer] 02/26/2025 [facility] / / [id number] documented as of this encounter Visit Diagnoses [...]
--- OUTSIDE RECORDS SUMMARY | 2024-04-13 11:28 | External Medical Summary | Summary of Care ---
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 Active Umeclidinium [place] 62.5 MCG/ACT Inhalation Aerosol Powder Breath [...] this encounter Medical Devices Implanted Type Area Operations Support Manager Device Identifier Shelf Expiration Date Model / Serial / Lot Suture Steel 6 B&S19 M654g - [id number] Implanted:Qty: 8 on 07/19/2022 by Jose Eduardo Treadwell MD at OR [facility] N/A: Sternum JNJ : [employer] 05/28/2027 M654G / / SPBCSQ Marker Coronary - [id number] Implanted:Qty: 1 on 07/19/2022 by Jose Eduardo Treadwell MD at OR [facility] N/A: Heart [employer] 02/26/2025 [facility] / / [id number] documented as of this encounter Visit Diagnoses Diagnosis 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
[2024-04-13 11:58] LABS: Appearance Synovial Fluid Turbid; Color Synovial Fluid Straw; RBC Synovial Fluid Auto 22000 /uL; Source Synovial Fluid Left Knee; WBC Synovial Fluid Auto 112400 /ul (0-200)
--- NOTE | 2024-04-13 13:45 | Magnetic Resonance Report ---
MR knee LT wo con CLINICAL HISTORY: left knee effusion; quad tendon rupture TECHNIQUE: Multiplanar, multisequence images of the left knee were obtained. Comparison: Comparison is made to knee radiographs 09/09/2021 FINDINGS: There is a rupture of the quadriceps tendon. The medial and lateral collateral ligaments are intact. The anterior and posterior cruciate ligaments are intact. The medial and lateral menisci demonstrate normal signal. The articular cartilage is unremarkable. There is a large joint effusion. Popliteal cy st is seen. IMPRESSION: Rupture of the quadriceps tendon with associated joint effusion. ACT 112: Negative or not required by law. Electronically signed by: Wang Lee M.D. 04/13/2024 1:44 PM
[2024-04-13] MEDS ORDERED: GLYCOPYRROLATE 0.2 MG/ML VIAL ONE (16:22)
[2024-04-13] MEDS ORDERED: PROPOFOL IV EMULSION 10 MG/ML 20 ML VIAL IV ONE (16:22)
[2024-04-13] MEDS ORDERED: ROCURONIUM BROMIDE 10 MG/ML 5 ML VIAL IV ONE (16:22)
[2024-04-13] MEDS ORDERED: ONDANSETRON INJ 2 MG/ML 2 ML VIAL ONE (16:22)
[2024-04-13] MEDS ORDERED: LIDOCAINE 2% 2 ML VIAL/AMP(20MG/ML) INFIL ONE (16:22)
[2024-04-13] MEDS ORDERED: DEXAMETHASONE SOD INJ 4 MG/ML VIAL ONE (16:22)
[2024-04-13] MEDS ORDERED: MIDAZOLAM HCL 1 MG/ML 2ML VIAL ONE (16:23)
[2024-04-13] MEDS ORDERED: fentaNYL citrate PF 100 MCG/2 ML VIAL ONE ×4 (16:23→19:53)
[2024-04-13] MEDS ORDERED: SUGAMMADEX SODIUM 200 MG/2 ML VIAL IV ONE (16:26)
[2024-04-13] MEDS ORDERED: fentaNYL citrate PF 100 MCG/2 ML VIAL IV PRN (16:41)
[2024-04-13] MEDS ORDERED: ePHEDrine sulfate 50 MG/ML AMP IV PRN (16:41)
[2024-04-13] MEDS ORDERED: PROMETHAZINE HCL 6.25 MG in SODIUM CHLORIDE 0.9% 50 ML IV PRN (16:41)
[2024-04-13] MEDS ORDERED: ONDANSETRON INJ 2 MG/ML 2 ML VIAL IV PRN (16:41)
[2024-04-13] MEDS ORDERED: HYDROmorphone INJ 1 MG/ML SYRINGE IV PRN (16:41)
--- NOTE | 2024-04-13 16:41 | Anesthesiology Consultation ---
Date of Service April 13, 2024 Assessment & Plan (1) Encounter for pre-operative examination: Chart Review Chart Review: Acceptable Risk for Surgery and Patient NOT seen in Pre Admission Testing Consults Requested none History Surgery Operation Date: 04/13/24 09:55 Proposed Procedures p Left Knee Arthroscopy and Open Incision and Drainage - Rickey Jovon Martini MD Height/Weight Height: 5 ft 9 in Weight: 94.2 kg Allergies Allergy/AdvReac Type Severity Reaction Status Date / Time No Known Allergies Allergy Verified 04/05/24 15:07 Medications Home Medications Medication Instructions Recorded Confirmed Last Taken diabetic supplies, miscellan. #1 ea 12/31/20 04/01/24 Unknown diphenhydramine HCl 25 mg capsule 25 mg PO QAM PRN Congestion 07/17/22 04/12/24 03/20/24 21:00 (Benadryl) multivitamin 1 tab PO QAM 08/18/22 04/12/24 03/21/24 06:00 nitroglycerin 0.4 mg sublingual 0.4 mg sublingual Q5M PRN chest 08/29/22 04/12/24 Unknown tablet pain #30 tabs acetaminophen 500 mg tablet 500 mg PO Q6H PRN Pain 09/26/22 04/12/24 03/21/24 06:00 magnesium 200 mg tablet 400 mg PO HS 09/26/22 04/12/24 03/20/24 21:00 omeprazole 20 mg capsule,delayed 20 mg PO QPM 09/26/22 04/12/24 03/18/24 release potassium gluconate 600 mg (99 mg) 600 mg PO QAM 09/26/22 04/12/24 03/21/24 06:00 tablet atorvastatin 40 mg tablet 40 mg PO HS #90 tabs 04/06/23 04/12/24 03/20/24 21:00 Auto Titrating CPAP #1 ea 05/30/23 04/05/24 Unknown CPAP Supplies #1 ea 05/30/23 04/05/24 Unknown albuterol sulfate 90 mcg/actuation 2 puff inhalation Q6H PRN 10/02/23 04/12/24 03/19/24 aerosol inhaler Shortness Of Breath Or Wheezing #18 grams umeclidinium 62.5 mcg-vilanterol 1 inh inhalation DAILY #3 Inhalers 04/11/1904/12/24 03/20/24 09:00 25 mcg/actuation powdr for inhalation (Anoro Ellipta) benazepril 10 mg tablet 10 mg PO QAM #90 tabs 10/08/23 04/12/24 03/19/24 clopidogrel 75 mg tablet 75 mg PO QAM #90 tabs 10/08/23 04/12/24 03/19/24 fenofibrate 160 mg tablet 160 mg PO QAM #90 tabs 10/08/23 04/12/24 03/21/24 06:00 hydrocortisone 2.5 % topical cream 1 applic topical BID PRN Other 12/18/23 04/12/24 03/20/24 10:00 ketoconazole 2 % topical cream 1 applic topical BID PRN Other 12/18/23 04/12/24 03/20/24 10:00 metformin 1,000 mg tablet 1,000 mg PO HS 12/18/23 04/12/24 03/19/24 polyethylene glycol 3350 17 gram 17 g PO DAILY #0 ea 12/24/23 04/05/24 2 Weeks Ago oral powder packet (Miralax) ~03/07/24 aspirin 81 mg tablet,delayed 81 mg PO BID 6 weeks #84 tabs 01/08/24 04/12/24 03/21/24 06:00 release (Enteric Coated Aspirin) melatonin 10 mg capsule 3 mg (0.3 x 10 mg) PO HS PRN sleep 01/08/24 04/12/24 03/20/24 21:00 #30 caps mirabegron 50 mg tablet,extended 50 mg PO QAM #90 tabs 02/11/24 04/12/24 03/21/24 06:00 release 24 hr (Myrbetriq) metoprolol tartrate 25 mg tablet 12.5 mg (1/2 x 25 mg) PO BID #180 03/03/24 04/12/24 03/20/24 21:00 tabs oxycodone 5 mg tablet 5 - 10 mg (1 - 2 x 5 mg) PO Q4H 03/25/24 04/12/24 Unknown PRN Post op pain control #28 tabs docusate sodium 100 mg capsule 100 mg PO .COMPLEX 04/05/24 04/12/24 Unknown Active Medications Generic Name Dose Route Start Last Admin Trade Name Freq PRN Reason Stop Dose Admin Aspirin 81 mg 04/13/24 09:00 04/13/24 08:19 Aspirin 81 Mg Ectab PO 05/13/24 08:59 81 mg BID MICHAEL Administration Clopidogrel Bisulfate 75 mg 04/13/24 09:00 04/13/24 08:19 Clopidogrel Bisulfate 75 Mg Tab PO 05/13/24 08:59 75 mg QAM MICHAEL Administration Docusate Sodium 100 mg 04/13/24 09:00 04/13/24 08:31 Docusate Sodium 100 Mg Cap PO 05/13/24 08:59 100 mg DAILY MICHAEL Administration Enalapril Maleate 5 mg 04/13/24 09:00 04/13/24 08:19 Enalapril Maleate 5 Mg Tab PO 05/13/24 08:59 5 mg QAM MICHAEL Administration Cefazolin Sodium 2,000 mg in 15 mls @ 3.75 mls/min 04/13/24 06:00 04/13/24 13:45 Ancef 2000mg IV 05/25/24 05:59 3.75 mls/min Q8H MICHAEL Administration Insulin Aspart 0 units 04/13/24 07:30 04/13/24 12:37 Insulin Aspart Per Unit Charge SC 05/13/24 07:29 1 units ACHS MICHAEL Administration Metoprolol Tartrate 12.5 mg 04/13/24 09:00 04/13/24 08:19 Metoprolol Tartrate 25 Mg Tab PO 05/13/24 08:59 12.5 mg BID MICHAEL Administration Pantoprazole Sodium 40 mg 04/13/24 09:00 04/13/24 08:20 Pantoprazole 40 Mg Tab PO 05/13/24 08:59 40 mg DAILY MICHAEL Administration Umeclidinium/Vilanterol 1 puffs 04/13/24 09:00 04/13/24 08:21 Umeclidinium/Vilanterol 62.5/25mcg 7 Puffs/Inhaler INH 05/13/24 08:59 1 puffs DAILY MICHAEL Administration Past Medical History Medical History History of colon polyps Hearing loss Acid reflux Osteoarthritis History of non-ST elevation myocardial infarction (NSTEMI) 06/2022 Peripheral vascular disease, unspecified SJ (obstructive sleep apnea) CPAP Carotid artery stenosis Under surveillance by vascular Carotid duplex 01/2023: 50-69% B/L ICA stenosis. No significant change compared to 04/15/2022 study per report. Hyperlipidemia Per records Anemia Chronic Peripheral arterial disease Hypertension Diabetes NIDDM Glaucoma CAD (coronary artery disease) RCA stent (~2014) CABG x2 (06/2022) Follows with [facility] cardio COPD (chronic obstructive pulmonary disease) BPH (benign prostatic hyperplasia) Hx of basal cell carcinoma H/O: lung cancer 2017- Left Upper Lobectomy Currently under surveillance, no current/recent issues Past Family History Family History Brother Lung cancer Father Heart disease Hypertension Mother Cerebral aneurysm Other No family history of adverse response to anesthesia Past Surgical History Surgical History H/O left knee surgery Patellar tendon repair 11/2023 History of Mohs micrographic surgery for skin cancer H/O right coronary artery stent placement (~2014) H/O angioplasty L femoral in 2005 and 11/2020, R femoral in 2018 and 10/2019 History of coronary artery bypass graft CABGx2 (06/2022) History of selective laser trabeculoplasty History of prostate surgery Green Light Laser procedure ~[address] [facility] in [place], [place] History of colonoscopy History of cardiac cath 06/2022 [facility] > transferred to [facility] for CABG Status post biopsy of skin S/P coronary artery stent placement H/O umbilical hernia repair History of lobectomy of lung VIANEY for stage 1A lung cancer (2016) H/O cataract extraction R/L H/O laminectomy L3/4 1990 L4/5 w/ fusion 1992 H/O vasectomy H/O right knee surgery Social History Smoking Status: Former smoker tobacco type: cigarettes Smoking cigarettes per day: 30 Do You Dip or Chew Tobacco: No Smoking End Date: 2014 Hx Alcohol Use: Yes Alcohol type: beer alcohol intake frequency: a few times a month Hx Substance Use: No substance use type: does not use Physical Exam Vital Signs Last Vital Signs Temp 37 C 04/13/24 16:23 Pulse 70 04/13/24 16:23 Resp 16 04/13/24 16:23 BP 149/49 H 04/13/24 16:23 Pulse Ox 95 10/16/24 16:23 O2 Del Method Room Air 10/16/24 14:04 Testing Laboratory Results 04/13/24 05:56 04/13/24 05:56 Urine Color Yellow 04/12/24 20: Urine Appearance Clear (Clear) 04/12/24 20:25 Urine pH 6.0 (4.5-7.5) 04/12/24 20:25 Ur Specific [place] 1.020 (1.000-1.030) 04/12/24 20: Urine Protein 2+ (Negative) H 04/12/24 20:25 Urine Glucose (UA) Negative (Negative) 04/12/24 20: Urine Ketones Negative (Negative) 04/12/24 20: Urine Nitrite Negative (Negative) 04/12/24 20:25 Ur Leukocyte Esterase Negative (Negative) 04/12/24 20:25 Urine WBC (Auto) 0-5 /hpf (0-5) 04/12/24 20:25 Urine RBC (Auto) 0-2 /hpf (0-2) 04/12/24 20:25 U Hyaline Cast (Auto) 0-2 /lpf (0-2) 04/12/24 20:25 U Epithel Cells (Auto) 0-2 /hpf (0-2) 04/12/24 20:25 Urine Bacteria (Auto) None Seen (None Seen) 04/12/24 20:25 Blood Type O Positive 04/13/24 10:52 Antibody Screen NEGATIVE 04/13/24 10:52 04/13/24 10:33 Gram Stain - Final Knee,Left 04/13/24 04/13/24 11:37 07:48 POC Glucose 149 H 194 H Patient received 1 unit pRBC at 1030 on 04/13/24. Electrocardiogram Date: 04/12/24 DICTATED BY: Juan Soliman MD Test Reason : Blood Pressure : */* mmHG Vent. Rate : 76 BPM Atrial Rate : 76 BPM P-R Int : 150 ms QRS Dur : 98 ms QT Int : 396 ms P-R-T Axes : 57 -11 37 degrees QTcB Int : 445 ms Sinus rhythm with Premature atrial complexes Voltage criteria for left ventricular hypertrophy Borderline ECG When compared with ECG of 20-Dec-2023 06:11, Premature atrial complexes are now Present Nonspecific T wave abnormality has replaced inverted T waves in Inferior leads Nonspecific T wave abnormality no longer evident in Anterior leads Confirmed by Juan Soliman ([id number]) on 04/13/2024 7:48:56 AM Other Testing Electrocardiogram Date: 12/20/23 NSR at 70bpm. Moderate voltage criteria for LVH, may be normal variant. Chest X-Ray Date: 12/18/23 FINDINGS: 2 AP, portable, upright chest radiographs are compared to study dated 07/16/2022. Correlation is made with chest CT dated 04/23/2022. The patient is status post midline sternotomy. The heart is enlarged noting atherosclerotic calcification of the thoracic aorta. There is pulmonary vascular congestion an mild interstitial edema. Emphysema and chronic interstitial thickening is similar to previous. No large pleural effusion or pneumothorax is seen. The skeletal structures are osteopenic. The bony thorax is grossly intact. 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 Echocardiogram Date: 08/18/22 EF 60-65%. No RWMA. Moderate cLVH. Septal motion consistent with prior cardiac surgery. Mild LAD. AV sclerosis with trace regurgitation. Cardiac Catheterization Date: 07/18/22 Summary: Unchanged critical distal left main disease extending into ostial LAD, ostial circumflex with RYAN-3 flow. Successful placement of IABP. Recommendations: Awaiting transfer to tertiary center for CABG. Continue heparin and nitroglycerin infusions. *Subsequent CABG x2 performed* Other Testing Carotid doppler Date: 02/17/23 50-69% B/L ICA stenosis. > 50% B/L external carotid artery stenosis. B/L vertebral artery antegrade flow. No significant change compared to 04/15/2022 study per report.
[2024-04-13] MEDS: SODIUM CHLORIDE 0.9% 250 ML IV PRN (16:57)
[2024-04-13] MEDS ORDERED: TRANEXAMIC ACID / 0.7% NACL 1000MG/100ML BAG IV ONE (17:52)
[2024-04-13] MEDS: TRANEXAMIC ACID 100 MG/ML 10 ML VIAL IV ONE (17:54)
[2024-04-13] MEDS: EpINEphrine HCL INJ 1 MG/ML 1ML SYRINGE IR ONE (18:03)
[2024-04-13] MEDS: ceFAZolin 330 MG/ML 1 GM VIAL ONE ×2 (18:03→18:17)
[2024-04-13] MEDS ORDERED: HYDROmorphone INJ 2 MG/ML SYR/VIAL ONE (18:26)
[2024-04-13] MEDS: BUPIVACAINE 0.5 % 5 MG/1 ML MPF 30ML VIAL ONE (19:51)
[2024-04-13] MEDS: LIDOCAINE 1%/EPINEPHRINE 1:100,000 50 ML VIAL ONE (19:51)
--- NOTE | 2024-04-13 20:07 | Post Operative Brief Note ---
Immediate Post Op Note Date of Surgery April 13, 2024 Pre & Post Diagnosis Operation Date: 04/13/24 09:55 Pre-Op Diagnosis: Status Post Revision Quad Tendon Repair, Left knee infection Post-Op Diagnosis: Status Post Revision Quad Tendon Repair, Left knee infection, Chondromalacia, Medial and Lateral Meniscus Tear I identified the patient and participated in the time-out.: Yes Procedure Operation Date: 04/13/24 09:55 Actual Procedures p Left Knee Arthroscopic Incision and Drainage (Extensive Debridement), Chondroplasty, Partial Medial and Lateral Meniscectomy, Open Irrigation and Debridement Left Knee. (Left) - Rickey Martini MD Surgeon Rickey Martini MD Bus Girl Waldo Rubi PA-C (No fellow avail) Estimated Blood Loss 50 Findings Consistent with Post-Op Diagnosis Fluids 1200 cc Specimens Left knee C&S Left quad tendon for pathology Drains Lopes Catheter (lopes present upon arrival to operating room, remains intact upon leaving) and Hemovac Drain Anesthesia Type General Complications none
--- NOTE | 2024-04-13 20:08 | Operative Report ---
Post Operative Report Pre & Post Diagnosis Operation Date: 04/13/24 09:55 Pre-Op Diagnosis: Status Post Revision Quad Tendon Repair, Left knee infection Post-Op Diagnosis: Status Post Revision Quad Tendon Repair, Left knee infection, Chondromalacia, Medial and Lateral Meniscus Tear I identified the patient and participated in the time-out.: Yes Procedure Operation Date: 04/13/24 09:55 Actual Procedures p Left Knee Arthroscopic Incision and Drainage (Extensive Debridement), Chondroplasty: Patella, MFC, LTP; Partial Medial and Lateral Meniscectomy; Open Irrigation and Debridement Left Knee. (Left) - Rickey Martini MD Surgeon Rickey Martini MD Plastic Sheeting Cutter Waldo Rubi PA-C (No fellow avail) Estimated Blood Loss 50 Findings See Below The left knee with significant effusion. There was a palpable defect in the distal quadriceps. ARTHROSCOPIC FINDINGS: There was significant synovitis in the suprapatellar pouch. 1) PATELLOFEMORAL JOINT: The articular cartilage of the Patella had [place]erbridge grade II changes.The articular cartilage of the Trochlea had grade I changes. 2) GUTTERS: No loose bodies. There was significant synovitis in both gutters 3) MEDIAL COMPARTMENT: The articular cartilage of the femur grade II changes. The articular cartilage of the Tibia grade I changes. The medial meniscus had degenerative fraying posteriorly. 4) ACL/PCL: They were both visualized and probed to be intact. There was synovitis within the notch. 5) LATERAL COMPARTMENT: The lateral compartment was then entered in a [id number] position. The articular cartilage of the femur grade I changes. The articular cartilage of the Tibia grade II changes. The lateral meniscus had degenerative fraying at the apex and posterior horn. There was a re-tear of the quadriceps tendon, with the FiberWire sutures intact (tied distally, through the patella, and within the quadriceps tendon), with ~ 7cm retraction of the tendon. Fluids 1200 cc Specimens Left knee C&S Left distal quad tendon for pathology Drains HVAC x [address] prior to arrival Anesthesia Type General Complications none Indications This is a 78-year-old male who has clinical and MRI findings consistent with failed revision left quadriceps repair and left knee infection. I recommended that a left knee arthroscopy I&D and open I&D be performed. The patient understands the risks of surgery, which include but not limited to: bleeding, infection, re-operation, damage to nerves and arteries, continued knee pain, progression of OA, DVT, and a 0.5-5% risk of becoming worse after surgery. The patient understands all these instructions and explanations, all of his questions have been satisfactorily addressed and the patient has elected to proceed. Informed consent was signed. Description of Procedure Waldo Rubi PA-C is assisting with positioning, retraction, closure, and placement of the brace due to fellow not available. Procedure: The patient was taken to the Operating Room and placed in the supine position after general anesthetic was administered. My initials and a multidisciplinary time-out were used to identify the correct patient and the left leg as the operative limb. The patient has been receiving intravenous Ancef q8h. The left leg was then prepped and draped in a standard sterile fashion. The left knee portals and planned incision was injected with 20cc of a 50:50 mix of 1% Lidocaine plain and 0.5% Marcaine with epinephrine, in the standard fashion. An anterolateral arthroscopic portal was established with an 11- blade. Next, the arthroscope was introduced into the knee. A diagnostic arthroscopy commenced and both the superolateral and anteromedial portals were established under direct visualization using a spinal needle followed by an 11 blade in the standard fashion.A deep culture of the left knee was taken. Due to visualization 1g TXA was given and the leg was exsanguinated with 3 minutes of elevation before inflating the tourniquet. The above findings were observed during the diagnostic arthroscopy. The synovitis in the suprapatellar pouch, both gutters, medial & lateral compartment, notch, and anterior fat pad were debrided as they were encounter with mechanical shaver and [place].The articular cartilage damage of the patella, MFC, LTP were debrided back to stable margins as they were encountered with mechanical shaver. The medial & lateral meniscus tears were evaluated and found to be irreparable and was debrided back to stable margin with mechanical shaver, they were probed after and found to be stable. The knee was copiously irrigated with 15 L of normal saline. The arthroscopic instruments were then removed. The previous anterior incision was used and extended proximally and distally by approximately 3 cm. The joint was entered immediately. The sutures remained secured distally and within the tendon, but the tendon had retracted. Large flaps were created. Any questionable soft tissue was removed with sharp dissection using a scalpel. Another 1L of irrigation with Ancef was used with the Versajet to debride the soft tissue of the quadriceps, patellar tendon, po uch, patella, and gutters. The sutures were removed from the quadriceps and patella. The proximal end of the patella was debrided with rongeur and curettes, including the tunnels. The knee was further irrigated with another 6L of Normal Saline with pulse lavage. Two large HVAC drains were placed in the gutters and out the superolateral portal. The anterior incision was closed with 0 Prolene in vertical mattress fashion and horizontal fashion using 2-0 & 3-0 Prolene. The portals were closed with 3-0 Prolene in a standard fashion. The wound was dressed with Xeroform gauze, sterile gauze, ABDs, sterile Webril, and a foot to thigh Angel bandage. A hinged knee brace was placed locked in extension. The patient was then transferred to the Recovery Room in stable condition. The sponge and needle counts were correct. Post-op Instructions: The patient will be re-admitted to the hospitalist service, continue IV antibiotics. ID will be consulted. The patient will be WBAT with brace locked in extension. The patient may remove the operative dressing on Post-Op Day #2 and replace DSD to cover the wounds, and remove the HVAC. The patient may shower in 72 hours and is to wear the CHESTER for 2 weeks on the operative limb. I attest to the content of the Intraoperative Record and any orders documented therein. Any exceptions are noted below.
--- OUTSIDE RECORDS SUMMARY | 2024-04-13 20:20 | External Medical Summary | Summary of Care ---
Author Name Unknown Organization [facility] Address [address] [place] [address] Phone [phone] Care Team Providers Care Installation Drafter Name Role Phone Unavailable Primary Care Provider Unavailabl e Reason for Visit * Reason Comments Outpatient Testing Encounter Details Date Type Department Care Team (Late st Contact Info) Description 04/12/2024 4:10 PM EDT Laboratory [facility], [address] [address] [address], Specimen Drop Off [address] [address] DM type 2, goal: symptom [...] needed for Shortness of Breath. Active Umeclidinium [place] 62.5 MCG/ACT Inhalation Aerosol Powder Breath Activated [...] this encounter Medical Devices Implanted Type Area Fan Mail Clerk Device Identifier Shelf Expiration Date Model / Serial / Lot Suture Steel 6 B&S19 M654g - [id number] Implanted:Qty: 8 on 07/19/2022 by Jose Eduardo Treadwell MD at OR [facility] [place] N/A: Sternum JN[place] : [employer] 05/28/2027 M654G / / SPBCSQ Marker Coronary - [id number] Implanted:Qty: 1 on 07/19/2022 by Jose Eduardo Treadwell MD at OR [facility] [place] N/A: Heart [employer] 02/26/2025 [facility] / / [id number] documented as of this encounter Visit Diagnoses [...]
--- OUTSIDE RECORDS SUMMARY | 2024-04-13 20:20 | External Medical Summary | Summary of Care ---
Author Name Unknown Organization [facility] Address [address] [place] [address] Phone [phone] Care Team Providers Care Software Licensing Executive Name Role Phone Unavailable Primary Care Provider Unavailabl e Reason for Visit * Reason Comments Outpatient Testing Encounter Details Date Type Department Care Team (Late st Contact Info) Description 04/12/2024 4:10 PM EDT Laboratory [facility], [address] [address] [address], Specimen Drop Off [address] [address] DM type 2, goal: symptom [...] needed for Shortness of Breath. Active Umeclidinium [place] 62.5 MCG/ACT Inhalation Aerosol Powder Breath Activated [...] this encounter Medical Devices Implanted Type Area Metal Flooring Installer Device Identifier Shelf Expiration Date Model / Serial / Lot Suture Steel 6 B&S19 M654g - [id number] Implanted:Qty: 8 on 07/19/2022 by Jose Eduardo Treadwell MD at OR [facility] [place] N/A: Sternum JN[employer] : [employer] 05/28/2027 M654G / / SPBCSQ Marker Coronary - [id number] Implanted:Qty: 1 on 07/19/2022 by Jose Eduardo Treadwell MD at OR [facility] [place] N/A: Heart [employer] 02/26/2025 [facility] / / [id number] documented as of this encounter Visit Diagnoses [...]
--- NOTE | 2024-04-13 21:04 | Anesthesiology Progress Note ---
Date of Service April 13, 2024 Anesthesia Post Procedure Vital Signs Vital Signs: Temp Pulse Pulse Pulse Resp BP BP 04/13/24 20:55 76 12 157/62 H 04/13/24 20:45 75 12 160/71 H 04/13/24 20:35 72 12 149/75 H 04/13/24 20:28 36.1 C L 76 11 L 156/70 H 04/13/24 16:58 36.3 C L 71 16 148/82 H 04/13/24 16:23 37 C 70 16 149/49 H 04/13/24 15:43 67 04/13/24 15:43 36.9 C 16 L 16 161/53 H 04/13/24 14:31 37 C 66 16 156/50 H 04/13/24 14:27 36.9 C 73 16 147/55 H 04/13/24 14:11 36.9 C 66 18 144/54 H 04/13/24 14:04 36.9 C 63 18 144/54 H 04/13/24 08:30 04/13/24 07:45 36.9 C 78 18 136/80 04/13/24 03:47 70 19 04/12/24 23:59 04/12/24 23:49 74 13 04/12/24 23:33 37.1 C 82 16 04/12/24 22:00 75 16 162/76 H 04/12/24 21:10 79 19 04/12/24 21:06 79 17 BP Pulse Ox O2 Del Method O2 Flow Rate 04/13/24 20:55 95 Nasal Cannula 2 04/13/24 20:45 96 Nasal Cannula 4 04/13/24 20:35 97 Nasal Cannula 4 04/13/24 20:28 99 Oxymask 9 04/13/24 16:58 94 Room Air 04/13/24 16:23 95 04/13/24 15:43 04/13/24 15:43 95 04/13/24 14:31 94 04/13/24 14:27 95 04/13/24 14:11 98 04/13/24 14:04 94 Room Air 04/13/24 08:30 Room Air 04/13/24 07:45 92 Room Air 04/13/24 03:47 98 04/12/24 23:59 CPAP 04/12/24 23:49 98 04/12/24 23:33 172/68 H 98 Room Air 04/12/24 22:00 97 04/12/24 21:10 151/64 H 95 04/12/24 21:06 96 Pain Intensity Right Knee: Pain Intensity: 2 Left Knee: Pain Intensity: 2 Transfer of Care Handoff Completed per policy Notes Mental Status: alert / awake / arousable and participated in evaluation Patient Amnestic to Procedure: Yes Nausea / Vomiting: adequately controlled Pain: adequately controlled Airway Patency, RR, SpO2: stable & adequate BP & HR: stable & adequate Hydration State: stable & adequate Anesthetic Complications: no major complications apparent and Pt Satisfied with anesthetic care
[2024-04-13] MEDS: ATORVASTATIN 40 MG TAB PO SCH (22:19)
--- NOTE | 2024-04-13 22:47 | Hospitalist Progress Note ---
Date of Service April 13, 2024 Assessment & Plan (1) History of left knee surgery: Plan: Left septic knee Patient with left quadriceps tendon rupture s/p repair, s/p infection with subsequent washout. Now with hard cast still in place. Some leg pain which developed yesterday as well as fever. Recurrence of infection confirmed. Patient will be going for a wash out -Observation to medical -will admit. -Ortho consultation -Continue Ancef -Oxycodone PRN Anemia Will transfuse one unit of PRBC. (2) KERRY (acute kidney injury): Plan: Patient with elevation of BUN and Cr. Reports some decreased UOP of late -LR at 80mL/hr x 1L ordered -Repeat BMP in AM -Avoid nephrotoxic agents -Renal dosing where needed (3) Urinary retention: Plan: Almendarez catheter placed in the ER. Patient reports Myrbetriq was recently discontinued -Almendarez maintenance -Monitor I/Os Plan Chronic medical issues: SJ - chronic, stable -CPAP qHS COPD - chronic -Continue Anoro Ellipta -Albuterol PRN GERD - chronic -Continue Protonix Hypertension -Continue Metoprolol, Enalapril Diabetes -ISS CAD -Continue Plavix, ASA and Atorvastatin Admission and Anticipated Discharge Date Admission Date: April 13, 2024 Subjective 78 yo male reports no new symptoms. Physical Exam Physical Exam: General: patient resting comfortably, NAD, non-toxic in appearance, AA&O x 4 Skin: warm, dry, intact, no rashes or lesions HEENT: NC/AT, PERRL, EOMI, Results & Data Results & Data Vital Signs (Past 12 Hours) Vital Signs Temp Pulse Pulse Pulse Resp BP BP 04/13/24 22:39 36.3 C L 69 20 135/68 04/13/24 22:30 36.4 C L 69 12 148/66 H 04/13/24 22:10 36.3 C L 69 22 136/71 04/13/24 21:25 69 12 151/59 H 04/13/24 21:15 36.6 C 76 16 147/65 H 04/13/24 21:05 70 12 153/70 H 04/13/24 21:00 68 17 04/13/24 20:55 76 12 157/62 H 04/13/24 20:45 75 12 160/71 H 04/13/24 20:35 72 12 149/75 H 04/13/24 20:28 36.1 C L 76 11 L 156/70 H 04/13/24 16:58 36.3 C L 71 16 148/82 H 04/13/24 16:23 37 C 70 16 149/49 H 04/13/24 15:43 67 04/13/24 15:43 36.9 C 16 L 16 161/53 H 04/13/24 14:31 37 C 66 16 156/50 H 04/13/24 14:27 36.9 C 73 16 147/55 H 04/13/24 14:11 36.9 C 66 18 144/54 H 04/13/24 14:04 36.9 C 63 18 144/54 H Pulse Ox O2 Del Method O2 Flow Rate 04/13/24 22:39 92 CPAP 04/13/24 22:30 95 Room Air, CPAP 04/13/24 22:10 94 Nasal Cannula 2 04/13/24 21:25 95 Nasal Cannula 2 04/13/24 21:15 94 Nasal Cannula 2 04/13/24 21:05 96 Nasal Cannula 2 04/13/24 21:00 94 04/13/24 20:55 95 Nasal Cannula 2 04/13/24 20:45 96 Nasal Cannula 4 04/13/24 20:35 97 Nasal Cannula 4 04/13/24 20:28 99 Oxymask 9 04/13/24 16:58 94 Room Air 04/13/24 16:23 95 04/13/24 15:43 04/13/24 15:43 95 04/13/24 14:31 94 04/13/24 14:27 95 04/13/24 14:11 98 04/13/24 14:04 94 Room Air PG Care Time/CCT Total # of Minutes Spent Total Time Spent with Patient: Total time spent is greater than 50% in coordination of care (as documented) at patient's floor/unit and/or counseling patient: Coding Level of Care Code 12017 SUB INP/OBS CARE 2/35MIN Diagnoses History of left knee surgery Z98.890 KERRY (acute kidney injury) N17.9 Urinary retention R33.9
[2024-04-14] MEDS: oxyCODONE HCL IR 5 MG TAB (IMMEDIATE RELEASE) PO PRN (05:24)
[2024-04-14 06:32] LABS: Basophils # (auto) 0.01 K/uL (0.00-0.20); Basophils % (auto) 0.1 %; Hematocrit (blood only) 22.9 % (42.0-52.0); Hemoglobin 7.5 g/dl (14.0-18.0); Immature Granulocytes # (auto) 0.03 K/uL (0.01-0.20); Immature Granulocytes % (auto) 0.4 %; Lymphocytes # (auto) 1.29 K/uL (1.20-3.40); Lymphocytes % (auto) 17.3 %; Mean Corpuscular Hemoglobin 28.2 pg (25.0-34.0); Mean Corpuscular Hgb Conc 32.8 g/dL (32.0-36.0); Mean Corpuscular Volume 86.1 fL (80.0-100.0); Mean Platelet Volume 9.8 fL (9.4-12.4); Monocytes # (auto) 0.79 K/uL (0.11-0.59); Monocytes % (auto) 10.6 %; Neutrophils # (auto) 5.32 K/uL (1.40-6.50); Neutrophils % (auto) 71.6 %; Platelet Count 357 K/uL (130-400); RDW Coefficient of Variation 13.9 % (11.5-14.5); RDW Standard Deviation 43.8 fL (36.4-46.3); Red Blood Count 2.66 M/uL (4.70-6.10); White Blood Count 7.44 K/ul (4.8-10.8)
[2024-04-14 06:44] LABS: BUN Creatinine Ratio 25.7 (10-20); C Reactive Protein 18.94 mg/dl (0-0.5); Calcium 8.4 mg/dl (8.6-10.3); Creatinine Clr Calc Pharmacy 62.3 ml/min; Potassium 4.5 mmol/L (3.5-5.1)
[2024-04-14 06:55] LABS: Hypochromasia Present; Polychromasia 1+
--- NOTE | 2024-04-14 10:06 | Orthopedic Progress Note ---
Date of Service April 14, 2024 Assessment & Plan (1) History of left knee surgery: (2) Infection of left knee: Plan: The patient was educated regarding today's findings. His Hemovac drain was removed as it is nonfunctioning. Dressings were left in place. He may continue with PT and OT. Keep the brace on at all times. We will wait for culture results before tailoring antibiotics. Continue Ancef every 8 hours for now. Continue aspirin and Plavix for DVT prophylaxis. Care plan will be discussed with Dr. Martini. Admission and Anticipated Discharge Date Admission Date: April 13, 2024 Subjective This 78-year-old male is seen today in his room. He is 1 day status post irrigation and debridement of his left quadricep tendon, incision and drainage, and partial medial lateral meniscectomies as well as chondroplasty. He states he had some pain overnight and early this morning, but took some oxycodone and he is feeling comfortable now. He denies any chest pain, shortness of breath, nausea, vomiting, or abdominal pain. He has already worked with therapy this morning. He is currently laying in bed. Nursing staff note that his Hemovac drain has not been draining since the overnight shift. Physical Exam Physical Exam: General: Well-developed, well-nourished, elderly male, in no acute distress. Laying in bed. Alert and oriented. Conversive. Skin: Warm and dry with good turgor. He has postsurgical dressings in place on the left leg. His postop brace is also in place. There is no saturation of the Angel wrap's. No dressings were taken down. The Hemovac is currently fully inflated with only 2 or 3 cc of blood in the container. Musculoskeletal: The patient has intact motor function of his ankle and toes. Motor function of the knee was not assessed. No hip discomfort with logrolling of the leg or passive hip flexion. Neurologic: Gross sensation is intact across his foot and ankle by soft touch. Results & Data Vital Signs (Past 12 Hours) Vital Signs Temp Pulse Pulse Pulse Resp BP Pulse Ox 04/14/24 07:42 36.8 C 69 16 147/68 H 95 04/14/24 04:08 36.4 C L 65 18 134/66 95 04/14/24 03:30 60 18 95 04/14/24 00:29 36.3 C L 66 18 159/71 H 96 04/13/24 23:38 04/13/24 23:23 36.4 C L 67 14 135/67 93 04/13/24 22:39 36.3 C L 69 20 135/68 92 04/13/24 22:30 36.4 C L 69 12 148/66 H 95 04/13/24 22:10 36.3 C L 69 22 136/71 94 O2 Del Method O2 Flow Rate 04/14/24 07:42 Room Air 04/14/24 04:08 Room Air 04/14/24 03:30 04/14/24 00:29 Room Air 04/13/24 23:38 Room Air, CPAP 04/13/24 23:23 Room Air, CPAP 04/13/24 22:39 CPAP 04/13/24 22:30 Room Air, CPAP 04/13/24 22:10 Nasal Cannula 2 Laboratory Results CBC obtained this morning shows a white count of 7.44. H&H of 7.5 and 22.9. Platelets 357,000. PRP shows normal electrolytes. BUN of 28 with creatinine normal at 1.09. Glucose this morning is 242. C-reactive protein is 18.94. Procalcitonin is normal at 0.04. No culture results are posted yet.
--- NOTE | 2024-04-14 12:36 | Infectious Disease Consult ---
Date of Consultation April 14, 2024 Assessment & Plan (1) History of left knee surgery: (2) Weakness: (3) Quadriceps tendon rupture: (4) History of diabetes mellitus: (5) Infection of left knee: Plan This is a 78-year-old man with a past medical history of lung cancer, status p ost VIANEY lobectomy in 2018, DM2, CAD status post PCI, osteoarthritis status post L3/4 and L4/5 laminectomy with fusion in the , PVD status post angioplasty, admitted November 2023 with quadriceps tendon rupture after tripping and underwent repair on 12/20/2023, c/b MSSA surgical site infection on 01/18 (tx by ortho with Bactrim for 2 weeks prior, then admitted 03/21/2024 - 03/25/2024 for poor wound healing and underwent revision of left knee quadriceps tendon repair with I+D of left knee on 03/21/24 (per op note, quad tendon fascia defect probed and easily entered joint, soft tissue and degenerative tendon along with knee debrided). He was followed by ID during that admission. OR cx were sterile. Given probe to joint noted in the OR, he was treated for joint infection with Cefazolin for coverage of MSSA from outpatient cultures for 4 weeks scheduled to completed on 04/17/24. He was discharged to [facility] and discharged to home a few days ago. In the last several weeks he has felt increasing fatigue with sweats. More recently he has had some urinary retention after his Lopes catheter was removed by urology. He has been compliant with IV cefazolin. He presents to the ED on 04/12/24 for evaluation of increasing weakness, fever and fatigue. In the ED, he was retaining urine, Lopes catheter was placed. He denies urinary or bowel changes.His left lower extremity cast was removed and there was concern for infection. He denied any knee pain. In the ED, T36.8, HR 84, RR 20, BP 174/52, O2 sats 93% on room air. Labs noted for WBC of 9.32, hemoglobin 7.9, hematocrit 25.1, platelets 4 9, BUN 38, creatinine 1.42, CRP 22.9, ESR 55. UA without pyuria. Chest x-ray with no acute cardiopulmonary findings. MRI of the knee shows rupture of the quadriceps tendon with associated joint effusion. Left knee arthrocentesis shows 112,400 WBCs, 22,000 RBCs, 97% poly nuclear cells. MRSA screen negative. He underwent revision of the quadriceps tendon and left knee I&D with extensive debridement, chondroplasty, partial medial and lateral meniscectomy on 04/13/24. There was significant synovitis in the suprapatellar pouch. There was a RE- tear of the quadriceps tendons with a FiberWire suture intact through the patellar and within the quadricep tendons. Left knee cultures obtained and left distal quad tendon sent for pathology. Drains placed. ID consulted for recurrent knee infection. He is currently on IV cefazolin. 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 Knee arthrocentesis results concerning for continued infection, He has been on MSSA coverage with Ancef ( ~ 4 weeks). MRSA screen negative. Has not grown MRSA in the past. Will broaden antibiotics to ceftriaxone 2 g Iv daily pending OR cultures. Would ask micro to keep cx for 10 days to capture slow growing organisms. Recommendations Dced Cefazolin and started Ceftriaxone 2 g Iv daily Follow Up Bcx and OR cx 04/13 Thank you for this consult. ID will continue to follow Gabriel Bains MD, MPH Infectious Disease [facility], [facility] Call [phone] with questions Consultation Information Consultation was provided via telemedicine using two-way real-time interactive telecommunication between the patient and the telemedicine provider. For the duration of the visit, the provider was performing the assessment from a different facility than the patient. This includesuse of bluetooth stethoscope forauscultationperformed by the telepresenter that the telemedicine provider can hear if described in the physical exam. [employer] Supervisor contact information: Please call [facility] [phone]. (Phone Number For Physician Use Only) After establishing a telemedicine visit, patient was: Patient was verified with two unique identifiers Time Spent with Patient: Initial => 75 min History of Present Illness Reason for Consultation: S/p repeat I&D infected left knee Requesting Physician: ARDEN Oconnor Attending Physician: Uche Jiménez History of Present Illness This is a 78-year-old man with a past medical history of lung cancer, status post VIANEY lobectomy in 2017, DM2, CAD status post PCI, osteoarthritis status post L3/4 and L4/5 laminectomy with fusion in the , PVD status post angioplasty, admitted November 2023 with quadriceps tendon rupture after tripping and underwent repair on 12/20/2023, c/b MSSA surgical site infection on 01/18 (tx by ortho with Bactrim for 2 weeks prior, then admitted 03/21/2024 - 03/25/2024 for poor wound healing and underwent revision of left knee quadriceps tendon repair with I+D of left knee on 03/21/24 (per op note, quad tendon fascia defect probed and easily entered joint, soft tissue and degenerative tendon along with knee debrided). He was followed by ID during that admission. OR cx were sterile. Given probe to joint noted in the OR, he was treated for joint infection with Cefazolin for coverage of MSSA from outpatient cultures for 4 weeks scheduled to completed on 04/17/24. He was discharged to [facility] and discharged to home a few days ago. In the last several weeks he has felt increasing fatigue with sweats. More recently he has had some urinary retention after his Lopes catheter was removed by urology. He has been compliant with IV cefazolin. He presents to the ED on 04/12/24 for evaluation of increasing weakness, fever and fatigue. In the ED, he was retaining urine, Lopes catheter was placed. He denies urinary or bowel changes.His left lower extremity cast was removed and there was concern for infection. He denied any knee pain. In the ED, T36.8, HR 84, RR 20, BP 174/52, O2 sats 93% on room air. Labs noted for WBC of 9.32, hemoglobin 7.9, hematocrit 25.1, platelets 4 9, BUN 38, creatinine 1.42, CRP 22.9, ESR 55. UA without pyuria. Chest x-ray with no acute cardiopulmonary findings. MRI of the knee shows rupture of the quadriceps tendon with associated joint effusion. Left knee arthrocentesis shows 112,400 WBCs, 22,000 RBCs, 97% poly nuclear cells. MRSA screen negative. He underwent revision of the quadriceps tendon and left knee I&D with extensive debridement, chondroplasty, partial medial and lateral meniscectomy on 04/13/24. There was significant synovitis in the suprapatellar pouch. There was a RE- tear of the quadriceps tendons with a FiberWire suture intact through the patellar and within the quadricep tendons. Left knee cultures obtained and left distal quad tendon sent for pathology. Drains placed. ID consulted for recurrent knee infection. He is currently on IV cefazolin. Allergies Allergy/AdvReac Type Severity Reaction Status Date / Time No Known Allergies Allergy Verified 04/05/24 15:07 Home Medications Medication Instructions Recorded Confirmed Type diabetic supplies, miscellan. #1 ea 12/31/20 04/01/24 History diphenhydramine HCl 25 mg capsule 25 mg PO QAM PRN Congestion 07/17/22 04/12/24 History (Benadryl) multivitamin 1 tab PO QAM 08/18/22 04/12/24 History nitroglycerin 0.4 mg sublingual 0.4 mg sublingual Q5M PRN chest 08/29/22 04/12/24 Rx tablet pain #30 tabs acetaminophen 500 mg tablet 500 mg PO Q6H PRN Pain 09/26/22 04/12/24 History magnesium 200 mg tablet 400 mg PO HS 09/26/22 04/12/24 History omeprazole 20 mg capsule,delayed 20 mg PO QPM 09/26/22 04/12/24 History release potassium gluconate 600 mg (99 mg) 600 mg PO QAM 09/26/22 04/12/24 History tablet atorvastatin 40 mg tablet 40 mg PO HS #90 tabs 10/09/23 10/15/24 Rx Auto Titrating CPAP #1 ea 05/30/23 04/05/24 Rx CPAP Supplies #1 ea 05/30/23 04/05/24 Rx albuterol sulfate 90 mcg/actuation 2 puff inhalation Q6H PRN 10/02/23 04/12/24 Rx aerosol inhaler Shortness Of Breath Or Wheezing #18 grams umeclidinium 62.5 mcg-vilanterol 1 inh inhalation DAILY #3 Inhalers 10/02/23 04/12/24 Rx 25 mcg/actuation powdr for inhalation (Anoro Ellipta) benazepril 10 mg tablet 10 mg PO QAM #90 tabs 10/08/23 04/12/24 Rx clopidogrel 75 mg tablet 75 mg PO QAM #90 tabs 10/08/23 04/12/24 Rx fenofibrate 160 mg tablet 160 mg PO QAM #90 tabs 10/08/23 04/12/24 Rx hydrocortisone 2.5 % topical cream 1 applic topical BID PRN Other 12/18/23 04/12/24 History ketoconazole 2 % topical cream 1 applic topical BID PRN Other 12/18/23 04/12/24 History metformin 1,000 mg tablet 1,000 mg PO HS 12/18/23 04/12/24 History polyethylene glycol 3350 17 gram 17 g PO DAILY #0 ea 12/24/23 04/05/24 Rx oral powder packet (Miralax) aspirin 81 mg tablet,delayed 81 mg PO BID 6 weeks #84 tabs 01/08/24 04/12/24 Rx release (Enteric Coated Aspirin) melatonin 10 mg capsule 3 mg (0.3 x 10 mg) PO HS PRN sleep 01/08/24 04/12/24 Rx #30 caps mirabegron 50 mg tablet,extended 50 mg PO QAM #90 tabs 02/11/24 04/12/24 Rx release 24 hr (Myrbetriq) metoprolol tartrate 25 mg tablet 12.5 mg (1/2 x 25 mg) PO BID #180 03/03/24 04/12/24 Rx tabs oxycodone 5 mg tablet 5 - 10 mg (1 - 2 x 5 mg) PO Q4H 03/25/24 04/12/24 Rx PRN Post op pain control #28 tabs docusate sodium 100 mg capsule 100 mg PO .COMPLEX 04/05/24 04/12/24 History Patient History Medical History History of colon polyps Hearing loss Acid reflux Osteoarthritis History of non-ST elevation myocardial infarction (NSTEMI) 06/2022 Peripheral vascular disease, unspecified SJ (obstructive sleep apnea) CPAP Carotid artery stenosis Under surveillance by vascular Carotid duplex 01/2023: 50-69% B/L ICA stenosis. No significant change compared to 04/15/2022 study per report. Hyperlipidemia Per records Anemia Chronic Peripheral arterial disease Hypertension Diabetes NIDDM Glaucoma CAD (coronary artery disease) RCA stent (~2014) CABG x2 (06/2022) Follows with [facility] cardio COPD (chronic obstructive pulmonary disease) BPH (benign prostatic hyperplasia) Hx of basal cell carcinoma H/O: lung cancer 2016- Left Upper Lobectomy Currently under surveillance, no current/recent issues Surgical History H/O left knee surgery Patellar tendon repair 11/2023 History of Mohs micrographic surgery for skin cancer H/O right coronary artery stent placement (~2014) H/O angioplasty L femoral in 2005 and 11/2020, R femoral in 2018 and 10/2019 History of coronary artery bypass graft CABGx2 (06/2022) History of selective laser trabeculoplasty History of prostate surgery [facility] Laser [facility] [place] [place] History of colonoscopy History of cardiac cath 06/2022 [facility] > transferred to [facility] for [facility]G Status post biopsy of skin S/P coronary artery stent placement H/O umbilical hernia repair History of lobectomy of lung VIANEY for stage 1A lung cancer (2016) H/O cataract extraction R/L H/O laminectomy L3/4 1990 L4/5 w/ fusion 1992 H/O vasectomy H/O right knee surgery Family History Brother Lung cancer Father Heart disease Hypertension Mother Cerebral aneurysm Other No family history of adverse response to anesthesia Social History Smoking Status: Former smoker Tobacco Type: Cigarettes Age Started Using Tobacco: 19; Age Quit Using Tobacco: 69; packs per day: 1.5; Cigarettes Per Day: 30; Smoking End Date: 2014; Second Hand Exposure: No; Do You Dip or Chew Tobacco: No; Tobacco Cessation Education Requested by Patient: No Hx Alcohol Use: Yes Alcohol type: beer Alcohol Intake Frequency: Monthly or Less Hx Substance Use: No Preferred Language: [place] Communication Ability: Effective Visual Impairment: No Limitations Hearing Ability: Normal Public Relations Professional Required: No Beliefs That Will Affect Care: None marital status: Current Living Situation: Family Current Living Situation Comment: sister Shayy current occupational status: retired current occupation: Retired Other Information That Helps Us Care for You: No Feels Safe at Home: Yes Safety Concerns: Feels Safe At This Time Childhood Exposure to Second-Hand Smoke: No Diet: regular Dental Care, Regularly: No Physical Activity Frequency: Daily Seatbelt Use: always Sunscreen Use: Yes Assistive Devices: Cane and Walker Review of System A 10 point ROS obtained. Pertinent positives as per HPI Physical Exam Physical Exam: GEN- NAD, pleasant HEENT- anicteric sclera Lungs- NO increased work of breathing Abdomen- Soft, Not tender, not distended. Extremities- RLE in reyna dressing and in Immobilizer, drain in place with bloody fluid, RUE Picc clean with no s/o infection Neurology- AAO times 3 Psych- cooperative Results & Data Vital Signs (Past 12 Hours) Vital Signs Temp Pulse Pulse Resp BP Pulse Ox O2 Del Method 04/14/24 11:23 36.6 C 63 16 134/57 L 96 Room Air 04/14/24 08:30 Room Air 04/14/24 07:42 36.8 C 69 16 147/68 H 95 Room Air 04/14/24 04:08 36.4 C L 65 18 134/66 95 Room Air 04/14/24 03:30 60 18 95 Laboratory Results Laboratory Results - last 48 hr 04/12/24 04/12/24 04/13/24 17:40 20:25 05:56 WBC 9.32 7.04 RBC 2.86 L 2.55 L Hgb 7.9 L 7.1 L Hct 25.1 L 22.2 L MCV 87.8 87.1 MCH 27.6 27.8 MCHC 31.5 L 32.0 RDW Std Deviation 45.2 45.1 RDW Coeff of [place] 14.0 14.2 Plt Count 409 H 388 MPV 9.6 9.9 Immature Gran % (Auto) 0.6 Neut % (Auto) 63.1 Lymph % (Auto) 22.1 [place] % (Auto) 12.8 Eos % (Auto) 1.3 Baso % (Auto) 0.1 Neut # (Auto) 5.88 Lymph # (Auto) 2.06 [place] # (Auto) 1.19 H Eos # (Auto) 0.12 Baso # (Auto) 0.01 Immature Gran # (Auto) 0.06 RBC Morphology Unremarkable Polychromasia Hypochromasia ESR 55 H Sodium 138 141 Potassium 4.6 4.2 Chloride 107 109 H Carbon Dioxide 23 23 Anion Gap 8 9 BUN 38 H 31 H Creatinine 1.42 H 1.10 D Est Cr Clr Drug Dosing Not Reportable 61.7 eGFR 50.26 68.29 BUN/Creatinine Ratio 26.8 H 28.2 H Glucose 150 H 136 H POC Glucose Calcium 9.0 8.6 Magnesium 1.7 Total Bilirubin 0.3 AST 16 ALT 4 L Alkaline Phosphatase 46 Troponin I High Sens 34.9 H 35.5 H C-Reactive Protein 22.90 H Total Protein 7.3 Albumin 3.3 L Globulin 4.0 Albumin/Globulin Ratio 0.8 L Procalcitonin Urine Color Yellow Urine Appearance Clear Urine pH 6.0 Ur Specific [place] 1.020 Urine Protein 2+ H Urine Glucose (UA) Negative Urine Ketones Negative Urine Blood Negative Urine Nitrite Negative Urine Bilirubin Negative Urine Urobilinogen Negative Ur Leukocyte Esterase Negative Urine WBC (Auto) 0-5 Urine RBC (Auto) 0-2 U Hyaline Cast (Auto) 0-2 U Epithel Cells (Auto) 0-2 Urine Bacteria (Auto) None Seen Fluid Comment Synovial Source Synovial Color Synovial Appearance Synovial WBC (Auto) Synovial RBC (Auto) Synovial Polynuclear % Synovial Mononuclear % Synovial Crystals Nasal Screen MRSA (PCR) Blood Type Blood Type Recheck Antibody Screen Crossmatch 04/13/24 04/13/24 04/13/24 06:25 07:48 10:33 WBC RBC Hgb Hct MCV MCH MCHC RDW Std Deviation RDW Coeff of [place] Plt Count MPV Immature Gran % (Auto) Neut % (Auto) Lymph % (Auto) [place] % (Auto) Eos % (Auto) Baso % (Auto) Neut # (Auto) Lymph # (Auto) [place] # (Auto) Eos # (Auto) Baso # (Auto) Immature Gran # (Auto) RBC Morphology Polychromasia Hypochromasia ESR Sodium Potassium Chloride Carbon Dioxide Anion Gap BUN Creatinine Est Cr Clr Drug Dosing eGFR BUN/Creatinine Ratio Glucose POC Glucose 194 H Calcium Magnesium Total Bilirubin AST ALT Alkaline Phosphatase Troponin I High Sens C-Reactive Protein Total Protein Albumin Globulin Albumin/Globulin Ratio Procalcitonin Urine Color Urine Appearance Urine pH Ur Specific [place] Urine Protein Urine Glucose (UA) Urine Ketones Urine Blood Urine Nitrite Urine Bilirubin Urine Urobilinogen Ur Leukocyte Esterase Urine WBC (Auto) Urine RBC (Auto) U Hyaline Cast (Auto) U Epithel Cells (Auto) Urine Bacteria (Auto) Fluid Comment Synovial Source Left Knee Synovial Color Straw Synovial Appearance Turbid Synovial WBC (Auto) 487369 H Synovial RBC (Auto) 76990 Synovial Polynuclear % 97.0 Synovial Mononuclear % 3.0 Synovial Crystals Nasal Screen MRSA (PCR) Negative Blood Type Blood Type Recheck Antibody Screen Crossmatch 04/13/24 04/13/24 04/13/24 10:52 11:37 11:40 WBC RBC Hgb Hct MCV MCH MCHC RDW Std Deviation RDW Coeff of [place] Plt Count MPV Immature Gran % (Auto) Neut % (Auto) Lymph % (Auto) [place] % (Auto) Eos % (Auto) Baso % (Auto) Neut # (Auto) Lymph # (Auto) [place] # (Auto) Eos # (Auto) Baso # (Auto) Immature Gran # (Auto) RBC Morphology Polychromasia Hypochromasia ESR Sodium Potassium Chloride Carbon Dioxide Anion Gap BUN Creatinine Est Cr Clr Drug Dosing eGFR BUN/Creatinine Ratio Glucose POC Glucose 149 H Calcium Magnesium Total Bilirubin AST ALT Alkaline Phosphatase Troponin I High Sens C-Reactive Protein Total Protein Albumin Globulin Albumin/Globulin Ratio Procalcitonin Urine Color Urine Appearance Urine pH Ur Specific [place] Urine Protein Urine Glucose (UA) Urine Ketones Urine Blood Urine Nitrite Urine Bilirubin Urine Urobilinogen Ur Leukocyte Esterase Urine WBC (Auto) Urine RBC (Auto) U Hyaline Cast (Auto) U Epithel Cells (Auto) Urine Bacteria (Auto) Fluid Comment Synovial Source Synovial Color Synovial Appearance Synovial WBC (Auto) Synovial RBC (Auto) Synovial Polynuclear % Synovial Mononuclear % Synovial Crystals Nasal Screen MRSA (PCR) Blood Type O Positive Blood Type Recheck O Positive Antibody Screen NEGATIVE Crossmatch See Detail 04/13/24 04/13/24 04/14/24 16:39 20:48 05:59 WBC 7.44 RBC 2.66 L Hgb 7.5 L Hct 22.9 L MCV 86.1 MCH 28.2 MCHC 32.8 RDW Std Deviation 43.8 RDW Coeff of [place] 13.9 Plt Count 357 MPV 9.8 Immature Gran % (Auto) 0.4 Neut % (Auto) 71.6 Lymph % (Auto) 17.3 [place] % (Auto) 10.6 Eos % (Auto) 0.0 Baso % (Auto) 0.1 Neut # (Auto) 5.32 Lymph # (Auto) 1.29 [place] # (Auto) 0.79 H Eos # (Auto) 0.00 Baso # (Auto) 0.01 Immature Gran # (Auto) 0.03 RBC Morphology Polychromasia 1+ Hypochromasia Present ESR Sodium 138 Potassium 4.5 Chloride 107 Carbon Dioxide 25 Anion Gap 6 BUN 28 H Creatinine 1.09 Est Cr Clr Drug Dosing 62.3 eGFR 69.04 BUN/Creatinine Ratio 25.7 H Glucose 242 H POC Glucose 166 H 200 H Calcium 8.4 L Magnesium Total Bilirubin AST ALT Alkaline Phosphatase Troponin I High Sens C-Reactive Protein 18.94 H Total Protein Albumin Globulin Albumin/Globulin Ratio Procalcitonin 0.04 Urine Color Urine Appearance Urine pH Ur Specific [place] Urine Protein Urine Glucose (UA) Urine Ketones Urine Blood Urine Nitrite Urine Bilirubin Urine Urobilinogen Ur Leukocyte Esterase Urine WBC (Auto) Urine RBC (Auto) U Hyaline Cast (Auto) U Epithel Cells (Auto) Urine Bacteria (Auto) Fluid Comment Synovial Source Synovial Color Synovial Appearance Synovial WBC (Auto) Synovial RBC (Auto) Synovial Polynuclear % Synovial Mononuclear % Synovial Crystals Nasal Screen MRSA (PCR) Blood Type Blood Type Recheck Antibody Screen Crossmatch 04/14/24 04/14/24 07:41 11:25 WBC RBC Hgb Hct MCV MCH MCHC RDW Std Deviation RDW Coeff of [place] Plt Count MPV Immature Gran % (Auto) Neut % (Auto) Lymph % (Auto) [place] % (Auto) Eos % (Auto) Baso % (Auto) Neut # (Auto) Lymph # (Auto) [place] # (Auto) Eos # (Auto) Baso # (Auto) Immature Gran # (Auto) RBC Morphology Polychromasia Hypochromasia ESR Sodium Potassium Chloride Carbon Dioxide Anion Gap BUN Creatinine Est Cr Clr Drug Dosing eGFR BUN/Creatinine Ratio Glucose POC Glucose 235 H 211 H Calcium Magnesium Total Bilirubin AST ALT Alkaline Phosphatase Troponin I High Sens C-Reactive Protein Total Protein Albumin Globulin Albumin/Globulin Ratio Procalcitonin Urine Color Urine Appearance Urine pH Ur Specific [place] Urine Protein Urine Glucose (UA) Urine Ketones Urine Blood Urine Nitrite Urine Bilirubin Urine Urobilinogen Ur Leukocyte Esterase Urine WBC (Auto) Urine RBC (Auto) U Hyaline Cast (Auto) U Epithel Cells (Auto) Urine Bacteria (Auto) Fluid Comment Synovial Source Synovial Color Synovial Appearance Synovial WBC (Auto) Synovial RBC (Auto) Synovial Polynuclear % Synovial Mononuclear % Synovial Crystals Nasal Screen MRSA (PCR) Blood Type Blood Type Recheck Antibody Screen Crossmatch Diagnostic Findings Microbiology 04/13/24 10:52 Blood Aerobic Blood Culture - Preliminary No growth in Aerobic bottle after 24 hours. 04/13/24 10:52 Blood Anaerobic Blood Culture - Preliminary No growth in Anaerobic bottle after 24 hours. 04/13/24 10:59 Blood Aerobic Blood Culture - Preliminary No growth in Aerobic bottle after 24 hours. 04/13/24 10:59 Blood Anaerobic Blood Culture - Preliminary No growth in Anaerobic bottle after 24 hours. 04/13/24 17:43 Knee,Left Gram Stain - Final 04/13/24 17:43 Knee,Left Aerobic and Anaerobic Culture - Preliminary No growth to date. 04/13/24 10:33 Knee,Left Gram Stain - Final 04/13/24 10:33 Knee,Left Aerobic and Anaerobic Culture - Preliminary No growth to date. Chest X-Ray 04/12/24 20:40 XR chest 1V portable CLINICAL HISTORY: Weakness. COMPARISON STUDY: Chest CT April 23, 2022. Chest radiograph December 18, 2023. FINDINGS: There are median sternotomy wires, mediastinal surgical clips and a right PICC. No pneumothorax or pleural effusion is present. There is no consolidation to suggest pneumonia. Cardiomegaly is unchanged. Pulmonary vascu larity is normal. IMPRESSION: No acute cardiopulmonary findings. Cardiomegaly. ACT 112: Negative or not required by law. Electronically signed by: Mina Morrow M.D. 04/13/2024 6:54 AM Knee MRI 04/13/24 10:45 MR knee LT wo con CLINICAL HISTORY: left knee effusion; quad tendon rupture TECHNIQUE: Multiplanar, multisequence images of the left knee were obtained. Comparison: Comparison is made to knee radiographs 09/09/2021 FINDINGS: There is a rupture of the quadriceps tendon. The medial and lateral collateral ligaments are intact. The anterior and posterior cruciate ligaments are intact. The medial and lateral menisci demonstrate normal signal. The articular cartilage is unremarkable. There is a large joint effusion. Popliteal cyst is seen. IMPRESSION: Rupture of the quadriceps tendon with associated joint effusion. ACT 112: Negative or not required by law. Electronically signed by: Wang Lee M.D. 04/13/2024 1:44 PM Medications Administered Home Medications Medication Instructions Recorded Confirmed Last Taken diabetic supplies, julio. #1 ea 12/31/20 04/01/24 Unknown diphenhydramine HCl 25 mg capsule 25 mg PO QAM PRN Congestion 07/17/22 04/12/24 03/20/24 21:00 (Benadryl) multivitamin 1 tab PO QAM 08/18/22 04/12/24 03/21/24 06:00 nitroglycerin 0.4 mg sublingual 0.4 mg sublingual Q5M PRN chest 08/29/22 04/12/24 Unknown tablet pain #30 tabs acetaminophen 500 mg tablet 500 mg PO Q6H PRN Pain 09/26/22 04/12/24 03/21/24 06:00 magnesium 200 mg tablet 400 mg PO HS 09/26/22 04/12/24 03/20/24 21:00 omeprazole 20 mg capsule,delayed 20 mg PO QPM 09/26/22 04/12/24 03/18/24 release potassium gluconate 600 mg (99 mg) 600 mg PO QAM 09/26/22 04/12/24 03/21/24 06:00 tablet atorvastatin 40 mg tablet 40 mg PO HS #90 tabs 04/06/23 04/12/24 03/20/24 21:00 Auto Titrating CPAP #1 ea 05/30/23 04/05/24 Unknown CPAP Supplies #1 ea 05/30/23 04/05/24 Unknown albuterol sulfate 90 mcg/actuation 2 puff inhalation Q6H PRN 10/02/23 04/12/24 03/19/24 aerosol inhaler Shortness Of Breath Or Wheezing #18 grams umeclidinium 62.5 mcg-vilanterol 1 inh inhalation DAILY #3 Inhalers 10/02/23 04/12/24 03/20/24 09:00 25 mcg/actuation powdr for inhalation (Anoro Ellipta) benazepril 10 mg tablet 10 mg PO QAM #90 tabs 10/08/23 04/12/24 03/19/24 clopidogrel 75 mg tablet 75 mg PO QAM #90 tabs 10/08/23 04/12/24 03/19/24 fenofibrate 160 mg tablet 160 mg PO QAM #90 tabs 10/08/23 04/12/24 03/21/24 06:00 hydrocortisone 2.5 % topical cream 1 applic topical BID PRN Other 12/18/23 04/12/24 03/20/24 10:00 ketoconazole 2 % topical cream 1 applic topical BID PRN Other 12/18/23 04/12/24 03/20/24 10:00 metformin 1,000 mg tablet 1,000 mg PO HS 12/18/23 04/12/24 03/19/24 polyethylene glycol 3350 17 gram 17 g PO DAILY #0 ea 12/24/23 04/05/24 2 Weeks Ago oral powder packet (Miralax) ~03/07/24 aspirin 81 mg tablet,delayed 81 mg PO BID 6 weeks #84 tabs 01/08/24 04/12/24 03/21/24 06:00 release (Enteric Coated Aspirin) melatonin 10 mg capsule 3 mg (0.3 x 10 mg) PO HS PRN sleep 01/08/24 04/12/24 03/20/24 21:00 #30 caps mirabegron 50 mg tablet,extended 50 mg PO QAM #90 tabs 02/11/24 04/12/24 03/21/24 06:00 release 24 hr (Myrbetriq) metoprolol tartrate 25 mg tablet 12.5 mg (1/2 x 25 mg) PO BID #180 03/03/24 04/12/24 03/20/24 21:00 tabs oxycodone 5 mg tablet 5 - 10 mg (1 - 2 x 5 mg) PO Q4H 03/25/24 04/12/24 Unknown PRN Post op pain control #28 tabs docusate sodium 100 mg capsule 100 mg PO .COMPLEX 04/05/24 04/12/24 Unknown Active Medications Generic Name Dose Route Start Last Admin Trade Name Freq PRN Reason Stop Dose Admin Aspirin 81 mg 04/13/24 09:00 04/14/24 08:01 Aspirin 81 Mg Ectab PO 05/13/24 08:59 81 mg BID MICHAEL Administration Atorvastatin Calcium 40 mg 04/13/24 21:00 04/13/24 22:19 Atorvastatin 40 Mg Tab PO 05/13/24 20:59 40 mg HS MICHAEL Administration Clopidogrel Bisulfate 75 mg 04/13/24 09:00 04/14/24 08:02 Clopidogrel Bisulfate 75 Mg Tab PO 05/13/24 08:59 75 mg QAM MICHAEL Administration Docusate Sodium 100 mg 04/13/24 09:00 04/14/24 08:13 Docusate Sodium 100 Mg Cap PO 05/13/24 08:59 100 mg DAILY MICHAEL Administration Enalapril Maleate 5 mg 04/13/24 09:00 04/14/24 08:02 Enalapril Maleate 5 Mg Tab PO 05/13/24 08:59 5 mg QAM MICHAEL Administration Heparin Sodium (Beef Lung) 5 ml 04/13/24 17:27 04/14/24 08:47 Heparin 10 Unit/Ml 5 Ml Flush FLUSH 05/13/24 17:26 5 ml PRN PRN Administration Flush Cefazolin Sodium 2,000 mg in 15 mls @ 3.75 mls/min 04/13/24 06:00 04/14/24 05:25 Ancef 2000mg IV 05/25/24 05:59 3.75 mls/min Q8H MICHAEL Administration Insulin Aspart 0 units 04/13/24 07:30 04/14/24 08:12 Insulin Aspart Per Unit Charge SC 05/13/24 07:29 5 units ACHS MICHAEL Administration Metoprolol Tartrate 12.5 mg 04/13/24 09:00 04/14/24 08:01 Metoprolol Tartrate 25 Mg Tab PO 05/13/24 08:59 12.5 mg BID MICHAEL Administration Oxycodone HCl 5 mg 04/12/24 23:10 04/14/24 05:24 Oxycodone Hcl Ir 5 Mg Tab (Immediate Release) PO 04/26/24 23:09 5 mg Q6H PRN Administration Pain Pantoprazole Sodium 40 mg 04/13/24 09:00 04/14/24 08:02 Pantoprazole 40 Mg Tab PO 05/13/24 08:59 40 mg DAILY MICHAEL Administration Umeclidinium/Vilanterol 1 puffs 04/13/24 09:00 04/14/24 08:02 Umeclidinium/Vilanterol 62.5/25mcg 7 Puffs/Inhaler INH 05/13/24 08:59 1 puffs DAILY MICHAEL Administration (3) Quadriceps tendon rupture Encounter type: subsequent encounter Laterality: left Qualified Code(s): S76.112D - Strain of left quadriceps muscle, fascia and tendon, subsequent encounter
[2024-04-14] MEDS: ACETAMINOPHEN 500 MG TAB PO PRN (17:08)
[2024-04-14] MEDS: cefTRIAXone SODIUM 2,000 MG/50 ML BAG IV SCH (18:01)
--- NOTE | 2024-04-14 22:32 | Hospitalist Progress Note ---
Date of Service April 14, 2024 Assessment & Plan (1) History of left knee surgery: Plan: Left septic knee Patient with left quadriceps tendon rupture s/p repair, s/p infection with subsequent washout. Now with hard cast still in place. Some leg pain which developed yesterday as well as fever. Recurrence of infection confirmed. Patient will be going for a wash out Appreciatre input from ortho: Will broaden antibiotics to ceftriaxone 2 g Iv daily pending OR cultures. Would ask micro to keep cx for 10 days to capture slow growing organisms. -Ortho consultation -Continue Ancef -Oxycodone PRN Anemia Will transfuse one unit of PRBC. hemoglobin stable. (2) KERRY (acute kidney injury): Plan: Patient with elevation of BUN and Cr. Reports some decreased UOP of late -LR at 80mL/hr x 1L ordered -Repeat BMP in AM -Avoid nephrotoxic agents -Renal dosing where needed (3) Urinary retention: Plan: Almendarez catheter placed in the ER. Patient reports Myrbetriq was recently discontinued -Almendarez maintenance -Monitor I/Os Plan Chronic medical issues: SJ - chronic, stable -CPAP qHS COPD - chronic -Continue Anoro Ellipta -Albuterol PRN GERD - chronic -Continue Protonix Hypertension -Continue Metoprolol, Enalapril Diabetes -ISS CAD -Continue Plavix, ASA and Atorvastatin Admission and Anticipated Discharge Date Admission Date: April 13, 2024 Subjective Patient reports no new symptoms. Review of Systems Review of Systems: All systems reviewed & are unremarkable except as noted in HPI & below Physical Exam Physical Exam: General: patient resting comfortably, NAD, non-toxic in appearance, AA&O x 4 Skin: warm, dry, intact, no rashes or lesions HEENT: NC/AT, PERRL, EOMI, Results & Data Results & Data Vital Signs (Past 12 Hours) Vital Signs Temp Pulse Pulse Resp BP Pulse Ox O2 Del Method 04/14/24 19:42 36.7 C 77 16 152/66 H 96 Room Air 04/14/24 14:23 36.8 C 74 16 159/66 H 97 Room Air 04/14/24 11:23 36.6 C 63 16 134/57 L 96 Room Air PG Care Time/CCT Total # of Minutes Spent Total Time Spent with Patient: Total time spent is greater than 50% in coordination of care (as documented) at patient's floor/unit and/or counseling patient: Coding Level of Care Code 00876 SUB INP/OBS CARE 35MIN Diagnoses History of left knee surgery Z98.890 KERRY (acute kidney injury) N17.9 Urinary retention R33.9
--- NOTE | 2024-04-15 09:49 | Orthopedic Progress Note ---
Date of Service April 15, 2024 Assessment & Plan (1) History of left knee surgery: Plan: Day 2 status post Left Knee Arthroscopic Incision and Drainage (Extensive Debridement), Chondroplasty: Patella, MFC, LTP; Partial Medial and Lateral Meniscectomy; Open Irrigation and Debridement PT/OT Ice with easy wrap DVT prophylaxis with aspirin and Plavix Cultures showed no growth to date Weightbearing as tolerated with brace locked in extension with walker assistance Continue IV Rocephin 2g ordered by infectious disease Dressing may be changed if saturated. A new 1 was applied today Pain control with p.o. medication Patient will most likely need inpatient rehab following discharge Follow-up with [facility] orthopedics in 1 weeks With questions contact our clinic at [phone] Appreciate ID input. Continue care per primary service. Admission and Anticipated Discharge Date Admission Date: April 13, 2024 Supervising Physician Co-Signing Physician Notes I, Dr. Martini, saw and examined the patient with my PA and agree with the above findings and plan of care I developed and discussed with my PA. Subjective This 78-year-old male is day 2 status post Left Knee Arthroscopic Incision and Drainage (Extensive Debridement), Chondroplasty: Patella, MFC, LTP; Partial Medial and Lateral Meniscectomy; Open Irrigation and Debridement With Dr. Martini. Patient states he is doing fairly well. He states his pain is well-controlled with p.o. pain medication he is receiving. He states that his drain was pulled yesterday. He does have some seepage through the surgical dressing. He states that he is able to bear some slight weight with the brace locked in extension. He also states that he met with infectious disease and they changed his antibiotic from Ancef to Rocephin. Currently he denies chest pain, shortness of breath, fever, chills, sweats, nausea, vomiting or diarrhea. He currently has a Almendarez catheter in place. Review of Systems Review of Systems: All systems reviewed & are unremarkable except as noted in Subjective Physical Exam Physical Exam: Left lower extremity: Patient is able to perform an active straight leg raise test and actively dorsi and plantarflex his foot. He is able to actively flex his knee to about 15 degrees and has most comfort at terminal extension. He has brace was removed as well as his surgical dressing. The outer Angel wrap had become saturated in the proximal area. I remove the entire dressing lightly cleansed around the incision sites with saline sterile wipes. I reapplied Xeroform, sterile 4 x 4's, ABDs, 2 layers of Kerlix and a 6 inch Angel bandage. Patient was able to detect light sensation to touch over the pads of his digits. His peripheral pulses were 1+. He is neurovascularly intact in the left lower extremity. Results & Data Vital Signs (Past 12 Hours) Vital Signs Temp Pulse Pulse Resp BP Pulse Ox O2 Del Method 04/15/24 07:56 36.7 C 76 16 160/56 H 93 Room Air 04/15/24 03:58 77 23 96 04/14/24 23:30 72 22 95 Diagnostic Findings Laboratory Results WBC 7.44 K/ul (4.8-10.8) 04/14/24 05:59 RBC 2.66 M/uL (4.70-6.10) L 04/14/24 05:59 Hgb 7.5 g/dl (14.0-18.0) L 04/14/24 05:59 Hct 22.9 % (42.0-52.0) L 04/14/24 05:59 MCV 86.1 fL (80.0-100.0) 04/14/24 05:59 MCH 28.2 pg (25.0-34.0) 04/14/24 05:59 MCHC 32.8 g/dL (32.0-36.0) 04/14/24 05:59 RDW Std Deviation 43.8 fL (36.4-46.3) 04/14/24 05:59 RDW Coeff of [place] 13.9 % (11.5-14.5) 04/14/24 05:59 Plt Count 357 K/uL (130-400) 04/14/24 05:59 MPV 9.8 fL (9.4-12.4) 04/14/24 05:59 Immature Gran % (Auto) 0.4 % 04/14/24 05:59 Neut % (Auto) 71.6 % 04/14/24 05:59 Lymph % (Auto) 17.3 % 04/14/24 05:59 [place] % (Auto) 10.6 % 04/14/24 05:59 Eos % (Auto) 0.0 % 04/14/24 05:59 Baso % (Auto) 0.1 % 04/14/24 05:59 Neut # (Auto) 5.32 K/uL (1.40-6.50) 04/14/24 05:59 Lymph # (Auto) 1.29 K/uL (1.20-3.40) 04/14/24 05:59 [place] # (Auto) 0.79 K/uL (0.11-0.59) H 04/14/24 05:59 Eos # (Auto) 0.00 K/uL (0.00-0.50) 04/14/24 05:59 Baso # (Auto) 0.01 K/uL (0.00-0.20) 04/14/24 05:59 Immature Gran # (Auto) 0.03 K/uL (0.01-0.20) 04/14/24 05:59 RBC Morphology Unremarkable 04/12/24 17:40 Polychromasia 1+ 04/14/24 05:59 Hypochromasia Present 04/14/24 05:59 ESR 55 mm/hr (0-20) H 04/12/24 17:40 Sodium 138 mmol/L (136-145) 04/14/24 05:59 Potassium 4.5 mmol/L (3.5-5.1) 04/14/24 05:59 Chloride 107 mmol/L (98-107) 04/14/24 05:59 Carbon Dioxide 25 mmol/L (21-32) 04/14/24 05:59 Anion Gap 6 (3-11) 04/14/24 05:59 BUN 28 mg/dl (6-23) H 04/14/24 05:59 Creatinine 1.09 mg/dl (0.6-1.4) 04/14/24 05:59 Est Cr Clr Drug Dosing 62.3 ml/min 04/14/24 05:59 eGFR 69.04 04/14/24 05:59 BUN/Creatinine Ratio 25.7 (10-20) H 04/14/24 05:59 Glucose 242 mg/dl (70-99(Fasting)) H 04/14/24 05:59 POC Glucose 148 mg/dl (70-99) H 04/15/24 07:54 Calcium 8.4 mg/dl (8.6-10.3) L 04/14/24 05:59 Magnesium 1.7 mg/dl (1.7-2.4) 04/12/24 17:40 Total Bilirubin 0.3 mg/dl (0.2-1.0) 04/12/24 17:40 AST 16 U/L (13-39) 04/12/24 17:40 ALT 4 U/L (7-52) L 04/12/24 17:40 Alkaline Phosphatase 46 U/L (34-104) 04/12/24 17:40 Troponin I High Sens 35.5 pg/ml (0-20) H 04/13/24 05:56 C-Reactive Protein 18.94 mg/dl (0-0.5) H 04/14/24 05:59 Total Protein 7.3 gm/dl (6.0-8.3) 04/12/24 17:40 Albumin 3.3 gm/dl (3.4-5.0) L 04/12/24 17:40 Globulin 4.0 gm/dl (2.5-4.0) 04/12/24 17:40 Albumin/Globulin Ratio 0.8 (0.9-2) L 04/12/24 17:40 Procalcitonin 0.04 ng/ml (0-0.5) 04/14/24 05:59 Urine Color Yellow 04/12/24 20:25 Urine Appearance Clear (Clear) 04/12/24 20:25 Urine pH 6.0 (4.5-7.5) 04/12/24 20:25 Ur Specific [place] 1.020 (1.000-1.030) 04/12/24 20:25 Urine Protein 2+ (Negative) H 04/12/24 20:25 Urine Glucose (UA) Negative (Negative) 04/12/24 20:25 Urine Ketones Negative (Negative) 04/12/24 20:25 Urine Blood Negative (Negative) 04/12/24 20:25 Urine Nitrite Negative (Negative) 04/12/24 20:25 Urine Bilirubin Negative (Negative) 04/12/24 20:25 Urine Urobilinogen Negative (Negative) 04/12/24 20:25 Ur Leukocyte Esterase Negative (Negative) 04/12/24 20:25 Urine WBC (Auto) 0-5 /hpf (0-5) 04/12/24 20:25 Urine RBC (Auto) 0-2 /hpf (0-2) 04/12/24 20:25 U Hyaline Cast (Auto) 0-2 /lpf (0-2) 04/12/24 20:25 U Epithel Cells (Auto) 0-2 /hpf (0-2) 04/12/24 20:25 Urine Bacteria (Auto) None Seen (None Seen) 04/12/24 20:25 Fluid Comment 04/13/24 10:33 Synovial Source Left Knee 04/13/24 10:33 Synovial Color Straw 04/13/24 10:33 Synovial Appearance Turbid 04/13/24 10:33 Synovial WBC (Auto) 425500 /ul (0-200) H 04/13/24 10:33 Synovial RBC (Auto) 82923 /uL 04/13/24 10:33 Synovial Polynuclear % 97.0 % 04/13/24 10:33 Synovial Mononuclear % 3.0 % 04/13/24 10:33 Synovial Crystals 04/13/24 10:33 Nasal Screen MRSA (PCR) Negative (Negative) 04/13/24 06:25 Blood Type O Positive 04/13/24 10:52 Blood Type Recheck O Positive 04/13/24 11:40 Antibody Screen NEGATIVE 04/13/24 10:52 Crossmatch See Detail 04/13/24 10:52 Impressions Chest X-Ray 04/12/24 20:40 XR chest 1V portable CLINICAL HISTORY: Weakness. COMPARISON STUDY: Chest CT April 23, 2022. Chest radiograph December 18, 2023. FINDINGS: There are median sternotomy wires, mediastinal surgical clips and a right PICC. No pneumothorax or pleural effusion is present. There is no consolidation to suggest pneumonia. Cardiomegaly is unchanged. Pulmonary vascularity is normal. IMPRESSION: No acute cardiopulmonary findings. Cardiomegaly. ACT 112: Negative or not required by law. Electronically signed by: Mina Morrow M.D. 04/13/2024 6:54 AM Knee MRI 04/13/24 10:45 MR knee LT wo con CLINICAL HISTORY: left knee effusion; quad tendon rupture TECHNIQUE: Multiplanar, multisequence images of the left knee were obtained. Comparison: Comparison is made to knee radiographs 09/09/2021 FINDINGS: There is a rupture of the quadriceps tendon. The medial and lateral collateral ligaments are intact. The anterior and posterior cruciate ligaments are intact. The medial and lateral menisci demonstrate normal signal. The articular cartilage is unremarkable. There is a large joint effusion. Popliteal cyst is seen. IMPRESSION: Rupture of the quadriceps tendon with associated joint effusion. ACT 112: Negative or not required by law. Electronically signed by: Wang Lee M.D. 04/13/2024 1:44 PM
[2024-04-15 10:14] LABS: Hematocrit (blood only) 23.2 % (42.0-52.0); Hemoglobin 7.3 g/dl (14.0-18.0); Mean Corpuscular Hemoglobin 27.7 pg (25.0-34.0); Mean Corpuscular Hgb Conc 31.5 g/dL (32.0-36.0); Mean Corpuscular Volume 87.9 fL (80.0-100.0); Mean Platelet Volume 9.7 fL (9.4-12.4); Platelet Count 374 K/uL (130-400); RDW Standard Deviation 45.1 fL (36.4-46.3); Red Blood Count 2.64 M/uL (4.70-6.10)
[2024-04-15 10:26] LABS: BUN Creatinine Ratio 29.1 (10-20); Calcium 8.3 mg/dl (8.6-10.3); Creatinine Clr Calc Pharmacy 61.7 ml/min; Potassium 4.2 mmol/L (3.5-5.1)
[2024-04-15 11:05] LABS: C Reactive Protein 10.66 mg/dl (0-0.5)
--- NOTE | 2024-04-15 14:15 | Infectious Disease Progress Nt ---
Date of Service April 15, 2024 Assessment & Plan (1) History of left knee surgery: (2) Weakness: (3) Quadriceps tendon rupture: (4) History of diabetes mellitus: (5) Infection of left knee: Plan This is a 78-year-old man with a past medical history of lung cancer, status post VIANEY lobectomy in 2018, DM2, CAD status post PCI, osteoarthritis status post L3/4 and L4/5 laminectomy with fusion in the , PVD status post angioplasty, admitted November 2023 with quadriceps tendon rupture after tripping and underwent repair on 12/20/2023, c/b MSSA surgical site infection on 01/18 (tx by ortho with Bactrim for 2 weeks prior, then admitted 03/21/2024 - 03/25/2024 for poor wound healing and underwent revision of left knee quadriceps tendon repair with I+D of left knee on 03/21/24 (per op note, quad tendon fascia defect probed and easily entered joint, soft tissue and degenerative tendon along with knee debrided). He was followed by ID during that admission. OR cx were sterile. Given probe to joint noted in the OR, he was treated for joint infection with Cefazolin for coverage of MSSA from outpatient cultures for 4 weeks scheduled to completed on 04/17/24. He was discharged to [facility] and discharged to home a few days ago. In the last several weeks he has felt increasing fatigue with sweats. More recently he has had some urinary retention after his Lopes catheter was removed by urology. He has been compliant with IV cefazolin. He presents to the ED on 04/12/24 for evaluation of increasing weakness, fever and fatigue. In the ED, he was retaining urine, Lopes catheter was placed. He denies urinary or bowel changes.His left lower extremity cast was removed and there was concern for infection. He denied any knee pain. In the ED, T36.8, HR 84, RR 20, BP 174/52, O2 sats 93% on room air. Labs noted for WBC of 9.32, hemoglobin 7.9, hematocrit 25.1, platelets 4 9, BUN 38, creatinine 1.42, CRP 22.9, ESR 55. UA without pyuria. Chest x-ray with no acute cardiopulmonary findings. MRI of the knee shows rupture of the quadriceps tendon with associated joint effusion. Left knee arthrocentesis shows 112,400 WBCs, 22,000 RBCs, 97% poly nuclear cells. MRSA screen negative. He underwent revision of the quadriceps tendon and left knee I&D with extensive debridement, chondroplasty, partial medial and lateral meniscectomy on 04/13/24. There was significant synovitis in the suprapatellar pouch. There was a RE- tear of the quadriceps tendons with a FiberWire suture intact through the patellar and within the quadricep tendons. Left knee cultures obtained and left distal quad tendon sent for pathology. Drains placed. ID consulted for recurrent knee infection. He was continued on IV cefazolin. 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 Knee arthrocentesis results concerning for continued infection, He has been on MSSA coverage with Ancef ( ~ 4 weeks). MRSA screen negative. Has not grown MRSA in the past. I broadened antibiotics to ceftriaxone 2 g Iv daily pending OR cultures. He remains stable. I asked micro to keep cx for 10 days to capture slow growing organisms. Recommendations Ceftriaxone 2 g Iv daily Follow Up Bcx Follow OR cx 04/13, asked lab to hold for a longer course He completed about 4 weeks of abx ( cefazolin) for presumed joint infection, with presumed persistent infection. Will likely need a longer course of abx ( po vs IV) for persistent infection based on culture growth. He has not grown MRSA or PSA in past or currently. Can consider Ceftriaxone and Doxy if cx remains sterile. Final abx choice and duration will be based on cx and path results. . ID will continue to follow.ID connect will not round over the weekend. Call [phone] with questions Gabriel Bains MD, MPH Infectious Disease ID Connect [facility], ID Division C Admission and Anticipated Discharge Date Admission Date: April 13, 2024 Subjective This patient recommendation is based on a telemedicine consult request which was completed asynchronously through chart review and information provided by the primary physician. The patient was not seen or examined today. The evaluation is consultative in nature and all patient care and treatment decisions can either be accepted or rejected by the patient's primary hospital-based treating physician using their own independent medical judgment for their patient. Time Spent Reviewing Chart: 21 - 30 minutes Intraop cx pending. G/s no org Tissue path pending Afebrile wbc 7.6, cr 1.10 Results & Data Vital Signs (Past 12 Hours) Vital Signs Temp Pulse Pulse Resp BP Pulse Ox O2 Del Method 04/15/24 07:56 36.7 C 76 16 160/56 H 93 Room Air 04/15/24 03:58 77 23 96 Laboratory Results 04/13/24 10:52 Aerobic Blood Culture - Preliminary Blood No growth in Aerobic bottle after 48 hours. Anaerobic Blood Culture - Preliminary No growth in Anaerobic bottle after 48 hours. 04/13/24 10:59 Aerobic Blood Culture - Preliminary Blood No growth in Aerobic bottle after 48 hours. Anaerobic Blood Culture - Preliminary No growth in Anaerobic bottle after 48 hours. 04/13/24 17:43 Gram Stain - Final Knee,Left Aerobic and Anaerobic Culture - Preliminary No growth to date. 04/13/24 10:33 Gram Stain - Final Knee,Left Aerobic and Anaerobic Culture - Preliminary No growth to date. 04/15/24 04/15/24 04/15/24 11:31 09:35 07:54 WBC 7.60 RBC 2.64 L Hgb 7.3 L Hct 23.2 L MCV 87.9 MCH 27.7 MCHC 31.5 L RDW Std Deviation 45.1 RDW Coeff of Galilea 14.0 Plt Count 374 MPV 9.7 ESR 68 H Sodium 138 Potassium 4.2 Chloride 107 Carbon Dioxide 26 Anion Gap 5 BUN 32 H Creatinine 1.10 Est Cr Clr Drug Dosing 61.7 eGFR 68.29 BUN/Creatinine Ratio 29.1 H Glucose 215 H POC Glucose 152 H 148 H Calcium 8.3 L C-Reactive Protein 10.66 H 04/14/24 04/14/24 20:48 16:26 WBC RBC Hgb Hct MCV MCH MCHC RDW Std Deviation RDW Coeff of Galilea Plt Count MPV ESR Sodium Potassium Chloride Carbon Dioxide Anion Gap BUN Creatinine Est Cr Clr Drug Dosing eGFR BUN/Creatinine Ratio Glucose POC Glucose 165 H 146 H Calcium C-Reactive Protein Diagnostic Findings Chest X-Ray 04/12/24 20:40 XR chest 1V portable CLINICAL HISTORY: Weakness. COMPARISON STUDY: Chest CT April 23, 2022. Chest radiograph December 18, 2023. FINDINGS: There are median sternotomy wires, mediastinal surgical clips and a right PICC. No pneumothorax or pleural effusion is present. There is no consolidation to suggest pneumonia. Cardiomegaly is unchanged. Pulmonary vascularity is normal. IMPRESSION: No acute cardiopulmonary findings. Cardiomegaly. ACT 112: Negative or not required by law. Electronically signed by: Mina Morrow M.D. 04/13/2024 6:54 AM Knee MRI 04/13/24 10:45 MR knee LT wo con CLINICAL HISTORY: left knee effusion; quad tendon rupture TECHNIQUE: Multiplanar, multisequence images of the left knee were obtained. Comparison: Comparison is made to knee radiographs 09/09/2021 FINDINGS: There is a rupture of the quadriceps tendon. The medial and lateral collateral ligaments are intact. The anterior and posterior cruciate ligaments are intact. The medial and lateral menisci demonstrate normal signal. The articular cartilage is unremarkable. There is a large joint effusion. Popliteal cyst is seen. IMPRESSION: Rupture of the quadriceps tendon with associated joint effusion. ACT 112: Negative or not required by law. Electronically signed by: Wang Lee M.D. 04/13/2024 1:44 PM Medications Administered Home Medications Medication Instructions Recorded Confirmed Last Taken diabetic supplies, miscellan. #1 ea 12/31/20 04/01/24 Unknown diphenhydramine HCl 25 mg capsule 25 mg PO QAM PRN Congestion 07/17/22 04/12/24 03/20/24 21:00 (Benadryl) multivitamin 1 tab PO QAM 08/18/22 04/12/24 03/21/24 06:00 nitroglycerin 0.4 mg sublingual 0.4 mg sublingual Q5M PRN chest 08/29/22 04/12/24 Unknown tablet pain #30 tabs acetaminophen 500 mg tablet 500 mg PO Q6H PRN Pain 09/26/22 04/12/24 03/21/24 06:00 magnesium 200 mg tablet 400 mg PO HS 09/26/22 04/12/24 03/20/24 21:00 omeprazole 20 mg capsule,delayed 20 mg PO QPM 09/26/22 04/12/24 03/18/24 release potassium gluconate 600 mg (99 mg) 600 mg PO QAM 09/26/22 04/12/24 03/21/24 06:00 tablet atorvastatin 40 mg tablet 40 mg PO HS #90 tabs 04/06/23 04/12/24 03/20/24 21:00 Auto Titrating CPAP #1 ea 05/30/23 04/05/24 Unknown CPAP Supplies #1 ea 05/30/23 04/05/24 Unknown albuterol sulfate 90 mcg/actuation 2 puff inhalation Q6H PRN 10/02/23 04/12/24 03/19/24 aerosol inhaler Shortness Of Breath Or Wheezing #18 grams umeclidinium 62.5 mcg-vilanterol 1 inh inhalation DAILY #3 Inhalers 10/02/23 04/12/24 03/20/24 09:00 25 mcg/actuation powdr for inhalation (Anoro Ellipta) benazepril 10 mg tablet 10 mg PO QAM #90 tabs 10/08/23 04/12/24 03/19/24 clopidogrel 75 mg tablet 75 mg PO QAM #90 tabs 10/08/23 04/12/24 03/19/24 fenofibrate 160 mg tablet 160 mg PO QAM #90 tabs 10/08/23 04/12/24 03/21/24 06:00 hydrocortisone 2.5 % topical cream 1 applic topical BID PRN Other 12/18/23 04/12/24 03/20/24 10:00 ketoconazole 2 % topical cream 1 applic topical BID PRN Other 12/18/23 04/12/24 03/20/24 10:00 metformin 1,000 mg tablet 1,000 mg PO HS 12/18/23 04/12/2403/19/24 polyethylene glycol 3350 17 gram 17 g PO DAILY #0 ea 12/24/23 04/05/24 2 Weeks Ago oral powder packet (Miralax) ~03/07/24 aspirin 81 mg tablet,delayed 81 mg PO BID 6 weeks #84 tabs 01/08/24 04/12/24 03/21/24 06:00 release (Enteric Coated Aspirin) melatonin 10 mg capsule 3 mg (0.3 x 10 mg) PO HS PRN sleep 01/08/24 04/12/24 03/20/24 21:00 #30 caps mirabegron 50 mg tablet,extended 50 mg PO QAM #90 tabs 02/11/24 04/12/24 03/21/24 06:00 release 24 hr (Myrbetriq) metoprolol tartrate 25 mg tablet 12.5 mg (1/2 x 25 mg) PO BID #180 03/03/24 04/12/24 03/20/24 21:00 tabs oxycodone 5 mg tablet 5 - 10 mg (1 - 2 x 5 mg) PO Q4H 03/25/24 04/12/24 Unknown PRN Post op pain control #28 tabs docusate sodium 100 mg capsule 100 mg PO .COMPLEX 04/05/24 04/12/24 Unknown Active Medications Generic Name Dose Route Start Last Admin Trade Name Freq PRN Reason Stop Dose Admin Acetaminophen 500 mg 04/12/24 23:10 04/14/24 17:08 Acetaminophen 500 Mg Tab PO 05/12/24 23:09 500 mg Q6H PRN Administration Pain Aspirin 81 mg 04/13/24 09:00 04/15/24 08:41 Aspirin 81 Mg Ectab PO 05/13/24 08:59 81 mg BID MICHAEL Administration Atorvastatin Calcium 40 mg 04/13/24 21:00 04/14/24 22:19 Atorvastatin 40 Mg Tab PO 05/13/24 20:59 40 mg HS MICHAEL Administration Clopidogrel Bisulfate 75 mg 04/13/24 09:00 04/15/24 08:41 Clopidogrel Bisulfate 75 Mg Tab PO 05/13/24 08:59 75 mg QAM MICHAEL Administration Docusate Sodium 100 mg 04/13/24 09:00 04/15/24 08:41 Docusate Sodium 100 Mg Cap PO 11/15/24 08:59 100 mg DAILY MICHAEL Administration Enalapril Maleate 5 mg 04/13/24 09:00 04/15/24 08:41 Enalapril Maleate 5 Mg Tab PO 05/13/24 08:59 5 mg QAM MICHAEL Administration Heparin Sodium (Beef Lung) 5 ml 04/13/24 17:27 04/15/24 09:00 Heparin 10 Unit/Ml 5 Ml Flush FLUSH 05/13/24 17:26 5 ml PRN PRN Administration Flush Ceftriaxone Sodium 2,000 mg in 50 mls @ 100 mls/hr 04/14/24 17:30 04/14/24 18:31 Rocephin IV 05/26/24 17:29 Infused Q24H MICHAEL Infusion Insulin Aspart 0 units 04/13/24 07:30 04/15/24 12:19 Insulin Aspart Per Unit Charge SC 05/13/24 07:29 3 units ACHS MICHAEL Administration Metoprolol Tartrate 12.5 mg 04/13/24 09:00 04/15/24 08:42 Metoprolol Tartrate 25 Mg Tab PO 05/13/24 08:59 12.5 mg BID MICHAEL Administration Oxycodone HCl 5 mg 04/12/24 23:10 04/14/24 18:38 Oxycodone Hcl Ir 5 Mg Tab (Immediate Release) PO 04/26/24 23:09 5 mg Q6H PRN Administration Pain Pantoprazole Sodium 40 mg 04/13/24 09:00 04/15/24 08:41 Pantoprazole 40 Mg Tab PO 05/13/24 08:59 40 mg DAILY MICHAEL Administration Umeclidinium/Vilanterol 1 puffs 04/13/24 09:00 04/15/24 08:41 Umeclidinium/Vilanterol 62.5/25mcg 7 Puffs/Inhaler INH 05/13/24 08:59 1 puffs DAILY MICHAEL Administration (3) Quadriceps tendon rupture Encounter type: subsequent encounter Laterality: left Qualified Code(s): S76.112D - Strain of left quadriceps muscle, fascia and tendon, subsequent encounter
--- NOTE | 2024-04-16 09:41 | Hospitalist Progress Note ---
Date of Service April 15, 2024 Assessment & Plan (1) History of left knee surgery: Plan: Left septic knee Patient with left quadriceps tendon rupture s/p repair, s/p infection with subsequent washout. Now with hard cast still in place. Some leg pain which developed yesterday as well as fever. Recurrence of infection confirmed. Patient will be going for a wash out Appreciatre input from ortho: Will broaden antibiotics to ceftriaxone 2 g Iv daily pending OR cultures. Would ask micro to keep cx for 10 days to capture slow growing organisms. -Ortho consultation -Continue Ancef -Oxycodone PRN -appreciate input from ID> will await cultures Anemia Will transfuse one unit of PRBC. hemoglobin stable. (2) KERRY (acute kidney injury): Plan: Patient with elevation of BUN and Cr. Reports some decreased UOP of late -LR at 80mL/hr x 1L ordered -Repeat BMP in AM -Avoid nephrotoxic agents -Renal dosing where needed (3) Urinary retention: Plan: Almendarez catheter placed in the ER. Patient reports Myrbetriq was recently discontinued -Almendarez maintenance -Monitor I/Os Plan Chronic medical issues: SJ - chronic, stable -CPAP qHS COPD - chronic -Continue Anoro Ellipta -Albuterol PRN GERD - chronic -Continue Protonix Hypertension -Continue Metoprolol, Enalapril Diabetes -ISS CAD -Continue Plavix, ASA and Atorvastatin Admission and Anticipated Discharge Date Admission Date: April 13, 2024 Subjective Patient reports no new synptoms Physical Exam Physical Exam: General: patient resting comfortably, NAD, non-toxic in appearance, AA&O x 4 Skin: warm, dry, intact, no rashes or lesions HEENT: NC/AT, PERRL, EOMI, Results & Data Results & Data Vital Signs (Past 12 Hours) Vital Signs Temp Pulse Resp BP Pulse Ox O2 Del Method 04/16/24 07:53 36.5 C 74 18 176/63 H 96 Room Air 04/16/24 06:59 CPAP PG Care Time/CCT Total # of Minutes Spent Total Time Spent with Patient: Total time spent is greater than 50% in coordination of care (as documented) at patient's floor/unit and/or counseling patient: Coding Level of Care Code 11518 SUB INP/OBS CARE 2/35MIN Diagnoses History of left knee surgery Z98.890 KERRY (acute kidney injury) N17.9 Urinary retention R33.9
--- NOTE | 2024-04-16 12:15 | Orthopedic Progress Note ---
Date of Service April 16, 2024 Assessment & Plan (1) History of left knee surgery: Plan: Day 3 status post Left Knee Arthroscopic Incision and Drainage (Extensive Debridement), Chondroplasty: Patella, MFC, LTP; Partial Medial and Lateral Meniscectomy; Open Irrigation and Debridement PT/OT Ice with easy wrap DVT prophylaxis with aspirin and Plavix Cultures showed no growth to date Weightbearing as tolerated with brace locked in extension with walker, did great with PT today and is independent. May open brace while in bed. Continue IV Rocephin 2g ordered by infectious disease Dressing may be changed if saturated. A new 1 was applied today Pain control with p.o. medication Patient will most likely need inpatient rehab following discharge Follow-up with [facility] orthopedics in 1 weeks With questions contact our clinic at [phone] Appreciate ID input. Continue care per primary service. Admission and Anticipated Discharge Date Admission Date: April 13, 2024 Subjective Doing well. Physical Exam Physical Exam: LLE: Neurovascularly unchanged. Incisions clean, dry, intact, minimal dried blood/drainage on dressings. + effusion. Able to raise leg off bed with 20 deg extensor lag. Calf soft and non-tender. Results & Data Vital Signs (Past 12 Hours) Vital Signs Temp Pulse Resp BP Pulse Ox O2 Del Method 04/16/24 07:53 36.5 C 74 18 176/63 H 96 Room Air 04/16/24 06:59 CPAP Laboratory Results 04/16/24 04/16/24 04/15/24 Range/Units 11:37 07:57 20:40 POC Glucose 152 H 161 H 180 H (70-99) mg/dl 04/15/24 Range/Units 16:24 POC Glucose 174 H (70-99) mg/dl [address] [place] [address] / Director: Smitha Werner M.D. Clinical Laboratory Report Name: LINDA GUTIERREZ Acct: [id number] Status: ADM [place] : 1945 [facility] [place] Date: 04/13/24 Age: 78 Sex: M Dis Date: Loc: Medical/Surgical/Ortho [address] [place] [address]/Bed: [facility] Spec: [id number] Collected: 04/13/24 Received: 04/13/[address]: Rickey Martini MD Copy To: Lilia Grajeda D.ORock Source: Knee,Left OV Order: Ordered: Aer/Radha Cult/Sm Procedure Result Verified Site Gram Stain Final 04/13/24 Gram Stain Result Many WBCs Seen No Organisms Seen Aero/Radha Cult Preliminary 04/15/24 [place] [address] / Director: Smitha Werner M.D. Clinical Laboratory Report Name: LINDA GUTIERREZ Acct: [id number] Status: ADM IN : 1945 [facility] [place] Date: 04/13/24 Age: 78 Sex: M Dis Date: Loc: Medical/Surgical/Ortho [address] [place] [address]/Bed: N[facility] Spec: [id number] Collected: 04/13/24 Received: 04/13/[address]: Jennifer. Muñoz R (ORTHO) Copy To: Lilia Grajeda D.ORock Source: Blood OV Order: Ordered: Blood Culture Comments: Blood culture drawn venously from Left Hand. Procedure Result Verified Site Blood Culture Aerobic Preliminary 04/15/24-1199 No growth in Aerobic bottle after 48 hours. Blood Culture Anaerobic Preliminary 04/15/24-1199 No growth in Anaerobic bottle after 48 hours.
--- NOTE | 2024-04-16 22:49 | Hospitalist Progress Note ---
Date of Service April 16, 2024 Assessment & Plan (1) History of left knee surgery: Plan: Left septic knee Patient with left quadriceps tendon rupture s/p repair, s/p infection with subsequent washout. Now with hard cast still in place. Some leg pain which developed yesterday as well as fever. Recurrence of infection confirmed. Patient will be going for a wash out Appreciatre input from ortho: Will broaden antibiotics to ceftriaxone 2 g Iv daily pending OR cultures. Would ask micro to keep cx for 10 days to capture slow growing organisms. -Ortho consultation -Continue Ancef -Oxycodone PRN -appreciate input from ID> will await cultures. Remain negative. *Expected dilutional acute blood loss anemia transfused one unit of PRBC. hemoglobin stable. (2) KERRY (acute kidney injury): Plan: Patient with elevation of BUN and Cr. Reports some decreased UOP of late -LR at 80mL/hr x 1L ordered -Repeat BMP in AM -Avoid nephrotoxic agents -Renal dosing where needed (3) Urinary retention: Plan: Almendarez catheter placed in the ER. Patient reports Myrbetriq was recently discontinued -Almendarez maintenance -Monitor I/Os will inform Urology that patient is here. Plan Chronic medical issues: SJ - chronic, stable -CPAP qHS COPD - chronic -Continue Anoro Ellipta -Albuterol PRN GERD - chronic -Continue Protonix Hypertension -Continue Metoprolol, Enalapril Diabetes -ISS CAD -Continue Plavix, ASA and Atorvastatin Admission and Anticipated Discharge Date Admission Date: April 13, 2024 Subjective 78 yo male reports no new symptoms. Review of Systems Review of Systems: All systems reviewed & are unremarkable except as noted in HPI & below Physical Exam Physical Exam: General: patient resting comfortably, NAD, non-toxic in appearance, AA&O x 4 Skin: warm, dry, intact, no rashes or lesions HEENT: NC/AT, PERRL, EOMI, Results & Data Results & Data Vital Signs (Past 12 Hours) Vital Signs Temp Pulse Resp BP Pulse Ox O2 Del Method 04/16/24 19:45 CPAP 04/16/24 19:32 36.8 C 74 16 168/54 H 97 Room Air 04/16/24 15:08 36.5 C 76 18 143/61 H 96 Room Air PG Care Time/CCT Total # of Minutes Spent Total Time Spent with Patient: Total time spent is greater than 50% in coordination of care (as documented) at patient's floor/unit and/or counseling patient: Coding Level of Care Code 20025 SUB INP/OBS CARE 235MIN Diagnoses History of left knee surgery Z98.890 KERRY (acute kidney injury) N17.9 Urinary retention R33.9
[2024-04-17 06:33] LABS: Hemoglobin 8.6 g/dl (14.0-18.0); Mean Corpuscular Hemoglobin 27.4 pg (25.0-34.0); Mean Corpuscular Hgb Conc 30.7 g/dL (32.0-36.0); Mean Corpuscular Volume 89.2 fL (80.0-100.0); Mean Platelet Volume 9.5 fL (9.4-12.4); Platelet Count 429 K/uL (130-400); RDW Standard Deviation 45.2 fL (36.4-46.3); Red Blood Count 3.14 M/uL (4.70-6.10); White Blood Count 9.23 K/ul (4.8-10.8)
[2024-04-17 07:09] LABS: BUN Creatinine Ratio 26.9 (10-20); Calcium 9.5 mg/dl (8.6-10.3); Creatinine Clr Calc Pharmacy 65.3 ml/min; Potassium 4.3 mmol/L (3.5-5.1)
--- NOTE | 2024-04-17 10:11 | Hospitalist Progress Note ---
Date of Service April 17, 2024 Assessment & Plan (1) History of left knee surgery: Plan: Left septic knee This is a complicated course: admitted November 2023 with quadriceps tendon rupture after tripping and underwent repair on 12/20/2023, MSSA surgical site infection on 01/18 (treated for 2 weeks with Bactrim), Admitted 03/21/2024 - 03/25/2024 for poor wound healing and underwent revision of left knee quadriceps tendon repair with I+D of left knee on 03/21/24 Plan was 4 weeks of cefazolin. Patient returned to the ED with leg pain and fever. Arthrocenthesis was obtained and it appeared to be grossly infected. Patient again had a washout on 04/13 Appreciatre input from ortho/ID: Will broaden antibiotics to ceftriaxone 2 g Iv daily pending OR cultures. Would ask micro to keep cx for 10 days to capture slow growing organisms. Plan to keep over weekend and reconvene with Infection disease on Wednesday 04/18 -Oxycodone PRN *Expected dilutional acute blood loss anemia transfused one unit of PRBC on 04/13 hemoglobin stable. (2) KERRY (acute kidney injury): Plan: Patient with elevation of BUN and Cr. Reports some decreased UOP of late -LR at 80mL/hr x 1L ordered -Repeat BMP in AM -Avoid nephrotoxic agents -Renal dosing where needed (3) Urinary retention: Plan: Almendarez catheter placed in the ER. Patient reports Myrbetriq was recently discontinued -Almendarez maintenance -Monitor I/Os Informed Urology patient is here. No formal consult placed. Recommend reaching out again on Thursday Plan Chronic medical issues: SJ - chronic, stable -CPAP qHS COPD - chronic -Continue Anoro Ellipta -Albuterol PRN GERD - chronic -Continue Protonix Hypertension -Continue Metoprolol, Enalapril Diabetes -ISS CAD -Continue Plavix, ASA and Atorvastatin Admission and Anticipated Discharge Date Admission Date: April 13, 2024 Subjective 78 yo male reports feeling well. He has no new complaints. Review of Systems Review of Systems: All systems reviewed & are unremarkable except as noted in HPI & below Physical Exam Physical Exam: General: patient resting comfortably, NAD, non-toxic in appearance, AA&O x 4 Skin: warm, dry, intact, no rashes or lesions HEENT: NC/AT, PERRL, EOMI, Results & Data Results & Data Vital Signs (Past 12 Hours) Vital Signs Temp Pulse Pulse Resp BP Pulse Ox O2 Del Method 04/17/24 07:31 36.5 C 69 18 174/74 H 97 Room Air 04/17/24 02:30 65 22 98 04/16/24 22:58 73 24 96 PG Care Time/CCT Total # of Minutes Spent Total Time Spent with Patient: Total time spent is greater than 50% in coordination of care (as documented) at patient's floor/unit and/or counseling patient: Coding Level of Care Code 19692 SUB INP/OBS CARE 2/35MIN Diagnoses History of left knee surgery Z98.890 KERRY (acute kidney injury) N17.9 Urinary retention R33.9
--- NOTE | 2024-04-17 14:34 | Orthopedic Progress Note ---
Date of Service April 17, 2024 Assessment & Plan (1) History of left knee surgery: Plan: POD #4 status post Left Knee Arthroscopic Incision and Drainage (Extensive Debridement), Chondroplasty: Patella, MFC, LTP; Partial Medial and Lateral Meniscectomy; Open Irrigation and Debridement PT/OT Ice with easy wrap DVT prophylaxis with aspirin and Plavix Cultures showed no growth to date Weightbearing as tolerated with brace locked in extension with walker, did great with PT today and is independent. May open brace while in bed. Continue IV Rocephin 2g ordered by infectious disease Dressing may be changed prn. A new 1 was applied today Pain control with p.o. medication Patient has been accepted to [facility], ID recommended that the patient remain in house through the weekend. Follow-up with [facility]opedics in 1 weeks With questions contact our clinic at [phone] Recommend Urology consult, as were following after his last admission, continues with inability to completely void, Almendarez remains in place. Appreciate ID input. Continue care per primary service. Admission and Anticipated Discharge Date Admission Date: April 13, 2024 Subjective Feeling ok. Has not been as mobile as he would like. Physical Exam Physical Exam: LLE: Neurovascularly unchanged. Incisions clean, dry, intact, minimal dried blood on dressings. - effusion. Able to raise leg off bed with 20 deg extensor lag. Calf soft and non-tender. Results & Data Vital Signs (Past 12 Hours) Vital Signs Temp Pulse Resp BP Pulse Ox O2 Del Method 04/17/24 07:31 36.5 C 69 18 174/74 H 97 Room Air Laboratory Results 04/17/24 04/17/24 04/17/24 Range/Units 11:45 07:47 06:06 WBC 9.23 (4.8-10.8) K/ul RBC 3.14 L (4.70-6.10) M/uL Hgb 8.6 L (14.0-18.0) g/dl Hct 28.0 L (42.0-52.0) % MCV 89.2 (80.0-100.0) fL MCH 27.4 (25.0-34.0) pg MCHC 30.7 L (32.0-36.0) g/dL RDW Std Deviation 45.2 (36.4-46.3) fL RDW Coeff of Galilea 14.0 (11.5-14.5) % Plt Count 429 H (130-400) K/uL MPV 9.5 (9.4-12.4) fL Sodium 140 (136-145) mmol/L Potassium 4.3 (3.5-5.1) mmol/L Chloride 107 (98-107) mmol/L Carbon Dioxide 28 (21-32) mmol/L Anion Gap 5 (3-11) BUN 28 H (6-23) mg/dl Creatinine 1.04 (0.6-1.4) mg/dl Est Cr Clr Drug Dosing 65.3 ml/min eGFR 73.04 BUN/Creatinine Ratio 26.9 H (10-20) Glucose 168 H (70-99(Fasting)) mg/dl POC Glucose 168 H 146 H (70-99) mg/dl Calcium 9.5 (8.6-10.3) mg/dl 04/16/24 04/16/24 Range/Units 20:21 16:30 WBC (4.8-10.8) K/ul RBC (4.70-6.10) M/uL Hgb (14.0-18.0) g/dl Hct (42.0-52.0) % MCV (80.0-100.0) fL MCH (25.0-34.0) pg MCHC (32.0-36.0) g/dL RDW Std Deviation (36.4-46.3) fL RDW Coeff of Galilea (11.5-14.5) % Plt Count (130-400) K/uL MPV (9.4-12.4) fL Sodium (136-145) mmol/L Potassium (3.5-5.1) mmol/L Chloride (98-107) mmol/L Carbon Dioxide (21-32) mmol/L Anion Gap (3-11) BUN (6-23) mg/dl Creatinine (0.6-1.4) mg/dl Est Cr Clr Drug Dosing ml/min eGFR BUN/Creatinine Ratio (10-20) Glucose (70-99(Fasting)) mg/dl POC Glucose 142 H 154 H (70-99) mg/dl Calcium (8.6-10.3) mg/dl Spec: [id number] Collected: 10/ Received: 04/13/[address]: Rickey Martini MD Copy To: Lilia Grajeda D.O. Source: Knee,Left OV Order: Ordered: Aer/Radha Cult/Sm Procedure Result Verified Site Gram Stain Final 04/13/24 Gram Stain Result Many WBCs Seen No Organisms Seen Aero/Radha Cult Preliminary 04/17/24-1046 No growth to date. [address], [place] [address] / Director: Smitha Werner M.D. Clinical Laboratory Report Name: REIDLINDA CABEZAS Acct: [id number] Status: ADM IN : 1945 [facility] Date: 04/13/24 Age: 78 Sex: M Dis Date: Loc: Medical/Surgical/Ortho [address] [place] [address]/Bed: N377-2 Spec: [id number] Collected: 04/13/24 Received: 04/13/[address]: Jennifer. Muñoz R (ORTHO) Copy To: Lilia Grajeda D.ORock Source: Blood OV Order: Ordered: Blood Culture Comments: Blood culture drawn venously from Left Hand. Procedure Result Verified Site Blood Culture Aerobic Preliminary 04/15/24-1199 No growth in Aerobic bottle after 48 hours. Blood Culture Anaerobic Preliminary 04/15/24 No growth in Anaerobic bottle after 48 hours.
[2024-04-17] MEDS: POLYETHYLENE (MIRALAX) 17 GM PACK PO PRN (20:28)
[2024-04-18 07:55] LABS: Hematocrit (blood only) 28.4 % (42.0-52.0); Hemoglobin 8.9 g/dl (14.0-18.0); Mean Corpuscular Hemoglobin 27.6 pg (25.0-34.0); Mean Corpuscular Hgb Conc 31.3 g/dL (32.0-36.0); Mean Corpuscular Volume 88.2 fL (80.0-100.0); Mean Platelet Volume 9.6 fL (9.4-12.4); Platelet Count 472 K/uL (130-400); RDW Standard Deviation 45.1 fL (36.4-46.3); Red Blood Count 3.22 M/uL (4.70-6.10); White Blood Count 9.72 K/ul (4.8-10.8)
[2024-04-18 08:07] LABS: BUN Creatinine Ratio 29.6 (10-20); Calcium 9.4 mg/dl (8.6-10.3); Creatinine Clr Calc Pharmacy 62.8 ml/min; Potassium 4.1 mmol/L (3.5-5.1)
--- NOTE | 2024-04-18 09:18 | Infectious Disease Progress Nt ---
Date of Service April 18, 2024 Assessment & Plan (1) History of left knee surgery: (2) Weakness: (3) Quadriceps tendon rupture: (4) History of diabetes mellitus: (5) Infection of left knee: Plan 78yo M with h/o lung cancer s/p VIANEY lobectomy in 2017, T2DM, CAD s/p PCI, OA, s/p L3/4 and L4/5 laminectomy with fusion in , COPD, PVD s/p angioplasty, admission in November 2023 with left quadriceps tendon rupture after tripping s/p repair on 12/20/23 c/b surgical site infection on 01/18 tx with Bactrim for 2-3 weeks (cx with MSSA from left knee), admission 03/21-03/25 with poor wound healing s/p left revision of left knee quadriceps tendon repair with I+D of left knee on 03/21 (per op note, quad tendon fascia defect probed and easily entered joint, soft tissue and degenerative tendon along with knee debrided), OR cx sterile and tx with cefazolin x 4wks (eot 04/17), who presented on 04/12 with weakness, fatigue, and sweats x several weeks. More recently he has had some urinary retention after his Lopes catheter was removed by urology. In the ED, he was retaining urine, Lopes catheter was placed. No urinary or bowel changes. His left lower extremity cast was removed and there was concern for infection. He denied any knee pain. In the ED, T36.8, HR 84, RR 20, BP 174/52, O2 sats 93% on room air. Labs noted for WBC of 9.32, BUN 38, Cr 1.42, CRP 22.9, ESR 55. UA without pyuria. CXR with no acute cardiopulmonary findings. MRI of the knee showed rupture of the quadriceps tendon with associated joint effusion. Left knee arthrocentesis with 112,400 WBCs, 22,000 RBCs, 97% polynuclear cells. MRSA screen negative. He underwent revision of the quadriceps tendon and left knee I&D with extensive debridement, chondroplasty, partial medial and lateral meniscectomy on 04/13. There was significant synovitis in the suprapatellar pouch. There was a RE-tear of the quadriceps tendons with a FiberWire suture intact through the patellar and within the quadricep tendons. Left knee cultures obtained and left distal quad tendon sent for pathology. Drains placed. ID consulted 04/14 for recurrent knee infection. Cefazolin changed to CTX. OR cx negative. OR path with moderate chronic active synovitis, entrapped fragments of necrotic bone, a few fragments of refractile foreign material seen best under polarized light, hemorrhage, fat necrosis, and acutely inflamed soft tissue". It is unclear why he continues to have recurring quadricep ruptures. Knee arthrocentesis results concerning for continued infection, He has been on MSSA coverage with Ancef ( ~ 4 weeks). MRSA screen negative. Has not grown MRSA in the past. Micro was asked to keep cx for 10 days. Given negative OR cx, will treat with broader coverage with CTX/doxy for duration of 4-6 weeks for recurrent knee infection. 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 (2nd re- tear) - s/p knee I + D and re- tear revision 04/13/24 (OR cxNGTD ) # Recent Left [place] knee joint infection in setting of Left quadricep re-tear (1st re- tear) - s/p knee I + D and re- tear revision 03/21/24 (OR cx sterile) - planned for 4 wks of cefazolin eot 04/17/24 # Recent left quadriceps tendon rupture (original) s/p repair 12/20/23 c/b surgical site infection of knee (01/19/24, Cx + MSSA) s/p 2 weeks bactrim # DM2 # urine retention - lopes replaced this admission, no pyuria or bacteriuria - Odalis added doxycycline 100mg PO bid - Continue CTX 2 g Iv daily - f/u all cx, OR cx to be held for a longer course Discharge plan: - on dc, continue CTX 2g IV daily and doxycycline 100mg PO bid - duration of 4-6 weeks starting 04/13, 4wks is on 05/11, 6 wks on 05/25 - monitor weekly CBC w diff, CMP, ESR, CRP while on IV abx - please ensure he has follow up with local ID provider - when taking doxycycline, he should take with food and full glass of water, remain upright for at least 1hr after doses, apply sunscreen/cover in direct sunlight due to photosensitivity/separate doxycycline from divalent cations (Ca/Mag/Fe/Zinc) by at 3 hours to improve absorption. ID will discontinue active follow up at this time. Please do not hesitate to rec onsult the Infectious Diseases service as needed. Racquel Cornejo MD [facility], Division of Infectious Diseases [facility]: [phone] Admission and Anticipated Discharge Date Admission Date: April 13, 2024 Subjective Subsequent visit was provided via telemedicine using two-way real-time interactive telecommunication between the patient and the telemedicine provider. For the duration of the visit, the provider was performing the assessment from a different facility than the patient. This includesuse of bluetooth stethoscope forauscultationperformed by the telepresenter that the telemedicine provider can hear if described in the physical exam. Congressional Assistant contact information: Please call [facility] Call Center [phone]. (Phone Number For Physician Use Only) After establishing a telemedicine visit, patient was: Patient was verified with two unique identifiers, Patient/authorized rep acknowledged consent and understanding and Gave permission to continue telehealth session Time Spent with Patient: Subsequent => 55 min Patient reports feeling well. He denies having pain in his knee. No abdominal discomfort, vomiting, diarrhea. Physical Exam Physical Exam: General: Awake, alert, no acute distress HEENT: NC/AT, EOMI, mmm Neck: supple Lungs: respirations non-labored Heart: nl peripheral perfusion Abdomen: soft, NT/ND Ext: left knee with surgical sutures c/d/i, no effusion, nontender Results & Data Vital Signs (Past 12 Hours) Vital Signs Temp Pulse Resp BP Pulse Ox O2 Del Method 04/18/24 07:42 36.3 C L 78 16 152/66 H 95 Room Air Laboratory Results Labs reviewed. (3) Quadriceps tendon rupture Encounter type: subsequent encounter Laterality: left Qualified Code(s): S76.112D - Strain of left quadriceps muscle, fascia and tendon, subsequent encounter
--- NOTE | 2024-04-18 09:48 | Orthopedic Progress Note ---
Date of Service April 18, 2024 Assessment & Plan (1) History of left knee surgery: Plan: POD #5 status post Left Knee Arthroscopic Incision and Drainage (Extensive Debridement), Chondroplasty: Patella, MFC, LTP; Partial Medial and Lateral Meniscectomy; Open Irrigation and Debridement -PT/OT -Ice with easy wrap -DVT prophylaxis with aspirin and Plavix -Final Cultures showed no growth -Weightbearing as tolerated with brace locked in extension with walker, has been doing well with PT and is independent -May open brace while in bed. -ID was present via Telehealth during today's visit and was able to see patients knee /incision. They recommended Continue IV Rocephin 2g and add PO doxycycline x 4-6 weeks for broader coverage. Recommended weekly CBC, CMP, ESR, CRP and follow with local ID provider. Cultures will be kept for 10 days to identify if there is any slow-growing organism -Dressing may be changed prn. A new dressing was applied today with xeroform, abds and reyna wrap. -Pain control with p.o. medication -Patient has been accepted to [facility] -Follow-up with [facility] orthopedics in 1 week as scheduled -Recommend Urology consult, as were following after his last admission, continues with inability to completely void, Lopes remains in place. - patient met with [facility] after last admission and lopes was taken out, however upon readmission to hospital it was found he was retaining urine so another lopes was placed - will need urology follow up -With questions contact our clinic at [phone] -Patient is orthopedically stable for discharge Admission and Anticipated Discharge Date Admission Date: April 13, 2024 Subjective Patient was seen and examined at bedside. He reports he is overall doing well. Denies any fevers or chills. He is not having any pain in his knee. He is having some pain in his ankle that he says has been off and on. This was present prior to the surgery. He had no pain yesterday but today it seems flared. He is unsure exactly what is bringing it on Physical Exam Physical Exam: Patient's dressing was taken down. Small knee effusion. Incision is clean, dry and well-approximated with no drainage. He has no tenderness to palpation. Full strength dorsiflexion plantarflexion. He can do a straight leg raise but does have an extension lag expected postoperatively with no repair of the quadriceps tendon. Calf is supple nontender. His ankle is not swollen he does not have any pain currently palpating. No redness. He does have full range of motion of his ankle. Results & Data Vital Signs (Past 12 Hours) Vital Signs Temp Pulse Resp BP Pulse Ox O2 Del Method 04/18/24 07:42 36.3 C L 78 16 152/66 H 95 Room Air 04/18/24 07:35 Room Air, CPAP Laboratory Results 04/18/24 04/18/24 04/17/24 Range/Units 07:41 06:59 19:59 WBC 9.72 (4.8-10.8) K/ul RBC 3.22 L (4.70-6.10) M/uL Hgb 8.9 L (14.0-18.0) g/dl Hct 28.4 L (42.0-52.0) % MCV 88.2 (80.0-100.0) fL MCH 27.6 (25.0-34.0) pg MCHC 31.3 L (32.0-36.0) g/dL RDW Std Deviation 45.1 (36.4-46.3) fL RDW Coeff of Galilea 14.0 (11.5-14.5) % Plt Count 472 H (130-400) K/uL MPV 9.6 (9.4-12.4) fL Sodium 140 (136-145) mmol/L Potassium 4.1 (3.5-5.1) mmol/L Chloride 108 H (98-107) mmol/L Carbon Dioxide 24 (21-32) mmol/L Anion Gap 8 (3-11) BUN 32 H (6-23) mg/dl Creatinine 1.08 (0.6-1.4) mg/dl Est Cr Clr Drug Dosing 62.8 ml/min eGFR 69.81 BUN/Creatinine Ratio 29.6 H (10-20) Glucose 156 H (70-99(Fasting)) mg/dl POC Glucose 153 H 179 H (70-99) mg/dl Calcium 9.4 (8.6-10.3) mg/dl 04/17/24 04/17/24 Range/Units 16:58 11:45 WBC (4.8-10.8) K/ul RBC (4.70-6.10) M/uL Hgb (14.0-18.0) g/dl Hct (42.0-52.0) % MCV (80.0-100.0) fL MCH (25.0-34.0) pg MCHC (32.0-36.0) g/dL RDW Std Deviation (36.4-46.3) fL RDW Coeff of Galilea (11.5-14.5) % Plt Count (130-400) K/uL MPV (9.4-12.4) fL Sodium (136-145) mmol/L Potassium (3.5-5.1) mmol/L Chloride (98-107) mmol/L Carbon Dioxide (21-32) mmol/L Anion Gap (3-11) BUN (6-23) mg/dl Creatinine (0.6-1.4) mg/dl Est Cr Clr Drug Dosing ml/min eGFR BUN/Creatinine Ratio (10-20) Glucose (70-99(Fasting)) mg/dl POC Glucose 141 H 168 H (70-99) mg/dl Calcium (8.6-10.3) mg/dl Microbiology 04/13/24 17:43 Gram Stain - Final Knee,Left Aerobic and Anaerobic Culture - Final No growth
[2024-04-18] MEDS: TAMSULOSIN HCL 0.4 MG CAP PO ONE (10:44)
[2024-04-18] MEDS: DOXYCYCLINE HYCLATE 100 MG CAP PO SCH (11:07)
[2024-04-18 16:17] VITALS: RESP 18
--- NOTE | 2024-04-18 16:31 | Hospitalist Progress Note ---
Date of Service April 18, 2024 Assessment & Plan (1) Septic arthritis of knee, left: Plan: Timeline - * November 2023 - left quadriceps tendon rupture after tripping and underwent repair on 12/20/2023 - Dr Martini * MSSA surgical site infection on 12/2023 (treated for 2 weeks with Bactrim) * 03/21/2024 - 03/25/2024 - admission to [facility] for poor wound healing and underwent revision of left knee quadriceps tendon repair with I+D of left knee on 03/21/24 - again Dr Martini Rx - 4 weeks of cefazolin via RUE PICC (placed 03/23/24) * 04/13 - admitted for left knee pain & fever; s/p arthrocentesis 04/13 by [facility]; cell counts - WBCs >100,000 * 04/13 - went to OR with Dr Martini -- s/p Left Knee Arthroscopic Incision and Drainage (Extensive Debridement), Chondroplasty: Patella, MFC, LTP; Partial Medial and Lateral Meniscectomy; Open Irrigation and Debridement * 04/13 arthrocentesis culture and 04/13 intra-op knee cultures BOTH NEGATIVE to date appreciate Dr Martini and ID consults with recs ID advising 4-6 weeks of IV rocephin 2gm daily along with doxycycline 100mg BID again has RUE PICC in place; that PICC is just shy of 1 month old and is functioning well cont pain meds prn cont brace will need f/u with Dr Anderson, [facility] in [place], post-discharge (2) History of left knee surgery: Plan: as above in #1 (3) Quadriceps tendon rupture: Plan: as above in #1 (4) KERRY (acute kidney injury): Plan: Peak Cr 1.4 Cr today 1 (5) Acute blood loss anemia: Plan: s/p 1 unit PRBCs 10/16 H/H stable since then CBC today noted (6) Urinary retention: Plan: s/p lopes insertion this admission for recurrent retention Myrbetriq was recently discontinued in the urology clinic (04/01 office visit when his lopes was d/c; patient wanted to try and void on his own) flomax fell off med list - resumed today CT a/p obtained today to r/o urinary tract pathology - pending keep lopes at discharge send to urology post-discharge for lopes management & trial of void (7) CAD (coronary artery disease): Plan: prior h/o stents and prior h/o CABG no ischemic sx's cont asa cont plavix cont FABIANA cont metoprolol cont statin (8) SJ (obstructive sleep apnea): Plan: CPAP (9) COPD (chronic obstructive pulmonary disease): Plan: no flare at this time (10) BPH (benign prostatic hyperplasia): Plan: flomax resumed today prior h/o TURP (11) H/O: lung cancer: Plan: h/o VIANEY lobectomy 2017 (12) Diabetes: Plan: a1c 7.8% BSGs <200 cont novolog can resume metformin at d/c as creatinine is stable Plan Other chronic issues - COPD - chronic -Continue Anoro Ellipta -Albuterol PRN GERD - chronic -Continue Protonix Hypertension -Continue Metoprolol, Enalapril updated pt's sister Shayy by phone this evening anticipate d/c to [facility] tomorrow will need transportation DVT Proph - asa 81mg BID Admission and Anticipated Discharge Date Admission Date: April 13, 2024 Subjective patient sleeping when I first arrived easily awoken denies any major complaints does have L knee pain at times eating well had BM this am asks about lopes catheter, ID follow-up, etc. Review of Systems Review of Systems: gen - no fevers or chills cv - no chest pain, no orthopnea pulm - no dyspnea GI - no abd pain or N/V Physical Exam Physical Exam: gen - NAD, pleasant mouth - MMM, no thrush neck - no JVD heart - RRR, s1 s2 lungs - CTA b/l abd - soft NT ND BS+ ext - left knee in brace, pulses b/l feet 2+ psych - a/o x 3 vasc - right upper arm PICC clean Results & Data Results & Data Vital Signs (Past 12 Hours) Vital Signs Temp Pulse Pulse Resp BP Pulse Ox O2 Del Method 04/18/24 15:21 36.7 C 73 18 135/59 L 94 Room Air 04/18/24 07:42 36.3 C L 78 16 152/66 H 95 Room Air 04/18/24 07:35 Room Air, CPAP Laboratory Results Laboratory Results - last 48 hr 04/17/24 04/17/2404/17/24 11:45 16:58 19:59 WBC RBC Hgb Hct MCV MCH MCHC RDW Std Deviation RDW Coeff of Galilea Plt Count MPV Sodium Potassium Chloride Carbon Dioxide Anion Gap BUN Creatinine Est Cr Clr Drug Dosing eGFR BUN/Creatinine Ratio Glucose POC Glucose 168 H 141 H 179 H Calcium 04/18/24 04/18/24 04/18/24 06:59 07:41 11:40 WBC 9.72 RBC 3.22 L Hgb 8.9 L Hct 28.4 L MCV 88.2 MCH 27.6 MCHC 31.3 L RDW Std Deviation 45.1 RDW Coeff of Galilea 14.0 Plt Count 472 H MPV 9.6 Sodium 140 Potassium 4.1 Chloride 108 H Carbon Dioxide 24 Anion Gap 8 BUN 32 H Creatinine 1.08 Est Cr Clr Drug Dosing 62.8 eGFR 69.81 BUN/Creatinine Ratio 29.6 H Glucose 156 H POC Glucose 153 H 169 H Calcium 9.4 PG Care Time/CCT Total # of Minutes Spent Total Time Spent with Patient: Total time spent is greater than 50% in coordination of care (as documented) at patient's floor/unit and/or counseling patient: Coding Level of Care Code 32706 SUB INP/OBS CARE 3/50MIN Diagnoses Septic arthritis of knee, left M00.9 History of left knee surgery Z98.890 Rupture of left quadriceps tendon, subsequent encounter S76.112D Encounter type: subsequent encounter Laterality: left KERRY (acute kidney injury) N17.9 Acute blood loss anemia D62 Urinary retention R33.9 CAD (coronary artery disease) I25.10 SJ (obstructive sleep apnea) G47.33 COPD (chronic obstructive pulmonary disease) J44.9 BPH (benign prostatic hyperplasia) N40.0 H/O: lung cancer Z85.118 Diabetes E11.9 (3) Quadriceps tendon rupture Encounter type: subsequent encounter Laterality: left Qualified Code(s): S76.112D - Strain of left quadriceps muscle, fascia and tendon, subsequent encounter
--- NOTE | 2024-04-18 19:33 | CT Scan Report ---
Exam(s): CT ABDOMEN + PELVIS Without Contrast EXAM: CT Abdomen and Pelvis Without Intravenous Contrast CLINICAL HISTORY: Reason for exam: recurrent urinary retention; r/o urinary pathology. TECHNIQUE: Axial computed tomography images of the abdomen and pelvis without intravenous contrast. CTDI is 24.48 mGy and DLP is 1133.27 mGy-cm. Automated exposure control was utilized for the study. A dose lowering technique was utilized adhering to the principles of ALARA. COMPARISON: No relevant prior studies available. FINDINGS: Lung bases: Unremarkable. ABDOMEN: Liver: Unremarkable. Gallbladder and bile ducts: Unremarkable. No calcified stones. No ductal dilation. Pancreas: Unremarkable. No ductal dilation. Spleen: Unremarkable. No splenomegaly. Adrenals: Unremarkable. No mass. Kidneys and ureters: Small nonobstructing calcifications in both kidneys, stones and/or vascular calcifications. No hydronephrosis. Simple left kidney cyst measuring 30 mm; no follow-up indicated. Stomach and bowel: Diverticulosis without diverticulitis. No bowel obstruction. PELVIS: Appendix: Normal appendix. Bladder: Bladder decompressed around a Almendarez catheter. No stones. Reproductive: Prostate is small versus surgically absent. ABDOMEN and PELVIS: Intraperitoneal space: Unremarkable. No free air, significant free fluid, or fluid collection. Bones/joints: Lumbar spondylosis. No acute fracture. No dislocation. Soft tissues: Unremarkable. Vasculature: Atherosclerosis without aortic aneurysm. Lymph nodes: Unremarkable. No enlarged lymph nodes. IMPRESSION: No acute findings in the abdomen or pelvis. Bladder is suboptimally characterized due to decompressed state. Correlate with urinalysis. Electronically signed by: Brooklyn Avalos M.D. 04/18/24 19:32 PM
[2024-04-19 07:36] VITALS: PULSE 72; TEMP 97.7; O2SAT 96
[2024-04-19] MEDS: TAMSULOSIN HCL 0.4 MG CAP PO SCH (08:42)
[2024-04-19 09:51] LABS: BUN Creatinine Ratio 28.1 (10-20); Calcium 9.1 mg/dl (8.6-10.3); Creatinine Clr Calc Pharmacy 59.5 ml/min; Potassium 4.2 mmol/L (3.5-5.1)
[2024-04-19 10:10] LABS: Ferritin 192.1 ng/ml (8-388)
[2024-04-19 10:15] LABS: Folate (Folic Acid),Ser orPlas > 22.30 ng/ml (>5.38)
[2024-04-19 10:16] LABS: Vitamin B12 600 pg/ml (180-914)
--- NOTE | 2024-04-19 11:07 | Orthopedic Progress Note ---
Date of Service April 19, 2024 Assessment & Plan (1) History of left knee surgery: Plan: POD #6 status post Left Knee Arthroscopic Incision and Drainage (Extensive Debridement), Chondroplasty: Patella, MFC, LTP; Partial Medial and Lateral Meniscectomy; Open Irrigation and Debridement -PT/OT -Ice with easy wrap -DVT prophylaxis with aspirin and Plavix -Final Cultures showed no growth -Weightbearing as tolerated with brace locked in extension with walker, has been doing well with PT and is independent -May open brace while in bed. -ID recommended Continue IV Rocephin 2g and add PO doxycycline x 4-6 weeks for broader coverage. Recommended weekly CBC, CMP, ESR, CRP and follow with local ID provider. Cultures will be kept for 10 days to identify if there is any slow- growing organism -Dressing may be changed prn. -Pain control with p.o. medication -Patient has been accepted to [facility] with plan of transfer later today -Follow-up with [facility] orthopedics in 1 week as scheduled -Patient states that he has a urology f/u in the next week or two -With questions contact our clinic at [phone] -Patient is orthopedically stable for discharge Admission and Anticipated Discharge Date Admission Date: April 13, 2024 Subjective This 78-year-old male is day 6 status post left knee irrigation debridement and quad tendon debridement. He states that he is doing very well today. He states that he is tentatively scheduled to be discharged to [facility] for rehab later today. He states that he met with an infectious disease yesterday and had another antibiotic added to his regimen postoperatively. He states that he is scheduled to meet with urology as an outpatient in the next week or 2. Currently he denies chest pain, shortness of breath, fever, chills, sweats, nausea, vomiting or diarrhea. He still has a Almendarez catheter in place. Review of Systems Review of Systems: All systems reviewed & are unremarkable except as noted in Subjective Physical Exam Physical Exam: Left lower extremity: Patient's dressing was clean dry and intact and left in place. Patient is able to perform an active straight leg raise test and actively dorsi and plantarflex his foot. He is able to actively flex his knee to about 15 degrees and has most comfort at terminal extension. Patient was able to detect light sensation to touch over the pads of his digits. His peripheral pulses were 1+. He is neurovascularly intact in the left lower extremity. Results & Data Vital Signs (Past 12 Hours) Vital Signs Temp Pulse Resp BP Pulse Ox O2 Del Method 04/19/24 07:35 36.5 C 72 18 127/64 96 Room Air Diagnostic Findings Laboratory Results WBC 9.72 K/ul (4.8-10.8) 04/18/24 06:59 RBC 3.22 M/uL (4.70-6.10) L 04/18/24 06:59 Hgb 8.9 g/dl (14.0-18.0) L 04/18/24 06:59 Hct 28.4 % (42.0-52.0) L 04/18/24 06:59 MCV 88.2 fL (80.0-100.0) 04/18/24 06:59 MCH 27.6 pg (25.0-34.0) 04/18/24 06:59 MCHC 31.3 g/dL (32.0-36.0) L 04/18/24 06:59 RDW Std Deviation 45.1 fL (36.4-46.3) 04/18/24 06:59 RDW Coeff of [place] 14.0 % (11.5-14.5) 04/18/24 06:59 Plt Count 472 K/uL (130-400) H 04/18/24 06:59 MPV 9.6 fL (9.4-12.4) 04/18/24 06:59 Immature Gran % (Auto) 0.4 % 04/14/24 05:59 Neut % (Auto) 71.6 % 04/14/24 05:59 Lymph % (Auto) 17.3 % 04/14/24 05:59 [place] % (Auto) 10.6 % 04/14/24 05:59 Eos % (Auto) 0.0 % 04/14/24 05:59 Baso % (Auto) 0.1 % 04/14/24 05:59 Neut # (Auto) 5.32 K/uL (1.40-6.50) 04/14/24 05:59 Lymph # (Auto) 1.29 K/uL (1.20-3.40) 04/14/24 05:59 [place] # (Auto) 0.79 K/uL (0.11-0.59) H 04/14/24 05:59 Eos # (Auto) 0.00 K/uL (0.00-0.50) 04/14/24 05:59 Baso # (Auto) 0.01 K/uL (0.00-0.20) 04/14/24 05:59 Immature Gran # (Auto) 0.03 K/uL (0.01-0.20) 04/14/24 05:59 RBC Morphology Unremarkable 04/12/24 17:40 Polychromasia 1+ 04/14/24 05:59 Hypochromasia Present 04/14/24 05:59 ESR 68 mm/hr (0-20) H 04/15/24 09:35 Sodium 136 mmol/L (136-145) 04/19/24 09:09 Potassium 4.2 mmol/L (3.5-5.1) 04/19/24 09:09 Chloride 105 mmol/L (98-107) 04/19/24 09:09 Carbon Dioxide 23 mmol/L (21-32) 04/19/24 09:09 Anion Gap 8 (3-11) 04/19/24 09:09 BUN 32 mg/dl (6-23) H 04/19/24 09:09 Creatinine 1.14 mg/dl (0.6-1.4) 04/19/24 09:09 Est Cr Clr Drug Dosing 59.5 ml/min 04/19/24 09:09 eGFR 65.42 04/19/24 09:09 BUN/Creatinine Ratio 28.1 (10-20) H 04/19/24 09:09 Glucose 212 mg/dl (70-99(Fasting)) H 04/19/24 09:09 POC Glucose 153 mg/dl (70-99) H 04/19/24 07:53 Calcium 9.1 mg/dl (8.6-10.3) 04/19/24 09:09 Magnesium 1.7 mg/dl (1.7-2.4) 04/12/24 17:40 Iron 36 mcg/dl (35-175) 04/19/24 09:09 TIBC 225 mcg/dl (250-450) L 04/19/24 09:09 Unsaturated IBC 189 mcg/dl (155-355) 04/19/24 09:09 Transferrin % Sat 16 % (20-50) L 04/19/24 09:09 Ferritin 192.1 ng/ml (8-388) 04/19/24 09:09 Total Bilirubin 0.3 mg/dl (0.2-1.0) 04/12/24 17:40 AST 16 U/L (13-39) 04/12/24 17:40 ALT 4 U/L (7-52) L 04/12/24 17:40 Alkaline Phosphatase 46 U/L (34-104) 04/12/24 17:40 Troponin I High Sens 35.5 pg/ml (0-20) H 04/13/24 05:56 C-Reactive Protein 10.66 mg/dl (0-0.5) H 04/15/24 09:35 Total Protein 7.3 gm/dl (6.0-8.3) 04/12/24 17:40 Albumin 3.3 gm/dl (3.4-5.0) L 04/12/24 17:40 Globulin 4.0 gm/dl (2.5-4.0) 04/12/24 17:40 Albumin/Globulin Ratio 0.8 (0.9-2) L 04/12/24 17:40 Vitamin B12 600 pg/ml (180-914) 04/19/24 09:09 Folate > 22.30 ng/ml (>5.38) 04/19/24 09:09 Procalcitonin 0.04 ng/ml (0-0.5) 04/14/24 05:59 Urine Color Yellow 04/12/24 20:25 Urine Appearance Clear (Clear) 04/12/24 20: Urine pH 6.0 (4.5-7.5) 04/12/24 20:25 Ur Specific [place] 1.020 (1.000-1.030) 04/12/24 20:25 Urine Protein 2+ (Negative) H 04/12/24 20:25 Urine Glucose (UA) Negative (Negative) 04/12/24 20: Urine Ketones Negative (Negative) 04/12/24 20:25 Urine Blood Negative (Negative) 04/12/24 20:25 Urine Nitrite Negative (Negative) 04/12/24 20: Urine Bilirubin Negative (Negative) 04/12/24 20: Urine Urobilinogen Negative (Negative) 04/12/24 20:25 Ur Leukocyte Esterase Negative (Negative) 04/12/24 20:25 Urine WBC (Auto) 0-5 /hpf (0-5) 04/12/24 20:25 Urine RBC (Auto) 0-2 /hpf (0-2) 04/12/24 20:25 U Hyaline Cast (Auto) 0-2 /lpf (0-2) 04/12/24 20:25 U Epithel Cells (Auto) 0-2 /hpf (0-2) 04/12/24 20:25 Urine Bacteria (Auto) None Seen (None Seen) 04/12/24 20:25 Fluid Comment 04/13/24 10:33 Synovial Source Left Knee 04/13/24 10:33 Synovial Color Straw 04/13/24 10:33 Synovial Appearance Turbid 04/13/24 10:33 Synovial WBC (Auto) 882311 /ul (0-200) H 04/13/24 10:33 Synovial RBC (Auto) 91858 /uL 04/13/24 10:33 Synovial Polynuclear % 97.0 % 04/13/24 10:33 Synovial Mononuclear % 3.0 % 04/13/24 10:33 Synovial Crystals 04/13/24 10:33 Nasal Screen MRSA (PCR) Negative (Negative) 04/13/24 06:25 Blood Type O Positive 04/13/24 10:52 Blood Type Recheck O Positive 04/13/24 11:40 Antibody Screen NEGATIVE 04/13/24 10:52 Crossmatch See Detail 04/13/24 10:52 Impressions Chest X-Ray 04/12/24 20:40 XR chest 1V portable CLINICAL HISTORY: Weakness. COMPARISON STUDY: Chest CT April 23, 2022. Chest radiograph December 18, 2023. FINDINGS: There are median sternotomy wires, mediastinal surgical clips and a right PICC. No pneumothorax or pleural effusion is present. There is no consolidation to suggest pneumonia. Cardiomegaly is unchanged. Pulmonary vascularity is normal. IMPRESSION: No acute cardiopulmonary findings. Cardiomegaly. ACT 112: Negative or not required by law. Electronically signed by: Mina Morrow M.D. 04/13/2024 6:54 AM Knee MRI 04/13/24 10:45 MR knee LT wo con CLINICAL HISTORY: left knee effusion; quad tendon rupture TECHNIQUE: Multiplanar, multisequence images of the left knee were obtained. Comparison: Comparison is made to knee radiographs 09/09/2021 FINDINGS: There is a rupture of the quadriceps tendon. The medial and lateral collateral ligaments are intact. The anterior and posterior cruciate ligaments are intact. The medial and lateral menisci demonstrate normal signal. The articular cartilage is unremarkable. There is a large joint effusion. Popliteal cyst is seen. IMPRESSION: Rupture of the quadriceps tendon with associated joint effusion. ACT 112: Negative or not required by law. Electronically signed by: Wang Lee M.D. 04/13/2024 1:44 PM Abdomen/Pelvis CT 04/18/24 16:32 Exam(s): CT ABDOMEN + PELVIS Without Contrast EXAM: CT Abdomen and Pelvis Without Intravenous Contrast CLINICAL HISTORY: Reason for exam: recurrent urinary retention; r/o urinary pathology. TECHNIQUE: Axial computed tomography images of the abdomen and pelvis without intravenous contrast. CTDI is 24.48 mGy and DLP is 1133.27 mGy-cm. Automated exposure control was utilized for the study. A dose lowering technique was utilized adhering to the principles of ALARA. COMPARISON: No relevant prior studies available. FINDINGS: Lung bases: Unremarkable. ABDOMEN: Liver: Unremarkable. Gallbladder and bile ducts: Unremarkable. No calcified stones. No ductal dilation. Pancreas: Unremarkable. No ductal dilation. Spleen: Unremarkable. No splenomegaly. Adrenals: Unremarkable. No mass. Kidneys and ureters: Small nonobstructing calcifications in both kidneys, stones and/or vascular calcifications. No hydronephrosis. Simple left kidney cyst measuring 30 mm; no follow-up indicated. Stomach and bowel: Diverticulosis without diverticulitis. No bowel obstruction. PELVIS: Appendix: Normal appendix. Bladder: Bladder decompressed around a Almendarez catheter. No stones. Reproductive: Prostate is small versus surgically absent. ABDOMEN and PELVIS: Intraperitoneal space: Unremarkable. No free air, significant free fluid, or fluid collection. Bones/joints: Lumbar spondylosis. No acute fracture. No dislocation. Soft tissues: Unremarkable. Vasculature: Atherosclerosis without aortic aneurysm. Lymph nodes: Unremarkable. No enlarged lymph nodes. IMPRESSION: No acute findings in the abdomen or pelvis. Bladder is suboptimally characterized due to decompressed state. Correlate with urinalysis. Electronically signed by: Brooklyn Avalos M.D. 04/18/24 19:32 PM
--- NOTE | 2024-04-19 11:12 | Discharge Summary ---
Discharge Summary Date of Service date of admission - April 12, 2024 date of discharge - April 19, 2024 Principal Dx & Hospital Course #1 = Principal Diagnosis (1) Septic arthritis of knee, left: Timeline - * November 2023 - left quadriceps tendon rupture after tripping; underwent repair on 12/20/2023 - Dr Rickey Martini * MSSA surgical site infection - 12/2023; treated for 2 weeks with Bactrim * 03/21/2024 - 03/25/2024 - admission to [facility] for poor wound healing and underwent revision of left knee quadriceps tendon repair with I+D of left knee on 03/21/24 - again Dr Martini Rx - 4 weeks of cefazolin via RUE PICC (PICC inserted 03/23/24) * 04/13 - admitted for left leg/knee pain, weakness, & fever; s/p arthrocentesis 04/13 by [facility]; cell counts - WBCs >100,000 --> highly suspicious for septic left knee * 04/13 - went to OR with Dr Martini -- s/p Left Knee Arthroscopic Incision and Drainage (Extensive Debridement), Chondroplasty: Patella, MFC, LTP; Partial Medial and Lateral Meniscectomy; Open Irrigation and Debridement * 04/13 arthrocentesis culture and 04/13 intra-op knee culture BOTH NEGATIVE to date * blood cultures this admission - negative seen in consult by infectious diseases ID advising 4-6 weeks of IV rocephin 2gm daily along with doxycycline 100mg BID again has RUE PICC in place; that PICC is just shy of 1 month old and is functioning well cont pain meds prn cont left leg brace locked in extension will need f/u with Dr Casey Anderson, ID in [place], post-discharge for ongoing infectious disease management needs weekly CBC, CMP, sed rate, crp while on IV antibiotic therapy will need f/u with Dr Martini's office 1 week post-discharge (already scheduled) (2) History of left knee surgery: as above in #1 (3) Quadriceps tendon rupture: LEFT as above in #1 (4) KERRY (acute kidney injury): Peak Cr 1.4 Cr 1.1 on day of discharge (5) Acute blood loss anemia: s/p 1 unit PRBCs 04/13/ H/H stable since that time discharge hemoglobin - 8.9 weekly CBC needed while on IV rocephin as an outpatient (6) Urinary retention: s/p lopes insertion this admission for recurrent retention (placed 04/12/24) Myrbetriq was recently discontinued in the urology clinic (04/01/24 office visit when his lopes was d/c; patient wanted to try and void on his own following that visit) flomax fell off med list - resumed while here CT a/p obtained to r/o urinary tract pathology - nothing acute seen on CT keep lopes at discharge send to urology post-discharge for lopes management & trial of void cont flomax (7) CAD (coronary artery disease): prior h/o stents and prior h/o CABG no ischemic sx's while here cont asa cont plavix cont benazepril cont metoprolol tartrate cont lipitor (8) SJ (obstructive sleep apnea): cont CPAP at HS and naps (9) COPD (chronic obstructive pulmonary disease): no flare while hospitalized cont albuterol prn cont Incruse Ellipta daily (10) BPH (benign prostatic hyperplasia): flomax resumed while here prior h/o TURP issues with urinary retention - see above (11) H/O: lung cancer: h/o VIANEY lobectomy 2017 (12) Diabetes: Hba1c 7.8% -- 02/2024 BSGs <200 while here cont metformin 1000mg daily Plan Other chronic issues - GERD - continue Protonix Hypertension - continue Metoprolol, Benazepril DVT Proph - asa 81mg BID Transferring to [facility] at discharge Notes For Next Care Provider CBC, CMP, ESR, CRP weekly while on antibiotics for Left knee infection Medication Changes From Visit Rocephin 2gm IV daily x 4-6 weeks Doxycycline 100mg PO BID x 4-6 weeks Admission HPI Per Admitting Provider Eric Valderrama is a pleasant 78yo male with multiple medical comorbidities - HTN, HLP, CAD, DM, SJ and PAD presenting with generalized weakness. Patient with a complicated medical history - he fell down the stairs and sustained a left quadriceps tendon rupture. He was taken to the OR on 12/20/23 for surgical repair with Dr. Martini. He was ultimately discharged to [facility] on 12/24/23 where he stayed for 10 days then returned home. On 01/25/24 patient presented to the ER with acute drainage from the surgical incision and developed wound dehiscence. He was treated with PO Bactrim with improvement. He ultimately returned to the OR on 03/21/24 for revision of left quadriceps tendon repair, irrigation and debridement. He was started on IV antibiotics and ultimately discharged to [facility] for rehabilitation on 03/25/24. Patient returned home several days ago. On 04/09/24 he began feeling generalized weakness and difficulty performing his daily tasks. He developed some pain in his left leg today as well with weight bearing. Some very brief confusion He has been compliant with his IV Cefazolin 2gm q 8 hours. He receives it at 06:00, 14:00 and 22:00. No issues with the PICC line Fever 2 nights ago Some mild SOB, WITT and exercise intolerance. Difficulty with UOP No additional complaints Discharge Exam gen - NAD, pleasant mouth - MMM, no thrush neck - no JVD heart - RRR, s1 s2, no murmur lungs - CTA b/l abd - soft NT ND BS+ ext - left knee in brace, pulses b/l feet 2+ psych - a/o x 3 vasc - right upper arm PICC clean Discharge Plan Discharge Items Patient Disposition: Transfer Inpatient Rehab Fac Reason For Visit: FEVER, CHILLS, WEAKNESS Discharge Diagnosis: SUSPECTED left knee septic arthritis -- status post Left Knee Arthroscopic Incision and Drainage (Extensive Debridement), Chondroplasty: Patella, MFC, LTP; Partial Medial and Lateral Meniscectomy; Open Irrigation and Debridement - Dr Rickey Martini, [facility] Activity: Per Instructions section Weightbearing Comment: LLE WBAT with brace locked in extension Non-emergency contact: Primary Care Provider, Surgeon and Urologist Call non-emergency contact if: you have any medication questions, your symptoms worsen, your pain is not controlled, your pain is worsening, your pain is unusual for you, your pain is concerning for you, you have a fever, your wound has increased redness, your wound has increased drainage and your wound pain has increased Follow-up/Referrals: Patrick Cordero MD [Physician] - 04/29/24 10:00 am Talon Burns DO [Primary Care Provider] - 04/27/24 11:20 am Casey Anderson DO [Physician] - ([place] office - 3-4 weeks ) Ina Rubi PA-C [Physician Production Supply Equipment Tender] - 04/26/24 9:30 am Diet: Carb Consistent or DM2 and Heart Healthy Addtl Attending Provider Instructions: Mr Valderrama was admitted to [facility] for suspected left knee infection. s/p extensive left knee surgery on 04/13/24. Infectious disease recommendations -- * continue Rocephin 2g IV daily and doxycycline 100mg PO bid * duration of 4-6 weeks starting 04/13/24; 4wks is on 05/11/24, 6 wks on 05/25/24 * monitor weekly CBC w diff, CMP, ESR, CRP while on IV antibiotics * needs referral to local ID provider - Dr Casey Anderson * when taking doxycycline --> take with food and full glass of water, remain upright for at least 1hr after doses, apply sunscreen/cover in direct sunlight due to photosensitivity * separate doxycycline from any Calcium/Magnesium/Iron supplements by at 3 hours to improve absorption Lopes catheter -- LEAVE IN PLACE until seen by [facility] due to recurrent urinary retention. See appt date/time with [facility]. Current lopes placed 04/12/24. Addtl Dental Financial Coordinator Provider Instructions: Orthopedic Discharge Instructions: Continue with PT/OT Ice with easy wrap DVT prophylaxis with aspirin and Plavix Cultures showed no growth Weightbearing as tolerated with brace locked in extension with walker assistance Continue IV Rocephin 2 g and PO Doxycycline for 4-6 weeks Reinforce dressing as needed Pain control with p.o. medication Will need weekly labs CBC, BMP, ESR, CRP Follow-up with [facility] orthopedics in 1 week as scheduled with Ina Rubi PA-C 04/26 @ 9:30am With questions contact our clinic at [phone] Pending Studies at Discharge: Yes Studies:: Cultures from left knee but thus far negative Stand-Alone Forms: My [facility] Skilled Items Patient informed of condition?: Yes DNR: No Discharge Level of Care: Acute rehab Communicable Disease: No Discharge Prognosis: Stable Lines: PICC Urinary Catheter: Yes Medications and DC Order Prescriptions: New doxycycline hyclate 100 mg Capsule 100 mg PO BID Qty: 60 1RF tamsulosin 0.4 mg Capsule 0.4 mg PO QAM Qty: 30 1RF ceftriaxone 2 gram recon soln 2 g IV DAILY Qty: 30 1RF Rx Instructions: dx - septic left knee; give via right arm PICC line. Lactobacillus acidoph-L.bulgar 100 million cell granules in packet 1 packet PO BID Qty: 60 1RF ferrous sulfate 325 mg (65 mg iron) tablet 325 mg PO DAILY Qty: 30 1RF Continued atorvastatin 40 mg tablet 40 mg PO HS Qty: 90 3RF (DME) Auto Titrating CPAP Misc See Rx Instructions .MEDSUPPLY Qty: 1 0RF Rx Instructions: Auto PAP with 5-15 cm H20. Lifetime usage. G47.33 (DME) CPAP Supplies Misc See Rx Instructions .MEDSUPPLY Qty: 1 0RF Rx Instructions: CPAP supplies, mask, headgear, filters, tubing, water chamber. G47.33 clopidogrel 75 mg tablet 75 mg PO QAM Qty: 90 3RF fenofibrate 160 mg tablet 160 mg PO QAM Qty: 90 3RF benazepril 10 mg tablet 10 mg PO QAM Qty: 90 3RF multivitamin Tablet 1 tab PO QAM nitroglycerin 0.4 mg tablet, sublingual 0.4 mg sublingual Q5M PRN (Reason: chest pain) Qty: 30 5RF Rx Instructions: do not exceed 3 doses per episode (DME) diabetic supplies, miscellan. Misc See Rx Instructions .ROUTE .MEDSUPPLY Qty: 1 Rx Instructions: ONE TOUCH ULTRA- TESTS PRN albuterol sulfate 90 mcg/actuation HFA aerosol inhaler 2 puff inhalation Q6H PRN (Reason: Shortness Of Breath Or Wheezing) Qty: 18 3RF Anoro Ellipta 62.5-25 mcg/actuation blister with device 1 inh inhalation DAILY Qty: 3 4RF metoprolol tartrate 25 mg tablet 12.5 mg PO BID Qty: 180 3RF aspirin [Enteric Coated Aspirin] 81 mg tablet,delayed release (DR/EC) 81 mg PO BID 42 Days Qty: 84 0RF Rx Instructions: x6 ([facility] states at dc 7/10 states 42 more days. )weeks, then resume once daily following melatonin 10 mg capsule 3 mg PO HS PRN (Reason: sleep) Qty: 30 0RF docusate sodium 100 mg capsule 100 mg PO .COMPLEX Rx Instructions: 100 mg orally EVERY OTHER DAY PER PT; acetaminophen 500 mg tablet 500 mg PO Q6H PRN (Reason: Pain) Rx Instructions: PER PT "USUALLY TAKE 1000 MG IN MORNING AND AT HS". magnesium 200 mg Tablet 400 mg PO HS potassium gluconate 600 mg (99 mg) Tablet 600 mg PO QAM diphenhydramine HCl [Benadryl] 25 mg Capsule 25 mg PO QAM PRN (Reason: Congestion) metformin 1,000 mg tablet 1,000 mg PO HS Rx Instructions: Take 1 tablet by mouth once daily hydrocortisone 2.5 % cream 1 applic topical BID PRN (Reason: Other) Rx Instructions: Apply BID to the affected areas. ketoconazole 2 % cream 1 applic topical BID PRN (Reason: Other) Rx Instructions: Apply to the affected areas BID for 4 weeks. polyethylene glycol 3350 [Miralax] 17 gram Powder In Packet 17 g PO DAILY Qty: 0 0RF oxycodone 5 mg Tablet 5 - 10 mg PO Q4H MDD Ongoing Tx PRN (Reason: Post op pain control) Qty: 28 0RF Changed pantoprazole 40 mg tablet,delayed release (DR/EC) 40 mg PO QAM Qty: 30 5RF Discontinued Myrbetriq 50 mg tablet extended release 24 hr 50 mg PO QAM Qty: 90 1RF Discharge Orders: Discharge Order (Routine); Ordered 04/19/24 Ordered By: Everett Quiroz Admission Data Admit Date/Time: 04/13/24 22:38 Attending Provider: Everett Quiroz Admit Provider: Uche Jiménez Primary Care Provider: Talon Burns Other Providers: [place]; Lilia Grajeda; Rickey Martini; Ericka Diaz; Cee Yañez; Racquel Cornejo; Gabriel Bains; Smitha Gilbert; Sharmila Ascencio; [facility] Other Interventions: Discharge Summary Assessment (RN) Last Done: 04/19/24 12:58 Hospital Stay Data Consultations Orthopedic Surgery - [facility] Telehealth Infectious Diseases PT, OT Procedures Performed Operation Date: 04/13/24 09:55 Actual Procedures Left Knee Arthroscopic Incision and Drainage (Extensive Debriedment), Chondroplasty, Partial Medial and Lateral Meniscectomy,(Left) - Rickey Jovon Martini MD Open Irrigation and Debridement Left Knee - Rickey Jovon Martini MD PRBCs x 1 unit Diagnostic Imagining Performed Chest X-Ray 04/12/24 20:40 XR chest 1V portable CLINICAL HISTORY: Weakness. COMPARISON STUDY: Chest CT April 23, 2022. Chest radiograph December 18, 2023. FINDINGS: There are median sternotomy wires, mediastinal surgical clips and a right PICC. No pneumothorax or pleural effusion is present. There is no consolidation to suggest pneumonia. Cardiomegaly is unchanged. Pulmonary vascularity is normal. IMPRESSION: No acute cardiopulmonary findings. Cardiomegaly. ACT 112: Negative or not required by law. Electronically signed by: Mina Morrow M.D. 04/13/2024 6:54 AM Knee MRI 04/13/24 10:45 MR knee LT wo con CLINICAL HISTORY: left knee effusion; quad tendon rupture TECHNIQUE: Multiplanar, multisequence images of the left knee were obtained. Comparison: Comparison is made to knee radiographs 09/09/2021 FINDINGS: There is a rupture of the quadriceps tendon. The medial and lateral collateral ligaments are intact. The anterior and posterior cruciate ligaments are intact. The medial and lateral menisci demonstrate normal signal. The articular cartilage is unremarkable. There is a large joint effusion. Popliteal cyst is seen. IMPRESSION: Rupture of the quadriceps tendon with associated joint effusion. ACT 112: Negative or not required by law. Electronically signed by: Wang Lee M.D. 04/13/2024 1:44 PM Abdomen/Pelvis CT 04/18/24 16:32 Exam(s): CT ABDOMEN + PELVIS Without Contrast EXAM: CT Abdomen and Pelvis Without Intravenous Contrast CLINICAL HISTORY: Reason for exam: recurrent urinary retention; r/o urinary pathology. TECHNIQUE: Axial computed tomography images of the abdomen and pelvis without intravenous contrast. CTDI is 24.48 mGy and DLP is 1133.27 mGy-cm. Automated exposure control was utilized for the study. A dose lowering technique was utilized adhering to the principles of ALARA. COMPARISON: No relevant prior studies available. FINDINGS: Lung bases: Unremarkable. ABDOMEN: Liver: Unremarkable. Gallbladder and bile ducts: Unremarkable. No calcified stones. No ductal dilation. Pancreas: Unremarkable. No ductal dilation. Spleen: Unremarkable. No splenomegaly. Adrenals: Unremarkable. No mass. Kidneys and ureters: Small nonobstructing calcifications in both kidneys, stones and/or vascular calcifications. No hydronephrosis. Simple left kidney cyst measuring 30 mm; no follow-up indicated. Stomach and bowel: Diverticulosis without diverticulitis. No bowel obstruction. PELVIS: Appendix: Normal appendix. Bladder: Bladder decompressed around a Lopes catheter. No stones. Reproductive: Prostate is small versus surgically absent. ABDOMEN and PELVIS: Intraperitoneal space: Unremarkable. No free air, significant free fluid, or fluid collection. Bones/joints: Lumbar spondylosis. No acute fracture. No dislocation. Soft tissues: Unremarkable. Vasculature: Atherosclerosis without aortic aneurysm. Lymph nodes: Unremarkable. No enlarged lymph nodes. IMPRESSION: No acute findings in the abdomen or pelvis. Bladder is suboptimally characterized due to decompressed state. Correlate with urinalysis. Electronically signed by: Brooklyn Avalos M.D. 04/18/24 19:32 PM Pending Results Patient Have Any Pending Studies at Discharge: Yes Discharge Instructions Given to Patient (Per Discharging Provider) Mr Valderrama was admitted to [facility] for suspected left knee infection. s/p extensive left knee surgery on 04/13/24. Infectious disease recommendations -- * continue Rocephin 2g IV daily and doxycycline 100mg PO bid * duration of 4-6 weeks starting 04/13/24; 4wks is on 05/11/24, 6 wks on 05/25/24 * monitor weekly CBC w diff, CMP, ESR, CRP while on IV antibiotics * needs referral to local ID provider - Dr Casey Anderson * when taking doxycycline --> take with food and full glass of water, remain upright for at least 1hr after doses, apply sunscreen/cover in direct sunlight due to photosensitivity * separate doxycycline from any Calcium/Magnesium/Iron supplements by at 3 hours to improve absorption Lopes catheter -- LEAVE IN PLACE until seen by [facility] due to recurrent urinary retention. See appt date/time with [facility]. Current lopes placed 04/12/24. Total Time Total Time Spent Total Time Spent (In Minutes): 45 Coding Level of Care Code 27813 INP/OBS DISCH >30 MIN Diagnoses Septic arthritis of knee, left M00.9 History of left knee surgery Z98.890 Rupture of left quadriceps tendon, subsequent encounter S76.112D Encounter type: subsequent encounter Laterality: left KERRY (acute kidney injury) N17.9 Acute blood loss anemia D62 Urinary retention R33.9 CAD (coronary artery disease) I25.10 SJ (obstructive sleep apnea) G47.33 COPD (chronic obstructive pulmonary disease) J44.9 BPH (benign prostatic hyperplasia) N40.0 H/O: lung cancer Z85.118 Diabetes E11.9
[2024-04-19 12:59] VITALS: BP 172/68
== END 2024-04-19 13:00 | DRG 486 ==
LOC: 3N 17:24 → ED 17:24 → SUATTDRO 22:04 → 3N 22:37 → SUATTDRO 04-13 22:38 → 3N 04-14 21:49
DX: R33.9 Retention of urine, unspecified; E11.9 Type 2 diabetes mellitus without complications; K21.9 Gastro-esophageal reflux disease without esophagitis; G47.33 Obstructive sleep apnea (adult) (pediatric); M25.462 Effusion, left knee; I25.10 Atherosclerotic heart disease of native coronary artery without angina pectoris; Z95.5 Presence of coronary angioplasty implant and graft; M23.262 Derangement of other lateral meniscus due to old tear or injury, left knee; I25.2 Old myocardial infarction; Z95.1 Presence of aortocoronary bypass graft; J44.9 Chronic obstructive pulmonary disease, unspecified; M23.232 Derangement of other medial meniscus due to old tear or injury, left knee; N17.9 Acute kidney failure, unspecified; M00.862 Arthritis due to other bacteria, left knee; Z90.2 Acquired absence of lung [part of]; Z98.1 Arthrodesis status; Z85.118 Personal history of other malignant neoplasm of bronchus and lung; M66.262 Spontaneous rupture of extensor tendons, left lower leg; Z87.891 Personal history of nicotine dependence; I10 Essential (primary) hypertension; D62 Acute posthemorrhagic anemia; M96.89 Other intraoperative and postprocedural complications and disorders of the musculoskeletal system